=== PATIENT | male | born 1950 | race Caucasian/White ===

== ENCOUNTER → 2017-08-21 12:02 | Outpatient (CLI) | payer MEDICARE, SELFPAY ==
[2017-08-21 16:22] LABS: Absolute Neutrophil Count 2.7 X10^3/uL (2.0-7.7); Basophil# 0.04 X10^3/uL; Basophil% 0.7 % (0-1); Eosinophils% 1.9 % (0-5); Hematocrit 39.1 % (40-54); Hemoglobin 12.4 g/dl (13.0-16.5); Lymphocyte % 26.1 % (19-41); Mean Corp Hgb Conc 31.7 g/gl (32-36); Mean Corpuscular Hgb 25.9 pg (27.0-32.0); Mean Corpuscular Volume 81.8 fL (80-94); Mean Platelet Vol. 10.9 fl (6.2-12.0); Monocyte# 1.07 X10^3/uL; Neutrophil # 2.74 X10^3/uL (2.7-7.7); Neutrophil % 51.1 % (47-70); Platelet Count 198 K/mm3 (150-450); RBC Distribution Width CV 19.2 % (11.6-14.6); Red Blood Count 4.78 M/mm3 (4.6-6.2); White Blood Count 5.4 K/mm3 (4.4-11.0)
[2017-08-21 16:28] LABS: AST(SGOT) 29 U/L (15-37); Alanine Aminotransfer ALT/SGPT 35 U/L (16-61); Albumin, Serum 3.5 g/dL (3.2-5.0); Alkaline Phosphatase 95 U/L (45-117); Anion Gap 6 (5-15); BUN 20 mg/dL (7-18); BUN/Creat Ratio 18.2 RATIO (10-20); Calcium,Total 8.8 mg/dL (8.5-10.1); Chloride 106 mmol/L (98-107); EST Glomerular Filtration Rate 71 mL/min (>60); Est Glom Filt Rate - Afr Amer 86 mL/min (>60); Globulin 3.5 g/dL (2.2-4.2); Glucose 87 mg/dL (74-106); Potassium 4.3 mmol/L (3.5-5.1); Sodium Level 140 mmol/L (136-145); Thyroid Stim Hormone (TSH) 1.14 uIU/mL (0.358-3.74)
[2017-08-21 16:31] LABS: POSITIVE COUNT NO; POSITIVE DIFFERENTIAL NO; POSITIVE MORPHOLOGY NO
[2017-08-22 09:00] LABS: Vitamin D,25 Hydroxy 26.1 ng/mL (29.95-100.01)
== END ==
PROVIDERS: Family Provider Family Medicine Geriatric Medicine; PCP Family Medicine Geriatric Medicine; Visit Provider Family Medicine Geriatric Medicine
DX: E11.9 Type 2 diabetes mellitus without complications (principal); I10 Essential (primary) hypertension; E55.9 Vitamin D deficiency, unspecified
CPT/HCPCS: 36415; 80053; 82306; 84443; 85025

== ENCOUNTER → 2017-11-15 08:52 | Outpatient (CLI) | payer MEDICARE, SELFPAY ==
--- NOTE | 2017-11-15 08:53 | ECHOD_ITS ---
Reason For Study: Arrhythmia Procedure This was a 2D Doppler, Color Flow transthoracic echocardiogram. Exam performed in department. Left Ventricle Normal LV size. Left ventricular systolic function is normal. The estimated ejection fraction is 60 %. Normal diastology for age. No regional wall motion abnormalities noted. Right Ventricle Normal RV size. Normal systolic function. Atria The left atrium is mildly enlarged. Normal right atrium. Mitral Valve Normal mitral valve. Mild (1+) eccentric mitral valve insufficiency. Tricuspid Valve Normal tricuspid valve. Mild (1+) tricuspid valve insufficiency. Pulmonary artery systolic pressure is 28 mmHg. Aortic Valve Normal aortic valve. Trisinus/trileaflet aortic valve. Pulmonic Valve Normal pulmonic valve. Great Vessels Normal aortic root. The pulmonary artery is normal size. Normal inferior vena cava. Inferior vena cava collapse with sniff. Pericardium/Pleural No pericardial effusion. MMode/2D Measurements & Calculations LVIDd: 5.1 cm IVSd: 1.3 cm Ao root diam: 3.2 cm LVIDs: 2.9 cm LVPWd: 1.1 cm LA dimension: 4.0 cm RVDd: 3.1 cm FS: 43.8 % LAV(MOD-bp): 57.7 ml LA A4 area: 22.7 cm2 RA A4 area: 12.1 cm2 LAV(MOD-bp) Indexed: 28.4 ml/m2 LAV(MOD-sp2): 43.3 ml LAV(MOD-sp4): 73.6 ml Doppler Measurements & Calculations MV E max jatin: 60.8 cm/sec Ao V2 max: 125.2 cm/sec LV V1 max: 75.8 cm/sec MV A max jatin: 52.9 cm/sec Ao max P.3 mmHg LV V1 max P.3 mmHg MV E/A: 1.1 PA V2 max: 150.1 cm/sec TR max jatin: 253.4 cm/sec TR max P.7 mmHg Interpretation Summary Normal LV size. Left ventricular systolic function is normal. The estimated ejection fraction is 60 %. Normal diastology for age. Pulmonary artery systolic pressure is 28 mmHg. Ordering Physician: Terry Whitaker Referring Physician: Booker Thompson Chi Performed By: Carmita Saldivar RDCS
== END ==
PROVIDERS: Family Provider Family Medicine Geriatric Medicine; PCP Family Medicine Geriatric Medicine; Visit Provider Internal Medicine Cardiovascular Disease
DX: R00.2 Palpitations (principal)
CPT/HCPCS: 93306

== ENCOUNTER → 2017-12-06 17:09 | Outpatient (CLI) | payer MEDICARE, SELFPAY ==
--- NOTE | 2017-12-06 17:15 | RAD_ITS ---
STUDY: X-RAY - LEFT FOOT CLINICAL: Male, 67 years old. Left foot pain and injury TECHNIQUE: 3 view(s) of the foot. COMPARISON: None. FINDINGS: Oblique fracture through the head of the fifth metatarsal with subjacent soft tissue swelling RAD/Foot min 3 Views IMPRESSION: As above Electronically Signed: Sen Cherry DO at 17:51 EDT Tel , Service support ,
== END ==
PROVIDERS: Family Provider Family Medicine Geriatric Medicine; PCP Family Medicine Geriatric Medicine; Visit Provider Family Medicine Geriatric Medicine
DX: M79.672 Pain in left foot (principal)
CPT/HCPCS: 73630

== ENCOUNTER → 2018-01-01 07:20 | Outpatient (CLI) | payer MEDICARE, SELFPAY ==
[2018-01-02 09:40] LABS: Vitamin D,25 Hydroxy 43.1 ng/mL (29.95-100.01)
== END ==
PROVIDERS: Family Provider Family Medicine Geriatric Medicine; PCP Family Medicine Geriatric Medicine; Visit Provider Podiatrist
DX: E55.9 Vitamin D deficiency, unspecified (principal)
CPT/HCPCS: 36415; 82306

== ENCOUNTER → 2018-02-28 14:18 | Outpatient (CLI) | payer MEDICARE, SELFPAY ==
[2018-02-28 16:47] LABS: Absolute Lymphocyte Count 2.01 X10^3/ul (0.83-4.51); Absolute Neutrophil Count 8.4 X10^3/uL (2.0-7.7); Basophil# 0.01 X10^3/uL; Basophil% 0.1 % (0-1); Eosinophil# 0.01 X10^3/uL; Eosinophils% 0.1 % (0-5); Hematocrit 43.3 % (40-54); Hemoglobin 14.2 g/dl (13.0-16.5); Lymphocyte # 2.01 X10^3/ul (4.0); Lymphocyte % 17.3 % (19-41); Mean Corp Hgb Conc 32.8 g/gl (32-36); Mean Corpuscular Hgb 28.1 pg (27.0-32.0); Mean Corpuscular Volume 85.6 fL (80-94); Monocyte# 1.16 X10^3/uL; Neutrophil # 8.41 X10^3/uL (2.7-7.7); Neutrophil % 72.3 % (47-70); Platelet Count 246 K/mm3 (150-450); RBC Distribution Width CV 15.7 % (11.6-14.6); RBC Distribution Width SD 48.9 fl (35.1-43.9); Red Blood Count 5.06 M/mm3 (4.6-6.2); White Blood Count 11.6 K/mm3 (4.4-11.0)
[2018-02-28 16:59] LABS: POSITIVE COUNT NO; POSITIVE DIFFERENTIAL NO; POSITIVE MORPHOLOGY NO
[2018-02-28 17:03] LABS: Vitamin D,25 Hydroxy 38.9 ng/mL (29.95-100.01)
[2018-02-28 17:04] LABS: AST(SGOT) 15 U/L (15-37); Alanine Aminotransfer ALT/SGPT 29 U/L (16-61); Albumin, Serum 3.6 g/dL (3.2-5.0); Alkaline Phosphatase 85 U/L (45-117); Anion Gap 6 (5-15); BUN 38 mg/dL (7-18); BUN/Creat Ratio 35.8 RATIO (10-20); Calcium,Total 9.1 mg/dL (8.5-10.1); Chloride 107 mmol/L (98-107); Creatinine, Serum 1.06 mg/dL (0.70-1.30); EST Glomerular Filtration Rate 74 mL/min (>60); Est Glom Filt Rate - Afr Amer 89 mL/min (>60); Globulin 3.6 g/dL (2.2-4.2); Glucose 101 mg/dL (74-106); Potassium 4.7 mmol/L (3.5-5.1); Protein, Total 7.2 g/dL (6.4-8.2); Sodium Level 139 mmol/L (136-145); Thyroid Stim Hormone (TSH) 0.37 uIU/mL (0.358-3.74)
[2018-03-02 14:04] LABS: Hep C Antibodies <0.1 s/co ratio (0.0-0.9)
== END ==
PROVIDERS: Family Provider Family Medicine Geriatric Medicine; PCP Family Medicine Geriatric Medicine; Visit Provider Family Medicine Geriatric Medicine
DX: E11.9 Type 2 diabetes mellitus without complications (principal); I10 Essential (primary) hypertension; E55.9 Vitamin D deficiency, unspecified; E23.6 Other disorders of pituitary gland; Z12.5 Encounter for screening for malignant neoplasm of prostate; Z13.89 Encounter for screening for other disorder
CPT/HCPCS: 36415; 80053; 82306; 84403; 84443; 85025; 86803

== ENCOUNTER → 2018-09-18 15:51 | Outpatient (CLI) | payer MEDICARE, SELFPAY ==
[2017-10-12 11:02] VITALS: BMI 28.5
[2018-09-18 16:42] LABS: Absolute Lymphocyte Count 2.12 X10^3/ul (0.83-4.51); Absolute Neutrophil Count 4.2 X10^3/uL (2.0-7.7); Basophil# 0.03 X10^3/uL; Basophil% 0.4 % (0-1); Eosinophil# 0.13 X10^3/uL; Eosinophils% 1.7 % (0-5); Hematocrit 46.2 % (40-54); Hemoglobin 15.4 g/dl (13.0-16.5); Lymphocyte # 2.12 X10^3/ul (4.0); Lymphocyte % 28.3 % (19-41); Mean Corp Hgb Conc 33.3 g/gl (32-36); Mean Corpuscular Hgb 29.2 pg (27.0-32.0); Mean Corpuscular Volume 87.5 fL (80-94); Mean Platelet Vol. 10.6 fl (6.2-12.0); Monocyte# 0.98 X10^3/uL; Monocyte% 13.1 % (0-10); Neutrophil # 4.23 X10^3/uL (2.7-7.7); Neutrophil % 56.4 % (47-70); Platelet Count 226 K/mm3 (150-450); RBC Distribution Width CV 15.7 % (11.6-14.6); RBC Distribution Width SD 50.3 fl (35.1-43.9); Red Blood Count 5.28 M/mm3 (4.6-6.2); White Blood Count 7.5 K/mm3 (4.4-11.0)
[2018-09-18 16:43] LABS: POSITIVE COUNT NO; POSITIVE DIFFERENTIAL NO; POSITIVE MORPHOLOGY NO
[2018-09-18 17:09] LABS: ALB/GLOB Ratio 1.2 RATIO (0.9-2.4); AST(SGOT) 35 U/L (15-37); Alanine Aminotransfer ALT/SGPT 36 U/L (16-61); Albumin, Serum 3.7 g/dL (3.2-5.0); Alkaline Phosphatase 99 U/L (45-117); Anion Gap 6 (5-15); BUN 26 mg/dL (7-18); BUN/Creat Ratio 23.6 RATIO (10-20); Calcium,Total 8.7 mg/dL (8.5-10.1); Chloride 109 mmol/L (98-107); EST Glomerular Filtration Rate 71 mL/min (>60); Est Glom Filt Rate - Afr Amer 86 mL/min (>60); Globulin 3.2 g/dL (2.2-4.2); Glucose 96 mg/dL (74-106); Potassium 4.2 mmol/L (3.5-5.1); Protein, Total 6.9 g/dL (6.4-8.2); Sodium Level 140 mmol/L (136-145); Thyroid Stim Hormone (TSH) 1.28 uIU/mL (0.358-3.74)
== END ==
PROVIDERS: Family Provider Family Medicine Geriatric Medicine; PCP Family Medicine Geriatric Medicine; Visit Provider Family Medicine Geriatric Medicine
DX: E11.9 Type 2 diabetes mellitus without complications (principal); I10 Essential (primary) hypertension; E23.6 Other disorders of pituitary gland; E55.9 Vitamin D deficiency, unspecified
CPT/HCPCS: 36415; 80053; 82306; 84403; 84443; 85025

== ENCOUNTER → 2019-03-03 09:21 | Outpatient (CLI) | payer MEDICARE, SELFPAY ==
[2018-12-18 09:32] VITALS: BMI 27.8
[2019-03-03 12:40] LABS: Absolute Lymphocyte Count 2.14 X10^3/uL (0.83-4.51); Absolute Neutrophil Count 4.7 X10^3/uL (2.0-7.7); Basophil# 0.06 X10^3/uL; Basophil% 0.8 % (0-1); Eosinophil# 0.12 X10^3/uL; Eosinophils% 1.5 % (0-5); Hemoglobin 15.6 g/dL (13.0-16.5); Lymphocyte # 2.14 X10^3/ul (4.0); Lymphocyte % 27.3 % (19-41); Mean Corp Hgb Conc 31.8 g/dL (32-36); Mean Corpuscular Hgb 28.5 pg (27.0-32.0); Mean Corpuscular Volume 89.4 fL (80-94); Monocyte# 0.77 X10^3/uL; Monocyte% 9.8 % (0-10); NRBC Flagged by Analyzer 0 % (0-5); Neutrophil # 4.72 X10^3/uL (2.7-7.7); Neutrophil % 60.3 % (47-70); Platelet Count 193 K/mm3 (150-450); RBC Distribution Width CV 14.5 % (11.6-14.6); RBC Distribution Width SD 47.2 fl (35.1-43.9); Red Blood Count 5.48 M/mm3 (4.6-6.2); White Blood Count 7.8 K/mm3 (4.4-11.0)
[2019-03-03 13:00] LABS: ALB/GLOB Ratio 1.2 RATIO (0.9-2.4); AST(SGOT) 30 U/L (15-37); Alanine Aminotransfer ALT/SGPT 34 U/L (16-61); Albumin, Serum 3.7 g/dL (3.2-5.0); Alkaline Phosphatase 91 U/L (45-117); Anion Gap 8 (5-15); BUN 19 mg/dL (7-18); BUN/Creat Ratio 17.3 RATIO (10-20); Calcium,Total 9.1 mg/dL (8.5-10.1); Chloride 103 mmol/L (98-107); EST Glomerular Filtration Rate 71 mL/min (>60); Est Glom Filt Rate - Afr Amer 85 mL/min (>60); Globulin 3.2 g/dL (2.2-4.2); Glucose 93 mg/dL (74-106); PSA,Total - Annual Screen 0.92 ng/mL (0.00-4.00); Protein, Total 6.9 g/dL (6.4-8.2); Sodium Level 140 mmol/L (136-145); Thyroid Stim Hormone (TSH) 1.85 uIU/mL (0.358-3.74)
== END ==
PROVIDERS: Family Provider Family Medicine Geriatric Medicine; PCP Family Medicine Geriatric Medicine; Visit Provider Family Medicine Geriatric Medicine
DX: E11.9 Type 2 diabetes mellitus without complications (principal); I10 Essential (primary) hypertension; E23.6 Other disorders of pituitary gland; E55.9 Vitamin D deficiency, unspecified; Z12.5 Encounter for screening for malignant neoplasm of prostate
CPT/HCPCS: 36415; 80053; 82306; 84153; 84403; 84443; 85025; G0103

== ENCOUNTER → 2019-09-04 11:26 | Outpatient (CLI) | payer MEDICARE, SELFPAY ==
[2018-12-18 09:32] VITALS: BMI 27.8
[2019-09-04 12:37] LABS: Vitamin D,25 Hydroxy 21.2 ng/mL
[2019-09-04 12:41] LABS: Absolute Lymphocyte Count 2.38 X10^3/uL (0.83-4.51); Absolute Neutrophil Count 6.8 X10^3/uL (2.0-7.7); Basophil# 0.03 X10^3/uL; Basophil% 0.3 % (0-1); Eosinophil# 0.08 X10^3/uL; Eosinophils% 0.8 % (0-5); Hematocrit 49.4 % (40-54); Hemoglobin 15.9 g/dL (13.0-16.5); Lymphocyte # 2.38 X10^3/ul (4.0); Lymphocyte % 22.4 % (19-41); Mean Corp Hgb Conc 32.2 g/dL (32-36); Mean Corpuscular Hgb 28.5 pg (27.0-32.0); Mean Corpuscular Volume 88.7 fL (80-94); Mean Platelet Vol. 10.4 fl (6.2-12.0); Monocyte# 1.25 X10^3/uL; Monocyte% 11.8 % (0-10); NRBC Flagged by Analyzer 0 % (0-5); Neutrophil # 6.84 X10^3/uL (2.7-7.7); Neutrophil % 64.4 % (47-70); Platelet Count 192 K/mm3 (150-450); RBC Distribution Width CV 16.8 % (11.6-14.6); RBC Distribution Width SD 52.3 fl (35.1-43.9); Red Blood Count 5.57 M/mm3 (4.6-6.2); White Blood Count 10.6 K/mm3 (4.4-11.0)
[2019-09-04 12:45] LABS: AST(SGOT) 33 U/L (15-37); Alanine Aminotransfer ALT/SGPT 52 U/L (16-61); Albumin, Serum 3.4 g/dL (3.2-5.0); Alkaline Phosphatase 63 U/L (45-117); Anion Gap 3 (5-15); BUN 22 mg/dL (7-18); BUN/Creat Ratio 19.1 RATIO (10-20); Calcium,Total 9.1 mg/dL (8.5-10.1); Chloride 103 mmol/L (98-107); Creatinine, Serum 1.15 mg/dL (0.70-1.30); EST Glomerular Filtration Rate 67 mL/min (>60); Est Glom Filt Rate - Afr Amer 81 mL/min (>60); Globulin 3.5 g/dL (2.2-4.2); Glucose 67 mg/dL (74-106); Potassium 4.5 mmol/L (3.5-5.1); Protein, Total 6.9 g/dL (6.4-8.2); Sodium Level 137 mmol/L (136-145); Thyroid Stim Hormone (TSH) 1.36 uIU/mL (0.358-3.74)
== END ==
PROVIDERS: PCP Family Medicine Geriatric Medicine; Visit Provider Family Medicine Geriatric Medicine
DX: E11.9 Type 2 diabetes mellitus without complications (principal); E55.9 Vitamin D deficiency, unspecified; F52.8 Other sexual dysfunction not due to a substance or known physiological condition; I10 Essential (primary) hypertension
CPT/HCPCS: 36415; 80053; 82306; 84403; 84443; 85025

== ENCOUNTER → 2019-12-26 12:43 | Outpatient (CLI) | payer MEDICARE, SELFPAY ==
[2019-12-23 09:18] VITALS: BMI 27.1
[2020-01-02 03:07] LABS: Lyme IgG P18 Ab Absent (.); Lyme IgG P23 Ab Absent (.); Lyme IgG P28 Ab Absent (.); Lyme IgG P30 Ab Absent (.); Lyme IgG P39 Ab Absent (.); Lyme IgG P41 Ab Absent (.); Lyme IgG P45 Ab Absent (.); Lyme IgG P58 Ab Absent (.); Lyme IgG P66 Ab Absent (.); Lyme IgG P93 Ab Absent (.); Lyme IgM P23 Ab Absent (.); Lyme IgM P39 Ab Absent (.); Lyme IgM P41 Ab Absent (.)
[2020-01-02 04:26] LABS: Lyme IgG WB Interpretation Negative (.); Lyme IgM WB Interpretation Negative (.)
== END ==
PROVIDERS: PCP Family Medicine Geriatric Medicine; Visit Provider Family Medicine Geriatric Medicine
DX: A69.20 Lyme disease, unspecified (principal)
CPT/HCPCS: 36415; 86617

== ENCOUNTER → 2020-01-09 07:57 | Outpatient (CLI) | payer MEDICARE, SELFPAY ==
[2019-12-23 09:18] VITALS: BMI 27.1
--- NOTE | 2020-01-09 07:58 | ECHOD_ITS ---
Reason For Study: ATRIAL FIB-FLUTTER Procedure This was a 2D Doppler, Color Flow transthoracic echocardiogram. Exam performed in department. Left Ventricle Normal LV size. The estimated ejection fraction is 55 %. No regional wall motion abnormalities noted. Right Ventricle Normal RV size. Normal systolic function. Atria The left atrium is moderately enlarged. The right atrium is moderately enlarged. Probable patent foramen ovale. Mitral Valve Bileaflet diffuse mitral valve thickening. Mild (1+) eccentric mitral valve insufficiency. Tricuspid Valve Normal tricuspid valve. Mild (1+) tricuspid valve insufficiency. Pulmonary artery systolic pressure is 35 mmHg. Aortic Valve Trisinus/trileaflet aortic valve. Pulmonic Valve Normal pulmonic valve. Mild (1+) pulmonic valve insufficiency. Great Vessels Normal aortic root. The pulmonary artery is normal size. Normal inferior vena cava. Pericardium/Pleural No pericardial effusion. Medication 22 gauge I.V. with prn adaptor inserted into right arm. Performed a rapid injection of agitated mix of 9 cc saline and 1cc air to assess for atrial septal defect. MMode/2D Measurements & Calculations LVIDd: 5.5 cm IVSd: 1.3 cm Ao root diam: 3.4 cm LVIDs: 3.9 cm LVPWd: 1.0 cm RVDd: 4.3 cm FS: 29.1 % LAV(MOD-bp): 112.4 ml LVAd ap4: 35.0 cm2 SV(MOD-sp4): 67.9 ml LAV(MOD-bp) Indexed: 56.9 ml/m2 EDV(MOD-sp4): 132.1 ml LAV(MOD-sp2): 115.7 ml EDV(sp4-el): 134.6 ml LAV(MOD-sp4): 103.9 ml LVAs ap4: 23.6 cm2 ESV(MOD-sp4): 64.2 ml ESV(sp4-el): 63.0 ml EF(MOD-sp4): 51.4 % EF(sp4-el): 53.2 % SV(sp4-el): 71.6 ml LA A4 area: 29.4 cm2 LA dimension(2D): 5.5 cm RA A4 area: 30.3 cm2 Doppler Measurements & Calculations Ao V2 max: 139.8 cm/sec LV V1 max: 83.6 cm/sec PA V2 max: 134.3 cm/sec Ao max P.8 mmHg LV V1 max P.8 mmHg TR max jatin: 281.3 cm/sec TR max P.8 mmHg Interpretation Summary Normal LV size. The estimated ejection fraction is 55 %. No regional wall motion abnormalities noted. Probable patent foramen ovale. Mild (1+) eccentric mitral valve insufficiency. Mild (1+) tricuspid valve insufficiency. Pulmonary artery systolic pressure is 35 mmHg. Ordering Physician: Terry Whitaker Referring Physician: VINICIUS WHYTE Performed By: Malini Sinclair RDCS
== END ==
PROVIDERS: PCP Family Medicine Geriatric Medicine; Referring Provider Internal Medicine Cardiovascular Disease; Visit Provider Internal Medicine Cardiovascular Disease
DX: I49.3 Ventricular premature depolarization (principal); I48.92 Unspecified atrial flutter; I48.91 Unspecified atrial fibrillation
CPT/HCPCS: 93306; A4216

== ENCOUNTER → 2020-01-16 08:17 | Outpatient (CLI) | payer MEDICARE, SELFPAY ==
[2019-12-23 09:18] VITALS: BMI 27.1
== END ==
PROVIDERS: PCP Family Medicine Geriatric Medicine; Referring Provider Internal Medicine Cardiovascular Disease; Visit Provider Internal Medicine Cardiovascular Disease
DX: R69 Illness, unspecified (principal)

== ENCOUNTER 2020-01-26 10:54 | Day surgery (SDC) | payer MEDICARE, SELFPAY ==
[2019-12-23 09:18] VITALS: BMI 27.1
--- NOTE | 2020-01-16 08:27 | RAD_ITS ---
STUDY: X-RAY CHEST REASON FOR EXAM: Male, 69 years old. pre heart cath -- afib TECHNIQUE: PA and lateral views of the chest. COMPARISON: 05/23/2012 FINDINGS: Diffuse reticulonodular interstitial opacities of lungs consistent with acute or chronic interstitial lung disease possibly atypical pneumonia. There is no demonstrated pleural abnormality. Normal size heart. Normal mediastinum and alma rosa. Normal visualized pulmonary arteries. Normal visualized aortic arch and descending thoracic aorta. Normal visualized thoracic spine. Normal visualized ribs, clavicles, and shoulders. There is no demonstrated abnormality of the visualized soft tissue structures of the upper abdomen. RAD/Chest PA and Lateral IMPRESSION: Acute or chronic interstitial lung disease possibly atypical pneumonia. Electronically Signed: Mejia Mora MD at 7:38 EDT Tel , Service support ,
[2020-01-16 10:07] LABS: Anion Gap 4 (5-15); BUN 20 mg/dL (7-18); BUN/Creat Ratio 18.2 RATIO (10-20); Calcium,Total 8.7 mg/dL (8.5-10.1); Chloride 108 mmol/L (98-107); EST Glomerular Filtration Rate 70 mL/min (>60); Est Glom Filt Rate - Afr Amer 85 mL/min (>60); Glucose 116 mg/dL (74-106); Potassium 4.2 mmol/L (3.5-5.1); Sodium Level 141 mmol/L (136-145)
[2020-01-23 13:01] VITALS: BMI 27.1
--- NOTE | 2020-01-26 12:53 | CARDIOVERS ---
Cardioversion Cardioversion: Procedure: DC Cardioversion Indication: [Atrial fibrillation] Procedure Note: The patient was brought to the cardiac catheterization lab in the postabsorptive nonsedated state. The patient was seen by [Louis of the critical care division] . Patient was noted to have normal left ventricular systolic function and has been on therapeutic anticoagulation. Anterior posterior pads were applied. [200 J] of synchronized DC cardioversion energy were applied after the patient was administered [4mg] of [intravenous propofol]. The patient reverted to [sinus rhythm. Postprocedure EKG confirmed the above Plan: Continue other current medication Continue anticoagulation Will consider 24-hour Holter monitor in 2 to 4 weeks.
--- NOTE | 2020-01-26 13:22 | PRO.PCM_ITS ---
Problem List (1) Essential hypertension Status: Chronic (2) HLD (hyperlipidemia) Status: Chronic Qualifiers: (3) PVCs (premature ventricular contractions) Status: Chronic (4) Paroxysmal ventricular tachycardia Status: Chronic Procedure Report Date of Procedure: 01/26/20 - Conscious sedation CONSCIOUS SEDATION REPORT BRIEF HISTORY OF PRESENT ILLNESS: The patient is a 69-year-old male who presented to [facility] for an elective outpatient cardioversion due to underlying atrial fibrillation. The patient reports no PO intake since midnight. The patient does have a history of obstructive sleep apnea and is compliant with CPAP therapy. The patient reports a history of smoking, but denies COPD. The patient denies any recent constitutional symptoms such as fevers, chills, nausea or vomiting. The patient denies previous anesthetic complications. Patient did take baseline Xarelto on the day of the procedure. Patient's last known ejection fraction was 55%. PHYSICAL EXAMINATION: VITAL SIGNS: Reviewed and were acceptable. GENERAL: The patient is a male, in no apparent distress, speaking in full sentences. HEENT: Normocephalic, atraumatic. Mucous membranes are moist and pink. Good mouth opening noted. Trachea is midline. Good neck mobility. MP II CHEST: S1, S2 irregularly irregular. No murmurs, rubs or gallops were noted. LUNGS: Clear to auscultation bilaterally without appreciable wheezes, rales or rhonchi. ABDOMEN: Soft, nontender, nondistended. Positive bowel sounds. EXTREMITIES: There is no clubbing, cyanosis or edema. ASA Class: II DESCRIPTION OF PROCEDURE: After confirmation of informed consent, the patient's anesthesia plan was reviewed in detail. Propofol was chosen. Risks and benefits were reviewed and the patient agreed to proceed. At 12:34 PM, the patient was given 40 mg of propofol. The patient achieved an appropriate level of sedation and received 1 attempt synchronized cardioversion, at [address] Franklin at the bedside. This was successful in achieving normal sinus rhythm. The patient was monitored until 12:47 PM, at which time the patient reached their baseline mental status and function. The patient tolerated the procedure well. COMPLICATIONS: None ESTIMATED BLOOD LOSS: None RECOMMENDATIONS: Okay to recover in usual fashion. [id number]: Other Procedure See Report - [id number] -13 minutes conscious sedation
== END 2020-01-26 13:45 | disposition home or self-care (01) ==
LOC: CLSP 10:54
PROVIDERS: PCP Family Medicine Geriatric Medicine; Referring Provider Internal Medicine Cardiovascular Disease; Visit Provider Internal Medicine Cardiovascular Disease
DX: I48.91 Unspecified atrial fibrillation (principal); I10 Essential (primary) hypertension; E78.00 Pure hypercholesterolemia, unspecified; I49.3 Ventricular premature depolarization; I47.2 Ventricular tachycardia; I42.8 Other cardiomyopathies; E11.51 Type 2 diabetes mellitus with diabetic peripheral angiopathy without gangrene; G47.33 Obstructive sleep apnea (adult) (pediatric); M06.9 Rheumatoid arthritis, unspecified; Z79.01 Long term (current) use of anticoagulants; Z87.891 Personal history of nicotine dependence
CPT/HCPCS: 36415; 71046; 80048; 92960; 93005; J7040

== ENCOUNTER → 2020-02-05 11:18 | Outpatient (CLI) | payer MEDICARE, SELFPAY ==
[2020-02-05 11:09] VITALS: BMI 27.1
[2020-02-05 13:05] LABS: BNP,B-Type NATRIURETIC PEPTIDE 188.4 pg/mL (0-100)
== END ==
PROVIDERS: PCP Family Medicine Geriatric Medicine; Referring Provider Nurse Practitioner Family; Visit Provider Nurse Practitioner Family
DX: R06.01 Orthopnea (principal)
CPT/HCPCS: 36415; 83880

== ENCOUNTER → 2020-02-16 12:56 | Outpatient (CLI) | payer MEDICARE, SELFPAY ==
[2020-02-05 11:09] VITALS: BMI 27.1
== END ==
PROVIDERS: PCP Family Medicine Geriatric Medicine; Referring Provider Nurse Practitioner Family; Visit Provider Nurse Practitioner Family
DX: I49.3 Ventricular premature depolarization (principal)
CPT/HCPCS: 93225; 93226

== ENCOUNTER → 2020-02-24 07:16 | Outpatient (CLI) | payer MEDICARE, SELFPAY ==
[2020-02-19 05:51] VITALS: BMI 27.4
--- NOTE | 2020-02-24 07:17 | CT_ITS ---
STUDY: CT CHEST WITHOUT CONTRAST REASON FOR EXAM: Male, 70 years old. ? INTERSTITIAL LUNG DISEASE. EXPOSURE TO AGENT ORANGE. HI RES SERIES INCLUDED RADIATION DOSAGE (If Supplied By Facility): CTDIvol = ( 15.92 ) mGy, DLP = ( 521.02 ) mGycm TECHNIQUE: Transaxial imaging was performed without the administration of intravenous contrast material. Individualized dose optimization techniques were used for this CT. COMPARISON: None. FINDINGS: Mild degree of emphysematous change. There is evidence of increased interstitial markings in the subpleural space in the right upper lobe as well as in the lower lungs more prominent on the right side. Mild increase interstitial markings in the right middle lobe and lingular segment of the left upper lobe. Findings are in keeping with the interstitial fibrosis. There is no demonstrated pleural abnormality. There are calcifications of the coronary arteries. There are multiple small lymph nodes within the mediastinum, which are normal in size and morphology most compatible with reactive lymph hyperplasia. Normal hilar regions. Normal unenhanced pulmonary arteries. There is atherosclerotic calcification of the aortic arch . There are multi-level degenerative changes of the thoracic spine. There is no demonstrated abnormality of the visualized upper abdomen. CT/Chest without Contrast IMPRESSION: Increased interstitial markings in the subpleural region of the right upper lobe as well as in the lower lobes more prominent on the right side. Mild degree of increased markings in the right middle lobe and lingular segments of the left upper lobe in keeping with the interstitial fibrosis. Electronically Signed: Deion Barr, at 8:53 EDT , Service support ,
== END ==
PROVIDERS: PCP Family Medicine Geriatric Medicine; Referring Provider Internal Medicine Critical Care Medicine; Visit Provider Internal Medicine Critical Care Medicine
DX: R93.89 Abnormal findings on diagnostic imaging of other specified body structures (principal)
CPT/HCPCS: 71250

== ENCOUNTER → 2020-02-26 20:00 | Outpatient (CLI) | payer MEDICARE, SELFPAY ==
[2020-02-19 05:51] VITALS: BMI 27.4
== END ==
PROVIDERS: PCP Family Medicine Geriatric Medicine; Referring Provider Internal Medicine Critical Care Medicine; Visit Provider Internal Medicine Critical Care Medicine
DX: G47.33 Obstructive sleep apnea (adult) (pediatric) (principal)
CPT/HCPCS: 95811

== ENCOUNTER → 2020-03-29 | Outpatient (CLI) | payer MEDICARE, SELFPAY ==
[2020-03-29 08:19] VITALS: BMI 27.3
== END | disposition home or self-care (01) ==
PROVIDERS: PCP Internal Medicine; Referring Provider Internal Medicine; Visit Provider Internal Medicine
DX: U07.1 COVID-19 (principal)
CPT/HCPCS: 87635; C9803; U0003

== ENCOUNTER → 2020-10-13 07:51 | Outpatient (CLI) | payer MEDICARE, SELFPAY ==
[2020-06-24 08:44] VITALS: BMI 27.3
[2020-10-05 10:33] VITALS: BMI 27.3
--- NOTE | 2020-10-13 07:52 | CT_ITS ---
STUDY: CT CHEST WITHOUT CONTRAST REASON FOR EXAM: Male, 70 years old. Worsening shortness of breath RADIATION DOSAGE (If Supplied By Facility): CTDIvol = ( 18.38 ) mGy, DLP = ( 587.84 ) mGycm TECHNIQUE: Transaxial imaging was performed without the administration of intravenous contrast material. Individualized dose optimization techniques were used for this CT. COMPARISON: 02/24/2020 FINDINGS: Stable emphysematous changes. There is persistent evidence of increased interstitial markings in the subpleural space in the right upper lobe as well as in the lower lungs more prominent on the right side. Mild increase interstitial markings in the right middle lobe and lingular segment of the left upper lobe. Findings are in keeping with the interstitial fibrosis. There is no demonstrated pleural abnormality. There are calcifications of the coronary arteries. There are multiple small lymph nodes within the mediastinum, which are normal in size and morphology most compatible with reactive lymph hyperplasia. Normal hilar regions. Normal unenhanced pulmonary arteries. There is atherosclerotic calcification of the aortic arch . There are multi-level degenerative changes of the thoracic spine. There is no demonstrated abnormality of the visualized upper abdomen. CT/Chest without Contrast IMPRESSION: Underlying emphysema with stable fibrotic changes in both lung lee. No acute pulmonary process or significant interval change since the previous study. Electronically Signed: Luiz Strong MD at 8:11 EDT , Service support ,
== END ==
PROVIDERS: PCP Internal Medicine; Referring Provider Internal Medicine Critical Care Medicine; Visit Provider Internal Medicine Critical Care Medicine
DX: J84.10 Pulmonary fibrosis, unspecified (principal)
CPT/HCPCS: 71250

== ENCOUNTER → 2020-10-18 15:28 | Outpatient (CLI) | payer MEDICARE, SELFPAY ==
[2020-10-18 15:04] VITALS: BMI 27.3
--- NOTE | 2020-10-18 15:52 | RAD_ITS ---
STUDY: X-RAY - LEFT ANKLE REASON FOR EXAM: Left ankle pain. TECHNIQUE: 2 view(s) of the ankle. COMPARISON: None. FINDINGS: Normal visualized distal tibia and fibula. Normal medial and lateral malleoli. There is a tibiotalar joint effusion. There is a small posterior calcaneal enthesophyte. Otherwise, unremarkable visualized talus and calcaneus. The visualized subtalar, talonavicular, calcaneocuboid and tarsal articulations are normal. There is a cyst in the dorsal aspect of the navicular. There is mild soft tissue swelling overlying the lateral malleolus. RAD/Ankle 2 Views IMPRESSION: Tibiotalar joint effusion. Cyst in the dorsal aspect of the navicular. Small posterior calcaneal enthesophyte. Mild soft tissue swelling. Electronically Signed: Syed Schneider MD at 10:15 EDT Tel , Service support ,
--- NOTE | 2020-10-18 15:52 | RAD_ITS ---
STUDY: X-RAY - LEFT FOOT CLINICAL: Left foot/ankle pain. TECHNIQUE: 2 view(s) of the foot. COMPARISON: Radiographs 12/06/2017. FINDINGS: There is a small posterior calcaneal enthesophyte. There is a cyst in the dorsal aspect of the navicular. Otherwise, unremarkable talus, calcaneus, and tarsal bones. Normal visualized subtalar, talonavicular, calcaneocuboid, tarsal and tarsometatarsal articulations. There is chronic healed fracture deformity of the distal fifth metatarsal diaphysis. There are postsurgical changes from bunionectomy of the first metatarsal. Normal metatarsophalangeal joint of the great toe. Normal tibial and fibular sesamoid bones. Normal interphalangeal joint of the great toe. Normal phalanges of the great toe. Normal second through fifth metatarsophalangeal joints. Normal interphalangeal joints and phalanges of the lesser toes. The soft tissue structures are unremarkable. RAD/Foot 2 Views IMPRESSION: Chronic healed fracture deformity of the fifth metatarsal. Postsurgical changes of the first metatarsal. Cyst in the dorsal aspect of navicular. Small posterior calcaneal enthesophyte. Electronically Signed: Syed Schneider MD at 10:15 EDT Tel , Service support ,
[2020-10-18 17:03] LABS: AST(SGOT) 35 U/L (15-37); Alanine Aminotransfer ALT/SGPT 34 U/L (16-61); Albumin, Serum 3.6 g/dL (3.2-5.0); Alkaline Phosphatase 73 U/L (45-117); Anion Gap 5 (5-15); BUN 23 mg/dL (7-18); BUN/Creat Ratio 17.7 RATIO (10-20); Calcium,Total 9.2 mg/dL (8.5-10.1); Chloride 105 mmol/L (98-107); EST Glomerular Filtration Rate 58 mL/min (>60); Est Glom Filt Rate - Afr Amer 70 mL/min (>60); Globulin 3.7 g/dL (2.2-4.2); Glucose 89 mg/dL (74-106); Potassium 4.2 mmol/L (3.5-5.1); Protein, Total 7.3 g/dL (6.4-8.2); Sodium Level 138 mmol/L (136-145); Uric Acid 5.9 mg/dL (3.5-7.2)
[2020-10-18 17:09] LABS: Absolute Lymphocyte Count 2.18 X10^3/uL (0.83-4.51); Absolute Neutrophil Count 6.8 X10^3/uL (2.0-7.7); Basophil# 0.07 X10^3/uL; Basophil% 0.7 % (0-1); Eosinophil# 0.13 X10^3/uL; Eosinophils% 1.2 % (0-5); Hematocrit 50.3 % (40-54); Lymphocyte # 2.18 X10^3/ul (0.83-4.51); Lymphocyte % 20.9 % (19-41); Mean Corp Hgb Conc 31.8 g/dL (32-36); Mean Corpuscular Hgb 29.6 pg (27.0-32.0); Mean Platelet Vol. 10.8 fl (6.2-12.0); Monocyte% 11.5 % (0-10); NRBC Flagged by Analyzer 0 % (0-5); Neutrophil # 6.81 X10^3/uL (2.7-7.7); Neutrophil % 65.3 % (47-70); Platelet Count 215 K/mm3 (150-450); RBC Distribution Width SD 47.4 fl (35.1-43.9); Red Blood Count 5.41 M/mm3 (4.6-6.2); White Blood Count 10.4 K/mm3 (4.4-11.0)
[2020-10-18 18:15] LABS: Erythrocyte Sedimentation Rate 19 mm/hr (0-20)
== END ==
PROVIDERS: PCP Internal Medicine; Referring Provider Internal Medicine; Visit Provider Internal Medicine
DX: M25.572 Pain in left ankle and joints of left foot (principal); M79.672 Pain in left foot
CPT/HCPCS: 36415; 73600; 73620; 80053; 84550; 85025; 85652

== ENCOUNTER → 2020-10-19 13:24 | Outpatient (CLI) | payer MEDICARE, SELFPAY ==
[2020-10-18 15:04] VITALS: BMI 27.3
== END ==
PROVIDERS: PCP Internal Medicine; Referring Provider Internal Medicine; Visit Provider Internal Medicine
DX: M25.572 Pain in left ankle and joints of left foot (principal)
CPT/HCPCS: 36415; 85379

== ENCOUNTER → 2020-10-20 14:14 | Outpatient (CLI) | payer MEDICARE, SELFPAY ==
[2020-10-18 15:04] VITALS: BMI 27.3
--- NOTE | 2020-10-20 14:19 | VDLE_ITS ---
Reason For Study: Elevated D-Dimer Procedure LEFT This is a venous duplex using B-mode, color GSV is normal. flow and spectral Doppler. CFV is compressible, spontaneous, phasic, Exam performed in department. competent, and demonstrates normal A preliminary report was called and/or faxed augmentation. to Dr. Lynn. FV is compressible, spontaneous, phasic, competent and demonstrates normal augmentation. POP V is compressible, spontaneous, phasic, competent and demonstrates normal augmentation. T/P Trunk is compressible. PTV is compressible. LT PerV is compressible. VL/Venous Duplex US, Unilateral Interpretation Summary There is no evidence of left lower extremity deep vein thrombosis. Left great s aphenous vein appears patent and compressible segmentally. Ordering Physician: Breanna Lynn Referring Physician: Breanna Lynn Performed By: Lina Aggarwal, SHINE, RVT
== END ==
PROVIDERS: PCP Internal Medicine; Referring Provider Internal Medicine; Visit Provider Internal Medicine
DX: M25.572 Pain in left ankle and joints of left foot (principal); R79.89 Other specified abnormal findings of blood chemistry; M79.605 Pain in left leg
CPT/HCPCS: 93971

== ENCOUNTER → 2020-10-26 07:21 | Outpatient (CLI) | payer MEDICARE, SELFPAY ==
[2020-10-18 15:04] VITALS: BMI 27.3
[2020-10-26 10:12] LABS: PSA,Total - Annual Screen 0.63 ng/mL (0.00-4.00)
[2020-10-31 03:06] LABS: Testosterone, Free 19.79 ng/dL (5.00-21.00)
[2020-10-31 07:46] LABS: Testosterone, % Free 4.91 % (1.50-4.20); Testosterone, Total 403 ng/dL (264-916)
== END ==
PROVIDERS: PCP Internal Medicine; Referring Provider Internal Medicine; Visit Provider Internal Medicine
DX: Z12.5 Encounter for screening for malignant neoplasm of prostate (principal); E29.1 Testicular hypofunction
CPT/HCPCS: 36415; 84153; 84402; 84403; G0103

== ENCOUNTER → 2020-11-02 12:48 | Outpatient (CLI) | payer MEDICARE, SELFPAY ==
[2020-10-18 07:47] VITALS: BMI 27.3
[2020-10-18 15:04] VITALS: BMI 27.3
== END ==
PROVIDERS: PCP Internal Medicine; Referring Provider Nurse Practitioner Acute Care; Visit Provider Nurse Practitioner Acute Care
DX: G47.33 Obstructive sleep apnea (adult) (pediatric) (principal)
CPT/HCPCS: 98960; G0463

== ENCOUNTER → 2021-02-11 20:01 | Outpatient (CLI) | payer MEDICARE, SELFPAY | PROVIDERS: PCP Internal Medicine; Visit Provider Internal Medicine Critical Care Medicine | DX: G47.33 Obstructive sleep apnea (adult) (pediatric) (principal) | CPT/HCPCS: 95811 ==

== ENCOUNTER → 2021-03-10 09:00 | Outpatient (CLI) | payer MEDICARE, SELFPAY | PROVIDERS: PCP Internal Medicine; Visit Provider Nurse Practitioner Acute Care | DX: G47.33 Obstructive sleep apnea (adult) (pediatric) (principal) ==

== ENCOUNTER → 2021-04-06 10:30 | Outpatient (CLI) | payer MEDICARE, SELFPAY ==
[2021-04-06 12:54] LABS: Bilirubin, Direct 0.38 mg/dL (0.00-0.30)
[2021-04-12 12:08] LABS: Testosterone, Free 35.95 ng/dL (5.00-21.00)
[2021-04-12 16:42] LABS: Testosterone, % Free 4.22 % (1.50-4.20); Testosterone, Total 852 ng/dL (264-916)
== END ==
PROVIDERS: Physician Assistant; PCP Internal Medicine; Referring Provider Internal Medicine; Visit Provider Internal Medicine
DX: R17 Unspecified jaundice (principal); N52.9 Male erectile dysfunction, unspecified; E34.9 Endocrine disorder, unspecified
CPT/HCPCS: 36415; 82247; 82248; 84402; 84403

== ENCOUNTER → 2021-04-13 08:25 | Outpatient (CLI) | payer MEDICARE, SELFPAY ==
--- NOTE | 2021-04-13 08:26 | US_ITS ---
STUDY: ABDOMINAL ULTRASOUND - RIGHT UPPER QUADRANT REASON FOR VISIT: Male, 71 years old. Elevated bilirubin. TECHNIQUE: Ultrasound evaluation of the right upper quadrant was performed with real-time and static santo-scale imaging. TECHNICAL QUALITY: Examination limited by bowel gas. COMPARISON: CT of the abdomen and pelvis, 10/25/2011. CT of the chest, 10/13/2020. FINDINGS: Liver: The liver measures 16.6 cm. There is normal echogenicity of the liver. The bile ducts are within normal limits. There is hepatic color flow. The direction of portal flow is hepatopetal. There is no demonstrated mass lesion. Gallbladder: Normal distended gallbladder. The gallbladder wall measures 2.2 mm. There is a negative sonographic Lara''s sign. There is no pericholecystic fluid. There is biliary sludge dependent within the gallbladder. Common Bile Duct (C.B.D.): The common bile duct measures 2.2 mm. Pancreas: The gallbladder is incompletely visualized due to bowel gas. There is increased echogenicity of the visualized pancreas. There is no demonstrated pancreatic mass or cyst. Right Kidney: Normal size of the right kidney. The right kidney measures 11.1 cm. Normal renal cortex. The right cortex measures 1.3 cm. 1.3 x 1.1 1.0 cm simple cyst in the upper cortex. There is no right hydronephrosis. US/Abdomen Limited IMPRESSION: 1. Limited visualization of the pancreas due to bowel gas. 2. Otherwise normal right upper quadrant abdominal ultrasound. Electronically Signed: Henrique Patterson DO at 16:05 EST Tel [phone], Service support ,
[2021-04-13 15:22] LABS: Probe Check PASS; Specimen Processing Control PASS
== END ==
LOC: US 09:42 → PSN 09:43
PROVIDERS: PCP Internal Medicine; Referring Provider Physician Assistant; Visit Provider Physician Assistant
DX: Z20.822 Contact with and (suspected) exposure to COVID-19 (principal); R17 Unspecified jaundice
CPT/HCPCS: 76705; 87635; C9803; U0005; U0003

== ENCOUNTER → 2021-05-09 10:16 | Outpatient (CLI) | payer MEDICARE, SELFPAY ==
[2021-05-09 12:36] LABS: Absolute Lymphocyte Count 1.87 X10^3/uL (0.83-4.51); Absolute Neutrophil Count 5.8 X10^3/uL (2.0-7.7); Basophil# 0.06 X10^3/uL; Basophil% 0.7 % (0-1); Eosinophil# 0.15 X10^3/uL; Eosinophils% 1.8 % (0-5); Hematocrit 38.8 % (40-54); Hemoglobin 12.6 g/dL (13.0-16.5); Lymphocyte # 1.87 X10^3/ul (0.83-4.51); Lymphocyte % 21.9 % (19-41); Mean Corp Hgb Conc 32.5 g/dL (32-36); Mean Corpuscular Hgb 30.9 pg (27.0-32.0); Mean Corpuscular Volume 95.1 fL (80-94); Monocyte# 0.68 X10^3/uL; NRBC Flagged by Analyzer 0 % (0-5); Neutrophil # 5.76 X10^3/uL (2.7-7.7); Neutrophil % 67.2 % (47-70); Platelet Count 296 K/mm3 (150-450); RBC Distribution Width CV 13.6 % (11.6-14.6); RBC Distribution Width SD 47.6 fl (35.1-43.9); Red Blood Count 4.08 M/mm3 (4.6-6.2); White Blood Count 8.6 K/mm3 (4.4-11.0)
[2021-05-09 12:49] LABS: LDH 207 U/L (87-241)
[2021-05-10 15:30] LABS: Haptoglobin 227 mg/dL (34-355)
== END ==
PROVIDERS: PCP Internal Medicine; Visit Provider Internal Medicine
DX: R17 Unspecified jaundice (principal)
CPT/HCPCS: 36415; 83010; 83615; 85025

== ENCOUNTER → 2021-09-19 | Outpatient (CLI) | payer MEDICARE, SELFPAY ==
[2021-09-19 12:26] LABS: Absolute Neutrophil Count 4.5 X10^3/uL (2.0-7.7); Basophil# 0.04 X10^3/uL; Basophil% 0.5 % (0-1); Eosinophil# 0.07 X10^3/uL; Eosinophils% 0.9 % (0-5); Hematocrit 49.4 % (40-54); Hemoglobin 15.9 g/dL (13.0-16.5); Mean Corp Hgb Conc 32.2 g/dL (32-36); Mean Corpuscular Hgb 30.1 pg (27.0-32.0); Mean Corpuscular Volume 93.4 fL (80-94); Mean Platelet Vol. 10.8 fl (6.2-12.0); Monocyte# 0.78 X10^3/uL; Monocyte% 10.2 % (0-10); NRBC Flagged by Analyzer 0 % (0-5); Neutrophil # 4.46 X10^3/uL (2.7-7.7); Neutrophil % 58.1 % (47-70); Platelet Count 196 K/mm3 (150-450); RBC Distribution Width CV 13.8 % (11.6-14.6); RBC Distribution Width SD 46.8 fl (35.1-43.9); Red Blood Count 5.29 M/mm3 (4.6-6.2); White Blood Count 7.7 K/mm3 (4.4-11.0)
[2021-09-19 12:39] LABS: Vitamin D,25 Hydroxy 39.3 ng/mL
[2021-09-19 13:14] LABS: AST(SGOT) 23 U/L (15-37); Alanine Aminotransfer ALT/SGPT 30 U/L (16-61); Albumin, Serum 3.7 g/dL (3.2-5.0); Alkaline Phosphatase 86 U/L (45-117); Anion Gap 3 (5-15); BUN 17 mg/dL (7-18); BUN/Creat Ratio 17.5 RATIO (10-20); Calcium,Total 9.5 mg/dL (8.5-10.1); Chloride 105 mmol/L (98-107); Cholesterol 119 mg/dL (200); Creatinine, Serum 0.97 mg/dL (0.70-1.30); EST Glomerular Filtration Rate 81 mL/min (>60); Est Glom Filt Rate - Afr Amer 98 mL/min (>60); Globulin 3.6 g/dL (2.2-4.2); Glucose 102 mg/dL (74-106); High Density Lipoprotein 42 mg/dL; Potassium 4.3 mmol/L (3.5-5.1); Protein, Total 7.3 g/dL (6.4-8.2); Sodium Level 136 mmol/L (136-145); T4 Free Direct 1.07 ng/dL (0.76-1.46); Thyroid Stim Hormone (TSH) 1.08 uIU/mL (0.358-3.74); Triglycerides 86 mg/dL; Very Low Density Lipoprotein 17 mg/dL (5-40)
[2021-09-27 12:38] LABS: Testosterone, Total 1482 ng/dL (264-916)
== END | disposition home or self-care (01) ==
LOC: BIMLAB 09:43
PROVIDERS: PCP Internal Medicine; Referring Provider Internal Medicine; Visit Provider Internal Medicine
DX: E78.5 Hyperlipidemia, unspecified (principal); I10 Essential (primary) hypertension; R17 Unspecified jaundice; N52.9 Male erectile dysfunction, unspecified; R79.89 Other specified abnormal findings of blood chemistry; E34.9 Endocrine disorder, unspecified; E55.9 Vitamin D deficiency, unspecified
CPT/HCPCS: 36415; 80053; 80061; 82306; 84402; 84403; 84439; 84443; 84481; 85025

== ENCOUNTER 2022-03-24 15:45 | Emergency (ER) | payer OTHER, MEDICARE, SELFPAY ==
[2022-03-24 15:46] VITALS: BP 140/90; PULSE 75; RESP 18; TEMP 36.8; O2SAT 96; BMI 27.3
[2022-03-24 15:48] VITALS: BP 140/90; PULSE 85; RESP 18; TEMP 36.8; O2SAT 96
--- NOTE | 2022-03-24 16:16 | EDS_ITS ---
HPI History of Present Illness Chief Complaint: Lower Extremity Injury Informant: patient Onset/Context/Timing Onset: Weeks (1 week ago) Context: Gradual Onset Narrative Narrative: Patient presents with bruising and wound to the left lower leg. He states he tripped on something and landed on a ladder a week ago. He has an abrasion just distal to his left knee. He has noted bruising to the area over the past several days and yesterday noted redness on his left armijo. He is on Xarelto. He has had no difficulty with ambulating. [facility] Medical History Abnormal CXR Asthma Back problem Carpal tunnel syndrome Cataracts, bilateral Chronic atrial fibrillation Chronic bronchitis DM (diabetes mellitus), type 2 with peripheral vascular complications Elevated LFTs Erectile dysfunction Essential hypertension H/O emotional problems Headache, migraine Hearing problem history of bone fracture History of immunosuppressive therapy History of kidney stones HLD (hyperlipidemia) Interstitial lung disease Left ankle pain Multiple premature ventricular complexes MAURI (obstructive sleep apnea) Palpitations Paroxysmal atrial fibrillation Paroxysmal ventricular tachycardia Rheumatoid arthritis Testosterone deficiency Viral syndrome Home Medications cholecalciferol (vitamin D3) 25 mcg (1,000 unit) tablet 1,000 unit PO QDAY 09/21/17 [History Last Taken Unknown] fexofenadine 180 mg tablet (Kirti Allergy) 180 mg PO QDAY 09/21/17 [History Last Taken Unknown] multivitamin 1 tab PO QDAY 09/21/17 [History Last Taken Unknown] rivaroxaban 20 mg tablet 20 mg PO DAILY #10 tabs 09/20/20 [Rx Last Taken Unknown] simvastatin 40 mg tablet 40 mg PO QPM #90 tabs 11/11/20 [Rx Last Taken Unknown] amoxicillin 500 mg capsule 2,000 mg PO .COMPLEX #4 caps 01/21/21 [Rx Last Taken Unknown] sildenafil (pulm.hypertension) 20 mg tablet 20 mg PO DAILY PRN sexual activity #30 tabs 09/19/21 [Rx Last Taken Unknown] albuterol sulfate 90 mcg/actuation aerosol inhaler 2 puff inhalation Q6H PRN shortness of breath or wheezing #18 grams 10/31/21 [Rx Last Taken Unknown] pramipexole 0.25 mg tablet 0.25 mg PO QHS #90 tabs 10/31/21 [Rx Last Taken Unknown] carvedilol 25 mg tablet 25 mg PO BID 11/01/21 [History Last Taken Unknown] losartan 25 mg tablet 25 mg PO DAILY 11/01/21 [History Last Taken Unknown] testosterone cypionate 200 mg/mL intramuscular oil 200 mg subcut Q2W #10 mL 11/03/21 [Rx Last Taken Unknown] cephalexin 500 mg capsule 500 mg PO Q6 #28 caps 03/24/22 [Rx Last Taken Unknown] gabapentin 300 mg capsule 300 mg PO QHS 03/24/22 [History Last Taken Unknown] Allergy/AdvReac Type Severity Reaction Status Date / Time nalbuphine [From [place]] AdvReac delirium Verified 03/24/22 15:45 Family History Father CAD (coronary artery disease) ICD implant Mother History of heart valve replacement Surgical History History of arthroplasty of left knee History of back surgery History of bilateral hip replacements History of bunionectomy of both great toes History of cardioversion (01/26/20) History of carpal tunnel release (~1989) History of colonoscopy (~06/2009) History of ear surgery History of foot surgery History of hernia repair (~1980) History of left heart catheterization (12/2009) History of radiofrequency ablation procedure for cardiac arrhythmia (09/2010) Social History Smoking Status: Former smoker alcohol intake: current alcohol intake frequency: a few times a week Alcohol type: beer and wine substance use type: does not use what type of physical activity do you participate in: other details: 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 ROS ROS ED Constitutional Constitutional ED: Denies chills or fever(s) Eyes Eyes: Denies change in vision or discharge from eye(s) ENT ENT ED: Denies discharge from eye(s), rhinorrhea or sore throat Cardiovascular Cardiovascular: Denies chest pain or palpitations Respiratory/Chest Respiratory/Chest: Denies cough or dyspnea Gastrointestinal Gastrointestinal: Denies abdominal pain, diarrhea, nausea or vomiting Musculoskeletal Musculoskeletal: Reports extremity pain; Denies back pain Integumentary Denies Abrasions or rash Neurologic Neurologic: Denies headache(s) or weakness Psychiatric Psychiatric: Denies anxiety or depression Allergic/Immunologic Allergic/Immunologic ED: Denies lip swelling or urticaria EXAM Physical Exam Const Vital Signs: 03/24/22 15:46 03/24/22 15:48 Temperature 98.3 F 98.3 F Temperature Source Temporal Temporal Pulse Rate 75 85 Respiratory Rate 18 18 Blood Pressure 140/90 H 140/90 H Blood Pressure Mean 106 106 Pulse Ox 96 96 Oxygen Delivery Method Room Air Room Air Positive well nourished and well developed General Appearance ED: well developed HEENT Reports normocephalic and head/scalp atraumatic Eyes PERRL and EOMs intact bilaterally Neck supple Chest Wall inspection of chest normal and palpation of chest normal Resp normal respiratory effort and clear to auscultation bilaterally Cardio regular rate and regular rhythm GI normal to inspection, nondistended, normoactive bowel sounds Palpation: soft Extremity Extremity Narrative: Abrasion with focal swelling just distal to the left knee. Ecchymosis noted along the medial left knee as well as dependent ecchymosis around his distal lower leg at his sock line. Minimal erythema noted over the left armijo. No calf tenderness. Minimal if any edema. Good range of motion at the joints with no tenderness. Neuro oriented x3 and no sensory deficits noted Sensorium / Orientation: alert Motor Exam: strength 5/5 throughout Psych mental status grossly normal Skin Skin Narrative: As above MDM MDM MDM Narrative Medical decision making narrative: Patient sent for tib-fib x-rays. Radiography Diagnostic Testing: Clinical Impression(s) from Imaging Studies Tibia/Fibula X-Ray 03/24/22 16:18 IMPRESSION: No acute findings in the left tibia and fibula or surrounding soft tissues. Electronically Signed: Andrez Solis MD at 16:44 EDT Reading Location ID and State: [facility] / [place] , Service support , Treatment and Re-Evaluation Narrative: Tib-fib x-ray per my interpretation shows no acute bony findings and no foreign body noted. Hardware appears intact. Radiology interpretation is reviewed. Patient's wound is cleansed and dressed. He will be started on Keflex for cellulitis. Discharge Plan Triage Chief Complaint: Lower Extremity Injury ED Provider: Dye,Elin Dx/Rx/DC Orders Clinical Impression: Cellulitis, Contusion of left leg Instructions: ED Cellulitis Prescriptions: New cephalexin 500 mg capsule 500 mg PO Q6 Qty: 28 0RF No Action multivitamin tablet 1 tab PO QDAY cholecalciferol (vitamin D3) 1,000 unit tablet 1,000 unit PO QDAY fexofenadine [Kirti Allergy] 180 mg tablet 180 mg PO QDAY sildenafil (pulm.hypertension) 20 mg tablet 20 mg PO DAILY PRN (Reason: sexual activity) Qty: 30 1RF albuterol sulfate 90 mcg/actuation HFA aerosol inhaler 2 puff INHALATION Q6H PRN (Reason: shortness of breath or wheezing) Qty: 18 1RF pramipexole 0.25 mg tablet 0.25 mg PO QHS Qty: 90 3RF losartan 25 mg tablet 25 mg PO DAILY carvedilol 25 mg tablet 25 mg PO BID gabapentin 300 mg capsule 300 mg PO QHS Label Comments: TAKE 1 CAPSULE BY MOUTH EVERY DAY AT BEDTIME rivaroxaban 20 mg tablet 20 mg PO DAILY Qty: 10 1RF Rx Instructions: must administer with evening meal simvastatin 40 mg tablet 40 mg PO QPM Qty: 90 3RF amoxicillin 500 mg capsule 2,000 mg PO .COMPLEX Qty: 4 1RF Rx Instructions: take prior to dental procedure 2,000 mg PO; testosterone cypionate 200 mg/mL oil 200 mg SC Q2W Qty: 10 5RF Primary Care Provider: Breanna Lynn Referrals: Breanna Lynn MD [Primary Care Provider] - 1-2 Weeks Disposition Disposition: Home, Self Care
--- NOTE | 2022-03-24 16:18 | RAD_ITS ---
EXAM: XR LEFT TIBIA AND FIBULA, 2 VIEWS CLINICAL INDICATION: injury pain bruise TECHNIQUE: Frontal and lateral views of the left tibia and fibula. This report was created using [employer] report generation technology. COMPARISON: None. FINDINGS: BONES/JOINTS: Total left knee arthroplasty. There is a calcaneal spur. No acute fracture. No subluxation. Normal alignment. No sclerotic or destructive changes observed. SOFT TISSUES: Unremarkable. No soft tissue swelling or gas. No radiopaque foreign body. RAD/Tibia & Fibula 2 Views IMPRESSION: No acute findings in the left tibia and fibula or surrounding soft tissues. Electronically Signed: Andrez Solis MD at 16:44 EDT ,
[2022-03-24] MEDS: Cephalexin 250 MG Capsule 500 MG PO (17:31)
== END 2022-03-24 17:32 | disposition home or self-care (01) ==
PROVIDERS: Emergency Provider Emergency Medicine; PCP Internal Medicine; Visit Provider Emergency Medicine
DX: S80.12XA Contusion of left lower leg, initial encounter (principal); W18.09XA Striking against other object with subsequent fall, initial encounter; L03.116 Cellulitis of left lower limb; I10 Essential (primary) hypertension; E78.5 Hyperlipidemia, unspecified; Z79.899 Other long term (current) drug therapy; Z87.891 Personal history of nicotine dependence
CPT/HCPCS: 73590; 99283

== ENCOUNTER → 2023-02-06 | Outpatient (CLI) | payer MEDICARE, SELFPAY ==
--- NOTE | 2023-02-06 16:13 | PFTCOMP ---
COMPLETE PULMONARY FUNCTION TEST INTERPRETATION Brief HPI: Patient is a 72-year-old male, currently under the care of myself, who presents to [facility] for complete pulmonary function tests secondary to diagnosis of ILD. Respiratory therapist reports good effort and reproducible results. Interpretation: Forced expiration spirometry shows no large airways obstructive ventilatory defect with an FEV1 of 108% predicted. There is no significant bronchodilator response by strict ATS criteria. Spirograms are of good quality and plateau normally. The respiratory flow volume loop shows a normal pattern. Lung volumes by body plethysmography show a slightly decreased total lung capacity at 5.05 L, 73% predicted. All other lung volumes are reduced symmetrically. Diffusion capacity by carbon monoxide is slightly decreased at 70% predicted. The airway resistance is normal. No previous pulmonary function tests were available for review. Impression: Mild restrictive ventilatory defect with a symmetric reduction diffusion capacity
== END | disposition home or self-care (01) ==
PROVIDERS: PCP Internal Medicine; Referring Provider Internal Medicine Critical Care Medicine; Visit Provider Internal Medicine Critical Care Medicine
DX: J84.9 Interstitial pulmonary disease, unspecified (principal)
CPT/HCPCS: 94060; 94726; 94729

== ENCOUNTER → 2023-08-03 | Outpatient (CLI) | payer MEDICARE, SELFPAY ==
--- OUTSIDE RECORDS SUMMARY | 2023-08-03 09:59 | XMS RPT_ITS | CCD ---
Author Name Unknown Address [address] [place] [address] [facility] Care Team Providers Care Netsuite Developer Name Role Phone Cuate Walker Unavailable Unavaila ble Gross-Sawicka, Estefanía Magui Unavailable Unavail able Cuate Walker Unavailable Unavaila ble Gross-Sawicka, Estefanía Magui Unavailable Unavail able Cuate Walker Unavailable Unavaila ble Cuate Walker Unavailable Unavaila ble Cuate Walker Unavailable Unavaila ble Gross-Sawicka, Estefanía Magui Unavailable Unavail able Daphnie Donaldson Unavailable Unavailable Daphnie Donaldson Unavailable Unavailable Gross-Sawicka, Estefanía Magui Unavailable Unavail able Gross-Sawicka, Estefanía Magui Unavailable Unavail able Flick, Daphnie Jazzy Unavailable Unavailable Flick, Daphnie Jazzy Unavailable Unavailable Gross-Sawicka, Estefanía Magui Unavailable Unavail able Gross-Sawicka, Estefanía Magui Unavailable Unavail able Reyna, Al-Dooley Ahmed Unavailable Unavailabl e Reyna, Al-Dooley Ahmed Unavailable Unavailabl e Gross-Sawicka, Estefanía Magui Unavailable Unavail able Reyna, Al-Dooley Ahmed Unavailable Unavailabl e Rufus Dennis Unavailable Unavailable Gross-Sawicka, Estefanía Magui Unavailable Unavail able Cuate Walker Unavailable Unavaila ble Gross-Sawicka, Estefanía Magui Unavailable Unavail able ESTEFANY, PHU Unavailable Unavailable ESTEFANY, PHU Unavailable Unavailable VIVEK RAMIREZ DR Admitting Unavailable SHRUTHI LATHAM Consulting Unavailable VIVEK RAMIREZ DR Primary Care Unavailable VIVEK RAMIREZ DR Attending Unavailable PROVIDER, UNKNOWN Consulting Unavailable VIVEK RAMIREZ DR Admitting Unavailable SHRUTHI LATHAM Consulting Unavailable VIVEK RAMIREZ DR Primary Care Unavailable VIVEK RAMIREZ DR Attending Unavailable PROVIDER, UNKNOWN Consulting Unavailable VIVEK RAMIREZ DR Attending Unavailable VIVEK RAMIREZ DR Admitting Unavailable VIVEK RAMIREZ DR Primary Care Unavailable VIVEK RAMIREZ DR Admitting Unavailable VIVEK RAMIREZ DR Primary Care Unavailable SHRUTHI LATHAM Consulting Unavailable VIVEK RAMIREZ DR Attending Unavailable PROVIDER, UNKNOWN Consulting Unavailable Allergies Allergy Classification Reported Allergen(s) Allergy Type Date of Onset Reaction(s) Facility (1 source) nalbuphine; Translations: [NALBUPHINE HCL] Drug Allergy 1 [facility] Repository (1 source) OTHER; Translations: [OTHER] Propensity to adverse reactions (disorder) 1 [facility] Repository (1 source) Nalbuphine Drug Allergy [facility] Repository Problems Active Problems Problem Classification Problem Date Documented Date Episodic/Chronic Cardiac dysrhythmias (1 source) Cardiac dysrhythmias Onset: 04-18-2017 Coronary atherosclerosis and other heart disease (1 source) Coronary atherosclerosis and other heart disease Onset: 04-18-2017 Diabetes mellitus without complication (1 source) Diabetes mellitus without complication Onset: 04-18-2017 Essential hypertension (1 source) Essential hypertension Onset: 04-18-2017 Residual codes; unclassified (3 sources) Procedure and treatment not carried out, unspecified reason; Translations: [Procedure and treatment not carried out, unspecified reason] Onset: 04-18-2021 Episodic Unclassified (3 sources) Presence of artificial hip joint, bilateral / Z96.643(ICD-10) Onset: 04-18-2017 Unclassified (1 source) Calculus of kidney / N20.0(ICD-10) Onset: 05-15-2017 Unclassified (1 source) Endocrine disorder, unspecified / E34.9(ICD-10) Onset: 05-15-2017 Unclassified (1 source) Obstructive sleep apnea (adult) (pediatric) / G47.33(ICD-10) Onset: 04-18-2017 Unclassified (1 source) Restless legs syndrome / G25.81(ICD-10) Onset: 04-18-2017 Unclassified (1 source) Insomnia, unspecified / G47.00(ICD-10) Onset: 04-18-2017 Unclassified (2 sources) [facility] compl of internal right hip prosthesis, init encntr / T84.090A(ICD-10) Onset: 04-18-2017 Unclassified (1 source) Unspecified urinary incontinence / R32(ICD-10) Onset: 04-18-2017 Unclassified (1 source) Low back pain / M54.5(ICD-10) Onset: 04-18-2017 Unclassified (1 source) Spinal stenosis, lumbar region without neurogenic stephanie / M48.061(ICD-10) Onset: 04-18-2017 Unclassified (1 source) Male erectile disorder / F52.21(ICD-10) Onset: 05-15-2017 Unclassified (1 source) longterm (current) use of antithrombotics/antip latelets / Z79.02(ICD-10) Onset: 04-18-2017 Unclassified (1 source) longterm (current) use of aspirin / Z79.82(ICD-10) Onset: 04-18-2017 Unclassified (2 sources) Broken internal joint prosthesis, other site, init encntr / T84.018A(ICD-10) Onset: 04-05-2017 Unclassified (2 sources) Encounter for other preprocedural examination / Z01.818(ICD-10) Onset: 04-05-2017 Unclassified (3 sources) Radiculopathy, lumbosacral region / M54.17(ICD-10) Onset: 12-05-2016 Unclassified (1 source) Testicular hypofunction / E29.1(ICD-10) Onset: 11-21-2016 Unclassified (1 source) Sleep apnea, unspecified / G47.30(ICD-10) Onset: 11-21-2016 Unclassified (1 source) Personal history of nicotine dependence / Z87.891(ICD-10) Onset: 04-18-2017 Unclassified (2 sources) Sacrococcygeal disorders, not elsewhere classified / M53.3(ICD-10) Onset: 06-01-2017 Unclassified (3 sources) Aftercare following joint replacement surgery / Z47.1(ICD-10) Onset: 06-01-2017 Unclassified (2 sources) Pain in right hip / M25.551(ICD-10) Onset: 02-22-2017 Unclassified (1 source) Abnormal findings on diagnostic imaging of prt ms sys / R93.7(ICD-10) Onset: 02-22-2017 Unclassified (1 source) Presence of right artificial hip joint / Z96.641(ICD-10) Onset: 02-22-2017 Past or Other Problems Problem Classification Problem Date Documented Date Episodic/Chronic Calculus of urinary tract (1 source) Calculus of kidney; Translations: [Calculus of kidney] Onset: 02-22-2016 Episodic Spondylosis; intervertebral disc disorders; other back problems (1 source) Radiculopathy, lumbosacral region; Translations: [Radiculopathy, lumbosacral region] Onset: 12-05-2016 Episodic Unclassified (1 source) [facility] compl of internal right hip prosthesis, init encntr; Translations: [Mech compl of internal right hip prosthesis, init encntr] Onset: 04-17-2017 Unclassified (1 source) Broken internal joint prosthesis, other site, init encntr; Translations: [Broken internal joint prosthesis, other site, init encntr] Onset: 04-05-2017 Unclassified (1 source) Encounter for other preprocedural examination; Translations: [Encounter for other preprocedural examination] Onset: 04-05-2017 Unclassified (1 source) Aftercare following joint replacement surgery; Translations: [Aftercare following joint replacement surgery] Onset: 06-01-2017 Unclassified (1 source) Pain in right hip; Translations: [Pain in right hip] Onset: 02-22-2017 Results Test Name Value Interpretation Reference Range Facil ity Encounters Encounter Date Encounter Type Care Provider Facility Start: 04-18-2021 End: 04-19-2021 ambulatory VIVEK RAMIREZ [facility] Start: 03-31-2021 End: 03-31-2021 ambulatory VIVEK RAMIREZ [facility] Start: 02-23-2021 End: 02-23-2021 ambulatory VIVEK RAMIREZ [facility] Start: 02-07-2021 End: 02-07-2021 ambulatory VIVEK RAMIREZ [facility] Start: 06-01-2017 Ambulatory Rufus Dennis Facility :[facility] Medical [facility] Start: 05-15-2017 Ambulatory Daphnie Contreras ity:[facility] Start: 04-17-2017 End: 04-18-2017 Evaluation and management of inpatient Cuate Walker Facility:[facility] Start: 04-05-2017 Ambulatory Cuate Walker Facility:[facility] Start: 04-05-2017 Ambulatory Cuate Walker Facility:[facility] Start: 02-22-2017 Ambulatory Cuate Walker Facility:[facility] Medical Building Start: 12-05-2016 End: 12-05-2016 Ambulatory Radha Reyna Facility:[facility] Start: 11-21-2016 Ambulatory Daphnie Contreras ity:[facility] Start: 02-22-2016 End: 02-22-2016 Ambulatory PHU ALLISON [facility] Procedures Date Procedure Procedure Detail Performing Clinician Start: 04-17-2017 [id number] Cuate meng Start: 04-17-2017 Replacement of Right Hip Joint, Acetabular Surface with Polyethylene Synthetic Substitute, Uncemented, Open Approach Cuate Walker Start: 12-05-2016 Njx dx/ther sbst int rlmnr lmbr/sac w/img gdn Cuate Walker Payers Date Payer Category Payer Unknown [id number] 2.16.84 [id number] 1950 Unknown [id number] 2.16.84 [id number] 1950 Unknown [id number] 2.16.84 [id number] 1950 Unknown [id number] 2.16.84 [id number] Unknown [id number] Discharge summary note 05-11-2021 Note Date & Type Note Facility 05-11-2021 Note [facility] DISCHARGE SUMMARY NAME ACCOUNT SEX AGE ADMIT DISCHARGE PT MED. RECORD# NUMBER DATE DATE TYPE STEPHANY SCHAFER [id number] M 71 04/18/21 2 [id number] ROOM: [id number] DATE OF : 1950 ATTENDING PHYSICIAN: Rachell Pack PROGRESS NOTE/DISCHARGE SUMMARY ATTENDING ORTHOPEDIC PHYSICIAN: Dr. Vivek Ramirez. DATE OF ADMISSION: April 18, 2021 ESTIMATED DATE OF DISCHARGE: April 19, 2021 ADMITTING DIAGNOSES: 1. Left knee primary osteoarthritis. 2. Hypertension. 3. Hyperlipidemia. 4. Atrial fibrillation. 5. Interstitial lung disease. FINAL DIAGNOSES: 1. Left knee primary osteoarthritis, status post left total knee arthroplasty. 2. Hypertension. 3. Hyperlipidemia. 4. Atrial fibrillation. 5. Interstitial lung disease. HOSPITAL COURSE: The patient has an ongoing history of left knee pain. After failing conservative measures, the patient opted to proceed with a left total knee replacement. He underwent the above-stated procedure yesterday. The pain has been fairly well managed in the perioperative periods. He did have pain overnight. He has not yet received oral pain medicines due to the Duramorph spinal. He still has an indwelling Baird. He had nausea and vomiting over the evening, but that seems better this morning. He currently denies chest pain, shortness of breath, dizziness or calf pain. PHYSICAL EXAMINATION: VITALS SIGNS: Temperature is 98.3, pulse 101, respirations 18, blood pressure 125/83, and spO2 of 92% on room air. GENERAL: The patient is alert and oriented x3, in no acute distress at rest, breathing easily without respiratory distress. EXTREMITIES: Inspection of the left knee reveals a waterproof bandage that is clean, dry and intact without active drainage, erythema, warmth or signs of infection. Negative Homans bilaterally without signs of DVT. Sensation is intact to light touch to the bilateral lower extremities. Pedal pulses are present and equal bilaterally. The patient is able to actively plantar and dorsiflex the bilateral feet against Page 1 of 2 STEPHANY SCHAFER Discharge Summary STEPHANY SCHAFER : 1950 resistance. Neurovascularly intact. DIAGNOSTIC DATA: Postoperative x-rays were discussed and reviewed with Dr. Vivek Ramirez at length and are consistent with a cemented left total knee arthroplasty. The prostheses are in good position without evidence of hardware failure or loosening. Skin grabiel are intact over the surgical site. CBC results were reviewed. White blood cell count is elevated at 15.3, hemoglobin 14.7, hematocrit 44.9, and platelet count 217,000. ASSESSMENT/PLAN: 1. Status post left total knee arthroplasty, postoperative day #1. 2. Continue Percocet 5/325 mg one or two p.o. every 4 hours p.r.n. pain. 3. Deep venous thrombosis prophylaxis. Bilateral TEDs, SCDs and Xarelto 10 mg one p.o. daily for 5 days postoperative. If the dressing is discontinued and there is no active bleeding from the surgical site, he will resume his preoperative dose of Xarelto 20 mg one p.o. daily at that time. 4. Begin PT/OT and weightbearing as tolerated on the left lower extremity with a walker. 5. Leukocytosis, afebrile, without acute signs of infection - likely resulting from Decadron versus acute stress response. Anticipate resolution over the next several days. No signs of infection. 6. Encouraged incentive spirometry. 7. Continue postoperative medical management per hospitalist group. 8. Continue discharge planning with case management. The patient has an outpatient physical therapy appointment scheduled for tomorrow. 9. The patient is orthopedically stable and okay for discharge to home today if cleared medically, having adequate pain control, and doing well with physical therapy. We will plan to reassess him in the office in 2 weeks for staple removal with x-rays. Dictated By: Rachell Pack PA-C 04/19/21 07:33 JOB #: [id number] Transcribed By: portillo 04/19/21 08:15 Electronically signed by: E-sign Rachell ELLISON 05/10/21 07:38 Page 2 of 2 STEPHANY SCHAFER Discharge Summary [facility] Summary Purpose Family History No Family History Records FoundNo Family History Records FoundNo Family History Records FoundNo Family History Records FoundNo Family History Records Found Advance Directives No Advanced Directives Records FoundNo Advanced Directives Records FoundNo Advanced Directives Records FoundNo Advanced Directives Records FoundNo Advanced Directives Records Found Additional Source Comments (unrecognized sect ion and content) No Status Records FoundNo Status Records FoundNo Status Records FoundNo Status Records FoundNo Status Records Found INFORMATION SOURCE (unrecogn ized section and content) DATE CREATED AUTHOR AUTHOR'S ORGANIZ ATION 11/20/[address] [facility] DATE CREATED AUTHOR AUTHOR'S ORGANIZ ATION 11/21/2017 [facility] DATE CREATED AUTHOR AUTHOR'S ORGANIZ ATION 04/22/2021 [facility] ([place]) DATE CREATED AUTHOR AUTHOR'S ORGANIZ ATION 05/12/2021 [facility] FOR RECORDS PERTAINING TO PATIENTS WHO ARE OR HAVE BEEN ENROLLED IN A CHEMICAL DEPENDENCY/SUBSTANCEABUSE PROGRAM, SOME INFORMATION MAY BE OMITTED. This clinical summary was aggregated from multiple sources. Caution should be exercised in using it in the provision of clinical care. This summary normalizes information from multiple sources, and as a consequence, information in this document may materially change the coding, format and clinical context of patient data. In addition, data may be omitted in some cases. CLINICAL DECISIONS SHOULD BE BASED ON THE PRIMARY CLINICAL RECORDS. [employer] [facility]. provides no warranty or guarantee of the accuracy or completeness of information in this document.
[2023-08-03 12:01] LABS: Absolute Lymphocyte Count 2.21 X10^3/uL (0.83-4.51); Absolute Neutrophil Count 6.3 X10^3/uL (2.0-7.7); Basophil# 0.08 X10^3/uL; Basophil% 0.8 % (0-1); Eosinophil# 0.33 X10^3/uL; Eosinophils% 3.3 % (0-5); Hematocrit 48.6 % (40-54); Hemoglobin 15.6 g/dL (13.0-16.5); Lymphocyte # 2.21 X10^3/ul (0.83-4.51); Lymphocyte % 22.1 % (19-41); Mean Corp Hgb Conc 32.1 g/dL (32-36); Mean Corpuscular Hgb 29.7 pg (27.0-32.0); Mean Corpuscular Volume 92.6 fL (80-94); Mean Platelet Vol. 10.2 fl (6.2-12.0); Monocyte# 1.03 X10^3/uL; Monocyte% 10.3 % (0-10); NRBC Flagged by Analyzer 0 % (0-5); Neutrophil # 6.32 X10^3/uL (2.7-7.7); Neutrophil % 63.2 % (47-70); Platelet Count 201 K/mm3 (150-450); RBC Distribution Width CV 15.9 % (11.6-14.6); RBC Distribution Width SD 53.6 fl (35.1-43.9); Red Blood Count 5.25 M/mm3 (4.6-6.2)
[2023-08-03 12:19] LABS: Vitamin D,25 Hydroxy 36.4 ng/mL
[2023-08-03 13:05] LABS: ALB/GLOB Ratio 0.9 RATIO (0.9-2.4); AST(SGOT) 25 U/L (15-37); Alanine Aminotransfer ALT/SGPT 33 U/L (16-61); Albumin, Serum 3.4 g/dL (3.2-5.0); Alkaline Phosphatase 111 U/L (45-117); Anion Gap 6 (5-15); BUN 20 mg/dL (7-18); BUN/Creat Ratio 18.2 RATIO (10-20); Calcium,Total 9.1 mg/dL (8.5-10.1); Chloride 105 mmol/L (98-107); Cholesterol 130 mg/dL (200); EST Glomerular Filtration Rate 70 mL/min (>60); Est Glom Filt Rate - Afr Amer 84 mL/min (>60); Globulin 3.7 g/dL (2.2-4.2); Glucose 120 mg/dL (74-106); High Density Lipoprotein 44 mg/dL; PSA,Total - Annual Screen 0.75 ng/mL (0.00-4.00); Potassium 4.2 mmol/L (3.5-5.1); Protein, Total 7.1 g/dL (6.4-8.2); Sodium Level 138 mmol/L (136-145); Thyroid Stim Hormone (TSH) 1.39 uIU/mL (0.358-3.74); Triglycerides 61 mg/dL; Very Low Density Lipoprotein 12 mg/dL (5-40)
[2023-08-03 13:09] LABS: Hemoglobin A1c 6.2 % (3.8-5.6)
== END | disposition home or self-care (01) ==
PROVIDERS: PCP Internal Medicine; Referring Provider Internal Medicine; Visit Provider Internal Medicine
DX: N52.9 Male erectile dysfunction, unspecified (principal); E11.51 Type 2 diabetes mellitus with diabetic peripheral angiopathy without gangrene; I48.0 Paroxysmal atrial fibrillation; J84.9 Interstitial pulmonary disease, unspecified; I10 Essential (primary) hypertension; M25.572 Pain in left ankle and joints of left foot; J45.909 Unspecified asthma, uncomplicated; E55.9 Vitamin D deficiency, unspecified; Z12.5 Encounter for screening for malignant neoplasm of prostate
CPT/HCPCS: 36415; 80053; 80061; 82306; 83036; 84153; 84443; 85025; G0103

== ENCOUNTER → 2023-08-07 | Outpatient (CLI) | payer MEDICARE, SELFPAY ==
--- NOTE | 2023-08-07 15:26 | US_ITS ---
INDICATION: urinary incont/retention -- INCLUDE PVR PLEASE EXAMINATION: Ultrasound US Kidney(s) complete (eg, kidneys and bladder) TECHNIQUE: Holder scale and color doppler images were obtained of the kidneys. COMPARISON: FINDINGS: RIGHT KIDNEY: 10.8 x 5.2 x 6.0 cm the cortex is 10 mm. There is no hydronephrosis. No shadowing calculus or perinephric collection is demonstrated. There is a 1.2 cm cyst. LEFT KIDNEY: 11.1 x 5.5 x 6.3 cm. The cortex is 15 mm. There is no hydronephrosis. No shadowing calculus, focal lesion or perinephric collection is demonstrated. URINARY BLADDER: No acute abnormality. US/Kidney and Bladder IMPRESSION: Right renal cyst. Electronically Signed: Erasmo Mccartney DO at 16:54 EDT ,
--- OUTSIDE RECORDS SUMMARY | 2023-08-08 03:07 | XMS RPT_ITS | CCD ---
Author Name Unknown Address [address] [place] [address] [facility] Care Team Providers Care Grocery Manager Name Role Phone Cuate Walker Unavailable Unavaila [...] nalbuphine; Translations: [NALBUPHINE HCL] Drug Allergy 1 [facility] Repository (1 source) OTHER; Translations: [OTHER] Propensity to adverse reactions (disorder) 1 [facility] Repository (1 source) Nalbuphine Drug Allergy [facility] Repository Problems Active Problems Problem Classification Problem [...] / G47.00(ICD-10) Onset: 04-18-2017 Unclassified (2 sources) [facility] compl of internal right hip prosthesis, init encntr / T84.090A(ICD-10) Onset: 04-18-2017 Unclassified (1 source) Unspecified urinary incontinence / R32(ICD-10) Onset: 04-18-2017 Unclassified (1 source) Low back pain / M54.5(ICD-10) Onset: 04-18-2017 Unclassified (1 source) Spinal stenosis, lumbar region without neurogenic stephanie / M48.061(ICD-10) Onset: 04-18-2017 Unclassified (1 source) Male erectile disorder / F52.21(ICD-10) Onset: 05-15-2017 Unclassified (1 source) retirement (current) use of antithrombotics/antip latelets / Z79.02(ICD-10) Onset: 04-18-2017 Unclassified (1 source) retirement (current) use of aspirin / Z79.82(ICD-10) Onset: [...] Start: 04-18-2021 End: 04-19-2021 ambulatory VIVEK RAMIREZ [facility] Start: 03-31-2021 End: 03-31-2021 ambulatory VIVEK RAMIREZ [facility] Start: 02-23-2021 End: 02-23-2021 ambulatory VIVEK RAMIREZ [facility] Start: 02-07-2021 End: 02-07-2021 ambulatory VIVEK RAMIREZ [facility] Start: 06-01-2017 Ambulatory Rufus Dennis Facility :[facility] Medical [facility] Start: 05-15-2017 Ambulatory Daphnie Contreras ity:[facility] Start: 04-17-2017 End: 04-18-2017 Evaluation and management of inpatient Cuate Walker Facility:[facility] Start: 04-05-2017 Ambulatory Cuate Walker Facility:[facility] Start: 04-05-2017 Ambulatory Cuate Walker Facility:[facility] Start: 02-22-2017 Ambulatory Cuate Walker Facility:[facility] Medical Building Start: 12-05-2016 End: 12-05-2016 Ambulatory Radha Reyna Facility:[facility] Start: 11-21-2016 Ambulatory Daphnie Contreras ity:[facility] Start: 02-22-2016 End: 02-22-2016 Ambulatory PHU ALLISON [facility] Procedures Date Procedure Procedure Detail Performing Clinician Start: 04-17-2017 [id number] Cuate meng Start: 04-17-2017 Replacement of Right Hip Joint, Acetabular Surface with Polyethylene Synthetic Substitute, Uncemented, Open Approach Cuate Walker Start: 12-05-2016 Njx dx/ther sbst int rlmnr lmbr/sac w/img gdn Cuate Walker Payers Date Payer Category Payer Unknown [id number] 2.16.84 [id number] 1950 Unknown [id number] 2.16.84 [id number] 1950 Unknown [id number] 2.16.84 [id number] 1950 Unknown [id number] 2.16.84 [id number] Unknown [id number] Discharge summary note 05-11-2021 Note Date & Type Note Facility 05-11-2021 Note [facility] DISCHARGE SUMMARY NAME ACCOUNT SEX AGE ADMIT DISCHARGE PT MED. RECORD# NUMBER DATE DATE TYPE STEPHANY SCHAFER [id number] M 71 04/18/21 2 [id number] ROOM: [id number] DATE OF : 1950 ATTENDING [...] Rachell Pack PA-C 04/19/21 07:33 JOB #: [id number] Transcribed By: portillo 04/19/21 08:15 Electronically signed by: E-sign Rachell ELLISON 05/10/21 07:38 Page 2 of 2 STEPHANY SCHAFER Discharge Summary [facility] Summary Purpose Family History No Family History [...] DATE CREATED AUTHOR AUTHOR'S ORGANIZ ATION 11/20/2017 [facility] DATE CREATED AUTHOR AUTHOR'S ORGANIZ ATION 11/21/2017 [facility] DATE CREATED AUTHOR AUTHOR'S ORGANIZ ATION 04/22/2021 [facility] ([place]) DATE CREATED AUTHOR AUTHOR'S ORGANIZ ATION 05/12/2021 [facility] FOR RECORDS PERTAINING TO PATIENTS WHO ARE [...] BE BASED ON THE PRIMARY CLINICAL RECORDS. [employer] [facility]. provides no warranty or guarantee of the accuracy or completeness of information in this document.
== END | disposition home or self-care (01) ==
LOC: US 16:38
PROVIDERS: PCP Internal Medicine; Referring Provider Internal Medicine; Visit Provider Internal Medicine
DX: R32 Unspecified urinary incontinence (principal)
CPT/HCPCS: 76770

== ENCOUNTER → 2023-10-26 | Outpatient (CLI) | payer OTHER, MEDICARE, SELFPAY ==
--- NOTE | 2023-10-26 07:37 | RAD_ITS ---
STUDY: X-RAY CHEST REASON FOR EXAM: Male, 73 years old. SOB, Orthopnea, interstitial lung disease, cough TECHNIQUE: Frontal and lateral views of the chest. COMPARISON: CT chest October 13, 2020 and chest x-ray January 16, 2020 FINDINGS: Increased interstitial markings in the lower lung lee. There is no demonstrated pleural abnormality. Normal size heart. Normal mediastinum and alma rosa. Normal visualized pulmonary arteries. Normal visualized aortic arch and descending thoracic aorta. Kyphosis and spondylosis. Normal visualized ribs, clavicles, and shoulders. There is no demonstrated abnormality of the visualized soft tissue structures of the upper abdomen. RAD/Chest PA and Lateral IMPRESSION: Mild increase in interstitial markings lower lung lee Electronically Signed: Ruddy Mcconnell MD at 16:57 EDT ,
[2023-10-26 08:28] LABS: Absolute Lymphocyte Count 2.03 X10^3/uL (0.83-4.51); Absolute Neutrophil Count 5.7 X10^3/uL (2.0-7.7); Basophil# 0.05 X10^3/uL; Basophil% 0.6 % (0-1); Eosinophil# 0.11 X10^3/uL; Eosinophils% 1.3 % (0-5); Hematocrit 47.6 % (40-54); Hemoglobin 15.2 g/dL (13.0-16.5); Lymphocyte # 2.03 X10^3/ul (0.83-4.51); Lymphocyte % 23.1 % (19-41); Mean Corp Hgb Conc 31.9 g/dL (32-36); Mean Corpuscular Hgb 29.5 pg (27.0-32.0); Mean Corpuscular Volume 92.4 fL (80-94); Mean Platelet Vol. 10.6 fl (6.2-12.0); Monocyte# 0.91 X10^3/uL; Monocyte% 10.4 % (0-10); NRBC Flagged by Analyzer 0 % (0-5); Neutrophil # 5.67 X10^3/uL (2.7-7.7); Neutrophil % 64.4 % (47-70); Platelet Count 210 K/mm3 (150-450); RBC Distribution Width CV 13.9 % (11.6-14.6); RBC Distribution Width SD 47.4 fl (35.1-43.9); Red Blood Count 5.15 M/mm3 (4.6-6.2); White Blood Count 8.8 K/mm3 (4.4-11.0)
[2023-10-26 09:01] LABS: ALB/GLOB Ratio 0.9 RATIO (0.9-2.4); AST(SGOT) 33 U/L (15-37); Alanine Aminotransfer ALT/SGPT 40 U/L (16-61); Albumin, Serum 3.5 g/dL (3.2-5.0); Alkaline Phosphatase 96 U/L (45-117); Anion Gap 5 (5-15); BNP,B-Type NATRIURETIC PEPTIDE 200.2 pg/mL (0-100); BUN 19 mg/dL (7-18); BUN/Creat Ratio 16.4 RATIO (10-20); Calcium,Total 9.3 mg/dL (8.5-10.1); Chloride 107 mmol/L (98-107); Creatinine, Serum 1.16 mg/dL (0.70-1.30); EST Glomerular Filtration Rate 66 mL/min (>60); Est Glom Filt Rate - Afr Amer 79 mL/min (>60); Globulin 3.7 g/dL (2.2-4.2); Glucose 121 mg/dL (74-106); Potassium 4.1 mmol/L (3.5-5.1); Protein, Total 7.2 g/dL (6.4-8.2); Sodium Level 138 mmol/L (136-145)
== END | disposition home or self-care (01) ==
PROVIDERS: PCP Internal Medicine; Referring Provider Nurse Practitioner Family; Visit Provider Nurse Practitioner Family
DX: R05.8 Other specified cough (principal); J84.9 Interstitial pulmonary disease, unspecified; I48.0 Paroxysmal atrial fibrillation; R06.02 Shortness of breath; R06.01 Orthopnea
CPT/HCPCS: 36415; 71046; 80053; 83880; 85025

== ENCOUNTER → 2023-11-19 | Outpatient (CLI) | payer MEDICARE, SELFPAY ==
[2023-11-19 09:53] LABS: Anion Gap 3 (5-15); BUN 21 mg/dL (7-18); BUN/Creat Ratio 18.1 RATIO (10-20); Calcium,Total 8.9 mg/dL (8.5-10.1); Chloride 107 mmol/L (98-107); Creatinine, Serum 1.16 mg/dL (0.70-1.30); EST Glomerular Filtration Rate 66 mL/min (>60); Est Glom Filt Rate - Afr Amer 79 mL/min (>60); Glucose 115 mg/dL (74-106); Potassium 4.3 mmol/L (3.5-5.1); Sodium Level 138 mmol/L (136-145)
== END | disposition home or self-care (01) ==
LOC: LAB 08:52
PROVIDERS: PCP Internal Medicine; Referring Provider Nurse Practitioner Family; Visit Provider Nurse Practitioner Family
DX: Z51.81 Encounter for therapeutic drug level monitoring (principal); Z79.899 Other long term (current) drug therapy; R05.8 Other specified cough; R06.02 Shortness of breath; R14.0 Abdominal distension (gaseous)
CPT/HCPCS: 36415; 80048

== ENCOUNTER → 2024-03-25 | Outpatient (CLI) | payer MEDICARE, SELFPAY ==
--- OUTSIDE RECORDS SUMMARY | 2024-03-25 08:26 | XMS RPT_ITS | CCD ---
Author Organization [facility] Care Team Providers Care Apprentice Electrician Name Role Phone Cuate Donovan Unavailable Unavaila ble Gross-Sawicka, Estefanía Magui Unavailable Unavail able Cuate Donovan Unavailable Unavaila ble Gross-Sawicka, Estefanía Magui Unavailable Unavail able Cuate Donovan Unavailable Unavaila ble Cuate Donovan Unavailable Unavaila ble Cuate Donovan Unavailable Unavaila ble Gross-Sawicka, Estefanía Magui Unavailable Unavail able Flick, Daphnie Purcell Unavailable Unavailable Flick, Daphnie Purcell Unavailable Unavailable Gross-Sawicka, Estefanía Magui Unavailable Unavail able Gross-Sawicka, Estefanía Magui Unavailable Unavail able Flick, Daphnie Purcell Unavailable Unavailable Flick, Daphnie Houstone Unavailable Unavailable Gross-Sawicka, Estefanía Magui Unavailable Unavail able Gross-Sawicka, Estefanía Magui Unavailable Unavail able Reyna, Al-Dooley Ahmed Unavailable Unavailabl e Reyna, Al-Dooley Ahmed Unavailable Unavailabl e Gross-Sawicka, Estefanía Magui Unavailable Unavail able Reyna, Al-Dooley Ahmed Unavailable Unavailabl e Ellie Pierce Unavailable Unavailable Gross-Sawicka, Estefanía Magui Unavailable Unavail able Cuate Donovan Unavailable Unavaila ble Gross-Sawicka, Estefanía Magui Unavailable Unavail able VIVEK ZELAYA DR Admitting Unavailable SHRUTHI LATHAM Consulting Unavailable VIVEK ZELAYA DR Primary Care Unavailable VIVEK ZELAYA DR Attending Unavailable PROVIDER, UNKNOWN Consulting Unavailable VIVEK ZELAYA DR Admitting Unavailable SHRUTHI LATHAM Consulting Unavailable VIVEK ZELAYA DR Primary Care Unavailable VIVEK ZELAYA DR Attending Unavailable PROVIDER, UNKNOWN Consulting Unavailable VVIEK ZELAYA DR Attending Unavailable VIVEK ZELAYA DR Admitting Unavailable VIEVK ZELYAA DR Primary Care Unavailable VIVEK ZELAYA DR Admitting Unavailable VIVEK ZELAYA DR Primary Care Unavailable SHRUTHI LATHAM Consulting Unavailable VIVEK ZELAYA DR Attending Unavailable PROVIDER, UNKNOWN Consulting Unavailable PHU ALLISON Referring Unavailable PHU ALLISON Attending Unavailable Allergies Allergy Classification Reported Allergen(s) Allergy Type Date of Onset Reaction(s) Facility (1 source) Nalbuphine Drug Allergy [facility] Repository (1 source) Nalbuphine; Translations: [NALBUPHINE HCL] Drug Allergy 1 [facility] Repository (1 source) OTHER; Translations: [OTHER] Propensity to adverse reactions (disorder) 1 [facility] Repository Problems Active Problems Problem Classification Problem [...] / G47.00(ICD-10) Onset: 04-18-2017 Unclassified (2 sources) [facility] compl of internal right hip prosthesis, init encntr / T84.090A(ICD-10) Onset: 04-18-2017 Unclassified (1 source) Unspecified urinary incontinence / R32(ICD-10) Onset: 04-18-2017 Unclassified (1 source) Low back pain / M54.5(ICD-10) Onset: 04-18-2017 Unclassified (1 source) Spinal stenosis, lumbar region without neurogenic stephanie / M48.061(ICD-10) Onset: 04-18-2017 Unclassified (1 source) Male erectile disorder / F52.21(ICD-10) Onset: 05-15-2017 Unclassified (1 source) skilled nursing (current) use of antithrombotics/antip latelets / Z79.02(ICD-10) Onset: 04-18-2017 Unclassified (1 source) 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 Pathology Reports Accession: Collected Date/Time: Received Date/Time: Pathologist: [id number] 04/18/2021 08:26 EST 04/19/2021 08:26 EST DO LIZETT NAIR Final Surgical Pathology Report DIAGNOSIS: BONE WITH CHANGES OF DEGENERATIVE OSTEOARTHRITIS, CLINICALLY LEFT KNEE. COMMENT: A# [id number] CLINICAL INFORMATION: LEFT KNEE PRIMARY OSTEOARTHRITIS SPECIMEN: A LEFT KNEE BONE GROSS DESCRIPTION: A. Received in formalin, labeled with the patients name, Case #[id number], and left knee bone Description/dimensions-multip le convex and concave fragmented portions of thornton-yellow bone/soft tissue aggregating 8 x 8 x 3.5 cm, articular surfaces are focally eburnated, cartilage is focally nodular, underlying bone is yellow/dense to trabecular RS-1 following decalcification Dictated by STEPHANY CORDON MICROSCOPIC DESCRIPTION: Slides reviewed. Electronically Signed by Pathology Report verified by [facility] Electronically signed by LIZETT E SENIOR DO Sign out Date: 04/22/2021 12:44 Performing Lab: [facility], [address] [place] [address], [place] [address] [facility] Normal [facility] ([place]) BMP with eGFRon 04-19-2021 AGE 71 years Normal [facility] Comment on above: Performed By: #### 2 18781 #### [facility],[address] [place] [address]17 Anion gap [Moles/Vol] 18 mmol/L Normal 10 - 20 [facility] Comment on above: Performed By: #### 2 58159 #### [facility],[address] [place] [address] 09271 BMP with eGFR Normal [facility] Comment on above: Result Comment: BASI C METABOLIC PANEL Performed By: #### 2 39298 #### [facility],[address] [place] [address] 08641 Calcium [Mass/Vol] 8.6 mg/dL Normal 8.5 - 10.1 [facility] Comment on above: Performed By: #### 2 30778 #### [facility],[address] [place] [address] 00360 Chloride [Moles/Vol] 100 mmol/L Normal 98 - 107 [facility] Comment on above: Performed By: #### 2 92617 #### [facility],[address] [place] [address] 11043 CO2 [Moles/Vol] 24.5 mmol/L Normal 21.0 - 32.0 [facility] Comment on above: Performed By: #### 2 03184 #### [facility],[address] [place] [address] 83664 Creatinine [Mass/Vol] 1.08 mg/dL Normal 0.70 - 1.30 [facility] Comment on above: Performed By: #### 2 72906 #### [facility],[address] [place] [address] 26496 GFR/1.73 sq M.predicted among non-blacks MDRD (S/P/Bld) [Vol rate/Area] mL/min/{1.73_m2} Normal 60 - 999 [facility] Comment on above: Performed By: #### 2 59753 #### [facility],[address] [place] [address] 00239 Result Comment: ACCO RDING TO THE NATIONAL KIDNEY DISEASE EDUCATION PROGRAM(NKDE), A NORMAL eGFR IS A VALUE GREATER THAN OR EQUAL TO 60 ML/MIN/1.73 SQ METERS. CHRONIC KIDNEY DISEASE: <60mL/MIN/1.73 SQ METERS KIDNEY FAILURE: <15mL/MIN/1.73 SQ METERS THIS TEST SHOULD ONLY BE USED FOR PATIENTS 18 YEARS OF AGE AND OLDER. Glucose [Mass/Vol] 109 mg/dL High 74 - 106 [facility] Comment on above: Performed By: #### 2 02836 #### [address] [address] Potassium [Moles/Vol] 4.4 mmol/L Normal 3.5 - 5.1 [facility] Comment on above: Performed By: #### 2 57054 #### [facility],[address] [place] [address] 78395 Sodium [Moles/Vol] 138 mmol/L Normal 136 - 145 [facility] Comment on above: Performed By: #### 2 40920 #### [facility],[address] [place] [address] 44501 Urea nitrogen [Mass/Vol] 20 mg/dL High 7 - 18 [facility] Comment on above: Performed By: #### 2 22938 #### [address] [address] CBC + DIFFon 04-19-2021 Baso # 0.10 x10EE3/UL Normal 0.00 - 0.10 [facility] Comment on above: Performed By: #### 2 89772 #### [address] [address] Basophils/100 WBC (Bld) 0.4 % Normal 0.0 - 2.0 [facility] Comment on above: Performed By: #### 2 48125 #### [place] [address] CBC + DIFF Normal [facility] Comment on above: Result Comment: CBC- COMPLETE BLOOD COUNT Performed By: #### 2 86894 #### [place] [address] EO # 0.40 x10EE3/UL Normal 0.00 - 0.50 [facility] Comment on above: Performed By: #### 2 31471 #### [place] [address] Eosinophils/100 WBC (Bld) 2.3 % Normal 0.0 - 7.0 [facility] Comment on above: Performed By: #### 2 80568 #### [place] [address] Erythrocyte distribution width (RBC) [Ratio] 14.7 % Normal 12.0 - 15.6 [facility] Comment on above: Performed By: #### 2 69858 #### [place] [address] Hematocrit (Bld) [Volume fraction] 44.9 % Normal 40.0 - 52.0 [facility] Comment on above: Performed By: #### 2 27142 #### [place] [address] Hemoglobin (Bld) [Mass/Vol] 14.7 g/dL Normal 13.0 - 17.5 [facility] Comment on above: Performed By: #### 2 30835 #### [place] [address] Lymph # 1.20 x10EE3/UL Normal 0.80 - 2.80 [facility] Comment on above: Performed By: #### 2 82280 #### [facility],[address] [place] [address] Lymphocytes/100 WBC (Bld) 7.5 % Low 20.0 - 45.0 [facility] Comment on above: Performed By: #### 2 64281 #### [facility],[address] [place] [address] MANUAL DIFF N/A Normal [facility] Comment on above: Performed By: #### 2 00229 #### [facility],[address] [place] [address] MCH (RBC) [Entitic mass] 31 pg Normal 27 - 33 [facility] Comment on above: Performed By: #### 2 80654 #### [facility],[address] [place] [address] MCHC 33 X10 3 Normal 32 - 36 [facility] Comment on above: Performed By: #### 2 19142 #### [facility],[address] [place] [address] MCV (RBC) [Entitic vol] 95 fL Normal 81 - 98 [facility] Comment on above: Performed By: #### 2 29424 #### [facility],[address] [place] [address] [place] # 1.00 x10EE3/UL Normal 0.20 - 1.00 [facility] Comment on above: Performed By: #### 2 62931 #### [facility],[address] [place] [address] MONOS % 6.5 % Normal 0.0 - 10.0 [facility] Comment on above: Performed By: #### 2 43300 #### [place] [address] Morphology Marty (Bld) [Interp] N/A Normal [facility] Comment on above: Result Comment: {CD] Performed By: #### 2 87568 #### [place] [address] Neut # 12.70 x10EE3/UL High 1.50 - 7.10 [facility] Comment on above: Performed By: #### 2 96098 #### [facility],[address] [place] [address]10 Neutrophils/100 WBC (Bld) 83.3 % High 46.0 - 76.0 [facility] Comment on above: Performed By: #### 2 01162 #### [facility],[address] [place] [address] 86427 PLATELET 217 x10EE3/UL Normal 150 - 450 [facility] Comment on above: Performed By: #### 2 48172 #### [facility],[address] [place] [address] 32146 Platelet mean volume (Bld) [Entitic vol] 9.1 fL Normal 6.4 - 10.5 [facility] Comment on above: Result Comment: AUTO MATED DIFFERENTIAL Performed By: #### 2 47799 #### [facility],[address] [place] [address] 78365 RBC 4.75 x 10EE6/UL Normal 4.50 - 6.00 [facility] Comment on above: Performed By: #### 2 46289 #### [facility],[address] [place] [address] 38724 WBC 15.3 x 10EE3/UL High 4.5 - 10.8 [facility] Comment on above: Performed By: #### 2 91132 #### [facility],[address] [place] [address] 57286 KNEE 2 VIEWS LT 04-18-2021 KNEE 2 VIEWS [place] [address] Patient: STEPHANY SCHAFER Phone#: : 1950 Age: 71 Gender: M Pt. Type: Out Account: [id number] Location: 062 Ordering: VIVEK ZELAYA Exam Date: 04/18/2021/12:53 Family Phys: SHRUTHI LATHAM Charge Code: [id number] Physician: [place] Order #: [id number] DLP Dose#: PROCEDURE: X-RAY KNEE LT 2 VIEWS COMPARISON: None. INDICATIONS: Post Operative. FINDINGS: BONES: Total knee prosthesis is present. The adjacent bony architecture is intact. SOFT TISSUES: Postsurgical soft tissue air is present. EFFUSION: None visible. OTHER: Negative. CONCLUSION: 1. Total knee prosthesis. Dictated by: Kendra Alcantara MD on 04/18/2021 at 14:04 Approved by: Kendra Alcantara MD on 04/18/2021 at 14:05 Normal [facility] BMP with eGFRon 03-31-2021 AGE 71 years Normal [facility] Comment on above: Performed By: #### 2 95590 #### [facility],[address] [place] [address] 68765 Anion gap [Moles/Vol] 9 mmol/L Low 10 - 20 [facility] Comment on above: Performed By: #### 2 49330 #### [facility],[address] [place] [address] 41366 BMP with eGFR Normal [facility] Comment on above: Result Comment: BASI C METABOLIC PANEL Performed By: #### 2 00178 #### [facility],[address] [place] [address] 10089 Calcium [Mass/Vol] 9.2 mg/dL Normal 8.5 - 10.1 [facility] Comment on above: Performed By: #### 2 09539 #### [facility],[address] [place] [address] 25343 Chloride [Moles/Vol] 103 mmol/L Normal 98 - 107 [facility] Comment on above: Performed By: #### 2 54428 #### [facility],[address] [place] [address] 11251 CO2 [Moles/Vol] 29.5 mmol/L Normal 21.0 - 32.0 [facility] Comment on above: Performed By: #### 2 39998 #### [facility],[address] [place] [address]129 Creatinine [Mass/Vol] 0.92 mg/dL Normal 0.70 - 1.30 [facility] Comment on above: Performed By: #### 2 40332 #### [facility],[address] [place] [address] 46781 GFR/1.73 sq M.predicted among non-blacks MDRD (S/P/Bld) [Vol rate/Area] mL/min/{1.73_m2} Normal 60 - 999 [facility] Comment on above: Performed By: #### 2 89392 #### [facility],[address] [place] [address] 16699 Result Comment: ACCO RDING TO THE NATIONAL KIDNEY DISEASE EDUCATION PROGRAM(NKDE), A NORMAL eGFR IS A VALUE GREATER THAN OR EQUAL TO 60 ML/MIN/1.73 SQ METERS. CHRONIC KIDNEY DISEASE: <60mL/MIN/1.73 SQ METERS KIDNEY FAILURE: <15mL/MIN/1.73 SQ METERS THIS TEST SHOULD ONLY BE USED FOR PATIENTS 18 YEARS OF AGE AND OLDER. Glucose [Mass/Vol] 103 mg/dL Normal 74 - 106 [facility] Comment on above: Performed By: #### 2 15772 #### [facility],[address] [place] [address] 82440 Potassium [Moles/Vol] 4.3 mmol/L Normal 3.5 - 5.1 [facility] Comment on above: Performed By: #### 2 14210 #### [facility],[address] [place] [address] 65141 Sodium [Moles/Vol] 137 mmol/L Normal 136 - 145 [facility] Comment on above: Performed By: #### 2 17737 #### [facility],[address] [place] [address] 90927 Urea nitrogen [Mass/Vol] 22 mg/dL High 7 - 18 [facility] Comment on above: Performed By: #### 2 03016 #### [facility],[address] [place] [address] CBC + DIFFon 03-31-2021 Baso # 0.10 x10EE3/UL Normal 0.00 - 0.10 [facility] Comment on above: Performed By: #### 2 68163 #### [facility],[address] [place] [address] 36202 Basophils/100 WBC (Bld) 0.6 % Normal 0.0 - 2.0 [facility] Comment on above: Performed By: #### 2 34425 #### [facility],[address] [place] [address] CBC + DIFF Normal [facility] Comment on above: Result Comment: CBC- COMPLETE BLOOD COUNT Performed By: #### 2 66323 #### [facility],[address] [place] [address] EO # 0.20 x10EE3/UL Normal 0.00 - 0.50 [facility] Comment on above: Performed By: #### 2 35679 #### [facility],[address] [place], [place] [address] Eosinophils/100 WBC (Bld) 2.3 % Normal 0.0 - 7.0 [facility] Comment on above: Performed By: #### 2 09164 #### [facility],[address] [place] [address] Erythrocyte distribution width (RBC) [Ratio] 16.0 % High 12.0 - 15.6 [facility] Comment on above: Performed By: #### 2 21790 #### [facility],[address] [place] [address] Hematocrit (Bld) [Volume fraction] 48.7 % Normal 40.0 - 52.0 [facility] Comment on above: Performed By: #### 2 12285 #### [facility],[address] [place], [place] [address] Hemoglobin (Bld) [Mass/Vol] 15.8 g/dL Normal 13.0 - 17.5 [facility] Comment on above: Performed By: #### 2 47217 #### [facility],[address] [place] [address] Lymph # 2.00 x10EE3/UL Normal 0.80 - 2.80 [facility] Comment on above: Performed By: #### 2 59858 #### [facility],[address] [place] [address] Lymphocytes/100 WBC (Bld) 22.3 % Normal 20.0 - 45.0 [facility] Comment on above: Performed By: #### 2 74146 #### [facility],[address] [place] [address] MANUAL DIFF N/A Normal [facility] Comment on above: Performed By: #### 2 81091 #### [facility],[address] [place] [address] MCH (RBC) [Entitic mass] 31 pg Normal 27 - 33 [facility] Comment on above: Performed By: #### 2 09704 #### [facility],[address] [place] [address] MCHC 33 X10 3 Normal 32 - 36 [facility] Comment on above: Performed By: #### 2 82754 #### [facility],[address] [place] [address] MCV (RBC) [Entitic vol] 94 fL Normal 81 - 98 [facility] Comment on above: Performed By: #### 2 69986 #### [facility],[address] [place] [address] [place] # 1.10 x10EE3/UL High 0.20 - 1.00 [facility] Comment on above: Performed By: #### 2 15352 #### [facility],[address] [place] [address] MONOS % 11.9 % High 0.0 - 10.0 [facility] Comment on above: Performed By: #### 2 40124 #### [facility],[address] [place] [address] 22756 Morphology Marty (Bld) [Interp] N/A Normal [facility] Comment on above: Result Comment: {CD] Performed By: #### 2 53399 #### [facility],[address] [place] [address]60 Neut # 5.60 x10EE3/UL Normal 1.50 - 7.10 [facility] Comment on above: Performed By: #### 2 42693 #### [address] [address] Neutrophils/100 WBC (Bld) 62.9 % Normal 46.0 - 76.0 [facility] Comment on above: Performed By: #### 2 27945 #### [place] [id number] PLATELET 222 x10EE3/UL Normal 150 - 450 [facility] Comment on above: Performed By: #### 2 09455 #### [address] [address] Platelet mean volume (Bld) [Entitic vol] 8.6 fL Normal 6.4 - 10.5 [facility] Comment on above: Result Comment: AUTO MATED DIFFERENTIAL Performed By: #### 2 99723 #### [address] [address] RBC 5.17 x 10EE6/UL Normal 4.50 - 6.00 [facility] Comment on above: Performed By: #### 2 49385 #### [address] [address] WBC 8.8 x 10EE3/UL Normal 4.5 - 10.8 [facility] Comment on above: Performed By: #### 2 02343 #### [place] [address],[place] [address] CT LOWER EXTREMITY LT WOon 0 02-23-2021 CT LOWER EXTREMITY LT WO [address] [address] Patient: STEPHANY SCHAFER Phone#: : 1950 Age: 71 Gender: M Pt. Type: Out Account: [id number] Location: Ordering: VIVEK ZELAYA Exam Date: 02/23/2021/8:01 Family Phys: SHRUTHI HOBBSCHNER Charge Code: [id number] Physician: [place] Order #: [id number] DLP Dose#: PROCEDURE: CT LOWER EXTREMITY LT WO CONTRAST COMPARISON: None. INDICATIONS: Conformis. TECHNIQUE: Multi-planar CT images were created without intravenous contrast. All CT scans at this facility use dose modulation, iterative reconstruction, and/or weight based dosing when appropriate to reduce radiation dose to as low as reasonably achievable. IV CONTRAST: No IV contrast used,ml TOTAL DOSE: 35.0 CTDIvol(mGy) FINDINGS: BONES: Severe degenerative changes are present at the knee. There is marked narrowing medial compartment and lateral patellofemoral compartment. Osteophytes are present at the medial and lateral femoral condyles, tibial spines medial and lateral tibial plateau. Total hip prosthesis is present. Vacuum phenomenon is present at the knee. SOFT TISSUES: Negative. No visible soft tissue swelling. EFFUSION: None visible. OTHER: Negative. CONCLUSION: 1. Severe degenerative changes are present involving the medial compartment and patellofemoral compartment. Dictated by: Kendra Alcantara MD on 02/23/2021 at 16:48 Approved by: Kednra Alcantara MD on 02/23/2021 at 16:54 Normal [facility] CHEST 2 VIEWSon 02-07-2021 CHEST [address] [address] Patient: STEPHANY SCHAFER Phone#: : 1950 Age: 70 Gender: M Pt. Type: Out Account: [id number] Location: Ordering: VIVEK ZELAYA Exam Date: 02/07/2021/10:33 Family Phys: Charge Code: [id number] Physician: [place] Order #: [id number] DLP Dose#: PROCEDURE: X-RAY CHEST 2 VIEWS COMPARISON: None. INDICATIONS: Preoperative Clearance. FINDINGS: LUNGS: Normal. No significant pulmonary parenchymal abnormalities. VASCULATURE: Normal. Unremarkable pulmonary vasculature. CARDIAC: Normal. No cardiac silhouette abnormality or cardiomegaly. MEDIASTINUM: THE AORTA IS ECTATIC. PLEURA: Normal. No effusion or pleural thickening. BONES: Normal. No fracture or visible bony lesion. OTHER: Negative. CONCLUSION: No acute disease. Dictated by: Kendra Alcantara MD on 02/07/2021 at 15:17 Approved by: Kendra Alcantara MD on 02/07/2021 at 15:23 Normal [facility] HIP, UNILATERAL W/PELVIS WHE N PERFORMED 2-3 VIEWSon 06-01-2017 HIP, UNILATERAL W/PELVIS WHEN PERFORMED 2-3 VIEWS Name: STEPHANY SCHAFER STUDY:Pelvis and right hip date06/01/2017. INDICATION:Arthroplasty followup. COMPARISON:Radiographs dated 04/17/2017. ORDERING CLINICIAN:ELLIE PIERCE TECHNIQUE:AP pelvis and AP and frogleg lateral right hip radiographs. FINDINGS:No fracture or dislocation is evident.There are bilateral hiparthroplasties. There is mild lucency at the bone stem interface ofthe femoral component on the right which is likely similar to theprior exam. Degenerative changes seen of the spine. IMPRESSION:Mild lucency at the bone stem interface of the femoral component ofthe right hip arthroplasty. It is similar to the prior exam.Attention on follow-up studies is recommended.Electronically signed by: DILIP RODRIGUEZ MD Normal [facility] Discharge Summaryon 04-19-20 Discharge Summary Send Summary:Dischar ge Summary Providers:Provider Role Provider Name? Referring Cuate Donovan? Attending Cuate Donovan? Primary Luna Granger Recipients: Estefanía Granger MD - [phone] [preferred]Discharge:Summary: Admission Date: .17-Apr-2017 05:54:00Discharge Date: [id number] Physician at Discharge: Cuate DonovanAdmission Reason: Failure R MAXIMO s/p revision acetabular component of R THAFinal Discharge Diagnoses: Failure of total hip arthroplastyProcedures: Date: 17-Apr-2017 12:55:00Procedure Name: Revision R MAXIMO with explant of acetabular component andconversion to MDM acetabular/femoral head componentCondition at Discharge: SatisfactoryDisposition at Discharge: Home Health Care - NewVital Signs: T P R BP AdE8Rxmdi 37.6 67 18 103/62 93%Date/Time 04/18 5:01 04/18 9:20 04/18 5:01 04/18 9:20 225:01Range (37.6C - 37.6C ) (60 - 67 ) (17 - 18 ) (94 - 104 )/ (47 - 70 ) (92%- 93% )Highest temp of 37.6 C was recorded at 04/18 0:28Physical Exam:Physical Exam:Constitutional: NADEyes: Anicteric, EOMIENMT: MMMHead/Neck: AtraumaticRespiratory/Thorax: No increased work of breathingCardiovascular: Regular rateMusculoskeletal:Right lower extremity:- Surgical dressing over hip is intact without strikethrough.- Hemovac R hip in place- 5/5 EHL/DF/PF.- SILT in Roa/Sa/SP/DP/T distribution.- 2+ DP pulse, < 2 seconds capillary refill, foot warm.Extremities: SCDs/TEDs in place, abduction pillow in placeLymphatic: No LE edemaPsychological: appropriate affectSkin: WWPHospital Course:67 year-old Male who presented with Failure of R MAXIMO (acetabular component).Patient is now s/p Revision R MAXIMO (explant acetabular component, conversion toMDM acetabular/femoral head component) on 04/17/[address] Donovan. On theday of surgery, patient was identified in the pre-operative holding area andagreeable to proceed with surgery. Written consent was obtained. Please seeoperative note for further details of this procedure. Patient received 24 hoursof brigette-operative antibiotics. Patient recovered in the PACU before transfer toa regular nursing floor. Patient was started on oxycodone, tylenol, anddilaudid for pain control and ASA 81 mg bid for DVT prophylaxis. Physicaltherapy recommended continued recovery at home with continued physical therapyand wound care. On the day of discharge, patient was afebrile with stable vitalsigns. Patient was neurovascularly intact at time of discharge. Patient wasdischarged with prescription of ASA 81 mg bid for DVT prophylaxis for 4 weeks.Patient will follow-up with Dr. Donovan in 6 weeks for post-operative visit.Discharge Information:and Continuing Care:Discharge Instructions:Activity: activity as tolerated. May shower.. with operative dressing in place May not return to school/work until follow-up visit with. May not drive until follow-up visit. No pushing, pulling, or lifting objects greater than 10 pounds untilfollow-up visit. Weight-bearing Instructions: weight-bearing as tolerated right leg. Apply WINSTON hose or KILEY bandages to both lower legs x 6 weeks; remove atnight.Nutrition/Diet: resume normal dietWound Care: Wound Site: Right hip Wound Type: surgical incision Change Dressing: Remove operative dressing from incision 7 days aftersurgery. (May remove 1 day earlier or later depending on homecare nursingvisit). Wound may be open to air when dry. If there is continued drainage,cover with an abdominal pad and KILEY wrap. If the operative dressing waschanged prior to 7 days post op, then remove the dressing 7 days from the timeit was placed. Instructions: no lotions, creams, or tub soaks Other Instructions: Leave operative dressing in place until 04/24/17.Then remove and leave incision open to air. Let water run freely over incisionwhen showering, do not scrub. Do not soak in pool or tub.Additional Orders: Additional Instructions: MEDICATION SIDE EFFECTS.OXYCODONE: constipation, nausea, vomiting, upset stomach, (sleepiness),dizziness, lightheadedness, itching, headache, blurred vision, dry mouth,sweating,TRAMADOL: headache, dizziness, drowsiness, tired feeling; constipation,diarrhea, nausea, vomiting, stomach pain; feeling nervous or anxious, itching,sweating, flushing.ASPIRIN: upset stomach, heartburn; drowsiness; or headacheDo not swim in pools or ponds until 3 months after surgery.Do not visit the dentist until 3 months after the surgery date. You will needto take an antibiotic previous to any dental procedure and colonoscopy. Pleasecall [phone] and request a prescription for antibiotics for previousto these procedures.Please call [phone] Srinivas the [employer]SEM[employer]ER for any pain medication refills. Pleasecall a few days before you run out of your medication.Rehab Services: Occupational Therapy Orders: 2 times/day Physical Therapy Orders: 2 times/dayInfectious Disease: PPD Status: not given MRSA: no VRE: no C. Diff: no Other Resistant Organism: noHome Care Certification: Home Care Agency: Home Team Skilled Disciplines Ordered: RN/SUPERVISOR VOL[employer]TE[employer], PT, OTHome Care Services: Home Care Skilled Service: assessment, medication, Rehab (PT/OT/SPeval and treat), wound careCare Recommendation: I recommend that INPATIENT care is required at:: Skilled Estimated Stay: Convalescent stay < 30 daysFollow Up Appointments:Follow-Up Appointment 01: Physician/Dept/Service: Dr. Cuate Donovan - Orthopaedic Joints Reason for Referral: Post-Operative Visit Scheduled Date/Time: 01-Jun-2017 13:30 - Call to confirmDischarge Medications: Home Medication multivitamin - orally carvedilol 25 mg oral tablet - orally Kirti 180 mg oral tablet - orally simvastatin 40 mg oral tablet - 1 tab(s) orally once a day (at bedtime) testosterone cypionate 100 mg/mL intramuscular solution - 50 milligram(s)intramuscular losartan-hydrochlorothiazide 100mg-12.5mg oral tablet - 1 tab(s) orally once aday Aspirin Enteric Coated 81 mg oral delayed release tablet - 1 tab(s) orally 2times a day for 30 days Colace 100 mg oral capsule - Take 1 cap(s) orally 2 times a day -forconstipation oxyCODONE-acetaminophen 5 mg-325 mg oral tablet - Take 1-2 tabs every 4-6hours as need for pain, alternating with tramadol. traMADol 50 mg oral tablet - 1 tab(s) orally every 6 hours as needed for pain,alternating with percocet. pantoprazole 20 mg oral delayed release tablet - Take 1 tab(s) orally once aday -for indigestion / heartburn while taking aspirin PRN MedicationLab Results - Pending: Culture, Body Fluid, includes smear Drawn at [id number]:00 Culture, Fungus +smear Drawn at 17-Apr-2017 18:09:00Surgical Pathology Drawn at 17-Apr-2017 00:00:00Radiology Results - Pending: NoneSignature/Cosignature/Att estation:Attending Attestation I reviewed the resident/fellow?s documentation anddiscussed the patient with the resident/fellow. I agree with theresident/fellow?s medical decision making as documented in the resident?s note.Electronic Signatures:Oumar Lopez (Resident)) (Signed 18-Apr-2017 22:14) Authored: Send Summary, Summary Content, Ongoing Care,Signature/Cosignature/At testationCuate Donovan) (Signed 19-Apr-2017 08:12) Authored: Summary Content, Ongoing Care, Signature/Cosignature/Attesta tion Co-Signer: Send Summary, Summary Content, Ongoing Care,Signature/Cosignature/At testationLast Updated: 19-Apr-2017 08:12 by Cuate Donovan) Normal [facility] CBCon 04-18-2017 Erythrocyte distribution width Auto Ratio (RBC) 13.9 % Normal 11.5 - 14.5 [facility] Comment on above: Performed By: #### B MP ####[facility] [place] [address] Erythrocytes (RBC) 3.02 x10E12/L Low 4.50 - 5.90 [facility] Comment on above: Performed By: #### B MP ####[facility] [place] [address] Hematocrit (HCT) 28.1 % Low 41.0 - 52.0 [facility] Comment on above: Performed By: #### B MP ####[facility] [place] [address] Hemoglobin mass conc (Bld) 9.1 g/dL Low 13.5 - 17.5 [facility] Comment on above: Performed By: #### B MP ####[facility] [place] [address] MCHC mass conc (RBC) 32.4 g/dL Normal 32.0 - 36.0 [facility] Comment on above: Performed By: #### B MP ####[facility] [place] [address] MCV 93 fL Normal 80 - 100 [facility] Comment on above: Performed By: #### B MP ####[facility] [place] [address] Nucleated erythrocytes 0.0 /100 WBC Normal 0.0-0.0 [facility] Comment on above: Performed By: #### B MP ####[facility] [place] [address] Platelets 134 10*3/uL Low 150 - 450 [facility] Comment on above: Performed By: #### B MP ####[facility] [place] [address] WBC (Leukocytes) 9.9 10*3/uL Normal 4.4 - 11.3 [facility] Comment on above: Performed By: #### B MP ####[facility] [place] [address] CBC AND DIFFERENTIALon 04-18 % AUTOMATED IMMATURE GRAN 0.3 % Normal 0.0 - 0.9 [facility] Comment on above: Result Comment: Perc ent differential counts (%) should be interpreted in the context of the absolute cell counts (cells/L). Performed By: #### B MP ####[facility] [place] [address] % NEUTROPHIL 65.6 % Normal 40.0 - 80.0 [facility] Comment on above: Performed By: #### B MP ####[facility] [place] [address] Basophils/100 WBC Auto (Bld) 0.01 x10E9/L Normal 0.00 - 0.10 [facility] Comment on above: Performed By: #### B MP ####[facility] [place] [address] Basophils/100 WBC Auto (Bld) 0.1 % Normal 0.0 - 2.0 [facility] Comment on above: Performed By: #### B MP ####[facility] [place] [address] Eosinophils 0.09 10*3/uL Normal 0.00 - 0.70 [facility] Comment on above: Performed By: #### B MP ####[facility] [place] [address] Eosinophils/100 leukocytes 1.0 % Normal 0.0 - 6.0 [facility] Comment on above: Performed By: #### B MP ####[facility] [place] [address] Erythrocyte distribution width Auto Ratio (RBC) 13.8 % Normal 11.5 - 14.5 [facility] Comment on above: Performed By: #### B MP ####[facility] [place] [address] Erythrocytes (RBC) 2.86 x10E12/L Low 4.50 - 5.90 [facility] Comment on above: Performed By: #### B MP ####[facility] [place] [address] Hematocrit (HCT) 27.0 % Low 41.0 - 52.0 [facility] Comment on above: Performed By: #### B MP ####[facility] [place] [address] Hemoglobin mass conc (Bld) 8.7 g/dL Low 13.5 - 17.5 [facility] Comment on above: Performed By: #### B MP ####[facility] [place] [address] Lymphocytes 2.00 10*3/uL Normal 1.20 - 4.80 [facility] Comment on above: Performed By: #### B MP ####[facility] [place] [address] Lymphocytes/100 leukocytes 22.8 % Normal 13.0 - 44.0 [facility] Comment on above: Performed By: #### B MP ####[facility] [place] [address] MCHC mass conc (RBC) 32.2 g/dL Normal 32.0 - 36.0 [facility] Comment on above: Performed By: #### B MP ####[facility] [place] [address] MCV 94 fL Normal 80 - 100 [facility] Comment on above: Performed By: #### B MP ####[facility] [place] [address] Monocytes 0.90 10*3/uL Normal 0.10 - 1.00 [facility] Comment on above: Performed By: #### B MP ####[facility] [place] [address] Monocytes/100 leukocytes 10.2 % High 2.0 - 10.0 [facility] Comment on above: Performed By: #### B MP ####[facility] [place] [address] Neutrophils 5.76 10*3/uL Normal 1.20 - 7.70 [facility] Comment on above: Performed By: #### B MP ####[facility] [place] [address] Nucleated erythrocytes 0.0 /100 WBC Normal 0.0-0.0 [facility] Comment on above: Performed By: #### B MP ####[facility] [place] [address] Platelets 136 10*3/uL Low 150 - 450 [facility] Comment on above: Performed By: #### B MP ####[facility] [place] [address] WBC (Leukocytes) 8.8 10*3/uL Normal 4.4 - 11.3 [facility] Comment on above: Performed By: #### B MP ####[facility] [place] [address] ABO/RH GROUP TESTon 04-17-20 17 ABO TYPE A Normal [facility] Comment on above: Performed By: #### V ERAB ####[facility] [place] [address] RH TYPE Positive Normal [facility] Comment on above: Performed By: #### V ERAB ####[facility] [place] [address] BASIC METABOLIC PANELon -2 Anion gap 9 mmol/L Low 10 - 20 [facility] Comment on above: Performed By: #### B MP ####[facility] [place] [address] Bicarbonate (HCO3) 28 mmol/L Normal 21 - 32 [facility] Comment on above: Performed By: #### B MP ####[facility] [place] [address] Calcium 8.6 mg/dL Normal 8.6 - 10.6 [facility] Comment on above: Performed By: #### B MP ####[facility] [place] [address] Chloride 105 mmol/L Normal 98 - 107 [facility] Comment on above: Performed By: #### B MP ####[facility] [place] [address] Creatinine 0.85 mg/dL Normal 0.50 - 1.30 [facility] Comment on above: Performed By: #### B MP ####[facility] [place] [address] eGFR (non-black) mL/min/{1.73_m2} Normal >60 [facility] Comment on above: Performed By: #### B MP ####[facility] [place] [address] Result Comment: CALC ULATIONS OF ESTIMATED GFR ARE PERFORMED USING THE MDRD STUDY EQUATION FOR THE IDMS-TRACEABLE CREATININE METHODS. CLIN CHEM 2007;53:766-72 Glucose mass conc 131 mg/dL High 74 - 99 [facility] Comment on above: Performed By: #### B MP ####[facility] [place] [address] Potassium molar conc 4.1 mmol/L Normal 3.5 - 5.3 [facility] Comment on above: Performed By: #### B MP ####[facility] [place] [address] Sodium 138 mmol/L Normal 136 - 145 [facility] Comment on above: Performed By: #### B MP ####[facility] [place] [address] Urea nitrogen 20 mg/dL Normal 6 - 23 [facility] Comment on above: Performed By: #### B MP ####[facility] [place] [address] BN HIP DURING OPERATIVE PROC EDUREon 04-17-2017 BN HIP DURING OPERATIVE PROCEDURE Name: STEPHANY SCHAFER STUDY:BN HIP DURING OPERATIVE PROCEDURE; PELVIS; 1 OR 2 VIEWS; 04/17/201711:57 am; 04/17/2017 1:25 pm INDICATION:Signs/Symptoms: Intraoperative, Revison R MAXIMO. COMPARISON:04/05/2017 [id number] ORDERING CLINICIAN:OUMAR LOPEZ TECHNIQUE:2 images of the pelvis FINDINGS:There is perioperative changes from revision right total hiparthroplasty including soft tissue swelling and emphysema about theright hip. There is left total hip arthroplasty. No acute fracture orhardware complication allowing for limitation of a single view IMPRESSION:Perioperative changes revision right total hip arthroplasty Electronically signed by: VIK ANTONIO MD Normal [facility] CALCIUM, IONIZEDon 7 CALCIUM,IONIZED 1.23 mmol/L Normal 1.10 - 1.33 [facility] Comment on above: Result Comment: The performance characteristics of ionized calcium tested in heparinized plasma or serum have been validated by the individual laboratory site where testing is performed. Testing on heparinized plasma or serum is not approved by the FDA; however, such approval is not necessary. Performed By: #### I ONC1 ####[facility] [place] [address] CBCon 04-17-2017 Erythrocyte distribution width Auto Ratio (RBC) Canceled Normal [facility] Comment on above: Order Comment: TEST CBC WAS CANCELLED, 04/17/2017 19:02 QNS, PLEASE RESUBMIT.. Performed By: #### B MP ####[facility] [place] [address] Erythrocytes (RBC) Canceled Normal [facility] Comment on above: Order Comment: TEST CBC WAS CANCELLED, 04/17/2017 19:02 QNS, PLEASE RESUBMIT.. Performed By: #### B MP ####[facility] [place] [address] Hematocrit (HCT) Canceled Normal [facility] Comment on above: Order Comment: TEST CBC WAS CANCELLED, 04/17/2017 19:02 QNS, PLEASE RESUBMIT.. Performed By: #### B MP ####[facility] [place] [address] Hemoglobin mass conc (Bld) Canceled Normal [facility] Comment on above: Order Comment: TEST CBC WAS CANCELLED, 04/17/2017 19:02 QNS, PLEASE RESUBMIT.. Performed By: #### B MP ####[facility] [place] [address] MCHC mass conc (RBC) Canceled Normal [facility] Comment on above: Order Comment: TEST CBC WAS CANCELLED, 04/17/2017 19:02 QNS, PLEASE RESUBMIT.. Performed By: #### B MP ####[facility] [place] [address] MCV Canceled Normal [facility] Comment on above: Order Comment: TEST CBC WAS CANCELLED, 04/17/2017 19:02 QNS, PLEASE RESUBMIT.. Performed By: #### B MP ####[facility] [place] [address] Nucleated erythrocytes Canceled Normal [facility] Comment on above: Order Comment: TEST CBC WAS CANCELLED, 04/17/2017 19:02 QNS, PLEASE RESUBMIT.. Performed By: #### B MP ####[facility] [place] [address] Platelets Canceled Normal [facility] Comment on above: Order Comment: TEST CBC WAS CANCELLED, 04/17/2017 19:02 QNS, PLEASE RESUBMIT.. Performed By: #### B MP ####[facility] [place] [address] WBC (Leukocytes) Canceled Normal [facility] Comment on above: Order Comment: TEST CBC WAS CANCELLED, 04/17/2017 19:02 QNS, PLEASE RESUBMIT.. Performed By: #### B MP ####[facility] [place] [address] CBC AND DIFFERENTIALon 04-17 % AUTOMATED IMMATURE GRAN 0.4 % Normal 0.0 - 0.9 [facility] Comment on above: Result Comment: Perc ent differential counts (%) should be interpreted in the context of the absolute cell counts (cells/L). Performed By: #### B MP ####[facility] [place] [address] % NEUTROPHIL 65.2 % Normal 40.0 - 80.0 [facility] Comment on above: Performed By: #### B MP ####[facility] [place] [address] Basophils/100 WBC Auto (Bld) 0.4 % Normal 0.0 - 2.0 [facility] Comment on above: Performed By: #### B MP ####[facility] [place] [address] Basophils/100 WBC Auto (Bld) 0.03 x10E9/L Normal 0.00 - 0.10 [facility] Comment on above: Performed By: #### B MP ####[facility] [place] [address] Eosinophils 0.11 10*3/uL Normal 0.00 - 0.70 [facility] Comment on above: Performed By: #### B MP ####[facility] [place] [address] Eosinophils/100 leukocytes 1.5 % Normal 0.0 - 6.0 [facility] Comment on above: Performed By: #### B MP ####[facility] [place] [address] Erythrocyte distribution width Auto Ratio (RBC) 13.6 % Normal 11.5 - 14.5 [facility] Comment on above: Performed By: #### B MP ####[facility] [place] [address] Erythrocytes (RBC) 3.55 x10E12/L Low 4.50 - 5.90 [facility] Comment on above: Performed By: #### B MP ####[facility] [place] [address] Hematocrit (HCT) 31.8 % Low 41.0 - 52.0 [facility] Comment on above: Performed By: #### B MP ####[facility] [place] [address] Hemoglobin mass conc (Bld) 10.8 g/dL Low 13.5 - 17.5 [facility] Comment on above: Performed By: #### B MP ####[facility] [place] [address] Lymphocytes 1.69 10*3/uL Normal 1.20 - 4.80 [facility] Comment on above: Performed By: #### B MP ####[facility] [place] [address] Lymphocytes/100 leukocytes 23.2 % Normal 13.0 - 44.0 [facility] Comment on above: Performed By: #### B MP ####[facility] [place] [address] MCHC mass conc (RBC) 34.0 g/dL Normal 32.0 - 36.0 [facility] Comment on above: Performed By: #### B MP ####[facility] [place] [address] MCV 90 fL Normal 80 - 100 [facility] Comment on above: Performed By: #### B MP ####[facility] [place] [address] Monocytes 0.68 10*3/uL Normal 0.10 - 1.00 [facility] Comment on above: Performed By: #### B MP ####[facility] [place] [address] Monocytes/100 leukocytes 9.3 % Normal 2.0 - 10.0 [facility] Comment on above: Performed By: #### B MP ####[facility] [place] [address] Neutrophils 4.76 10*3/uL Normal 1.20 - 7.70 [facility] Comment on above: Performed By: #### B MP ####[facility] [place] [address] Nucleated erythrocytes 0.0 /100 WBC Normal 0.0-0.0 [facility] Comment on above: Performed By: #### B MP ####[facility] [place] [address] Platelets 148 10*3/uL Low 150 - 450 [facility] Comment on above: Performed By: #### B MP ####[facility] [place] [address] WBC (Leukocytes) 7.3 10*3/uL Normal 4.4 - 11.3 [facility] Comment on above: Performed By: #### B MP ####[facility] [place] [address] FLUID CULTURE/SM.,BACTERIALo n 04-17-2017 FLUID CULTURE/SM.,BACTE RIAL PATIENT: STEPHANY SCHAFER LOCATION: [facility] [id number]#: [id number] : 50 AGE: SEX: M ORDERED BY: ELIZABETH DONOVAN: FLUID COLLECTED: 04/17/17 18:09ANTIBIOTICS AT ISHMAEL.: RECEIVED : 04/17/17 18:09SITE: SYNOVIAL R E S U L T S GRAM STAIN FINAL 04/17/17 20:01 1+ GRANULOCYTES. NO ORGANISMS SEEN. FLUID CULTURE/SM.,BACTERIAL FINAL 04/20/17 09:14 NO GROWTH AEROBICALLY OR ANAEROBICALLY. Normal [facility] Comment on above: Performed By: #### C OAGS ####[facility] [place] [address] FUNGAL CULTURE/SM, [facility] FUNGAL CULTURE/SM, [facility] PATIENT: STEPHANY SCHAFER LOCATION: [address]#: [id number] : 50 AGE: SEX: M ORDERED BY: ELIZABETH DONOVAN: FLUID COLLECTED: 04/17/17 18:09ANTIBIOTICS AT ISHMAEL.: RECEIVED : 04/17/17 18:09SITE: SYNOVIAL R E S U L T S FUNGAL SMEAR FINAL 04/18/17 09:39 FLUORESCENT FUNGAL STAIN: NEGATIVE FUNGAL CULTURE/SM, [facility] FINAL 05/07/17 11:03 NO FUNGI ISOLATED. Normal [facility] Comment on above: Performed By: #### C OAGS ####[facility] [place] [address] PELVIS; 1 OR 2 VIEWSon 04-17 PELVIS; 1 OR 2 VIEWS Name: STEPHANY SCHAFER STUDY:BN HIP DURING OPERATIVE PROCEDURE; PELVIS; 1 OR 2 VIEWS; 04/17/201711:57 am; 04/17/2017 1:25 pm INDICATION:Signs/Symptoms: Intraoperative, Revison R MAXIMO. COMPARISON:04/05/2017 [id number] ORDERING CLINICIAN:OUMAR LOPEZ TECHNIQUE:2 images of the pelvis FINDINGS:There is perioperative changes from revision right total hiparthroplasty including soft tissue swelling and emphysema about theright hip. There is left total hip arthroplasty. No acute fracture orhardware complication allowing for limitation of a single view IMPRESSION:Perioperative changes revision right total hip arthroplasty Electronically signed by: VIK ANTONIO MD Normal [facility] Surgical Pathology Depar [place] 04-17-2017 [facility] Surgical Pathology Department Name STEPHANY SCHAFER Pathologist: JON KAHN MD, PhDDate of Procedure: 04/17/2017Date Received: 04/17/2017Date Reported 05/12/2017Submitting Physician: CUATE DONOVANLocation: [facility] Other External # FINAL DIAGNOSISA. SYNOVIUM: --CHRONIC PROLIFERATIVE SYNOVITIS AND DENSE FIBROSIS.B. 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 Intraoperative Consultation:A: SYNOVIUMFrozen Section 1:Date Ordered: 04/17/2017 10:26 Date Received: 04/17/2017 10:26 DateCalled: 04/17/2017 10:46Intraoperative Diagnosis:No acute inflammationIntraoperative Consult Pathologist(s):JAY MURILLO DO (P)bxg/04/17/2017 Clinical History:Failed (R) THASpecimens Submitted As:A: SYNOVIUM B: (R) HIP EXPLANTS Gross Description:A: Received fresh for intraoperative consultation, labeled with patient nameand hospital number, is a fragment of red-thornton soft tissue, measuring 1.5 x 1.3x 0.8 cm. The specimen is sectioned, frozen and submitted in 2 cassettes.HXS/BXGB: Received in formalin, labeled with the patient's name and hospital number,are the femoral and acetabular components of a total hip prosthesis. Thespecimen consists of a metal acetabular cup, polyethylene acetabular insert andmetal femoral head. The acetabular component measures 6.0 cm in outer diameterby 4.7 cm in inner diameter. The acetabular insert measures 5.1 cm in outerdiameter by 3.4 cm in inner diameter. The metal head with inscription 32mm12/14 3.5 C [id number] measures 3.1 cm in outer diameter by 1.4 cm in innerdiameter. Soft tissue is not present. A photograph has been taken. Thespecimen is for Gross only. ALT[NOTE: For medical / legal hip porsthesis (pitrr-gx-vyosk wear), describe wearon femoral neck and lip of acetabular cup. Submit 5 cassettes includingsub-synovium, if possible. Photographs clearly showing the identificationnumbers must be taken.]bxg/04/17/2017 Normal [facility] Comment on above: Performed By: #### C OAGS ####[facility] [place] [address] VENOUS BLOOD GASon 7 BASE EXCESS-BLOOD -0.2 mmol/L Normal -2.0 - 3.0 [facility] Comment on above: Performed By: #### B LGV1 ####[facility] [place] [address] Body temperature 37.0 degrees C Normal [facility] Comment on above: Result Comment: NOTE : PATIENT RESULTS ARE NOT CORRECTED FOR TEMPERATURE. Performed By: #### B LGV1 ####[facility] [place] [address] CO2 47 mmHg Normal 41 - 51 [facility] Comment on above: Performed By: #### B LGV1 ####[facility] [place] [address] Erythrocytes (RBC) 25.9 mmol/L Normal 22.0 - 26.0 [facility] Comment on above: Performed By: #### B LGV1 ####[facility] [place] [address] Performed By: #### B MP ####[facility] [place] [address] Oxygen in arterial blood 50 mm[Hg] High 35 - 45 [facility] Comment on above: Performed By: #### B LGV1 ####[facility] [place] [address] pH of blood 7.35 [pH] Normal 7.33 - 7.43 [facility] Comment on above: Performed By: #### B LGV1 ####[facility] [place] [address] SO2 89 % High 45 - 75 [facility] Comment on above: Performed By: #### B LGV1 ####[facility] [place] [address] VENOUS ELECTROLYTE,GLUCOSE P ANELon 04-17-2017 Anion gap 7 mmol/L Low 10 - 25 [facility] Comment on above: Performed By: #### B MP ####[facility] [place] [address] Chloride 107 mmol/L Normal 98 - 107 [facility] Comment on above: Performed By: #### B MP ####[facility] [place] [address] Glucose mass conc 124 mg/dL High 74 - 99 [facility] Comment on above: Performed By: #### B MP ####[facility] [place] [address] Potassium molar conc 4.5 mmol/L Normal 3.5 - 5.3 [facility] Comment on above: Performed By: #### B MP ####[facility] [place] [address] Sodium 135 mmol/L Low 136 - 145 [facility] Comment on above: Performed By: #### B MP ####[facility] [place] [address] VENOUS H+Hon 04-17-2017 Hematocrit (HCT) 36.0 % Low 41.0 - 52.0 [facility] Comment on above: Performed By: #### H HNV1 ####[facility] [place] [address] Hemoglobin mass conc (Bld) 12.2 g/dL Low 13.5 - 17.5 [facility] Comment on above: Performed By: #### H HNV1 ####[facility] [place] [address] VIRAL CULTUREon 04-17-2017 VIRAL CULTURE TEST VIRAL CULTURE W CANCELLED, 04/18/2017 06:28 IMPROPER COLLECTION.Viral culture will support the growth of the following viruses:Adenovirus, CMV, Enteroviruses, HSV, Influenza,Metapneumovirus, Parainfluenza,RSV, and VZV.Culture for Mumps,Rhinovirus,Rubella, and Rubeola virus requirea specific request.EBV,BK virus,ORAL virus, and Arboviruses likeWest Nile do not grow in culture.PCR is recommended for the detection of all Herpes family viruses in CSF.PATIENT: STEPHANY SCHAFER LOCATION: [address]#: [id number] : 50 AGE: SEX: M ORDERED BY: ELIZABETH DONOVAN: FLUID COLLECTED: 04/17/17 18:09ANTIBIOTICS AT ISHMAEL.: RECEIVED : 04/17/17 18:10SITE: SYNOVIAL R E S U L T S VIRAL CULTURE CANCELLED 04/18/17 06:28 Normal [facility] Comment on above: Performed By: #### B MP ####[facility] [place] [address] BASIC METABOLIC PANELon 11-0 Anion gap 12 mmol/L Normal 10 - 20 [facility] Comment on above: Performed By: #### B MP ####[facility] [place] [address] Bicarbonate (HCO3) 27 mmol/L Normal 21 - 32 [facility] Comment on above: Performed By: #### B MP ####[facility] [place] [address] Calcium 9.9 mg/dL Normal 8.6 - 10.6 [facility] Comment on above: Performed By: #### B MP ####[facility] [place] [address] Chloride 104 mmol/L Normal 98 - 107 [facility] Comment on above: Performed By: #### B MP ####[facility] [place] [address] Creatinine 0.91 mg/dL Normal 0.50 - 1.30 [facility] Comment on above: Performed By: #### B MP ####[facility] [place] [address] eGFR (non-black) mL/min/{1.73_m2} Normal >60 [facility] Comment on above: Performed By: #### B MP ####[facility] [place] [address] Result Comment: CALC ULATIONS OF ESTIMATED GFR ARE PERFORMED USING THE MDRD STUDY EQUATION FOR THE IDMS-TRACEABLE CREATININE METHODS. CLIN CHEM 2007;53:766-72 Glucose mass conc 75 mg/dL Normal 74 - 99 [facility] Comment on above: Performed By: #### B MP ####[place] [id number] [place] [address] Potassium molar conc 4.4 mmol/L Normal 3.5 - 5.3 [facility] Comment on above: Performed By: #### B MP ####[facility] [place] [address] Sodium 139 mmol/L Normal 136 - 145 [facility] Comment on above: Performed By: #### B MP ####[facility] [place] [address] Urea nitrogen 20 mg/dL Normal 6 - 23 [facility] Comment on above: Performed By: #### B MP ####[place] [id number] [place] [address] CBC AND DIFFERENTIALon 04-05 % AUTOMATED IMMATURE GRAN 0.2 % Normal 0.0 - 0.9 [facility] Comment on above: Result Comment: Perc ent differential counts (%) should be interpreted in the context of the absolute cell counts (cells/L). Performed By: #### C BCDF ####[facility] [place] [address] % NEUTROPHIL 50.5 % Normal 40.0 - 80.0 [facility] Comment on above: Performed By: #### C BCDF ####[facility] [place] [address] Basophils/100 WBC Auto (Bld) 0.06 x10E9/L Normal 0.00 - 0.10 [facility] Comment on above: Performed By: #### C BCDF ####[facility] [place] [address] Basophils/100 WBC Auto (Bld) 0.9 % Normal 0.0 - 2.0 [facility] Comment on above: Performed By: #### C BCDF ####[facility] [place] [address] Eosinophils 0.11 10*3/uL Normal 0.00 - 0.70 [facility] Comment on above: Performed By: #### C BCDF ####[facility] [place] [address] Eosinophils/100 leukocytes 1.7 % Normal 0.0 - 6.0 [facility] Comment on above: Performed By: #### C BCDF ####[facility] [place] [address] Erythrocyte distribution width Auto Ratio (RBC) 13.9 % Normal 11.5 - 14.5 [facility] Comment on above: Performed By: #### C BCDF ####[facility] [place] [address] Erythrocytes (RBC) 4.64 x10E12/L Normal 4.50 - 5.90 [facility] Comment on above: Performed By: #### C BCDF ####[facility] [place] [address] Hematocrit (HCT) 42.6 % Normal 41.0 - 52.0 [facility] Comment on above: Performed By: #### C BCDF ####[facility] [place] [address] Hemoglobin mass conc (Bld) 13.7 g/dL Normal 13.5 - 17.5 [facility] Comment on above: Performed By: #### C BCDF ####[facility] [place] [address] Lymphocytes 2.24 10*3/uL Normal 1.20 - 4.80 [facility] Comment on above: Performed By: #### C BCDF ####[facility] [place] [address] Lymphocytes/100 leukocytes 34.3 % Normal 13.0 - 44.0 [facility] Comment on above: Performed By: #### C BCDF ####[facility] [place] [address] MCHC mass conc (RBC) 32.2 g/dL Normal 32.0 - 36.0 [facility] Comment on above: Performed By: #### C BCDF ####[facility] [place] [address] MCV 92 fL Normal 80 - 100 [facility] Comment on above: Performed By: #### C BCDF ####[facility] [place] [address] Monocytes 0.81 10*3/uL Normal 0.10 - 1.00 [facility] Comment on above: Performed By: #### C BCDF ####[facility] [place] [address] Monocytes/100 leukocytes 12.4 % High 2.0 - 10.0 [facility] Comment on above: Performed By: #### C BCDF ####[facility] [place] [address] Neutrophils 3.31 10*3/uL Normal 1.20 - 7.70 [facility] Comment on above: Performed By: #### C BCDF ####[facility] [place] [address] Nucleated erythrocytes 0.0 /100 WBC Normal 0.0-0.0 [facility] Comment on above: Performed By: #### C BCDF ####[facility] [place] [address] Platelets 197 10*3/uL Normal 150 - 450 [facility] Comment on above: Performed By: #### C BCDF ####[facility] [place] [address] WBC (Leukocytes) 6.5 10*3/uL Normal 4.4 - 11.3 [facility] Comment on above: Performed By: #### C BCDF ####[facility] [place] [address] COAGULATION SCREENon 017 aPTT 28 s Normal 25 - 36 [facility] Comment on above: Result Comment: THE APTT IS NO LONGER USED FOR MONITORING UNFRACTIONATED HEPARIN THERAPY. FOR MONITORING HEPARIN THERAPY, USE THE HEPARIN ASSAY. Performed By: #### C OAGS ####[facility] [place] [address] INR Coag RelTime (PPP) 0.9 {INR} Normal 0.9 - 1.1 [facility] Comment on above: Performed By: #### C OAGS ####[facility] [id number] Prothrombin time (PT) Coag time (PPP) 10.4 s Normal 9.8 - 12.7 [facility] Comment on above: Performed By: #### C OAGS ####[facility] [place] [address] HIP, UNILATERAL W/PELVIS WHE N PERFORMED: 2-3 VIEWSon 04-05-2017 HIP, UNILATERAL W/PELVIS WHEN PERFORMED: 2-3 VIEWS Name: TOSHIASTEPHANY Vela STUDY:HIP, UNILATERAL W/PELVIS WHEN PERFORMED: 2-3 VIEWS; 04/05/2017 3:41 pm INDICATION:Signs/Symptoms: T84.018A. COMPARISON:02/22/2017 and 07/28/2016 ORDERING CLINICIAN:CUATE DONOVAN TECHNIQUE:One view AP of the pelvis. Two views right hip. AP, lateral. FINDINGS:Right hip:Re-demonstration of a right total hip arthroplasty with verticalorientation of the acetabular cup, with the acetabular cup protrudinginto the medial pelvic wall. There is eccentric orientation femoralhead component in the acetabular cup, suggestive of polyethylenewear. There remains no evidence of significant perihardware lucencyor fracture. Left hip:Status post left total hip arthroplasty without evidence ofperihardware lucency or fracture. Alignment is unchanged. No evidence of acute fracture dislocation. IMPRESSION:Unchanged similar-appearing right hip total arthroplasty withsuggestion of polyethylene wear. Left total hip arthroplasty without evidence of hardware failure inthe limited view. I personally reviewed the images/study and I agree with the findingsas stated. This study was interpreted at [facility], [place], [place].Electronically signed by: VIK ANTONIO MD Normal [facility] STAPH/MRSA SCREENon 04-05-20 17 STAPH/MRSA SCREEN PATIENT: LETICAI SCHAFER LOCATION: [place] ADAM#: [id number] : 50 AGE: SEX: M ORDERED BY: ELIZABETH DONOVAN: ANTERIOR NARES COLLECTED: 04/05/17 15:27ANTIBIOTICS AT ISHMAEL.: RECEIVED : 04/05/17 21:39SITE: Nasal R E S U L T S STAPH/MRSA SCREEN FINAL 04/07/17 10:09 NO Staphylococcus aureus ISOLATED. Normal [facility] Comment on above: Performed By: #### S TAPH ####[facility] [place] [address] TYPE + SCREENon 04-05-2017 ABO TYPE A Normal [facility] Comment on above: Performed By: #### T +S ####[facility] [place] [address] ANTIBODY SCREEN Negative Normal [facility] Comment on above: Performed By: #### T +S ####[facility] [place] [address] RH TYPE Positive Normal [facility] Comment on above: Performed By: #### T +S ####[facility] [place] [address] HIP, UNILATERAL W/PELVIS WHE N PERFORMED 2-3 VIEWSon 02-22-2017 HIP, UNILATERAL W/PELVIS WHEN PERFORMED 2-3 VIEWS Name: STEPHANY SCHAFER STUDY:Pelvis and right hip dated02/22/2017. INDICATION:Pain. COMPARISON:Radiographs dated 07/28/2016. ORDERING CLINICIAN:CUATE DONOVAN TECHNIQUE:AP pelvis and AP and crosstable lateral right hip radiographs. FINDINGS:No fracture or dislocation is evident.There is a total left hiparthroplasty. It is similar to the prior exam as visualized. There megan total right hip arthroplasty. There is re- demonstration of adegree of vertical appearance of the acetabular cup and lucency atthe tip of the femoral stem. Degenerative changes seen of thespine.The soft tissues are grossly unremarkable. IMPRESSION:Similar appearance to right hip arthroplasty with findings discussedabove.Electronically signed by: DILIP RODRIGUEZ MD [facility] Encounters Encounter Date Encounter Type Care Provider Facility Start: 04-18-2021 End: 04-19-2021 ambulatory VIVEK ZELAYA [facility] Start: 03-31-2021 End: 03-31-2021 ambulatory VIVEK ZELAYA [facility] Start: 02-23-2021 End: 02-23-2021 ambulatory VIVEK ZELAYA [facility] Start: 02-07-2021 End: 02-07-2021 ambulatory VIVEK ZELAYA [facility] Start: 06-01-2017 Ambulatory Ellie Pierce Facility :[facility] Start: 05-15-2017 Ambulatory Daphnie Donaldson Facil ity:[facility] Start: 04-17-2017 End: 04-18-2017 Evaluation and management of inpatient Cuate Donovan Facility:[facility] Start: 04-05-2017 Ambulatory Cuate Donovan Facility:[facility] Start: 04-05-2017 Ambulatory Cuate Donovan Facility:[facility] Start: 02-22-2017 Ambulatory Cuate Donovan Facility:[facility] Start: 12-05-2016 End: 12-05-2016 Ambulatory Radha Reyna Facility:[facility] Start: 11-21-2016 Ambulatory Daphnie Donaldson Facil ity:[facility] Start: 02-22-2016 End: 02-22-2016 ambulatory PHU ALLISON [facility] Procedures Date Procedure Procedure Detail Performing Clinician Start: 04-17-2017 [id number] Cuate meng Start: 04-17-2017 Replacement of Right Hip Joint, Acetabular Surface with Polyethylene Synthetic Substitute, Uncemented, Open Approach Cuate Donovan Start: 12-05-2016 Njx dx/ther sbst int rlmnr lmbr/sac w/img gdn Cuate Donovan Payers Date Payer Category Payer Unknown [id number] [id number] [id number] 1950 Unknown [id number] [id number] [id number] 1950 Unknown [id number] [id number] [id number] 1950 Unknown [id number] 2.16.84 [id number] Unknown [id number] Discharge summary note 05-11-2021 Note Date & Type Note Facility 05-11-2021 Note [facility] DISCHARGE SUMMARY NAME ACCOUNT SEX AGE ADMIT DISCHARGE PT MED. RECORD# NUMBER DATE DATE TYPE STEPHANY SCHAFER [id number] M [id number] 04/18/21 2 [id number] ROOM: [facility] DATE OF : 1950 ATTENDING PHYSICIAN: Rachell Pack PROGRESS NOTE/DISCHARGE SUMMARY ATTENDING ORTHOPEDIC PHYSICIAN: Dr. Vivek Zelaya. DATE OF ADMISSION: April 18, 2021 ESTIMATED [...] were discussed and reviewed with Dr. Vivek Zelaya at length and are consistent with a [...] Rachell Pack PA-C 04/19/21 07:33 JOB #: [id number] Transcribed By: portillo 04/19/21 08:15 Electronically signed by: E-sign Rachell ELLISON 05/10/21 07:38 Page 2 of 2 TOSHIADane STEPHANY Discharge Summary [facility] Summary Purpose Family History No Family History [...] ized section and content) DATE CREATED AUTHOR 11/19/2017 [facility] DATE CREATED AUTHOR AUTHOR'S ORGANIZ ATION 11/20/2017 [facility] DATE CREATED AUTHOR AUTHOR'S ORGANIZ ATION 04/22/2021 [facility] DATE CREATED AUTHOR AUTHOR'S ORGANIZ ATION 05/12/2021 [facility] DATE CREATED AUTHOR AUTHOR'S ORGANIZ ATION 10/28/[address] [facility] FOR RECORDS PERTAINING TO PATIENTS WHO ARE [...] BE BASED ON THE PRIMARY CLINICAL RECORDS. [facility] [facility]. provides no warranty or guarantee of the accuracy or completeness of information in this document.
== END | disposition home or self-care (01) ==
LOC: PSN 08:06
PROVIDERS: PCP Internal Medicine; Referring Provider Nurse Practitioner Acute Care; Visit Provider Nurse Practitioner Acute Care
DX: J84.9 Interstitial pulmonary disease, unspecified (principal)
CPT/HCPCS: 94060; 94726; 94729

== ENCOUNTER 2024-04-10 06:24 | Day surgery (SDC) | payer MEDICARE, SELFPAY ==
[2024-04-10] VITALS (7 sets, daily range): BP systolic 85–147; BP diastolic 56–99; PULSE 72–82; RESP 16; TEMP 36.1–36.2; O2SAT 93–99; BMI 27.1
--- NOTE | 2024-04-10 06:33 | HP.PCM_ITS ---
History and Physical Date of Admission: 04/10/24 Intake Vital Signs 02/25/2408:41 03/05/2409:26 Height 5 ft 9 in 5 ft 9 in Weight: 189 lb 200 lb 4 oz BMI 27.8 29.5 BP 147/98 H 139/83 H Blood Pressure Location Lt brachial Rt brachial Position Sitting Sitting Respiration 16 18 Pulse 77 106 H Pulse Source Monitor Monitor Temp 97.8 F 97.9 F Temp Source Temporal Temporal Pulse Oximetry (%) 95 97 Oxygen Delivery Method room air room air Intake Visit Reasons: COLONOSCOPY Chief Complaint: colonoscopy Is patient in pain?: No Allergies nalbuphine (From [employer]) Adverse Reaction (Verified 03/05/24 09:27) delirium Medications ?Medication ?Instructions ?Recorded ?Confirmed ?Type cholecalciferol (vitamin D3) 25 1,000 unit PO QDAY 09/21/17 03/05/24 History mcg (1,000 unit) tablet fexofenadine 180 mg tablet 180 mg PO QDAY 09/21/17 03/05/24 History ([facility] Allergy) multivitamin 1 tab PO QDAY 09/21/17 03/05/24 History simvastatin 40 mg tablet 40 mg PO QPM #90 tabs 11/11/20 03/05/24 Rx carvedilol 25 mg tablet 25 mg PO BID 11/01/21 03/05/24 History testosterone cypionate 200 mg/mL 200 mg subcut Q2W #10 mL 05/02/23 03/05/24 Rx intramuscular oil losartan 50 mg tablet 50 mg PO DAILY FAX to [facility] 05/24/23 03/05/24 Rx #90 tabs ipratropium 0.5 mg-albuterol 3 mg 3 ml inhalation Q4H PRN PRN SOB 05/25/23 03/05/24 Rx (2.5 mg base)/3 mL nebulization &/OR WHEEZING #180 mL soln pramipexole 0.25 mg tablet 0.5 mg (2 x 0.25 mg) PO QHS #180 06/12/23 03/05/24 Rx tabs Handicap Placard #1 ea 08/02/23 03/05/24 Rx sildenafil (pulm.hypertension) 20 20 mg PO DAILY PRN sexual activity 08/02/23 03/05/24 Rx mg tablet #30 tabs rivaroxaban 20 mg tablet (Xarelto) 20 mg PO DAILY Pt gets this from 11/19/2302/18 [facility] 300 mg capsule 300 mg PO QHS 01/16/24 03/05/24 History gabapentin 100 mg capsule 100 mg PO QHS #50 caps 02/25/24 03/05/24 Rx albuterol sulfate 90 mcg/actuation 2 puff inhalation Q6H PRN 03/03/24 03/05/24 Rx aerosol inhaler shortness of breath or wheezing #18 grams Have you fallen in the past year?: No PFSH Medical History Colon cancer screening Multiple premature ventricular complexes Left ankle pain Interstitial lung disease Chronic atrial fibrillation Asthma Viral syndrome Hearing problem History of kidney stones Headache, migraine H/O emotional problems Chronic bronchitis Carpal tunnel syndrome Cataracts, bilateral history of bone fracture Back problem Paroxysmal atrial fibrillation Abnormal CXR MAURI (obstructive sleep apnea) DM (diabetes mellitus), type 2 with peripheral vascular complications History of immunosuppressive therapy Rheumatoid arthritis Essential hypertension Testosterone deficiency Elevated LFTs Erectile dysfunction Palpitations Paroxysmal ventricular tachycardia HLD (hyperlipidemia) Surgical History History of arthroplasty of left knee History of ear surgery History of bunionectomy of both great toes History of carpal tunnel release (~1989) History of hernia repair (~1980) History of colonoscopy (~06/2009) History of cardioversion (01/26/20) History of radiofrequency ablation procedure for cardiac arrhythmia (09/2010) History of left heart catheterization (12/2009) History of foot surgery History of back surgery History of bilateral hip replacements Family History Father CAD (coronary artery disease) ICD implantMother History of heart valve replacement Social History Smoking Status: Former smoker alcohol intake: current alcohol intake frequency: holidays/special occasions only Alcohol type: beer and wine substance use type: does not use what type of physical activity do you participate in: 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 His last colonoscopy was over 10 years ago. He denies abdominal pain or blood in stool or family history of colon cancer. ROS General General: Yes fatigue; No weight change, appetite, colon cancer, breast cancer or weakness HEENT HEENT: No difficulty swallowing, eye injury, eye surgery, swollen glands or hoarseness Endo Endocrine: No thyroid disease, diabetes mellitus, thyroid cancer, Hair loss, heat intolerance or cold intolerance Skin Skin: No rash or changing moles Musc Musculoskeletal: Yes back problems, arthritis and rheumatoid arthritis; No gout or joint pain Cardio Cardiovascular: Yes murmur, atrial fibrillation and high blood pressure; No pacemaker, heart disease, heart attack, heart stent, palpitations, shortness of breat with exertion or chest pain Psych Psychiatric: No depression, anxiety or hearing voices Resp Respiratory: No shortness of breath, Yes sleep apnea, Yes cough, No COPD, No asthma, No emphysema and No wheezing Gastro Gastrointestinal: No abdominal pain, No nausea or vomiting, No diarrhea, No constipation, No blood in stool, No acid reflux, No hemorrhoids, No ulcers, No gallbladder problem and No black,tarry stools Julius Hematologic: Yes blood thinners, No blood disorders, No bleeding, No anemia and No blood clots Additional Details: xarelto Neuro Neurologic: No numbness, No tingling and No weakness Exam Const General: cooperative Orientation: alert and oriented x3 HENMT Head: normal to inspection Neck Neck: normal visual inspection and full ROM Chest Chest palpation & inspection: normal inspection of the chest Resp Effort & Inspection: normal respiratory effort Auscultation: clear to auscultation bilaterally Cardio Rate: regular rate Rhythm: regular rhythm GI Inspection: non-distended Palpation: soft and nontender Skin General: no rashes or lesions noted Neuro General: patient alert and patient oriented x3 Extrem General: full ROM Psych Appearance: grossly normal Mental Status: mental status grossly normal Assessment and Plan Assessment and Plan (1) Colon cancer screening: Status: Acute Plan: I explained endoscopy in detail to the patient. I explained the risks including but not limited to stroke or heart attack with anesthesia, perforation of the GI tract, bleeding, infection. I explained that any of these could necessitate further emergency surgery. The patient understands and all questions were answered sufficiently. The patient wishes to proceed with procedure. Sharan Landeros MD Pager: [facility] [address] [place] [address], [address] [place] [address] Office: I have examined the patient and the H&P has been reviewed. There are no clinical changes since date of exam.
--- NOTE | 2024-04-10 06:46 | PRE.ANES_ITS ---
ASA Classification* ASA Classification ASA Classification: 3 Assessment & Plan Anesthesia* Anesthesia Assessment Anesthesia Assessment: Discussed sedation and/or anesthesia options, risks, benefits, and alternatives with patient/parents/legal guardian/POA. Questions invited. The patient/parents/legal guardian/POA seems to understand and agrees to proceed with anesthesia plan. Reviewed the physical assessment, medical history, allergy history and patient home medications list prior to surgery/procedure/anesthetic and documented any changes. Performed airway and anesthesia risk assessments. Anesthesia Type Anesthesia Type: MAC Anesthesia Focused Assessment* Temperature: 97 F Pulse Rate: 78 Blood Pressure: 147/99 Respiratory Rate: 16 Pulse Ox: 99 Airway Assessment Mouth opens: >3 cm Mallampati Score: II Focused Labs Anesthesia Preop lab: CBC WBC 8.8 K/mm3 (4.4-11.0) 10/26/23 08:03 RBC 5.15 M/mm3 (4.6-6.2) 10/26/23 08:03 Hgb 15.2 g/dL (13.0-16.5) 10/26/23 08:03 Hct 47.6 % (40-54) 10/26/23 08:03 Plt Count 210 K/mm3 (150-450) 10/26/23 08:03 CHEMISTRY Potassium 4.3 mmol/L (3.5-5.1) 11/19/23 08:56 Sodium 138 mmol/L (136-145) 11/19/23 08:56 BUN 21 mg/dL (7-18) H 11/19/23 08:56 Creatinine 1.16 mg/dL (0.70-1.30) 11/19/23 08:56 Glucose 115 mg/dL (74-106) H 11/19/23 08:56 TSH 1.39 uIU/mL (0.358-3.74) 08/03/23 09:49 COAG Pre-Assessment Diagnosis/Proposed Procedure Planned Operative Procedure(s): CSCOPE Anesthesia History Anesthesia History - measurement analyst: Anesthesia History - measurement analyst Hx Hospitalization No 04/09/24 12:25 Any Problems With Anesthesia No 04/09/24 12:25 Cholinesterase deficiency No 04/09/24 12:25 You/Your Family Experience No 04/09/24 12:25 fever (hyperthermia) with Relationship Recent Exposure to Contagious No 04/10/24 06:38 Disease Does patient have nerve No 04/09/24 12:25 stimulator Patient instructed to have device shut off --Does patient have Pacemaker No 04/10/24 06:38 or ICD? When Was Last Pacemaker Check QUESTION #4 FULL TEXT: You/Your Family Experience fever (hyperthermia) with Anesthesia Last Oral Intake Last Oral intake: Last Oral Intake NPO since 05:30 04/10/24 06:38 Meds taken in AM with sips of Yes 04/10/24 06:38 water? Meds patient instructed to see mar 04/10/24 06:38 take am of surgery PONV PONV - measurement analyst: PONV - measurement analyst Female No 04/09/24 12:25 HX of Motion Sickness Yes 04/09/24 12:25 HX of N/V After Surgery No 04/09/24 12:25 Non-Smoker Yes 04/09/24 12:25 Duration of Surgery greater No 04/09/24 12:25 than 60 minutes Number of Risk Factors 2 04/09/24 12:25 PONV Score Moderate Risk 04/09/24 12:25 Height & Weight Height & Weight: Anesthesia: Height & Weight Height 5 ft 9 in 04/10/24 06:38 Weight: 83.461 kg 04/10/24 06:38 Body Mass Index (BMI) 27.1 04/10/24 06:38 Respiratory Assessment Respiratory Assessment - measurement analyst: Respiratory Tract Infection Hx - measurement analyst Hx Respiratory Tract Infection No 04/09/24 12:25 STOP Sleep Apnea STOP Sleep Apnea - measurement analyst: STOP Sleep Apnea - measurement analyst Hx Hypertension Yes: CONTROLLED WITH MED 04/09/24 12:25 Hx Sleep Apnea Yes 04/09/24 12:25 CPAP No 04/09/24 12:25 BIPAP Yes 04/09/24 12:25 Do you snore loudly (louder than talking or can be heard Do you often feel tired/ fatigued/ sleepy during daytime? Has anyone observed you stop breathing during sleep? STOP Results Positive 04/09/24 12:25 QUESTION #5 FULL TEXT : Do you snore loudly (louder than talking or can be heard through closed doors)? Tobacco Use History Tobacco Use History - measurement analyst: Tobacco Use History - measurement analyst Tobacco Use Non-smoker 08/01/23 09:08 Smoking Status Former smoker 04/09/24 12:25 Hx Tobacco Use No 04/09/24 12:25 Years Smoking Packs Smoked per Day Smoking Cessation Date was No - quit smoking greater 04/09/24 12:25 within the last 15 years than 15 years ago Hx Smoking Cessation Date 05/28/71 04/09/24 12:25 Hx Smoking Cessation No 04/09/24 12:25 Counseling Hematologic Medial History Hematologic Hx - measurement analyst: Hematologic Medical Hx - paper stacker Hx of Blood Transfusion Yes 04/09/24 12:25 Hx of Transfusion in last 3 No 04/09/24 12:25 Months Date of Last Transfusion (if within last 3 months) Ever experience any problems No 04/09/24 12:25 with transfusion(s)? Specify any problems Hx of Preganancy in last 3 N/A 04/09/24 12:25 Months Nurse Filling Out Transfusion DSCHRIBER 04/09/24 12:25 & Questions: Date: 04/09/24 04/09/24 12:25 Time: 12:04/09/24 12:25 Patient unable to answer at this time (ie. confused, unrespo /Reproduction History /Reproductive History - measurement analyst: /Reproductive Hx- measurement analyst Hx Now No 04/09/24 12:25 Gestational Age (in weeks): EDC: Hx Hx Para Hx Section SAB No 04/09/24 12:25 PFSH Medical History Wears hearing aid Wears glasses Alcohol use Bladder disease Arthritis Restless legs Back pain Headache Former smoker BiPAP (biphasic positive airway pressure) dependence Interstitial emphysema of lung Leg cramps Hypertension History of echocardiogram Cardiology follow-up encounter Colon cancer screening Multiple premature ventricular complexes Left ankle pain Interstitial lung disease Chronic atrial fibrillation Asthma Viral syndrome history of bone fracture Paroxysmal atrial fibrillation Abnormal CXR DM (diabetes mellitus), type 2 with peripheral vascular complications History of immunosuppressive therapy Rheumatoid arthritis Essential hypertension Testosterone deficiency Elevated LFTs Erectile dysfunction Palpitations Paroxysmal ventricular tachycardia HLD (hyperlipidemia) Home Medications ?Medication ?Instructions ?Recorded ?Last Taken ?Type fexofenadine 180 mg tablet 180 mg PO QDAY 09/21/17 Unknown History ([facility] Allergy) multivitamin 1 tab PO QDAY 09/21/17 Unknown History simvastatin 40 mg tablet 40 mg PO QPM #90 tabs 11/11/20 Unknown Rx carvedilol 25 mg tablet 25 mg PO BID 11/01/21 04/10/24 05:30 History testosterone cypionate 200 mg/mL 200 mg subcut Q2W #10 mL 05/02/23 Unknown Rx intramuscular oil losartan 50 mg tablet 50 mg PO DAILY FAX to [facility] 05/24/23 04/10/24 05:30 Rx #90 tabs ipratropium 0.5 mg-albuterol 3 mg 3 ml inhalation Q4H PRN PRN SOB 05/25/23 Unknown Rx (2.5 mg base)/3 mL nebulization &/OR WHEEZING #180 mL soln pramipexole 0.25 mg tablet 0.5 mg (2 x 0.25 mg) PO QHS #180 06/12/23 Unknown Rx tabs Handicap Placard #1 ea 08/02/23 Unknown Rx rivaroxaban 20 mg tablet (Xarelto) 20 mg PO QHS Pt gets this from the 11/19/23 04/06/24 History [facility] albuterol sulfate 90 mcg/actuation 2 puff inhalation Q6H PRN 03/03/24 Unknown Rx aerosol inhaler shortness of breath or wheezing #18 grams gabapentin 300 mg capsule 300 mg PO QHS #90 caps 03/12/24 Unknown Rx sildenafil (pulm.hypertension) 20 20 mg PO DAILY PRN sexual activity 03/12/24 Unknown Rx mg tablet #30 tabs Allergy/AdvReac Type Severity Reaction Status Date / Time nalbuphine (From [employer]) AdvReac delirium Verified 04/10/24 06:37 Family History Father CAD (coronary artery disease) ICD implant Mother History of heart valve replacement Surgical History History of cardiac catheterization Hx of right cataract extraction Hx of left cataract extraction History of arthroplasty of left knee History of ear surgery History of bunionectomy of both great toes History of carpal tunnel release (~1989) History of hernia repair (~1980) History of colonoscopy (~06/2009) History of cardioversion (01/26/20) History of radiofrequency ablation procedure for cardiac arrhythmia (09/2010) History of left heart catheterization (12/2009) History of foot surgery History of back surgery History of bilateral hip replacements Social History Smoking Status: Former smoker alcohol intake: current alcohol intake frequency: holidays/special occasions only Alcohol type: beer and wine substance use type: does not use what type of physical activity do you participate in: 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
--- NOTE | 2024-04-10 07:51 | OP.CCLET_ITS ---
04/10/2024 Breanna Lynn [facility] [address] [place] [address] Re : Colonoscopy procedure for Anthony Jacobo Dear Dr. Lynn This procedure was performed on March. My impressions and recommendations are as follows: Impressions : - The entire examined colon is normal on direct and retroflexion views. - No specimens collected. Recommendations : - Discharge patient to home. - Resume previous diet. - Continue present medications. - Repeat colonoscopy is not recommended due to current age (66 years or older) for screening purposes. My findings are described in the full procedure note, which is enclosed. If I can be of further assistance, please feel free to contact me at Doctor phone number(s): , Work: . Sincerely, Sharan Landeros MD 04/10/2024 7:51:08 AM This report has been signed electronically.
--- NOTE | 2024-04-10 07:51 | OP.COLON_ITS ---
Patient Name: Anthony Jacobo Procedure Date: 04/10/2024 7:35 AM Date of : 1950 Age: 74 Procedure: Colonoscopy Indications: Screening for colorectal malignant neoplasm Providers: Sharan Landeros MD Referring MD: Breanna Lynn Medicines: Propofol per Anesthesia Patient Profile: This is a 74 year old male. Refer to note in patient chart for documentation of history and physical. Last Colonoscopy: 10 years ago. Complications: No immediate complications. Procedure: Pre-Anesthesia Assessment: - Prior to the procedure, a History and Physical was performed, and patient medications and allergies were reviewed. The patient's tolerance of previous anesthesia was also reviewed. The risks and benefits of the procedure and the sedation options and risks were discussed with the patient. All questions were answered, and informed consent was obtained. Prior Anticoagulants: The patient has taken no anticoagulant or antiplatelet agents. After reviewing the risks and benefits, the patient was deemed in satisfactory condition to undergo the procedure. After I obtained informed consent, the scope was passed under direct vision. Throughout the procedure, the patient's blood pressure, pulse, and oxygen saturations were monitored continuously. The colonoscope was introduced through the anus and advanced to the cecum, identified by appendiceal orifice and ileocecal valve. The colonoscopy was performed without difficulty. The patient tolerated the procedure well. The quality of the bowel preparation was good. The ileocecal valve, appendiceal orifice, and rectum were photographed. Scope In: 7:37:27 AM Scope Withdrawal Time 0 hours 5 minutes 44 seconds Scope Out: 7:46:44 AM Total Procedure Duration Time 0 hours 9 minutes 17 seconds Findings: The entire examined colon appeared normal on direct and retroflexion views. Impression: - The entire examined colon is normal on direct and retroflexion views. - No specimens collected. Recommendation: - Discharge patient to home. - Resume previous diet. - Continue present medications. - Repeat colonoscopy is not recommended due to current age (66 years or older) for screening purposes. Procedure Code(s): --- Professional --- 19242, Colonoscopy, flexible; diagnostic, including collection of specimen(s) by brushing or washing, when performed (separate procedure) Diagnosis Code(s): --- Professional --- Z12.11, Encounter for screening for malignant neoplasm of colon CPT copyright 2021 [employer]. All rights reserved. The codes documented in this report are preliminary and upon city driver review may be revised to meet current compliance requirements. Sharan Landeros MD 04/10/2024 7:51:08 AM This report has been signed electronically. Number of Addenda: 0 Note Initiated On: 04/10/2024 7:35 AM
--- NOTE | 2024-04-10 07:53 | PCM.POST.ANE ---
Anesthesia: Postop Eval I Current Vital Signs Temperature: 97.1 F Pulse Rate: 76 Blood Pressure: 90/72 Respiratory Rate: 16 Pulse Ox: 98 Oxygen Delivery Method: Room Air Assessment Airway patent: Yes Spontaneous unlabored respirations: Yes Mental status: Asleep nausea: No Vomiting: No Anesthesia Complication: No Fluid Hydration Crystalloid volume administer (ml): 40 Total IV fluid infused: 40 Progress Note Anesthesia document: Postop Eval 1 completed: Yes
--- NOTE | 2024-04-10 08:04 | PCM.POSTANE2 ---
Anesthesia Postop Eval I Sum Postop Eval Completion status Anesthesia document: Postop Eval 1 completed: Yes Anesthesia Postop Eval I Summary Anesthesia Postop Eval I Summary: Anesthesia Postop Eval I: Assessment Summary Airway patent Yes 04/10/24 07:54 [email or web address] Spontaneous unlabored Yes 04/10/24 07:54 [email or web address] respirations Mental status Asleep 04/10/24 07:54 [email or web address] nausea No 04/10/24 07:54 [email or web address] Vomiting No 04/10/24 07:54 [email or web address] Anesthesia Postop Eval I: Fluid Summary Crystalloid volume administer 40 04/10/24 07:54 [email or web address] (ml) Colloids volume administered ( ml) Blood Product volume administered (ml) Total IV fluid infused 40 04/10/24 07:54 [email or web address] Anesthesia Postop Eval I: Summary Notes Anesthesia Complication No 04/10/24 07:54 [email or web address] Anesthesia Complication Comment: Post-operative progress note Anesthesia: Postop Eval II Evaluation Mental status: Awake Pain Level: 0 nausea: No Vomiting: No
== END 2024-04-10 08:20 | disposition home or self-care (01) ==
LOC: EN 06:24 → AC 06:25
PROVIDERS: PCP Internal Medicine; Referring Provider Internal Medicine; Visit Provider Surgery
PROC: 0DJD8ZZ Inspection of Lower Intestinal Tract, Via Natural or Artificial Opening Endoscopic (ICD-10-PCS; CPT 45378; principal; 2024-04-10 07:25)
DX: Z12.11 Encounter for screening for malignant neoplasm of colon (principal); M06.9 Rheumatoid arthritis, unspecified; I48.0 Paroxysmal atrial fibrillation; E11.51 Type 2 diabetes mellitus with diabetic peripheral angiopathy without gangrene; I10 Essential (primary) hypertension; E78.5 Hyperlipidemia, unspecified; G47.33 Obstructive sleep apnea (adult) (pediatric); G25.81 Restless legs syndrome; J45.909 Unspecified asthma, uncomplicated; Z79.01 Long term (current) use of anticoagulants; Z98.890 Other specified postprocedural states; Z96.643 Presence of artificial hip joint, bilateral; Z96.652 Presence of left artificial knee joint; Z87.891 Personal history of nicotine dependence
CPT/HCPCS: G0121; A4216; J2405

== ENCOUNTER → 2024-05-05 | Outpatient (CLI) | payer MEDICARE, SELFPAY ==
[2024-05-05 16:01] LABS: Erythrocyte Sedimentation Rate 18 mm/hr (0-20)
[2024-05-05 16:04] LABS: Absolute Neutrophil Count 6.2 X10^3/uL (2.0-7.7); Basophil# 0.07 X10^3/uL; Basophil% 0.7 % (0-1); Hematocrit 47.5 % (40-54); Hemoglobin 15.2 g/dL (13.0-16.5); Lymphocyte % 26.4 % (19-41); Mean Corpuscular Hgb 29.2 pg (27.0-32.0); Mean Corpuscular Volume 91.2 fL (80-94); Mean Platelet Vol. 11.5 fl (6.2-12.0); Monocyte# 0.84 X10^3/uL; Monocyte% 8.5 % (0-10); NRBC Flagged by Analyzer 0 % (0-5); Neutrophil # 6.18 X10^3/uL (2.7-7.7); Platelet Count 181 K/mm3 (150-450); RBC Distribution Width SD 46.8 fl (35.1-43.9); Red Blood Count 5.21 M/mm3 (4.6-6.2); White Blood Count 9.8 K/mm3 (4.4-11.0)
[2024-05-05 16:20] LABS: ALB/GLOB Ratio 0.9 RATIO (0.9-2.4); AST(SGOT) 31 U/L (15-37); Alanine Aminotransfer ALT/SGPT 49 U/L (16-61); Albumin, Serum 3.6 g/dL (3.2-5.0); Alkaline Phosphatase 99 U/L (45-117); Anion Gap 4 (5-15); BUN 20 mg/dL (7-18); CRP < 2.90 mg/L (0.0-3.0); Calcium,Total 9.8 mg/dL (8.5-10.1); Chloride 108 mmol/L (98-107); EST Glomerular Filtration Rate 78 mL/min (>60); Est Glom Filt Rate - Afr Amer 94 mL/min (>60); Globulin 3.9 g/dL (2.2-4.2); Glucose 67 mg/dL (74-106); Potassium 4.2 mmol/L (3.5-5.1); Protein, Total 7.5 g/dL (6.4-8.2); Sodium Level 139 mmol/L (136-145)
== END | disposition home or self-care (01) ==
PROVIDERS: PCP Internal Medicine; Referring Provider Internal Medicine; Visit Provider Internal Medicine
DX: R51.9 Headache, unspecified (principal); Z79.01 Long term (current) use of anticoagulants
CPT/HCPCS: 36415; 80053; 85025; 85652; 86140

== ENCOUNTER → 2024-05-09 | Outpatient (CLI) | payer MEDICARE, SELFPAY ==
--- NOTE | 2024-05-09 08:15 | CT_ITS ---
EXAM: CT CHEST WITHOUT INTRAVENOUS CONTRAST CLINICAL INDICATION: ILD -- high resolution cuts TECHNIQUE: Helically acquired images were obtained of the chest without intravenous contrast. Prone and supine imaging. This CT exam was performed using one or more of the following dose reduction techniques: automated exposure control, adjustment of the mA and/or kV according to patient size, and/or use of iterative reconstruction technique. COMPARISON: CT chest, 10/13/2020 FINDINGS: LUNGS AND PLEURAL SPACES: Peripheral interstitial thickening and very minimal/early reticulation and honeycombing seen anteriorly in the right middle lobe and minimally in the bilateral lower lobes. No airway filling defect is identified. No consolidative airspace disease. No air trapping or mosaic attenuation is identified. No mass or nodule. No pleural effusion. No pneumothorax. HEART: Coronary artery calcifications and/or stents. Heart size is normal. No pericardial effusion. MEDIASTINUM: No significant abnormality. No mediastinal or hilar adenopathy. Esophagus is unremarkable. No hiatal hernia. THYROID: No significant abnormality. No thyroid lesions. BONES/JOINTS: Degenerative changes in the axial and appendicular skeletal structures. No suspicious lytic or blastic abnormality. VASCULATURE: Atherosclerosis. 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 Electronically Signed: Iain Xiong DO at 15:45 EST ,
== END | disposition home or self-care (01) ==
PROVIDERS: PCP Internal Medicine; Referring Provider Nurse Practitioner Acute Care; Visit Provider Nurse Practitioner Acute Care
DX: J98.4 Other disorders of lung (principal)
CPT/HCPCS: 71250

== ENCOUNTER → 2024-06-10 | Outpatient (CLI) | payer MEDICARE, SELFPAY ==
[2024-06-10 13:45] VITALS: PULSE 100; PULSE 105; PULSE 108; PULSE 111; PULSE 117; PULSE 121; PULSE 81; PULSE 94; O2SAT 90; O2SAT 91; O2SAT 94; O2SAT 95
--- NOTE | 2024-06-16 10:38 | PCM.PSN.6M ---
PSN 6 Minute Walk Test 6 Minute Walk Test 6 Minute Walk Test: 6 Minute Walk Test PSN:6-Minute Walk Test Start: 06/10/24 14:05 Freq: Status: Active Protocol: [id number].6MINW Document 06/10/24 13:45 [facility] (Rec: 06/10/24 14:08 [facility] [id number]) 6 Minute Walk Test Date Performed 06/10/24 Time Performed 13:45 Height 5 ft 9 in Weight: 185 lb Weight in Pounds 185.[address]: Zandra Assistive device used: None Pre-test Oxygen Delivery Method Room Air Pulse Ox (%) 95 Pulse Rate (60-100 beats/min) 94 Dyspnea Toña Scale (0-10) 0 Exertion Toña Scale (6-20) 6 1st minute Oxygen Delivery Method Room Air Pulse Ox (%) 94 Pulse Rate (60-100 beats/min) 108 H 2nd minute Oxygen Delivery Method Room Air Pulse Ox (%) 91 Pulse Rate (60-100 beats/min) 117 H 3rd minute Oxygen Delivery Method Room Air Pulse Ox (%) 90 Pulse Rate (60-100 beats/min) 111 H 4th minute Oxygen Delivery Method Room Air Pulse Ox (%) 91 Pulse Rate (60-100 beats/min) 121 H 5th minute Oxygen Delivery Method Room Air Pulse Ox (%) 91 Pulse Rate (60-100 beats/min) 100 6th minute Oxygen Delivery Method Room Air Pulse Ox (%) 90 Pulse Rate (60-100 beats/min) 105 H Dyspnea Toña Scale (0-10) 1 Exertion Toña Scale (6-20) 10 Post-test Oxygen Delivery Method Room Air Pulse Ox (%) 94 Pulse Rate (60-100 beats/min) 81 Full Laps Walked 19 Partial Lap, Number of Tiles Walked 10 Total Distance Walked (ft) 1131 Interpretation Interpretation: The patient ambulated 1131 feet over the course of 6 minutes beginning on room air without assistive devices. Pretesting oxygen saturation was noted to be 95% on room air. With ambulation, the ena oxygen saturation was 90%. This represents a significant exertional oxygen desaturation, consistent with a pulmonary limitation to exercise tolerance. Recommendations Recommendations: There is no indication for the use of supplemental oxygen at this time. However, close interval follow-up is recommended, given the degree of oxygen desaturation noted during the study.
== END | disposition home or self-care (01) ==
LOC: PSN 13:46
PROVIDERS: PCP Internal Medicine; Referring Provider Nurse Practitioner Family; Visit Provider Nurse Practitioner Family
DX: J84.9 Interstitial pulmonary disease, unspecified (principal)
CPT/HCPCS: 94618

== ENCOUNTER → 2024-06-11 | Outpatient (CLI) | payer MEDICARE, SELFPAY ==
--- NOTE | 2024-06-11 15:00 | MRI_ITS ---
EXAM: MR HEAD AND MRA HEAD WITHOUT INTRAVENOUS CONTRAST CLINICAL INDICATION: Severe, worsening, pulsatile HASSAN TECHNIQUE: Multiplanar and multisequence MR images of the brain and routine bois [place] of [place]/brain 3D time of flight MR angiogram protocol were performed without intravenous contrast. COMPARISON: No relevant prior studies available. FINDINGS: HEAD: BRAIN AND EXTRA-AXIAL SPACES: Minimal periventricular and subcortical T2 and T2 FLAIR hyperintensity is nonspecific although most commonly due to chronic microvascular ischemic changes in a patient of this age. No acute findings. No intra- or extra-axial hemorrhage. No evidence of acute infarct. No intracranial mass or mass effect. There is preservation of the santo/white matter interface. Posterior fossa structures are unremarkable. Ventricles are appropriate for age. No hydrocephalus. Basal cisterns are patent. SELLA: No significant abnormality. Normal sella turcica, pituitary gland, infundibular stalk, optic chiasm and hypothalamus. AUDITORY SYSTEM: No significant abnormality. The internal auditory canals are patent. BONES/JOINTS: No significant abnormality. No discrete lytic or blastic abnormalities. SINUSES: Normal as visualized. Clear. MASTOID AIR CELLS: Normal as visualized. Clear. ORBITS: Bilateral ocular lens extraction presumptively for the treatment of cataracts. Otherwise, no acute orbital pathology. VASCULATURE: RIGHT INTERNAL CAROTID ARTERY: No significant findings. No significant stenosis at the intracranial/visualized segments. No aneurysm. RIGHT ANTERIOR CEREBRAL ARTERY: No significant abnormality. No occlusion or significant stenosis. Anterior communicating artery is present. No aneurysm. RIGHT MIDDLE CEREBRAL ARTERY: No significant abnormality. No occlusion or significant stenosis. No aneurysm. RIGHT POSTERIOR CEREBRAL ARTERY: There is a patent right posterior communicating artery. No occlusion or significant stenosis. No aneurysm. RIGHT VERTEBRAL ARTERY: Normal as visualized. No significant stenosis at the intradural/visualized segments. No aneurysm. LEFT INTERNAL CAROTID ARTERY: No significant findings. No significant stenosis at the intracranial/visualized segments. No aneurysm. LEFT ANTERIOR CEREBRAL ARTERY: No significant abnormality. No occlusion or significant stenosis. Anterior communicating artery is present. No aneurysm. LEFT MIDDLE CEREBRAL ARTERY: No significant abnormality. No occlusion or significant stenosis. No aneurysm. LEFT POSTERIOR CEREBRAL ARTERY: No significant abnormality. No occlusion or significant stenosis. No aneurysm. LEFT VERTEBRAL ARTERY: Normal as visualized. No significant stenosis at the intradural/visualized segments. No aneurysm. BASILAR ARTERY: No significant abnormality. No significant stenosis. No aneurysm. OTHER VASCULATURE: No vascular malformation. MRI/MRA Head ONLY without Contrast IMPRESSION: 1. Mild chronic microvascular ischemic changes. No evidence of acute infarct or hemorrhage. No additional acute pathology. 2. Normal MRA head. No large vessel occlusion or arterial stenosis. No hypovascular malformation is identified. Electronically Signed: Iain Xiong DO at 23:09 EST ,
--- NOTE | 2024-06-11 15:00 | MRI_ITS ---
EXAM: MR HEAD AND MRA HEAD WITHOUT INTRAVENOUS CONTRAST CLINICAL INDICATION: Severe, worsening, pulsatile HASSAN TECHNIQUE: Multiplanar and multisequence MR images of the brain and routine [place] of [place]/brain 3D time of flight MR angiogram protocol were performed without intravenous contrast. COMPARISON: No relevant prior studies available. FINDINGS: HEAD: BRAIN AND EXTRA-AXIAL SPACES: Minimal periventricular and subcortical T2 and T2 FLAIR hyperintensity is nonspecific although most commonly due to chronic microvascular ischemic changes in a patient of this age. No acute findings. No intra- or extra-axial hemorrhage. No evidence of acute infarct. No intracranial mass or mass effect. There is preservation of the santo/white matter interface. Posterior fossa structures are unremarkable. Ventricles are appropriate for age. No hydrocephalus. Basal cisterns are patent. SELLA: No significant abnormality. Normal sella turcica, pituitary gland, infundibular stalk, optic chiasm and hypothalamus. AUDITORY SYSTEM: No significant abnormality. The internal auditory canals are patent. BONES/JOINTS: No significant abnormality. No discrete lytic or blastic abnormalities. SINUSES: Normal as visualized. Clear. MASTOID AIR CELLS: Normal as visualized. Clear. ORBITS: Bilateral ocular lens extraction presumptively for the treatment of cataracts. Otherwise, no acute orbital pathology. VASCULATURE: RIGHT INTERNAL CAROTID ARTERY: No significant findings. No significant stenosis at the intracranial/visualized segments. No aneurysm. RIGHT ANTERIOR CEREBRAL ARTERY: No significant abnormality. No occlusion or significant stenosis. Anterior communicating artery is present. No aneurysm. RIGHT MIDDLE CEREBRAL ARTERY: No significant abnormality. No occlusion or significant stenosis. No aneurysm. RIGHT POSTERIOR CEREBRAL ARTERY: There is a patent right posterior communicating artery. No occlusion or significant stenosis. No aneurysm. RIGHT VERTEBRAL ARTERY: Normal as visualized. No significant stenosis at the intradural/visualized segments. No aneurysm. LEFT INTERNAL CAROTID ARTERY: No significant findings. No significant stenosis at the intracranial/visualized segments. No aneurysm. LEFT ANTERIOR CEREBRAL ARTERY: No significant abnormality. No occlusion or significant stenosis. Anterior communicating artery is present. No aneurysm. LEFT MIDDLE CEREBRAL ARTERY: No significant abnormality. No occlusion or significant stenosis. No aneurysm. LEFT POSTERIOR CEREBRAL ARTERY: No significant abnormality. No occlusion or significant stenosis. No aneurysm. LEFT VERTEBRAL ARTERY: Normal as visualized. No significant stenosis at the intradural/visualized segments. No aneurysm. BASILAR ARTERY: No significant abnormality. No significant stenosis. No aneurysm. OTHER VASCULATURE: No vascular malformation. MRI/Brain without Contrast IMPRESSION: 1. Mild chronic microvascular ischemic changes. No evidence of acute infarct or hemorrhage. No additional acute pathology. 2. Normal MRA head. No large vessel occlusion or arterial stenosis. No hypovascular malformation is identified. Electronically Signed: Iain Xiong DO at 23:09 EST ,
== END | disposition home or self-care (01) ==
LOC: MRI 14:56
PROVIDERS: PCP Internal Medicine; Referring Provider Internal Medicine; Visit Provider Internal Medicine
DX: R51.9 Headache, unspecified (principal)
CPT/HCPCS: 70544; 70551

== ENCOUNTER → 2024-06-25 | Outpatient (CLI) | payer MEDICARE, SELFPAY | END | disposition home or self-care (01) | LOC: SL 08:19 | PROVIDERS: PCP Internal Medicine; Referring Provider Nurse Practitioner Family; Visit Provider Nurse Practitioner Family | DX: G47.33 Obstructive sleep apnea (adult) (pediatric) (principal) | CPT/HCPCS: 94762 ==

== ENCOUNTER → 2024-11-07 | Outpatient (CLI) | payer MEDICARE, OTHER, SELFPAY ==
--- NOTE | 2024-11-07 15:00 | CT_ITS ---
PROCEDURE: ORB SELLA POST FOSSA EAR W/O 11/07/2024 REASON FOR EXAM: SENSORINEURAL HEARING LOSS, BILATERAL TECHNIQUE: ORB SELLA POST FOSSA EAR W/O CONTRAST: VOLUME: mL One or more dose reduction techniques were used (e.g., Automated exposure control, adjustment of the mA and/or kV according to patient size, use of iterative reconstruction technique). RADIATION DOSE SUMMARY: CTDlvol: mGy DLP:mGycm COMPARISON: none FINDINGS: Thickened retracted right tympanic membrane merging with focal soft tissue thickening abutting the lateral aspect of the right ossicular chain with no obvious bony erosive changes. The left middle ear cleft shows normal pneumatization with no internal densities. Clear pneumatized mastoid air cells and mastoid antrum on either side. Normal appearance of the ossicular chain on either side. No bony erosive changes. Normal appearance of the scutum. Normal appearance of the cochlea, vestibules and semicircular canals on either side. No obvious internal auditory canals masses on non contrast bases. No obvious nasopharyngeal masses. Clear scanned paranasal sinuses Bilateral scleral calcifications. Otherwise, unremarkable orbital structures. CT/Orb Sella Post Fossa Ear w/o IMPRESSION: Thickened retracted right tympanic membrane merging with focal soft tissue thic kening abutting the lateral aspect of the right ossicular chain worrisome of cholesteatoma. Advise clinical correlation and fol low up. Reading Location: [place] [id number]
== END | disposition home or self-care (01) ==
PROVIDERS: PCP Internal Medicine; Referring Provider Otolaryngology; Visit Provider Otolaryngology
DX: H90.3 Sensorineural hearing loss, bilateral (principal)
CPT/HCPCS: 70480

== ENCOUNTER 2025-01-04 14:46 | Emergency (ER) | payer MEDICARE, SELFPAY ==
[2025-01-04 14:46] VITALS: BP 134/80; PULSE 70; RESP 16; TEMP 36.8; O2SAT 100; BMI 24.3
--- NOTE | 2025-01-04 15:00 | ED.VIS.LOWEX ---
HPI History of Present Illness Chief Complaint: Laceration Detail of Chief Complaint: Right leg laceration Informant: patient Narrative Narrative: Patient presents to the emergency department with lacerations to his right lower extremity. Patient states that he tripped over a ladder that was laying on the ground which caused him to have lacerations to his right armijo. Patient up-to-date on tetanus. Patient on Xarelto for history of A-fib. He denies striking his head or loss consciousness. He denies any other injuries. [facility] Medical History Worsening headaches Temporal headache Wears hearing aid Wears glasses Alcohol use Bladder disease Arthritis Restless legs Back pain Headache Former smoker BiPAP (biphasic positive airway pressure) dependence Interstitial emphysema of lung Leg cramps Hypertension History of echocardiogram Cardiology follow-up encounter Colon cancer screening Multiple premature ventricular complexes Left ankle pain Interstitial lung disease Chronic atrial fibrillation Asthma Viral syndrome history of bone fracture Paroxysmal atrial fibrillation Abnormal CXR DM (diabetes mellitus), type 2 with peripheral vascular complications History of immunosuppressive therapy Rheumatoid arthritis Essential hypertension Testosterone deficiency Elevated LFTs Erectile dysfunction Palpitations Paroxysmal ventricular tachycardia HLD (hyperlipidemia) Home Medications ?Medication ?Instructions ?Recorded ?Last Taken ?Type fexofenadine 180 mg tablet 180 mg PO QDAY 09/21/17 Unknown History (Kirti Allergy) multivitamin 1 tab PO QDAY 09/21/17 Unknown History simvastatin 40 mg tablet 40 mg PO QPM #90 tabs 11/11/20 Unknown Rx carvedilol 25 mg tablet 25 mg PO BID 11/01/21 04/10/24 05:30 History losartan 50 mg tablet 50 mg PO DAILY FAX to [facility] 05/24/23 04/10/24 05:30 Rx #90 tabs ipratropium 0.5 mg-albuterol 3 mg 3 ml inhalation Q4H PRN PRN SOB 05/25/23 Unknown Rx (2.5 mg base)/3 mL nebulization &/OR WHEEZING #180 mL soln Handicap Placard #1 ea 08/02/23 Unknown Rx rivaroxaban 20 mg tablet (Xarelto) 20 mg PO QHS Pt gets this from the 11/19/23 04/06/24 History [facility] albuterol sulfate 90 mcg/actuation 2 puff inhalation Q6H PRN 03/03/24 Unknown Rx aerosol inhaler shortness of breath or wheezing #18 grams spacer #1 ea 04/15/24 Unknown Rx testosterone cypionate 200 mg/mL 200 mg subcut Q2W #10 mL 04/16/24 Unknown Rx intramuscular oil calcium carbonate (Calcium 600) 600 mg PO QDAY 07/08/24 Unknown History cholecalciferol (vitamin D3) 25 25 mcg PO QDAY 07/08/24 Unknown History mcg (1,000 unit) capsule fluticasone furoate 200 1 inh inhalation Q24H #60 ea 07/08/24 Unknown Rx mcg-vilanterol 25 mcg/dose inhalation powder (Breo Ellipta) pramipexole 0.25 mg tablet 0.5 mg (2 x 0.25 mg) PO .COMPLEX 07/08/24 Unknown Rx #360 tabs gabapentin 300 mg capsule 300 mg PO QHS #90 caps 08/27/24 Unknown Rx sildenafil (pulm.hypertension) 20 20 mg PO DAILY PRN sexual activity 12/01/24 Unknown Rx mg tablet #30 tabs Allergy/AdvReac Type Severity Reaction Status Date / Time nalbuphine (From Nubain) AdvReac delirium Verified 08/25/24 08:19 Family History Father CAD (coronary artery disease) ICD implant Mother History of heart valve replacement Surgical History History of cardiac catheterization Hx of right cataract extraction Hx of left cataract extraction History of arthroplasty of left knee History of ear surgery History of bunionectomy of both great toes History of carpal tunnel release (~1989) History of hernia repair (~1980) History of colonoscopy (~06/2009) History of cardioversion (01/26/20) History of radiofrequency ablation procedure for cardiac arrhythmia (09/2010) History of left heart catheterization (12/2009) History of foot surgery History of back surgery History of bilateral hip replacements Social History Smoking Status: Former smoker how long ago did patient quit smokin alcohol intake: current alcohol intake frequency: holidays/special occasions only Alcohol type: beer and wine substance use type: does not use what type of physical activity do you participate in: other details: 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 ROS ROS ED Review of Systems ROS Unobtainable: other Constitutional Constitutional ED: Reports lethargy; Denies chills, fever(s), sweats or weight loss Eyes Eyes: Denies blurry vision, change in vision or diplopia ENT ENT ED: Denies rhinorrhea or sore throat Cardiovascular Cardiovascular: Denies chest pain, orthopnea or racing heartbeat Respiratory/Chest Respiratory/Chest: Denies cough, dyspnea, dyspnea on exertion, orthopnea or sputum Gastrointestinal Gastrointestinal: Denies abdominal pain, diarrhea, nausea or vomiting Genitourinary Genitourinary ED: Denies dysuria, hematuria or urinary frequency Musculoskeletal Musculoskeletal: Reports other Details: Laceration right armijo ; Denies arthralgias, back pain, myalgias or neck pain Integumentary Denies abscess, Abrasions or rash Neurologic Neurologic: Denies headache(s) or weakness Psychiatric Psychiatric: Denies anxiety, depression or suicidal thoughts Endocrine Endocrinology: Denies polydipsia, polyphagia or polyuria Hematologic/Lymphatic Hematologic/Lymphatic: Denies easy bleeding, easy bruising or lymphadenopathy Allergic/Immunologic Allergic/Immunologic ED: Denies mouth swelling, tongue swelling or urticaria EXAM Physical Exam Const Vital Signs: 01/04/25 14:46 Temperature 98.3 F Temperature Source Oral Pulse Rate 70 Respiratory Rate 16 Blood Pressure 134/80 H Blood Pressure Mean 98 Pulse Ox 100 Oxygen Delivery Method Room Air Positive well nourished and well developed General Appearance ED: well developed and NAD HEENT Reports TM's clear and moist mucous membranes normocephalic and atraumatic; Negative for trauma or tenderness Tympanic Membrane ED: Yes TM's clear Eyes PERRL and EOMs intact bilaterally General Eye ED: Negative for pale conjunctiva or scleral icterus Neck no lymphadenopathy, supple and no JVD General: Negative for tenderness Chest Wall inspection of chest normal and palpation of chest normal Chest: Negative for tenderness Resp normal respiratory effort and clear to auscultation bilaterally Effort and Inspection: Negative for respiratory distress or pain with movement Auscultation: Negative for rhonchi, wheezes or diminished lung sounds Cardio regular rate, regular rhythm, S1 normal heart sound, S2 normal heart sound and no murmurs Peripheral Pulses: pulses 2+ throughout GI normal to inspection, nondistended, normoactive bowel sounds, soft to palpation, non-tender, non-distended and no masses Back/Spine no CVA tenderness and no thoracic nor lumbar tenderness Extremity Extremity Narrative: Right armijo-patient has a flap-like laceration measuring approximately 2 x 3 cm over the anterior armijo. Distal to this laceration there are 2 linear deep abrasions measuring 2-1/2 cm in length each. No significant bony tenderness on exam. Neurovascularly intact distally. General Extremety ED: Negative for edema General Extremity: Negative for edema Neuro oriented x3, CN's II-XII intact bilaterally, no sensory deficits noted and gait normal Sensorium / Orientation: awake, alert, oriented to person, oriented to place and oriented to time Motor Exam: strength 5/5 throughout and strength abnormal Psych mental status grossly normal Skin no rashes or lesions noted and no wounds MDM MDM MDM Narrative Medical decision making narrative: Patient presents with laceration to his right armijo as well as several abrasions. Please see procedure note for suture repair. He had 9 sutures placed with good wound edge approximation of the flap. Recommended follow-up in 10 to 14 days for suture removal. Patient advised to return if increasing pain, redness, swelling, purulent drainage, or condition should worsen anyway. Procedures Lacerations Right armijo laceration: Length: 1.97 in Depth: Sub Q Prep: Sterile Conditions and Shure-Clens Laceration repair: Irrigated, Lidocaine, Local and Skin sutures Irrigated (ml): 50 Number of Sutures/[place]: 9 Suture Information: Ethilon, Simple and 4-0 Discharge Plan Triage Chief Complaint: Laceration ED Provider: Ariadna Najera Dx/Rx/DC Orders Clinical Impression: Laceration of right lower extremity Instructions: ED Laceration Extremity Prescriptions: No Action multivitamin tablet 1 tab PO QDAY fexofenadine [Kirti Allergy] 180 mg tablet 180 mg PO QDAY carvedilol 25 mg tablet 25 mg PO BID (DME) Handicap Placard See Rx Instructions .Route .MEDSUPPLY Qty: 1 0RF Rx Instructions: 5 year RX 08/02/23-08/01/28 DX J45.909 (DME) spacer See Rx Instructions .ROUTE .MEDSUPPLY Qty: 1 0RF Rx Instructions: As directed calcium carbonate [Calcium 600] 600 mg calcium (1,500 mg) tablet 600 mg PO QDAY cholecalciferol (vitamin D3) 25 mcg (1,000 unit) capsule 25 mcg PO QDAY fluticasone furoate-vilanterol [Breo Ellipta] 200-25 mcg/dose blister with device 1 inh inhalation Q24H Qty: 60 11RF pramipexole 0.25 mg tablet 0.5 mg PO .COMPLEX Qty: 360 3RF Rx Instructions: 0.5 mg orally 2 tablets in evening, 2 tablets at bedtime; simvastatin 40 mg tablet 40 mg PO QPM Qty: 90 3RF losartan 50 mg tablet 50 mg PO DAILY Qty: 90 3RF ipratropium-albuterol 0.5 mg-3 mg(2.5 mg base)/3 mL solution for nebulization 3 ml inhalation Q4H PRN PRN (Reason: SOB &/OR WHEEZING) Qty: 180 6RF Xarelto 20 mg tablet 20 mg PO QHS Rx Instructions: must administer with evening meal albuterol sulfate 90 mcg/actuation HFA aerosol inhaler 2 puff INHALATION Q6H PRN (Reason: shortness of breath or wheezing) Qty: 18 6RF testosterone cypionate 200 mg/mL oil 200 mg SC Q2W Qty: 10 5RF gabapentin 300 mg capsule 300 mg PO QHS Qty: 90 1RF sildenafil (pulm.hypertension) 20 mg tablet 20 mg PO DAILY PRN (Reason: sexual activity) Qty: 30 1RF Primary Care Provider: Breanna Lynn Referrals: Breanna Lynn MD [Primary Care Provider] - 10-14 Days suture removal Print Language: Stateless Disposition Disposition: Home, Self Care
--- OUTSIDE RECORDS SUMMARY | 2025-01-04 15:06 | XMS RPT_ITS | CCD ---
Author Organization [facility] Care Team Providers Care Merchant Banker Name Role Phone Bienvenido Walker Unavailable Unavaila ble Gross-Sawicka, Estefanía Magui Unavailable Unavail able Bienvenido Walker Unavailable Unavaila ble Gross-Sawicka, Estefanía Magui Unavailable Unavail able Bienvenido Walker Unavailable Unavaila ble Bienvenido Walker Unavailable Unavaila ble Bienvenido Walker Unavailable Unavaila ble Gross-Sawicka, Estefanía Magui [...] Unavailable Gross-Sawicka, Estefanía Magui Unavailable Unavail able Bienvenido Walker Unavailable Unavaila ble Gross-Sawicka, Estefanía Magui Unavailable Unavail able FUENTES ZELAYA DR Admitting Unavailable SHRUTHI LYNN Consulting Unavailable FUENTES ZELAYA DR Primary Care Unavailable FUENTES ZELAYA DR Attending Unavailable PROVIDER, UNKNOWN Consulting Unavailable FUENTES ZELAYA DR Admitting Unavailable SHRUTHI LYNN Consulting Unavailable FUENTES ZELAYA DR Primary Care Unavailable FUENTES ZELAYA DR Attending Unavailable PROVIDER, UNKNOWN Consulting Unavailable FUENTES ZELAYA DR Attending Unavailable FUENTES ZELAYA DR Admitting Unavailable FUENTES ZELAYA DR Primary Care Unavailable FUENTES ZELAYA DR Admitting Unavailable FUENTES ZELAYA DR Primary Care Unavailable SHRUTHI LYNN Consulting Unavailable FUENTES ZELAYA DR Attending Unavailable PROVIDER, UNKNOWN Consulting Unavailable Dr. Shruthi Lynn Primary Care Provider Dr. Shruthi Lynn Referring Provider [phone] Quan Myers Attending Provider [phone] Shruthi Lynn Attending Provider [phone] Shruthi Lynn Primary Care Provider Dr. Shruthi Lynn Referring Provider [phone] DASH Kahn-C Patricia Attending Provider [phone] Dr. Quan Myers Attending Provider [phone] Quan Myers Referring Provider [phone] Louis, Dr. Glass Other Provider Dr. Shruthi Lynn Primary Care Provider Dr. Shruthi Lynn Referring Provider [phone] Terry Whitaker Attending Provider Karon RACE CAR MECHANIC, RACE CAR MECHANIC-C Jelly Attending Provider [phone] Dr. Shruthi Lynn Attending Provider [phone] PHU ALLISON Referring Unavailable PHU ALLISON Attending Unavailable Dr. Shruthi Lynn MD Primary Care Provider [phone] Dr. Shruthi Lynn MD Attending Provider Dr. Colton Reed MD Attending Provider Dr. Colton Reed MD Referring Provider Shruthi Lynn Primary Care Unavailable Colton Reed Referring UnavailColton Burrell Attending Unavailabl e Shruthi Lynn Primary Care Unavailable Jelly Brantley Referring Unavailable Jelly Brantley Attending Unavailable Mindy Feliciano Referring Unavailable Mindy Feliciano Attending Unavailable Shruthi Lynn Primary Care Unavailable Mindy Feliciano Attending Unavailable Shruthi Lynn Primary Care Unavailable Shruthi Lynn Referring Unavailable Shruthi Lynn Primary Care Unavailable Jelly Brantley Attending Unavailable Shane, Shruthi Referring Unavailable RufenerMindy M Referring Unavailable RufenerMindy M Attending Unavailable Shane, Shruthi Primary Care Unavailable Shane, Shruthi Primary Care Unavailable Roof RACE CAR MECHANIC, Peter H Referring Unavailable Roof RACE CAR MECHANIC, Peter H Attending Unavailable Shane, Shruthi Primary Care Unavailable CalabrSharan villarreal Attending Unavailable Shane, Shruthi Referring Unavailable Shane, Shruthi Referring Unavailable Shane, Shruthi Primary Care Unavailable Roof RACE CAR MECHANIC, Peter H Attending Unavailable Shane, Shruthi Primary Care Unavailable Shane, Shruthi Attending Unavailable Shane, Shruthi Primary Care Unavailable BrantleyJelly Attending Unavailable Brantley, Jelly Referring Unavailable Shane, Shruthi Primary Care Unavailable Shane, Shruthi Referring Unavailable Shane, Shruthi Attending Unavailable Shane, Shruthi Primary Care Unavailable Shane, Shruthi Referring Unavailable Shane, Shruthi Attending Unavailable Rufener, Mindy M Attending Unavailable Shane, Shruthi Primary Care Unavailable Shane, Shruthi Referring Unavailable Shane, Shruthi Primary Care Unavailable Shane, Shruthi Referring Unavailable Jelly Brantley Attending Unavailable Shane, Shrutih Attending Unavailable Shane, Shruthi Primary Care Unavailable Shane, Shruthi Primary Care Unavailable Shane, Shruthi Referring Unavailable CalSharan pace Attending Unavailable Shane, Shruthi Primary Care Unavailable Quan Myers Attending Unavailable Brantley, Jelly Referring Unavailable Shane, Shruthi Primary Care Unavailable Sharan Landeros Attending Unavailable Sharan Landeros Consulting Unavailable Shane, Shruthi Referring Unavailable RufenerMindy M Consulting Unavailable Rufener, Mindy M Referring Unavailable Shane, Shruthi Primary Care Unavailable Isac Bradley Attending Unavailable Shane, Shruthi Attending Unavailable Shane, Shruthi Primary Care Unavailable Allergies Allergy Classification Reported Allergen(s) Allergy Type Date of Onset Reaction(s) Facility (1 source) Nalbuphine Drug Allergy [facility] Repository (6 sources) Nalbuphine Drug Allergy 2 [facility] (1 source) Nalbuphine; Translations: [NALBUPHINE HCL] Drug Allergy 1 [facility] Repository (1 source) OTHER; Translations: [OTHER] Propensity to adverse reactions (disorder) 1 [facility] Repository (1 source) Nalbuphine Drug Allergy 5 [facility] Repository Medications Current Medications Medication Drug Class(es) Dates Sig (Normalized) Sig (Original) [id number] 200 actuat albuterol 0.09 mg/actuat metered dose inhaler (16 sources) beta2-Adrenergic Agonist Start: 05-27-2020 End: 03-03-2024 Albuterol Sulfate 90 mcg/actuation HFA aerosol inhaler Active 2 NMA INHALATION EVERY 6 HOURS as needed for shortness of breath or wheezing March 03, 2024 8:45am Start: 05-27-2020 End: 12-15-2022 take 1 puff(s) by inhalation every six hours Albuterol Sulfate Discontinued 2 PUFF INHALATION EVERY 6 HOURS October 31, 2021 10:22am December 15, 2022 9:47am albuterol 0.833 mg/ml / ipratropium bromide 0.167 mg/ml inhalation solution (3 sources) Anticholinergic, beta2-Adrenergic Agonist Start: 05-25-2023 take 1 mL by inhalation every four hours as needed for wheezing Ipratropium-Albuterol 0.5 mg-3 mg(2.5 mg base)/3 mL solution for nebulization Active 3 mL INHALATION EVERY 4 HOURS NEEDED as needed for SOB &/OR WHEEZING May 25, 2023 1:00am Start: 05-25-2023 take 1 mL by inhalat ion every four hours as needed Ipratropium-Albuterol Active 3 ML INHALATION EVERY 4 HOURS NEEDED May 25, 2023 1:00am calcium carbonate 1500 mg oral tablet (1 source) Start: 07-08-2024 take 1 tablet by mouth once daily Calcium Carbonate (Calcium 600) 600 mg calcium (1,500 mg) tablet Active 600 mg PO daily July 08, 2024 1:00am cholecalciferol 0.025 mg oral capsule (7 sources) Vitamin D Start: 07-08-2024 take 1 capsule by mouth once daily Cholecalciferol (Vitamin D3) 25 mcg (1,000 unit) capsule Active 25 ug PO daily July 08, 2024 1:00am Start: 09-21-2017 End: 04-09-2024 take 1 tablet by mouth once daily Cholecalciferol (Vitamin D3) 1,000 unit tablet Discontinued 1000 U PO daily September 21, 2017 12:00am April 09, 2024 1:22pm fexofenadine hydrochloride 180 mg oral tablet (6 sources) Histamine-1 Receptor Antagonist Start: 09-21-2017 take 1 tablet by mouth once daily Fexofenadine (Kirti Allergy) 180 mg tablet Active 180 mg PO daily September 21, 2017 12:00am 30 actuat fluticasone furoate 0.2 mg/actuat / vilanterol 0.025 mg/actuat dry powder inhaler (2 sources) Corticosteroid, beta2-Adrenergic Agonist Start: 05-27-2024 End: 07-08-2024 Fluticasone Furoate-Vilanterol (Breo Ellipta) 200-25 mcg/dose blister with device Active 1 NMA INHALATION Q24H 60 July 08, 2024 9:20am gabapentin 300 mg oral capsule (20 sources) Anti-epileptic Agent Start: 02-25-2024 End: 03-12-2024 take 1 capsule by mouth once daily at bedtime, then take 2 capsules by mouth once daily at bedtime, then take 3 capsules by mouth once daily at bedtime Gabapentin 100 mg capsule Discontinued 100 mg PO AT BEDTIME 50 February 25, 2024 8:53am March 12, 2024 3:24pm Take one cap (100 mg) daily at bedtime for 7 days, then take 2 caps (200 mg) daily at bedtime for 7 days, then take three caps (300 mg) daily at bedtime thereafter. Start: 01-16-2024 End: 08-27-2024 take 1 capsule by mouth at bedtime Gabapentin 300 mg capsule Active 300 mg PO AT BEDTIME August 27, 2024 7:48am Start: 03-24-2022 End: 08-21-2022 take 1 capsule by mouth at bedtime Gabapentin 300 mg capsule Discontinued 300 mg PO AT BEDTIME March 24, 2022 12:00am August 21, 2022 10:14am Start: 11-01-2021 End: 11-01-2021 take 1 capsule by mouth once daily Gabapentin 300 mg capsule Discontinued 300 mg PO DAILY November 01, 2021 12:00am November 01, 2021 4:11pm Start: 09-19-2021 End: 10-03-2021 take 1 capsule by mouth at bedtime Gabapentin 100 mg capsule Discontinued 100 mg PO AT BEDTIME 14 14 September 19, 2021 9:26am October 02, 2021 12:00am October 03, 2021 12:04am Start: 03-18-2020 End: 09-19-2021 take 1 capsule by mouth at bedtime Gabapentin 300 mg capsule Discontinued 300 mg PO AT BEDTIME August 04, 2021 3:31pm September 19, 2021 9:27am Handicap Placard (3 sources) Start: 08-02-[address] Active 0 .Route .MEDSUPPLY August 02, 2023 1:00am 5 year RX 08/02/23-08/01/28 DX J45.909 losartan potassium 50 mg oral tablet (17 sources) Angiotensin 2 Receptor Kay Start: 04-30-2023 End: 05-24-2023 take 1 tablet by mouth once daily Losartan 50 mg tablet Active 50 mg PO DAILY May 24, 2023 10:48am Start: 11-01-2021 End: 04-30-2023 take 1 tablet by mouth once daily Losartan 25 mg tablet Discontinued 25 mg PO DAILY November 01, 2021 12:00am April 30, 2023 3:29pm Start: 09-21-2017 End: 12-18-2018 take 1 tablet by mouth once daily Losartan 100 mg tablet Discontinued 100 mg PO daily September 21, 2017 12:00am December 18, 2018 9:35am Multivitamin preparation (5 sources) Start: 09-21-2017 take 1 tablet by mouth once daily Multivitamin Active 1 TABLET PO daily September 21, 2017 10:15am Start: 09-21-2017 take 1 tablet by pedro pablo th once daily Multivitamin Active 1 TABLET PO daily September 21, 2017 12:00am Multivitamin tablet (1 source) Start: 09-21-2017 Multivitamin tablet Active 1 {tbl} PO daily September 21, 2017 12:00am pramipexole dihydrochloride 0.25 mg oral tablet (20 sources) Nonergot Dopamine Agonist Start: 05-31-2022 End: 07-08-2024 take 2 tablets by mouth at bedtime Pramipexole 0.25 mg tablet Active 0.5 mg PO .COMPLEX 360 July 08, 2024 9:40am 0.5 mg orally 2 tablets in evening, 2 tablets at bedtime; Start: 05-31-2022 End: 06-12-2023 take 0.5 mg by mouth at bedtime Pramipexole Active 0.5 MG PO AT BEDTIME June 12, 2023 10:04am Start: 08-02-2021 End: 05-31-2022 take 1 tablet by mouth at bedtime Pramipexole 0.25 mg tablet Discontinued 0.25 mg PO AT BEDTIME April 26, 2022 3:14pm May 31, 2022 11:16am rivaroxaban 20 mg oral tablet (16 sources) Factor Xa Inhibitor Start: 11-19-2023 take 1 tablet by mouth at dinner Rivaroxaban (Xarelto) 20 mg tablet Active 20 mg PO AT BEDTIME November 19, 2023 12:00am must administer with evening meal Start: 12-23-2019 End: 06-12-2023 take 1 tablet by mouth once daily at dinner Rivaroxaban 20 mg tablet Discontinued 20 mg PO DAILY September 20, 2020 8:33am April 26, 2023 11:18am must administer with evening meal sildenafil 20 mg oral tablet (20 sources) Phosphodiesterase 5 Inhibitor Start: 07-30-2020 End: 06-24-2024 take 1 tablet by mouth once daily as needed Sildenafil (Pulm.Hypertension) 20 mg tablet Active 20 mg PO DAILY as needed for sexual activity June 24, 2024 11:06am Start: 07-19-2020 End: 07-30-2020 Sildenafil 25 mg tablet Disc ontinued 25 mg PO DAILY as needed for sexual activity July 19, 2020 1:00am July 30, 2020 12:51pm administer 30 minutes to 4 hours before activity Start: 03-18-2020 End: 07-19-2020 take 1 tablet by mouth once daily as needed Sildenafil (Pulm.Hypertension) 20 mg tablet Discontinued 20 mg PO DAILY as needed June 24, 2020 9:48am July 19, 2020 5:36pm spacer (1 source) Start: 04-15-2024 spacer Active 0 .ROUTE .MEDSUPPLY April 15, 2024 1:00am As directed 1 ml testosterone cypionate 200 mg/ml injection (20 sources) Androgen Start: 10-14-2020 End: 04-16-2024 Testosterone Cypionate 200 mg/mL oil Active 200 mg SC every 2 weeks April 16, 2024 8:53am Start: 10-14-2020 End: 05-02-2023 Testosterone Cypionate Disco ntinued 200 MG SC every 2 weeks May 23, 2022 5:43pm May 02, 2023 1:22pm Start: 06-24-2020 End: 10-14-2020 Testosterone Cypionate 200 m g/mL oil Discontinued 200 mg SC EVERY WEEK June 24, 2020 1:00am October 14, 2020 8:28am Start: 06-24-2020 End: 10-14-2020 Testosterone Cypionate Disco ntinued 200 MG SC EVERY WEEK June 24, 2020 1:00am October 14, 2020 8:28am Start: 09-21-2017 End: 06-24-2020 Testosterone (Testopel) 75 m g pellet Discontinued 150 mg SC EVERY WEEK September 21, 2017 12:00am June 24, 2020 9:48am Completed/Discontinued Medications Medication Drug Class(es) Dates Sig (Normalized) Sig (Original) amoxicillin 500 mg oral capsule (7 sources) Penicillin-class Antibacterial Start: 04-22-2024 End: 05-27-2024 take 4 capsules by mouth once as needed Amoxicillin 500 mg capsule Discontinued 2000 mg PO ONCE as needed April 22, 2024 1:00am May 27, 2024 9:12am Start: 01-21-2021 End: 11-25-2022 Amoxicillin 500 mg capsule D iscontinued 2000 mg PO .COMPLEX 4 January 21, 2021 12:00am November 25, 2022 10:46am take prior to dental procedure 2,000 mg PO; Start: 01-21-2021 End: 11-25-2022 Amoxicillin Discontinued 200 0 MG PO .COMPLEX 4 January 21, 2021 12:00am November 25, 2022 10:46am take prior to dental procedure 2,000 mg PO; aspirin 81 mg delayed release oral tablet (12 sources) Platelet Aggregation Inhibitor, Nonsteroidal Anti-inflammatory Drug Start: 12-23-2019 End: 12-23-2019 Aspirin (Adult Low Dose Aspirin) 81 mg tablet,delayed release (DR/EC) Discontinued 81 mg PO DAILY December 23, 2019 12:00am December 23, 2019 9:43am Start: 09-21-2017 End: 12-18-2018 Aspirin (Adult Low Dose Aspi rin) 81 mg tablet,delayed release (DR/EC) Discontinued 81 mg PO daily September 21, 2017 12:00am December 18, 2018 9:53am azithromycin 250 mg oral tablet (9 sources) Macrolide Antimicrobial Start: 05-25-2023 End: 06-12-2023 take 2-5 tablets by mouth once daily Azithromycin 250 mg tablet Discontinued 0 PO .COMPLEX 6 May 25, 2023 1:00am June 12, 2023 9:51am take 500 mg today (day 1), then 250 mg for 4 days (days 2-5) PO Start: 03-29-2020 End: 05-27-2020 take 2-5 tablets by mouth once daily Azithromycin (Zithromax Z-Nazario) 250 mg tablet Discontinued 0 PO .COMPLEX 6 March 29, 2020 1:00am May 27, 2020 10:03am take 500 mg today (day 1), then 250 mg for 4 days (days 2-5) PO 120 actuat budesonide 0.16 mg/actuat / formoterol fumarate 0.0045 mg/actuat metered dose inhaler (3 sources) Corticosteroid, beta2-Adrenergic Agonist Start: 04-16-2024 End: 05-27-2024 Budesonide-Formoterol (Symbicort) 160-4.5 mcg/actuation HFA aerosol inhaler Discontinued 2 NMA INHALATION TWICE A DAY 10.2 April 16, 2024 2:00pm May 27, 2024 9:42am administer with spacer, rinse mouth after each use Start: 04-15-2024 End: 04-16-2024 Budesonide-Formoterol (Symbi rhea) 160-4.5 mcg/actuation HFA aerosol inhaler Discontinued 2 NMA INHALATION TWICE A DAY 1 April 15, 2024 4:53pm April 16, 2024 2:01pm administer with spacer, rinse mouth after each use Start: 04-15-2024 End: 04-15-2024 Budesonide-Formoterol (Symbi rhea) 160-4.5 mcg/actuation HFA aerosol inhaler Discontinued 2 NMA INHALATION TWICE A DAY 1 April 15, 2024 1:00am April 15, 2024 4:53pm administer with spacer, rinse mouth after each use caffeine 100 mg / ergotamine tartrate 1 mg oral tablet (1 source) Central Nervous System Stimulant, Ergotamine Derivative, Methylxanthine Start: 05-06-2024 End: 07-08-2024 take 2 tablets by mouth once daily as needed for headache Ergotamine-Caffeine 1-100 mg tablet Discontinued 1 {tbl} PO ONCE as needed for migraine headache May 06, 2024 1:00am July 08, 2024 9:04am No more than 2 tablets daily. carvedilol 25 mg oral tablet (20 sources) alpha-Adrenergic Kay, beta-Adrenergic Kay Start: 09-21-2017 End: 11-01-2021 Carvedilol 25 mg tablet Discontinued 0 .ROUTE .COMPLEX 180 October 29, 2020 3:25pm November 01, 2021 4:12pm TAKE 1 TABLET TWICE DAILY cephalexin 500 mg oral capsule (9 sources) Cephalosporin Antibacterial Start: 11-25-2022 End: 04-26-2023 take 1 capsule by mouth every six hours Cephalexin 500 mg capsule Discontinued 500 mg PO EVERY 6 HOURS November 25, 2022 12:00am April 26, 2023 11:17am Start: 03-24-2022 End: 08-21-2022 take 1 capsule by mouth every six hours Cephalexin 500 mg capsule Discontinued 500 mg PO EVERY 6 HOURS March 24, 2022 12:00am August 21, 2022 10:11am codeine phosphate 2 mg/ml / guaiFENesin 20 mg/ml oral solution (6 sources) Opioid Agonist Start: 03-29-2020 End: 05-27-2020 take 1 mL by mouth every six hours before mealtime Codeine-Guaifenesin (Guaifenesin Ac) 10-100 mg/5 mL liquid Discontinued 5 mL PO EVERY 6 HOURS 120 March 29, 2020 1:00am May 27, 2020 10:04am Start: 03-29-2020 End: 05-27-2020 take 1 mL by mouth every six hours before mealtime Codeine-Guaifenesin (Guaifenesin Ac) 10-100 mg/5 mL liquid Discontinued 5 ML PO EVERY 6 HOURS 120 March 29, 2020 1:00am May 27, 2020 10:04am diazePAM 2 mg oral tablet (1 source) Benzodiazepine Start: 06-11-2024 End: 07-08-2024 take 1 tablet by mouth once as needed for anxiety Diazepam (Valium) 2 mg tablet Discontinued 2 mg PO ONCE as needed for anxiety June 11, 2024 1:00am July 08, 2024 9:03am doxycycline hyclate 100 mg oral tablet (3 sources) Tetracycline-class Drug Start: 08-02-2023 End: 01-16-2024 take 1 tablet by mouth twice daily Doxycycline Hyclate 100 mg tablet Discontinued 100 mg PO TWICE A DAY August 02, 2023 1:00am January 16, 2024 2:38pm Fluad Quad (65yr up)(PF) 60 mcg (15 mcg x 4)/0.5mL IM syringe (flu vac (1 source) Start: 03-21-2021 End: 03-21-2021 Fluad Quad (65yr up)(PF) 60 mcg (15 mcg x 4)/0.5mL IM syringe (flu vac Discontinued 60 MCG IM ONCE 0.5 March 21, 2021 9:26am March 21, 2021 10:42am furosemide 40 mg oral tablet (20 sources) Loop Diuretic Start: 10-29-2023 End: 01-16-2024 take 1 tablet by mouth once daily Furosemide (Lasix) 40 mg tablet Discontinued 40 mg PO DAILY November 05, 2023 5:10pm January 16, 2024 2:38pm Start: 10-18-2020 End: 11-01-2021 Furosemide (Lasix) 40 mg tab let Discontinued 40 mg PO .every three days as needed September 19, 2021 8:59am November 01, 2021 4:02pm Start: 03-05-2020 End: 10-18-2020 take 1 tablet by mouth every other day Furosemide (Lasix) 40 mg tablet Discontinued 40 mg PO .every two days June 24, 2020 10:15am October 18, 2020 3:03pm Start: 02-05-2020 End: 03-05-2020 take 1 tablet by mouth once daily Furosemide (Lasix) 40 mg tablet Discontinued 40 mg PO DAILY February 10, 2020 5:06pm March 05, 2020 9:23am hydroCHLOROthiazide 25 mg / losartan potassium 100 mg oral tablet (6 sources) Thiazide Diuretic, Angiotensin 2 Receptor Kay Start: 05-15-2017 End: 09-21-2017 Losartan-Hydrochlorothiazide 100-25 mg tablet Discontinued 1 {tbl} PO daily May 15, 2017 1:00am September 21, 2017 10:18am Start: 05-15-2017 End: 09-21-2017 take 1 tablet by mouth once daily Losartan-Hydrochlorothiazide Discontinue d 1 TABLET PO daily May 15, 2017 1:00am September 21, 2017 10:18am linaclotide 0.072 mg oral capsule (4 sources) Guanylate Cyclase-C Agonist Start: 05-05-2024 End: 08-25-2024 take 1 capsule by mouth once daily as needed Linaclotide (Linzess) 72 mcg capsule Discontinued 72 ug PO DAILY as needed for ibs May 05, 2024 12:22pm August 25, 2024 8:23am Start: 08-02-2023 End: 01-16-2024 take 1 capsule by mouth once daily as needed Linaclotide (Linzess) 72 mcg capsule Discontinued 72 ug PO DAILY as needed for ibs August 02, 2023 1:00am January 16, 2024 2:38pm LORazepam 0.5 mg oral tablet (6 sources) Benzodiazepine Start: 11-16-2020 End: 03-03-2021 Lorazepam 0.5 mg tablet Discontinued 0.5 mg PO ONCE as needed for anxiety November 16, 2020 12:00am March 03, 2021 1:49pm take 30 min prior to MRI, do not drive on this med olmesartan medoxomil 20 mg oral tablet (20 sources) Angiotensin 2 Receptor Kay Start: 09-19-2021 End: 11-01-2021 take 1 tablet by mouth once daily Olmesartan 20 mg tablet Discontinued 20 mg PO DAILY September 19, 2021 8:59am November 01, 2021 4:11pm Start: 04-07-2020 End: 09-19-2021 take 1 tablet by mouth twice daily Olmesartan 20 mg tablet Discontinued 20 mg PO TWICE A DAY 180 April 06, 2021 1:53pm September 19, 2021 9:00am Start: 03-18-2020 End: 04-07-2020 take 2 tablets by mouth twice daily Olmesartan 20 mg tablet Discontinued 40 mg PO TWICE A DAY 90 October 22nd, 2020 8:37am April 07, 2020 3:26pm Start: 03-18-2020 End: 04-07-2020 take 40 mg by mouth twice daily Olmesartan Discontinue d 40 MG PO TWICE A DAY March 18, 2020 8:37am April 07, 2020 3:26pm Start: 03-05-2020 End: 03-18-2020 take 2 tablets by mouth once daily Olmesartan 20 mg tablet Discontinued 40 mg PO DAILY March 05, 2020 9:06am March 18, 2020 8:38am Start: 03-05-2020 End: 03-18-2020 take 40 mg by mouth once daily Olmesartan Discontinued 40 MG PO DAILY March 05, 2020 9:06am March 18, 2020 8:38am Start: 12-18-2018 End: 03-05-2020 take 1 tablet by mouth once daily Olmesartan 20 mg tablet Discontinued 20 mg PO DAILY December 18, 2018 12:00am March 05, 2020 9:07am predniSONE 10 mg oral tablet (9 sources) Start: 05-25-2023 End: 08-02-2023 Prednisone 10 mg tablet Discontinued 10 mg PO daily May 25, 2023 1:00am August 02, 2023 10:34am take 4 tabs for three days, then 3 tabs for three days, then 2 tabs for three days, then 1 tab for 3 days Start: 10-21-2020 End: 12-16-2020 Prednisone 10 mg tablet Disc ontinued 10 mg PO DAILY October 21, 2020 12:00am December 16, 2020 10:43am Take 4 tabs daily x 3 days then 2 tabs daily x 3 days then 1 tab daily x 3 days then stop simvastatin 40 mg oral tablet (20 sources) HMG-CoA Reductase Inhibitor Start: 09-21-2017 End: 11-11-2020 take 1 tablet by mouth once daily in the evening Simvastatin 40 mg tablet Discontinued 40 mg PO EVERY EVENING October 17, 2018 8:22am November 11, 2020 1:38pm tamsulosin hydrochloride 0.4 mg oral capsule (6 sources) alpha-Adrenergic Kay Start: 10-12-2017 End: 12-18-2018 take 1 capsule by mouth every twenty-four hours at bedtime Tamsulosin 0.4 mg capsule,extended release 24hr Discontinued 0.4 mg PO AT BEDTIME October 12, 2017 12:00am December 18, 2018 9:36am traMADol hydrochloride 50 mg oral tablet (12 sources) Opioid Agonist Start: 03-03-2021 End: 09-19-2021 take 1 tablet by mouth at bedtime Tramadol 50 mg tablet Discontinued 50 mg PO AT BEDTIME April 06, 2021 11:02am September 19, 2021 9:00am Problems Active Problems Problem Classification Problem Date Documented Da te Episodic/Chronic Asthma (11 sources) Asthma; Translations: [Unspecified asthma, uncomplicated] Onset: 4 Chronic Cardiac dysrhythmias (20 sources) Multiple premature ventricular complexes; 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 Comment on above: RFA 09/2010 DCCV on 01/26/2020; Cardiac dysrhythmias (6 sources) Palpitations; Translations: [Palpitations] 10-09-2018 Episodic Cardiac dysrhythmias (1 source) Cardiac dysrhythmias Onset: 7 Chronic obstructive pulmonary disease and bronchiectasis (5 sources) Bronchitis; Translations: [Bronchitis, not specified as acute or chronic] 08-02-2023 Episodic Coronary atherosclerosis and other heart disease (1 source) Coronary atherosclerosis and other heart disease Onset: 7 Diabetes mellitus with complications (10 sources) Type 2 diabetes mellitus; Translations: [Type 2 diabetes mellitus with diabetic peripheral angiopathy without gangrene] Chronic Diabetes mellitus without complication (1 source) Diabetes mellitus without complication Onset: 7 Disorders of lipid metabolism (12 sources) Hyperlipidemia; Translations: [Hyperlipidemia, unspecified] Chronic Comment on above: ON MED Essential hypertension (12 sources) Essential hypertension; Translations: [Essential (primary) hypertension] Chronic Comment on above: CONTROLLED WITH MED Essential hypertension (1 source) Essential hypertension Onset: 7 Genitourinary symptoms and ill-defined conditions (5 sources) Urinary incontinence; Translations: [Unspecified urinary incontinence] 08-02-2023 Chronic Genitourinary symptoms and ill-defined conditions (2 sources) Nocturia; Translations: [Nocturia] Onset: 02-25-2024 Episodic Headache; including migraine (2 sources) Headache; Translations: [Worsening headaches] 05-06-2024 Episodic Headache; including migraine (1 source) Headache; including migraine; Translations: [Headache, unspecified] Onset: Inflammation; infection of eye (except that caused by tuberculosis or sexually transmitteddisease) (5 sources) External hordeolum; Translations: [Hordeolum externum unspecified eye, unspecified eyelid] 11-25-2022 Episodic Other aftercare (1 source) Long-term current use of diuretic; Translations: [Encounter for therapeutic drug level monitoring] 11-05-2023 Episodic Other aftercare (2 sources) Long-term current use of anticoagulant; Translations: [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] 10-25-2023 Episodic Other diseases of bladder and urethra (1 source) Disorder of bladder; Translations: [Bladder disorder, unspecified] 04-15-2024 Chronic Comment on above: INCONTINENCE PRN Other ear and sense organ disorders (1 source) Sensorineural hearing loss, bilateral; Translations: [Sensorineural hearing loss, bilateral] Onset: Chronic Other endocrine disorders (7 sources) Hypotestosteronism; Translations: [Endocrine disorder, unspecified] 02-19-2020 Episodic Other endocrine disorders (1 source) Endocrine disorder, unspecified; Translations: [Unspecified endocrine disorder] Episodic Other gastrointestinal disorders (1 source) Swollen abdomen; Translations: [Abdominal distension (gaseous)] 10-25-2023 Episodic Other liver diseases (6 sources) Increased bilirubin level; Translations: [Unspecified jaundice] 04-06-2021 Episodic Other liver diseases (1 source) Unspecified jaundice; Translations: [Disorders of bilirubin excretion] Episodic Other lower respiratory disease (6 sources) Interstitial lung disease; Translations: [Interstitial pulmonary disease, unspecified] 10-18-2020 Chronic Other lower respiratory disease (8 sources) Interstitial pulmonary disease, unspecified; Translations: [Postinflammatory pulmonary fibrosis] Onset: Chronic Other lower respiratory disease (1 source) Dyspnea; Translations: [Shortness of breath] 10-25-2023 Episodic Other lower respiratory disease (1 source) Orthopnea; Translations: [Orthopnea] 10-25-2023 Episodic Other lower respiratory disease (1 source) Restrictive lung disease; Translations: [Other disorders of lung] 04-15-2024 Episodic Other lower respiratory disease (1 source) Dry cough; Translations: [Nonproductive cough] 10-25-2023 Episodic Other male genital disorders (8 sources) Male erectile dysfunction, unspecified; Translations: [Erectile dysfunction] Chronic Other non-traumatic joint disorders (7 sources) Ankle pain; Translations: [Pain in left ankle and joints of left foot] 10-18-2020 Episodic Other screening for suspected conditions (not mental disorders or infectious disease) (6 sources) Imaging of thorax abnormal; Translations: [Abnormal findings on diagnostic imaging of other specified body structures] 12-15-2020 Chronic Other screening for suspected conditions (not mental disorders or infectious disease) (8 sources) Other specified abnormal findings of blood chemistry; Translations: [Elevated liver function tests] Onset: 5 02-19-2020 Episodic Antoinette-; endo-; and myocarditis; cardiomyopathy (except that caused by tuberculosis or sexually transmitted disease) (6 sources) Cardiomyopathy; Translations: [Other cardiomyopathies] 01-26-2020 Chronic Residual codes; unclassified (6 sources) Obstructive sleep apnea syndrome; Translations: [Obstructive sleep apnea (adult) (pediatric)] 02-01-2023 Chronic Comment on above: BiPAP 14/10 cmH2O wi th a residual AHI of 5 Residual codes; unclassified (5 sources) Periodic limb movement disorder; Translations: [Periodic limb movement disorder] 03-21-2021 Chronic Residual codes; unclassified (4 sources) Periodic limb movement disorder; Translations: [Periodic limb movement disorder] Chronic Residual codes; unclassified (6 sources) Obstructive sleep apnea (adult) (pediatric); Translations: [Obstructive sleep apnea (adult)(pediatric)] Onset: 5 Chronic Residual codes; unclassified (1 source) Periodic leg movements of sleep ; Translations: [Periodic limb movement disorder] 06-12-2023 Chronic Residual codes; unclassified (3 sources) Procedure and treatment not carried out, unspecified reason; Translations: [Procedure and treatment not carried out, unspecified reason] Onset: 1 Episodic Residual codes; unclassified (6 sources) History of immunosuppressive therapy; Translations: [Personal history of immunosupression therapy] 02-19-2020 Episodic Residual codes; unclassified (1 source) Personal history of immunosupression therapy; Translations: [Personal history of immunosuppressive therapy] Episodic Rheumatoid arthritis and related disease (1 source) Rheumatoid arthritis; Translations: [Rheumatoid arthritis, unspecified] 01-07-2024 Chronic Skin and subcutaneous tissue infections (5 sources) Cellulitis; Translations: [Cellulitis, unspecified] 04-01-2022 Episodic Superficial injury; contusion (5 sources) Contusion of lower limb; Translations: [Contusion of left lower leg, initial encounter] 04-01-2022 Episodic Unclassified (3 sources) Presence of artificial hip joint, bilateral / Z96.643(ICD-10) Onset: 7 Unclassified (1 source) Calculus of kidney / N20.0(ICD-10) Onset: 7 Unclassified (1 source) Endocrine disorder, unspecified / E34.9(ICD-10) Onset: 7 Unclassified (1 source) Obstructive sleep apnea (adult) (pediatric) / G47.33(ICD-10) Onset: 7 Unclassified (1 source) Restless legs syndrome / G25.81(ICD-10) Onset: 7 Unclassified (1 source) Insomnia, unspecified / G47.00(ICD-10) Onset: 7 Unclassified (2 sources) [facility] compl of internal right hip prosthesis, init encntr / T84.090A(ICD-10) Onset: 7 Unclassified (1 source) Unspecified urinary incontinence / R32(ICD-10) Onset: 7 Unclassified (1 source) Low back pain / M54.5(ICD-10) Onset: 7 Unclassified (1 source) Spinal stenosis, lumbar region without neurogenic stephanie / M48.061(ICD-10) Onset: 7 Unclassified (1 source) Male erectile disorder / F52.21(ICD-10) Onset: 7 Unclassified (1 source) [facility]PC (current) use of antithrombotics/antipl atelets / Z79.02(ICD-10) Onset: 7 Unclassified (1 source) 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 / Z79.82(ICD-10) Onset: 7 Unclassified (2 sources) Broken internal joint prosthesis, other site, init encntr / T84.018A(ICD-10) Onset: 7 Unclassified (2 sources) Encounter for other preprocedural examination / Z01.818(ICD-10) Onset: 7 Unclassified (3 sources) Radiculopathy, lumbosacral region / M54.17(ICD-10) Onset: 7 Unclassified (1 source) Testicular hypofunction / E29.1(ICD-10) Onset: 7 Unclassified (1 source) Sleep apnea, unspecified / G47.30(ICD-10) Onset: 7 Unclassified (1 source) Personal history of nicotine dependence / Z87.891(ICD-10) Onset: 7 Unclassified (2 sources) Sacrococcygeal disorders, not elsewhere classified / M53.3(ICD-10) Onset: 8 Unclassified (3 sources) Aftercare following joint replacement surgery / Z47.1(ICD-10) Onset: 8 Unclassified (2 sources) Pain in right hip / M25.551(ICD-10) Onset: 7 Unclassified (1 source) Abnormal findings on diagnostic imaging of prt ms sys / R93.7(ICD-10) Onset: 7 Unclassified (1 source) Presence of right artificial hip joint / Z96.641(ICD-10) Onset: 7 Viral infection (6 sources) Viral disease; Translations: [Viral infection, unspecified] 12-15-2020 Episodic Past or Other Problems Problem Classification Problem Date Documented Date Episodic/Chronic Calculus of urinary tract (1 source) Calculus of kidney; Translations: [Calculus of kidney] Onset: 02-22-2016 Episodic Other aftercare (1 source) 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; Translations: [FPC (current) use of anticoagulants] Onset: 05-05-2024 Episodic Other aftercare (1 source) Encounter for therapeutic drug level monitoring; Translations: [Encounter for therapeutic drug level monitoring] Onset: 12-07-2023 Episodic Other lower respiratory disease (1 source) Other disorders of lung; Translations: [Other disorders of lung] Onset: 06-08-2024 Episodic Residual codes; unclassified (6 sources) History of cardioversion; Translations: [Other specified postprocedural states] Onset: 01-26-2020 12-15-2020 Episodic Residual codes; unclassified (6 sources) History of radiofrequency ablation operation for arrhythmia; Translations: [Other specified postprocedural states] Onset: 09-25-2010 12-15-2020 Episodic Residual codes; unclassified (6 sources) History of cardiac catheterization; Translations: [Other specified postprocedural states] Onset: 12-26-2009 12-15-2020 Episodic Comment on above: 12/2009 Spondylosis; intervertebral disc disorders; other back problems (1 source) Radiculopathy, lumbosacral region; Translations: [Radiculopathy, lumbosacral region] Onset: 12-05-2016 Episodic Unclassified (1 source) [facility] compl of internal right hip prosthesis, init encntr; Translations: [[facility] compl of internal right hip prosthesis, [...] Test Name Value Interpretation Reference Range Facility Orb Sella Post Fossa Ear w/o on 11-07-2024 Orb Sella Post Fossa Ear w/o [facility] [address] [place], [place] [id number] Orb Sella Post Fossa Ear w/o MR#: [id number] Acct: [id number] Name: STEPHANY SCHAFER Rep #: [id number] : 1950 M 74 From: Tarsha poole MD PCP: Dr. Shruthi Lynn MD Status: REG CLI Study: Orb Sella Post Fossa Ear w/o Date of Exam: Exam# [id number] Ordering Dr: Colton Reed MD PROCEDURE: ORB SELLA POST FOSSA EAR W/O 11/07/2024 REASON FOR EXAM: SENSORINEURAL HEARING LOSS, BILATERAL TECHNIQUE: ORB SELLA POST FOSSA EAR W/O CONTRAST: VOLUME: mL One or more dose reduction techniques were used (e.g., Automated exposure control, adjustment of the mA and/or kV according to patient size, use of iterative reconstruction technique). RADIATION DOSE SUMMARY: CTDlvol: mGy DLP:mGycm COMPARISON: none FINDINGS: Thickened retracted right tympanic membrane merging with focal soft tissue thickening abutting the lateral aspect of the right ossicular chain with no obvious bony erosive changes. The left middle ear cleft shows normal pneumatization with no internal densities. Clear pneumatized mastoid air cells and mastoid antrum on either side. Normal appearance of the ossicular chain on either side. No bony erosive changes. Normal appearance of the scutum. Normal appearance of the cochlea, vestibules and semicircular canals on either side. No obvious internal auditory canals masses on non contrast bases. No obvious nasopharyngeal masses. Clear scanned paranasal sinuses Bilateral scleral calcifications. Otherwise, unremarkable orbital structures. CT/Orb Sella Post Fossa Ear w/o IMPRESSION: Thickened retracted right tympanic membrane merging with focal soft tissue thickening abutting the lateral aspect of the right ossicular chain worrisome of cholesteatoma. Advise clinical correlation and follow up. Reading Location: [place] [address] CC: Dr. Colton Reed MD; Dr. 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 [place] [address] OFFICE VISIT Date of Service: 08/25/24 MR#: [id number] Acct: [id number] Name: STEPHANY SCHAFER Rep #: [id number] : 1950 Provider: Dr. Shruthi soto MD Age/Sex: 74/M Location: [facility] Status: Signed Intake Vital Signs 02/25/24 08:41 07/08/24 07:10 08/25/24 08:24 Height 5 ft 9 in 5 ft 9 in 5 ft 9 in Weight: 182 lb 6 oz BMI 26.9 BP 135/69 H Blood Pressure Location Lt brachial Position Sitting Respiration 16 Pulse 64 Pulse Source Monitor Temp 98.4 F Temp Source Temporal Pulse Oximetry (%) 96 Oxygen Delivery Method room air Intake Visit Reasons: 6 M FU Chief Complaint: 6 M FU Demand Planning Manager Required: No Accompanied by: Self Is patient in pain?: Yes (L ankle ) Pain scale (1-10): 5 Allergies nalbuphine (From Nubain) Adverse Reaction (Verified 08/25/24 08:19) delirium Medications ???Medication ???Instructions ???Recorded ???Confirmed ???Type fexofenadine 180 mg tablet 180 mg PO QDAY 09/21/17 08/25/24 H istory (Kirti Allergy) multivitamin 1 tab PO QDAY 09/21/17 08/25/24 Hi story simvastatin 40 mg tablet 40 mg PO QPM #90 tabs 11/11/20 Rx carvedilol 25 mg tablet 25 mg PO BID 11/01/21 08/25/24 His tory losartan 50 mg tablet 50 mg PO DAILY FAX to [facility] 05/24/23 08/25/24 Rx #90 tabs ipratropium 0.5 mg-albuterol 3 mg 3 ml inhalation Q4H PRN PRN SOB 1 08/25/24 Rx (2.5 mg base)/3 mL nebulization /OR WHEEZING #180 mL soln Handicap Placard #1 ea 08/02/23 08/25/24 Rx rivaroxaban 20 mg tablet (Xarelto) 20 mg PO QHS Pt gets this from t he 11/19/23 08/25/24 History [facility] albuterol sulfate 90 mcg/actuation 2 puff inhalation Q6H PRN 08/25/24 Rx aerosol inhaler shortness of breath or wheezing #18 grams gabapentin 300 mg capsule 300 mg PO QHS #90 caps 03/12/24 Rx spacer #1 ea 04/15/24 08/25/24 Rx testosterone cypionate 200 mg/mL 200 mg subcut Q2W #10 mL 04/16/24 08/25/24 Rx intramuscular oil sildenafil (pulm.hypertension) 20 20 mg PO DAILY PRN sexual activit y 06/24/24 08/25/24 Rx mg tablet #30 tabs calcium carbonate (Calcium 600) 600 mg PO QDAY 07/08/24 08/25/24 H istory cholecalciferol (vitamin D3) 25 25 mcg PO QDAY 07/08/24 08/25/24 H istory mcg (1,000 unit) capsule fluticasone furoate 200 1 inh inhalation Q24H #60 ea 07/0808/25/24 Rx mcg-vilanterol 25 mcg/dose inhalation powder (Breo Ellipta) pramipexole 0.25 mg tablet 0.5 mg (2 x 0.25 mg) PO .COMPLEX 0 07/08/24 08/25/24 Rx #360 tabs Have you fallen in the past year?: No PFSH Medical History Worsening headaches Temporal headache Wears hearing aid Wears glasses Alcohol use Bladder disease Arthritis Restless legs Back pain Headache Former smoker BiPAP (biphasic positive airway pressure) dependence Interstitial emphysema of lung Leg cramps Hypertension History of echocardiogram Cardiology follow-up encounter Colon cancer screening Multiple premature ventricular complexes Left ankle pain Interstitial lung disease Chronic atrial fibrillation Asthma Viral syndrome history of bone fracture Paroxysmal atrial fibrillation Abnormal CXR DM (diabetes mellitus), type 2 with peripheral vascular complications History of immunosuppressive therapy Rheumatoid arthritis Essential hypertension Testosterone deficiency Elevated LFTs Erectile dysfunction Palpitations Paroxysmal ventricular tachycardia HLD (hyperlipidemia) Surgical History History of cardiac catheterization Hx of right cataract extraction Hx of left cataract extraction History of arthroplasty of left knee History of ear surgery History of bunionectomy of both great toes History of carpal tunnel release ( 1989) History of hernia repair ( 1980) History of colonoscopy ( 06/2009) History of cardioversion (01/26/20) History of radiofrequency ablation procedure for cardiac arrhythmia (09/2010) History of left heart catheterization (12/2009) History of foot surgery History of back surgery History of bilateral hip replacements Family History Father CAD (coronary artery disease) ICD implant Mother History of heart valve replacement Social History Smoking Status: Former smoker how long ago did patient quit smokin alcohol intake: current alcohol intake frequency: holidays/special occasions only Alcohol type: beer and wine substance use type: does not use what type of physical activity do you 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 Normal [facility] Pulmonary Visit Reporton Pulmonary Visit Report [facility] of [address] [place] [address] OFFICE VISIT Date of Service: 07/08/24 MR#: [id number] Acct: [id number] Name: STEHPANY SCHAFER Rep #: [id number] : 1950 Provider: Mindy Feliciano NP Age/Sex: 74/M Location: [facility] Status: Signed Assessment and Plan Assessment and Plan (1) MAURI (obstructive sleep apnea): Status: Chronic Comment: BiPAP 14/10 cmH2O with a residual AHI of 5 Plan: The patient has a normal nocturnal oximetry on BiPAP 14/10. His apnea index as well as nocturnal oxygenation are well-controlled on current settings. A titration study is not indicated at this time. Continue on BiPAP at 14 over 10 cm of water pressure. (2) Interstitial lung disease: Status: Chronic Plan: The CT scan continues to show fibrotic disease. The previous PFT from March 26, 2024 does not show a progressive disease process when compared to the PFT from 1 year prior in 2022. The restriction and gas transfer are both stable. At this point the patient does not require supplemental oxygen but close interval follow-up is recommended. (3) Asthma: Status: Chronic Qualifiers: Asthma complication type: uncomplicated Asthma persistence: intermittent Asthma severity: mild Qualified Code(s): J45.20 - Mild intermittent asthma, uncomplicated Plan: His cough is likely due to asthma versus progressive interstitial disease as he has had a significant reduction in cough with a 30-day. He was unable to tolerate Symbicort but Breo has been beneficial to him and he has not experienced side effects to this inhaler. I have asked for him to continue with this inhaler as he does believe that now it will be covered with the insurance. The patient will call this practice if he is unable to receive this inhaler and I will consider an alternative comparable inhaler. If he experiences side effects from this inhaler he is to notify this practice. I plan to reassess his symptoms and response on follow-up in 3 to 4 months. (4) Periodic limb movement sleep disorder: Status: Chronic Plan: He continues with use of pramipexole. However, it has not provided him with complete control as he reports that he is feeling unrefreshed upon awakening and he is awakening through the night due to leg movements. He is having difficulty falling asleep at night due to restless legs. I have recommended increasing the dose of Mirapex at this time to see if this improves his level of refreshment upon awakening. The patient understands that he should take 1 dose in the evening and a second dose at bedtime. He does continue to use gabapentin 300 mg prescribed by a different provider, he may be able to discontinue this medication if the pramipexole controls his symptoms. (5) Paroxysmal atrial fibrillation: Status: Chronic Comment: DCCV on 01/26/2020; Plan: Complicates exam, plan, care and prognosis. Rate controlled today Medications: Changed From pramipexole 0.5 mg (2 x 0.25 mg) PO QHS 180 tabs 3RF G47.61 - Periodic limb movement disorder To pramipexole (2 x 0.25 mg) 0.5 mg orally 2 tablets in evening, 2 tablets at bedtime; 360 tabs 3RF G47.61 - Periodic limb movement disorder Refilled fluticasone furoate-vilanterol 200-25 mcg/dose (Breo Ellipta) 1 inh inhalation Q24H 60 ea 11RF Plan Details Follow Up: 3-4 months (LMR) HPI HPI Comments Details: This 74-year-old male patient presents to the office today for follow-up of his asthma complicated by interstitial lung disease and obstructive sleep apnea. He is ambulatory and currently on room air. He has not recently been seen in the ED or urgent care for any respiratory illness. He has not recently required antibiotics or steroids. If you recall, he quit smoking in 1971. At last visit it was recommended that he begin a trial of Breo 200 to see if it improves his daily cough. He was able to get 1 inhaler but the second 1 cost that him too much so he was only able to complete a 30-day trial. He reports at least a 50% improvement in his cough with using the inhaler for 30 days. He did not experience a side effect such as headache, sore throat, thrush. He was previously prescribed Symbicort but reports that it caused him to have a severe headache so he stopped the inhaler. He does have albuterol rescue inhaler but has not used this recently. He does have DuoNeb available that he will use about once weekly, but usually he does not get to it . If his notices a wheeze the patient will use the nebulizer. He denies shortness of breath. He reports occasional wheeze, his will notice the wheeze. Occasional sinus congestion. He has a productive cough this is usually worse in the morning and then mostly dry during the day. He denies chest congestion. He denies chest tightness, chest pain, palpitations. He denies fever, chills, (more content not included)... 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 Status: REG CLI Location: PSN Date: Sex: M C PSN 6 Minute Walk Test 6 Minute Walk Test 6 Minute Walk Test: 6 Minute Walk Test PSN:6-Minute Walk Test Start: 06/10/24 14:05 Freq: Status: Active Protocol: [id number].[id number] Document 06/10/24 13:45 [facility] (Rec: 06/10/24 14:08 [facility] [id number]) 6 Minute Walk Test Date Performed 06/10/24 Time Performed 13:45 Height 5 ft 9 in Weight: 185 lb Weight in Pounds 185.[address]: Zandra Assistive device used: None Pre-test Oxygen Delivery Method Room Air Pulse Ox (%) 95 Pulse Rate (60-100 beats/min) 94 Dyspnea Toña Scale (0-10) 0 Exertion Toña Scale (6-20) 6 1st minute Oxygen Delivery Method Room Air Pulse Ox (%) 94 Pulse Rate (60-100 beats/min) 108 H 2nd minute Oxygen Delivery Method Room Air Pulse Ox (%) 91 Pulse Rate (60-100 beats/min) 117 H 3rd minute Oxygen Delivery Method Room Air Pulse Ox (%) 90 Pulse Rate (60-100 beats/min) 111 H 4th minute Oxygen Delivery Method Room Air Pulse Ox (%) 91 Pulse Rate (60-100 beats/min) 121 H 5th minute Oxygen Delivery Method Room Air Pulse Ox (%) 91 Pulse Rate (60-100 beats/min) 100 6th minute Oxygen Delivery Method Room Air Pulse Ox (%) 90 Pulse Rate (60-100 beats/min) 105 H Dyspnea Toña Scale (0-10) 1 Exertion Toña Scale (6-20) 10 Post-test Oxygen Delivery Method Room Air Pulse Ox (%) 94 Pulse Rate (60-100 beats/min) 81 Full Laps Walked 19 Partial Lap, Number of Tiles Walked 10 Total Distance Walked (ft) 1131 Interpretation Interpretation: The patient ambulated 1131 feet over the course of 6 minutes beginning on room air without assistive devices. Pretesting oxygen saturation was noted to be 95% on room air. With ambulation, the ena oxygen saturation was 90%. This represents a significant exertional oxygen desaturation, consistent with a pulmonary limitation to exercise tolerance. Recommendations Recommendations: There is no indication for the use of supplemental oxygen at this time. However, close interval follow-up is recommended, given the degree of oxygen desaturation noted during the study. 06/16/24 1039 Date Isac Bradley DO CC: Date Dictated: 06/16/24 1038 Date Transcribed: 06/16/24 1038 Tire Molder: Dr. Isac Bradley DO Signed Normal [facility] Brain without Contraston Brain without Contrast [facility] [address] [place], [place] [address] Brain without Contrast MR#: [id number] Acct: [id number] Name: STEPHANY SCHAFER Rep #: [id number] : 1950 M 74 From: Iain kendrick DO PCP: Dr. Shruthi Lynn MD Status: REG CLI Study: Brain without Contrast Date of Exam: 06/11/24 Exam# [id number] Ordering Dr: Shruthi Lynn MD :[id number] EXAM: MR HEAD AND MRA HEAD WITHOUT INTRAVENOUS CONTRAST CLINICAL INDICATION: Severe, worsening, pulsatile HASSAN TECHNIQUE: Multiplanar and multisequence MR images of the brain and routine [place]/brain 3D time of flight MR angiogram protocol were performed without intravenous contrast. COMPARISON: No relevant prior studies available. FINDINGS: HEAD: BRAIN AND EXTRA-AXIAL SPACES: Minimal periventricular and subcortical T2 and T2 FLAIR hyperintensity is nonspecific although most commonly due to chronic microvascular ischemic changes in a patient of this age. No acute findings. No intra- or extra-axial hemorrhage. No evidence of acute infarct. No intracranial mass or mass effect. There is preservation of the santo/white matter interface. Posterior fossa structures are unremarkable. Ventricles are appropriate for age. No hydrocephalus. Basal cisterns are patent. SELLA: No significant abnormality. Normal sella turcica, pituitary gland, infundibular stalk, optic chiasm and hypothalamus. AUDITORY SYSTEM: No significant abnormality. The internal auditory canals are patent. BONES/JOINTS: No significant abnormality. No discrete lytic or blastic abnormalities. SINUSES: Normal as visualized. Clear. MASTOID AIR CELLS: Normal as visualized. Clear. ORBITS: Bilateral ocular lens extraction presumptively for the treatment of cataracts. Otherwise, no acute orbital pathology. VASCULATURE: RIGHT INTERNAL CAROTID ARTERY: No significant findings. No significant stenosis at the intracranial/visualized segments. No aneurysm. RIGHT ANTERIOR CEREBRAL ARTERY: No significant abnormality. No occlusion or significant stenosis. Anterior communicating artery is present. No aneurysm. RIGHT MIDDLE CEREBRAL ARTERY: No significant abnormality. No occlusion or significant stenosis. No aneurysm. RIGHT POSTERIOR CEREBRAL ARTERY: There is a patent right posterior communicating artery. No occlusion or significant stenosis. No aneurysm. RIGHT VERTEBRAL ARTERY: Normal as visualized. No significant stenosis at the intradural/visualized segments. No aneurysm. LEFT INTERNAL CAROTID ARTERY: No significant findings. No significant stenosis at the intracranial/visualized segments. No aneurysm. LEFT ANTERIOR CEREBRAL ARTERY: No significant abnormality. No occlusion or significant stenosis. Anterior communicating artery is present. No aneurysm. LEFT MIDDLE CEREBRAL ARTERY: No significant abnormality. No occlusion or significant stenosis. No aneurysm. LEFT POSTERIOR CEREBRAL ARTERY: No significant abnormality. No occlusion or significant stenosis. No aneurysm. LEFT VERTEBRAL ARTERY: Normal as visualized. No significant stenosis at the intradural/visualized segments. No aneurysm. BASILAR ARTERY: No significant abnormality. No significant stenosis. No aneurysm. OTHER VASCULATURE: No vascular malformation. MRI/Brain without Contrast IMPRESSION: 1. Mild chronic microvascular ischemic changes. No evidence of acute infarct or hemorrhage. No additional acute pathology. 2. Normal MRA head. No large vessel occlusion or arterial stenosis. No hypovascular malformation is identified. Electronically Signed: Iain Xiong DO at 23:09 EST , CC: Dr. Shruthi yLnn MD Tire Molder: Signed Normal [facility] MRA Head ONLY without Contra ston 06-11-2024 MRA Head ONLY without Contrast [facility] Imaging Services [address] [place] [id number] MRA Head ONLY without Contrast MR#: [id number] Acct: [id number] Name: STEPHANY SCHAFER Rep #: [id number] : 1950 M 74 From: Iain kendrick DO PCP: Dr. Shruthi Lynn MD Status: [facility] Study: MRA Head ONLY without Contrast Date of Exam: 0 06/11/24 Exam# [id number] Ordering Dr: Shruthi Lynn MD :[id number] EXAM: MR HEAD AND MRA HEAD WITHOUT INTRAVENOUS CONTRAST CLINICAL INDICATION: Severe, worsening, pulsatile HASSAN TECHNIQUE: Multiplanar and multisequence MR images of the brain and routine [place]/brain 3D time of flight MR angiogram protocol were performed without intravenous contrast. COMPARISON: No relevant prior studies available. FINDINGS: HEAD: BRAIN AND EXTRA-AXIAL SPACES: Minimal periventricular and subcortical T2 and T2 FLAIR hyperintensity is nonspecific although most commonly due to chronic microvascular ischemic changes in a patient of this age. No acute findings. No intra- or extra-axial hemorrhage. No evidence of acute infarct. No intracranial mass or mass effect. There is preservation of the santo/white matter interface. Posterior fossa structures are unremarkable. Ventricles are appropriate for age. No hydrocephalus. Basal cisterns are patent. SELLA: No significant abnormality. Normal sella turcica, pituitary gland, infundibular stalk, optic chiasm and hypothalamus. AUDITORY SYSTEM: No significant abnormality. The internal auditory canals are patent. BONES/JOINTS: No significant abnormality. No discrete lytic or blastic abnormalities. SINUSES: Normal as visualized. Clear. MASTOID AIR CELLS: Normal as visualized. Clear. ORBITS: Bilateral ocular lens extraction presumptively for the treatment of cataracts. Otherwise, no acute orbital pathology. VASCULATURE: RIGHT INTERNAL CAROTID ARTERY: No significant findings. No significant stenosis at the intracranial/visualized segments. No aneurysm. RIGHT ANTERIOR CEREBRAL ARTERY: No significant abnormality. No occlusion or significant stenosis. Anterior communicating artery is present. No aneurysm. RIGHT MIDDLE CEREBRAL ARTERY: No significant abnormality. No occlusion or significant stenosis. No aneurysm. RIGHT POSTERIOR CEREBRAL ARTERY: There is a patent right posterior communicating artery. No occlusion or significant stenosis. No aneurysm. RIGHT VERTEBRAL ARTERY: Normal as visualized. No significant stenosis at the intradural/visualized segments. No aneurysm. LEFT INTERNAL CAROTID ARTERY: No significant findings. No significant stenosis at the intracranial/visualized segments. No aneurysm. LEFT ANTERIOR CEREBRAL ARTERY: No significant abnormality. No occlusion or significant stenosis. Anterior communicating artery is present. No aneurysm. LEFT MIDDLE CEREBRAL ARTERY: No significant abnormality. No occlusion or significant stenosis. No aneurysm. LEFT POSTERIOR CEREBRAL ARTERY: No significant abnormality. No occlusion or significant stenosis. No aneurysm. LEFT VERTEBRAL ARTERY: Normal as visualized. No significant stenosis at the intradural/visualized segments. No aneurysm. BASILAR ARTERY: No significant abnormality. No significant stenosis. No aneurysm. OTHER VASCULATURE: No vascular malformation. MRI/MRA Head ONLY without Contrast IMPRESSION: 1. Mild chronic microvascular ischemic changes. No evidence of acute infarct or hemorrhage. No additional acute pathology. 2. Normal MRA head. No large vessel occlusion or arterial stenosis. No hypovascular malformation is identified. Electronically Signed: Iain V. Valentinocristina, at 23:09 EST , CC: Dr. Shruthi Lynn MD Tire Molder: Signed Normal [facility] Pulmonary Visit Reporton Pulmonary Visit Report [facility] Medicine of [address] [place] [address] OFFICE VISIT Date of Service: 05/27/24 MR#: [id number] Acct: [id number] Name: STEPHANY SCHAFER Rep #: [id number] : 1950 Provider: Mindy Feliciano NP Age/Sex: 74/M Location: [facility] Status: Signed Assessment and Plan Assessment and Plan (1) MAURI (obstructive sleep apnea): Status: Chronic Comment: BiPAP 14/10 cmH2O with a residual AHI of 5 Plan: I am concerned that nocturnal hypoxemia may be present due to the morning headaches that patient is experiencing. I have recommended a nocturnal oximetry be performed at this time. Compliance download does show control of the apnea. For now continue on BiPAP at 14 over 10 cm of water pressure. (2) Interstitial lung disease: Status: Chronic Plan: The CT scan continues to show fibrotic disease. The previous PFT from March 26, 2024 does not show a progressive disease process when compared to the PFT from 1 year prior in 2022. The restriction and gas transfer are both stable. However, the patient has not had a 6-minute walk test which I would recommend at this time. (3) Asthma: Status: Chronic Qualifiers: Asthma complication type: uncomplicated Asthma persistence: intermittent Asthma severity: mild Qualified Code(s): J45.20 - Mild intermittent asthma, uncomplicated Plan: Deteriorated, at this point I do believe that his symptoms are due to asthma versus progressive interstitial disease. He was unable to tolerate Symbicort. I will trial him on Breo. The patient has given instruction on use of this inhaler and oral hygiene instruction is also given today. If he experiences side effects from this inhaler he is to notify this practice. (4) Periodic limb movement sleep disorder: Status: Chronic Plan: He continues with use of Mirapex. However, this may not provide him with complete control as he reports that he is feeling unrefreshed upon awakening. At this point I will plan to await results of nocturnal oximetry and I will consider retitration on follow-up if the nocturnal oximetry is abnormal. The retitration will also allow me to monitor for PLMD with use of Mirapex. For now, no change to medication dose. (5) Paroxysmal atrial fibrillation: Status: Chronic Comment: DCCV on 01/26/2020; Plan: Complicates exam, plan, care and prognosis. Orders: Orders OutPt Pulse Ox/Cont Overnight Today G47.33 - Obstructive sleep apnea (adult) (pediatric) Simple Pulmonary Exercise Test Today J84.9 - Interstitial pulmonary disease, unspecified Medications: New fluticasone furoate-vilanterol 200-25 mcg/dose (Breo Ellipta) 1 inh inhalation Q24H 60 ea 1RF Discontinued Symbicort 160-4.5 mcg/actuation (budesonide-formoterol) administer with spacer, rinse mouth after each use Discontinued Reason: Order Changed 2 inhalations inhalation BID 10.2 grams 11RF NS Plan Details Follow Up: 6 Weeks (LMR) HPI HPI Comments Details: This 74-year-old male patient presents to the office today for follow-up of his asthma complicated by interstitial lung disease and obstructive sleep apnea. He is ambulatory and currently on room air. He has not recently been seen in the ED or urgent care for any respiratory illness. He has not recently required antibiotics or steroids. If you recall, he quit smoking in 1971. He does not utilize a daily maintenance inhaler. He was previously prescribed Symbicort but reports that it caused him to have a severe headache so he stopped the inhaler. He does have albuterol rescue inhaler but has not used this recently. He reports occasional wheeze, his will notice the wheeze. He has a cough with white to green sputum, this is usually worse in the morning. He denies chest tightness, chest pain, palpitations. He does not have shortness of breath. He reports a daily cough. The cough is typically productive of clear to pale yellow-colored sputum. It is more prevalent in the morning. He admits to occasional wheezing. He denies any chest tightness, chest pain or palpitations. He denies fever, chills. The patient is using NIV without significant air leak, oral dryness, snore. There are no concerns about the air pressure. The patient does not feel rested upon awakening. He will nap on occasion and will occasionally use his machine. The patient is reporting good compliance. ESS is 12. He does report that morning headaches occur. Test results reviewed with patient today include: Compliance report for the past 30 days shows 100% compliance with an average use of 6 hours and 39 minutes per night. Current setting is BiPAP 14/10 cmH2O with residual AHI of 5 events per hour. Leaks do not appear to be a problem. High-resolution CT of the chest shows fibrotic interstitial lung disease, peripheral interstitial thickening and v (more content not included)... Normal [facility] Chest without Contraston Chest without Contrast [facility] Imaging Services [address] [place] [address] Chest without Contrast MR#: [id number] Acct: [id number] Name: STEPHANY SCHAFER Rep #: [id number] : 1950 M 74 [facility]: [facility] PCP: Dr. 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 Prone and supine imaging. This CT exam was performed using one or more of the following dose reduction techniques: automated exposure control, adjustment of the mA and/or kV according to patient size, and/or use of iterative reconstruction technique. COMPARISON: CT chest, 10/13/2020 FINDINGS: LUNGS AND PLEURAL SPACES: Peripheral interstitial thickening and very minimal/early reticulation and honeycombing seen anteriorly in the right middle lobe and minimally in the bilateral lower lobes. No airway filling defect is identified. No consolidative airspace disease. No air trapping or mosaic attenuation is identified. No mass or nodule. No pleural effusion. No pneumothorax. HEART: Coronary artery calcifications and/or stents. Heart size is normal. No pericardial effusion. MEDIASTINUM: No significant abnormality. No mediastinal or hilar adenopathy. Esophagus is unremarkable. No hiatal hernia. THYROID: No significant abnormality. No thyroid lesions. BONES/JOINTS: Degenerative changes in the axial and appendicular skeletal structures. No suspicious lytic or blastic abnormality. VASCULATURE: Atherosclerosis. 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 Electronically Signed: Iain Xiong DO at 15:45 EST , CC: SARA Brantley; Dr. Shruthi Lynn MD Tire Molder: Signed Normal [facility] CBC W/Diff, Automatedon 12-0 Absolute Lymph 2.60 X10 3/uL Normal 0.83-4.51 [facility] Comment on above: Performed By: #### L 501.6710, L500.4050, L101.9900, L100.0100 ####[facility] [address] [place], [place], [id number] Absolute Neut 6.2 X10 3/uL Normal 2.0-7.7 [facility] Comment on above: Performed By: #### L 501.6710, L500.4050, L101.9900, L100.0100 ####[facility] [address] [place], [address] Basophils/100 WBC (Bld) 0.7 % Normal 0-1 [facility] Comment on above: Performed By: #### L 501.6710, L500.4050, L101.9900, L100.0100 ####[facility] [address] [place], [address] Eosinophils/100 WBC (Bld) 1.0 % Normal 0-5 [facility] Comment on above: Performed By: #### L 501.6710, L500.4050, L101.9900, L100.0100 ####[facility] [address] [place], [address] Erythrocyte distribution width (RBC) [Ratio] 14.0 % Normal 11.6-14.6 [facility] Comment on above: Performed By: #### L 501.6710, L500.4050, L101.9900, L100.0100 ####[facility] [address] [place], [address] Hematocrit (Bld) [Volume fraction] 47.5 % Normal 40-54 [facility] Comment on above: Performed By: #### L 501.6710, L500.4050, L101.9900, L100.0100 ####[facility] [address] [place], [address] Hemoglobin (Bld) [Mass/Vol] 15.2 g/dL Normal 13.0-16.5 [facility] Comment on above: Performed By: #### L 501.6710, L500.4050, L101.9900, L100.0100 ####[facility] [address] [place], [address] IG% 0.400 Normal 0.0-0.9 [facility] Comment on above: Result Comment: IG% - Immature Granulocytes (promyelocytes, myelocytes and metamyelocytes) > 1% indicates that a LEFT SHIFT is Present. Performed By: #### L 501.6710, L500.4050, L101.9900, L100.0100 ####[facility] [address] [place], [address] Lymphocytes/100 WBC (Bld) 26.4 % Normal 19-41 [facility] Comment on above: Performed By: #### L 501.6710, L500.4050, L101.9900, L100.0100 ####[facility] [address] [place], [address] MCH (RBC) [Entitic mass] 29.2 pg Normal 27.0-32.0 [facility] Comment on above: Performed By: #### L 501.6710, L500.4050, L101.9900, L100.0100 ####[facility] [address] [place], [address] MCHC (RBC) [Mass/Vol] 32.0 g/dL Normal 32-36 [facility] Comment on above: Performed By: #### L 501.6710, L500.4050, L101.9900, L100.0100 ####[facility] [address] [place], [address] MCV (RBC) [Entitic vol] 91.2 fL Normal 80-94 [facility] Comment on above: Performed By: #### L 501.6710, L500.4050, L101.9900, L100.0100 ####[facility] [address] [place], [address] Monocytes/100 WBC (Bld) 8.5 % Normal 0-10 [facility] Comment on above: Performed By: #### L 501.6710, L500.4050, L101.9900, L100.0100 ####[facility] [address] [place], [address] Neutrophils/100 WBC (Bld) 63.0 % Normal 47-70 [facility] Comment on above: Performed By: #### L 501.6710, L500.4050, L101.9900, L100.0100 ####[facility] [address] [place], [address] Nucleated RBC (Bld) [#/Vol] 0 10*3/uL Normal 0-5 [facility] Comment on above: Performed By: #### L 501.6710, L500.4050, L101.9900, L100.0100 ####[facility] [address] [place], [address] Platelet mean volume (Bld) [Entitic vol] 11.5 fL Normal 6.2-12.0 [facility] Comment on above: Performed By: #### L 501.6710, L500.4050, L101.9900, L100.0100 ####[facility] [address] [place], [address] Platelets (Bld) [#/Vol] 181 10*3/uL Normal 150-450 [facility] Comment on above: Performed By: #### L 501.6710, L500.4050, L101.9900, L100.0100 ####[facility] [address] [place], [address] RBC (Bld) [#/Vol] 5.21 10*6/uL Normal 4.6-6.2 [facility] Comment on above: Performed By: #### L 501.6710, L500.4050, L101.9900, L100.0100 ####[facility] [address] [place], [address] RDW SD 46.8 fl High 35.1-43.9 [facility] Comment on above: Performed By: #### L 501.6710, L500.4050, L101.9900, L100.0100 ####[facility] [address] [place], [address] WBC (Bld) [#/Vol] 9.8 10*3/uL Normal 4.4-11.0 [facility] Comment on above: Performed By: #### L 501.6710, L500.4050, L101.9900, L100.0100 ####[facility] [address] [place], [address] CRPon 05-05-2024 C-REACTIVE PROT < 2.90 Normal 0.0-3.0 [facility] Comment on above: Result Comment: C-Re active Protein (CRP) provides useful information for the diagnosis, therapy and monitoring of inflammatory processes and associated diseases. For the evaluation of Relative Risk for Cardiovascular Disease, a High Sensitivity CRP (HSCRP) should be ordered. Performed By: #### L 501.6710, L500.4050, L101.9900, L100.0100 ####[facility] [address] [place], [address] Comprehensive Metabolic Prof ilon 05-05-2024 Albumin [Mass/Vol] 3.6 g/dL Normal 3.2-5.0 [facility] Comment on above: Performed By: #### L 501.6710, L500.4050, L101.9900, L100.0100 ####[facility] [address] [place], [address] Albumin/Globulin [Mass ratio] 0.9 {ratio} Normal 0.9-2.4 [facility] Comment on above: Performed By: #### L 501.6710, L500.4050, L101.9900, L100.0100 ####[facility] [address] [place], [address] ALK P 99 U/L Normal 45-117 [facility] Comment on above: Performed By: #### L 501.6710, L500.4050, L101.9900, L100.0100 ####[facility] [address] [place], [address] ALT [Catalytic activity/Vol] 49 U/L Normal 16-61 [facility] Comment on above: Performed By: #### L 501.6710, L500.4050, L101.9900, L100.0100 ####[facility] [address] [place], [address] AST [Catalytic activity/Vol] 31 U/L Normal 15-37 [facility] Comment on above: Performed By: #### L 501.6710, L500.4050, L101.9900, L100.0100 ####[facility] [address] [place], [address] Bilirubin [Mass/Vol] 1.10 mg/dL High 0.20-1.00 [facility] Comment on above: Result Comment: For patients on eltrombopag therapy, use of Dimension [place] TBIL is not recommended. Performed By: #### L 501.6710, L500.4050, L101.9900, L100.0100 ####[facility] [address] [place], [address] BUN/CRE 20.0 RATIO Normal 10-20 [facility] Comment on above: Performed By: #### L 501.6710, L500.4050, L101.9900, L100.0100 ####[facility] [address] [place], [address] CA,Total 9.8 mg/dL Normal 8.5-10.1 [facility] Comment on above: Performed By: #### L 501.6710, L500.4050, L101.9900, L100.0100 ####[facility] [address] [place], [address] Chloride [Moles/Vol] 108 mmol/L High 98-107 [facility] Comment on above: Performed By: #### L 501.6710, L500.4050, L101.9900, L100.0100 ####[facility] [address] [place], [address] CO2 [Moles/Vol] 27.0 mmol/L Normal 21.0-32.0 [facility] Comment on above: Performed By: #### L 501.6710, L500.4050, L101.9900, L100.0100 ####[facility] [address] [place], [address] Creatinine [Mass/Vol] 1.00 mg/dL Normal 0.70-1.30 [facility] Comment on above: Result Comment: The validity of the calculated GFR GFRAA in patients over 70 years has not been determined. Clinical correlation is essential. Performed By: #### L 501.6710, L500.4050, L101.9900, L100.0100 ####[facility] [address] [place], [address] EST GFR - AA 94 mL/min Normal >60 [facility] Comment on above: Result Comment: Afri can [place] GFR Calc Performed By: #### L 501.6710, L500.4050, L101.9900, L100.0100 ####[facility] [address] [place], [address] GAP 4 Low 5-15 [facility] Comment on above: Performed By: #### L 501.6710, L500.4050, L101.9900, L100.0100 ####[facility] [address] [place], [address] GFR/1.73 sq M.predicted among non-blacks MDRD (S/P/Bld) [Vol rate/Area] 78 mL/min/{1.73_m2} Normal >60 [facility] Comment on above: Result Comment: Non- GFR Calc Performed By: #### L 501.6710, L500.4050, L101.9900, L100.0100 ####[facility] [address] [place], [address] Globulin (S) [Mass/Vol] 3.9 g/dL Normal 2.2-4.2 [facility] Comment on above: Performed By: #### L 501.6710, L500.4050, L101.9900, L100.0100 ####[facility] [address] [place], [address] Glucose [Mass/Vol] 67 mg/dL Low 74-106 [facility] Comment on above: Performed By: #### L 501.6710, L500.4050, L101.9900, L100.0100 ####[facility] [address] [place], [address] Potassium [Moles/Vol] 4.2 mmol/L Normal 3.5-5.1 [facility] Comment on above: Performed By: #### L 501.6710, L500.4050, L101.9900, L100.0100 ####[facility] [address] [place], [address] Sodium [Moles/Vol] 139 mmol/L Normal 136-145 [facility] Comment on above: Performed By: #### L 501.6710, L500.4050, L101.9900, L100.0100 ####[facility] [address] [place], [address] T PROT 7.5 g/dL Normal 6.4-8.2 [facility] Comment on above: Performed By: #### L 501.6710, L500.4050, L101.9900, L100.0100 ####[facility] [address] [place], [address] Urea nitrogen [Mass/Vol] 20 mg/dL High 7-18 [facility] Comment on above: Performed By: #### L 501.6710, L500.4050, L101.9900, L100.0100 ####[facility] [address] [place], [address] Erythrocyte Sed Rateon 05-05 SED RATE 18 mm/hr Normal 0-20 [facility] Comment on above: Performed By: #### L 501.6710, L500.4050, L101.9900, L100.0100 ####[facility] [address] [place], [address] MR/BMS.IMBon 05-05-2024 MR/BMS.IMB [facility] [address] [place] [address] OFFICE VISIT Date of Service: 05/05/24 MR#: [id number] Acct: [id number] Name: STEPHANY SCHAFER Rep #: [id number] : 1950 Provider: Dr. Shruthi soto MD Age/Sex: 74/M Location: [facility] Status: Signed Intake Vital Signs 04/22/24 08:52 05/05/24 11:04 Height 5 ft 9 in 5 ft 9 in Weight: 190 lb 193 lb 6 oz BMI 28.0 28.5 BP 119/81 H 146/94 H Blood Pressure Location Lt brachial Rt brachial Position Sitting Sitting Respiration 16 16 Pulse 91 84 Pulse Source NIBP Monitor Temp 98.6 F Temp Source Temporal Pulse Oximetry (%) 94 Oxygen Delivery Method room air Intake Visit Reasons: Headaches Chief Complaint: headaches Demand Planning Manager Required: No Accompanied by: Self Is patient in pain?: Yes (headaches) Pain scale (1-10): 2 Allergies nalbuphine (From Nubain) Adverse Reaction (Verified 05/05/24 10:54) delirium Medications ???Medication ???Instructions ???Recorded ???Confirmed ???Type fexofenadine 180 mg tablet 180 mg PO QDAY 09/21/17 05/05/24 History (Kirti Allergy) multivitamin 1 tab PO QDAY 09/21/17 05/05/24 History simvastatin 40 mg tablet 40 mg PO QPM #90 tabs 11/11/20 05/05/24 Rx carvedilol 25 mg tablet 25 mg PO BID 11/01/21 05/05/24 History losartan 50 mg tablet 50 mg PO DAILY FAX to [facility] 05/24/23 05/05/24 Rx #90 tabs ipratropium 0.5 mg-albuterol 3 mg 3 ml inhalation Q4H PRN PRN SOB 05/25/23 05/05/24 Rx (2.5 mg base)/3 mL nebulization /OR WHEEZING #180 mL soln pramipexole 0.25 mg tablet 0.5 mg (2 x 0.25 mg) PO QHS #180 06/12/23 05/05/24 Rx tabs Handicap Placard #1 ea 08/02/23 05/05/24 Rx rivaroxaban 20 mg tablet (Xarelto) 20 mg PO QHS Pt gets this from the 11/19/23 05/05/24 History VA albuterol sulfate 90 mcg/actuation 2 puff inhalation Q6H PRN 03/03/24 05/05/24 Rx aerosol inhaler shortness of breath or wheezing #18 grams gabapentin 300 mg capsule 300 mg PO QHS #90 caps 03/12/24 05/05/24 Rx sildenafil (pulm.hypertension) 20 20 mg PO DAILY PRN sexual activity 03/12/24 05/05/24 Rx mg tablet #30 tabs spacer #1 ea 04/15/24 05/05/24 Rx Symbicort 160 mcg-4.5 2 inh inhalation BID #10.2 grams 04/16/24 05/05/24 Rx mcg/actuation HFA aerosol inhaler (budesonide-formoterol) testosterone cypionate 200 mg/mL 200 mg subcut Q2W #10 mL 04/16/24 05/05/24 Rx intramuscular oil amoxicillin 500 mg capsule 2,000 mg PO ONCE PRN 04/22/24 05/05/24 History linaclotide 72 mcg capsule 72 mcg PO DAILY PRN ibs #30 caps 05/05/24 05/05/24 Rx (Linzess) Have you fallen in the past year?: No PFSH Medical History (Updated 05/05/24 @ 11:[address] Shruthi Lynn MD) Temporal headache Wears hearing aid Wears glasses Alcohol use Bladder disease Arthritis Restless legs Back pain Headache Former smoker BiPAP (biphasic positive airway pressure) dependence Interstitial emphysema of lung Leg cramps Hypertension History of echocardiogram Cardiology follow-up encounter Colon cancer screening Multiple premature ventricular complexes Left ankle pain Interstitial lung disease Chronic atrial fibrillation Asthma Viral syndrome history of bone fracture Paroxysmal atrial fibrillation Abnormal CXR DM (diabetes mellitus), type 2 with peripheral vascular complications History of immunosuppressive therapy Rheumatoid arthritis Essential hypertension Testosterone deficiency Elevated LFTs Erectile dysfunction Palpitations Paroxysmal ventricular tachycardia HLD (hyperlipidemia) Surgical History History of cardiac catheterization Hx of right cataract extraction Hx of left cataract extraction History of arthroplasty of left knee History of ear surgery History of bunionectomy of both great toes History of carpal tunnel release ( 1989) History of hernia repair ( 1980) History of colonoscopy ( 06/2009) History of cardioversion (01/26/20) History of radiofrequency ablation procedure for cardiac arrhythmia (09/2010) History of left heart catheterization (12/2009) History of foot surgery History of back surgery History of bilateral hip replacements Family History Father CAD (coronary artery disease) ICD implant Mother History of heart valve replacement Social History Smoking Status: Former smoker how long ago did patient quit smokin alcohol intake: current alcohol intake frequency: holidays/special occasions only Alcohol type: beer and wine substance use type: does not use what type of physical activity do you participate in: other details: 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 Normal [facility] Cardiology Visit Reporton Cardiology Visit Report [facility] [address] [place] [address] OFFICE VISIT Date of Service: 04/22/24 MR#: [id number] Acct: [id number] Name: STEPHANY SCHAFER Rep #: [id number] : 1950 Provider: SARA smith Age/Sex: 74/M Location[place] [facility] Status: Signed HPI HPI History of Present Illness Details: STEPHANY SCHAFER, is a 74 M who presents to the office today for a follow-up visit. He is a gentleman who had developed nonischemic cardiomyopathy secondary to premature ventricular complexes. He had undergone an ablation of the above in 2010 with 2 foci being ablated. His ejection fraction had improved to 60%. He also has a history of paroxysmal atrial fibrillation status post cardioversion on 01/26/2020. It appeared that he did not maintain sinus rhythm. He reverted back to atrial fibrillation. His 24-hour Holter monitor on 02/16/2020 showed atrial fibrillation approximately 100% of total scan. No ventricular tachycardia was noted. Average heart rate was 113 bpm. His Coreg was increased to 25 mg p.o. twice daily. EKG today demonstrates atrial fibrillation with a rate of 71 bpm. He denies chest, arm, jaw, or neck discomfort. He denies palpitations. He states intermittent, mild, and bilateral lower extremity edema. He denies claudication. He denies shortness of breath with activity, shortness of breath at rest, orthopnea, or PND. He denies chronic cough. He denies significant, sudden weight gain. He denies lightheadedness, dizziness, near-syncope, or syncope. He denies blood in urine, blood in stool, or epistaxis. He denies fever with chills. He denies myalgia. He denies fatigue. His exercise level has remained stable. Intake Vital Signs 01/16/24 09:50 04/15/24 07:36 04/22/24 08:52 Height 5 ft 9 in 5 ft 9 in 5 ft 9 in Weight: 190 lb BMI 28.0 BP 119/81 H Blood Pressure Location Lt brachial Position Sitting Respiration 16 Pulse 91 Pulse Source NIBP Intake Visit Reasons: 1 Y FU Demand Planning Manager Required: No Is patient in pain?: No Allergies nalbuphine (From Nubain) Adverse Reaction (Verified 04/22/24 09:00) delirium Medications ???Medication ???Instructions ???Recorded ???Confirmed ???Type fexofenadine 180 mg tablet 180 mg PO QDAY 09/21/17 04/22/24 History (Kirti Allergy) multivitamin 1 tab PO QDAY 09/21/17 04/22/24 History simvastatin 40 mg tablet 40 mg PO QPM #90 tabs 11/11/20 04/22/24 Rx carvedilol 25 mg tablet 25 mg PO BID 11/01/21 04/22/24 History losartan 50 mg tablet 50 mg PO DAILY FAX to [facility] 05/24/23 04/22/24 Rx #90 tabs ipratropium 0.5 mg-albuterol 3 mg 3 ml inhalation Q4H PRN PRN SOB 05/25/23 04/22/24 Rx (2.5 mg base)/3 mL nebulization /OR WHEEZING #180 mL soln pramipexole 0.25 mg tablet 0.5 mg (2 x 0.25 mg) PO QHS #180 06/12/23 04/22/24 Rx tabs Handicap Placard #1 ea 08/02/23 04/15/24 Rx rivaroxaban 20 mg tablet (Xarelto) 20 mg PO QHS Pt gets this from the 11/19/23 04/22/24 History VA albuterol sulfate 90 mcg/actuation 2 puff inhalation Q6H PRN 03/03/24 04/22/24 Rx aerosol inhaler shortness of breath or wheezing #18 grams gabapentin 300 mg capsule 300 mg PO QHS #90 caps 03/12/24 04/22/24 Rx sildenafil (pulm.hypertension) 20 20 mg PO DAILY PRN sexual activity 03/12/24 04/22/24 Rx mg tablet #30 tabs spacer #1 ea 04/15/24 04/15/24 Rx Symbicort 160 mcg-4.5 2 inh inhalation BID #10.2 grams 04/16/24 04/22/24 Rx mcg/actuation HFA aerosol inhaler (budesonide-formoterol) testosterone cypionate 200 mg/mL 200 mg subcut Q2W #10 mL 04/16/24 04/22/24 Rx intramuscular oil amoxicillin 500 mg capsule 2,000 mg PO ONCE PRN 04/22/24 04/22/24 History Ejection fraction %: 55 Have you fallen in the past year?: No PFSH Medical History Wears hearing aid Wears glasses Alcohol use Bladder disease Arthritis Restless legs Back pain Headache Former smoker BiPAP (biphasic positive airway pressure) dependence Interstitial emphysema of lung Leg cramps Hypertension History of echocardiogram Cardiology follow-up encounter Colon cancer screening Multiple premature ventricular complexes Left ankle pain Interstitial lung disease Chronic atrial fibrillation Asthma Viral syndrome history of bone fracture Paroxysmal atrial fibrillation Abnormal CXR DM (diabetes mellitus), type 2 with peripheral vascular complications History of immunosuppressive therapy Rheumatoid arthritis Essential hypertension Testosterone deficiency Elevated LFTs Erectile dysfunction Palpitations Paroxysmal ventricular tachycardia HLD (hyperlipidemia) Surgical History History of cardiac catheterization Hx of right cataract extraction Hx of (more content not included)... Normal [facility] Pulmonary Visit Reporton Pulmonary Visit Report [facility] [place] [address] [place] [address] OFFICE VISIT Date of Service: 04/15/24 MR#: [id number] Acct: [id number] Name: STEPHANY SCHAFER Rep #: [id number] : 1950 Provider: SARA Brantley Age/Sex: 74/M Location: [facility] Status: Signed Assessment and Plan Assessment and Plan (1) MAURI (obstructive sleep apnea): Status: Chronic Comment: BiPAP 14/10 cmH2O with a residual AHI of 6.6 Plan: He is using and benefiting from Pap therapy. No indication for titration study at this time. Contact the office for any new or worsening symptoms in the meantime. Follow-up in 1 year. (2) Interstitial lung disease: Status: Chronic Plan: Symptomatically stable. (3) Asthma: Status: Chronic Qualifiers: Asthma severity: mild Asthma persistence: intermittent Asthma complication type: uncomplicated Qualified Code(s): J45.20 - Mild intermittent asthma, uncomplicated Plan: Deteriorated, NIOX 30 today. Starting him on Symbicort with a spacer. He will return to the office in 6 weeks to evaluated his response to the medication. (4) Periodic limb movement sleep disorder: Status: Chronic Plan: Symptomatically stable on Mirapex. No change to medication dose. (5) Paroxysmal atrial fibrillation: Status: Chronic Comment: DCCV on 01/26/2020; Plan: Complicates exam, plan, care and prognosis. (6) Restrictive lung disease: Status: Acute Plan: Recent PFT with abnormal findings suggesting restrictive impairment. He reports a daily cough. Concern for ILD. Sending him for diagnostic CT chest with high resolution cuts. Follow up in the office in 6 weeks to discuss test results. If he has abnormal findings on CT, I would proceed with a 6 minute walk test as well, he is not complaining of exertional shortness of breath at this time. Orders: Orders NIOX Today J45.20 - Mild intermittent asthma, uncomplicated Chest without Contrast Today J98.4 - Other disorders of lung Medications: New budesonide-formoterol 160-4.5 mcg/actuation (Symbicort) administer with spacer, rinse mouth after each use 2 inhalations inhalation BID 1 ea 3RF [spacer] As directed 1 ea 0RF Plan Details Follow Up: 6 Weeks (LMR) HPI 2 M FU Chief Complaint: wheeze HPI Comments Details: This patient presents to the office today for follow-up of his asthma complicated by interstitial lung disease and obstructive sleep apnea. He is ambulatory and currently on room air. He has not recently been seen in the ED or urgent care for any respiratory illness. He has not recently required antibiotics or steroids. If you recall, he quit smoking in 1971. He is using his albuterol rescue inhaler twice daily. He continues to utilize the nebulizer a couple times per week. He does not have shortness of breath. He reports a daily cough. The cough is typically productive of clear to pale yellow-colored sputum. It is more prevalent in the morning. He admits to occasional wheezing. He denies any chest tightness, chest pain or palpitations. He has no concerns with regard to his PAP device. He wakes up feeling rested and refreshed. He is not having difficulty with mask leaks. He sometimes experiences nocturia. He is not having difficulty with dry mouth. He does admit to frequent headaches. Not specifically in the morning. Compliance report for the past 30 days shows 100% compliance with an average use of 6 hours and 35 minutes per night. Current setting is BiPAP 14/10 cmH2O with residual AHI of 4.8 events per hour. Leaks do not appear to be a problem. Intake Vital Signs 03/05/24 09:26 04/10/24 06:38 04/15/24 07:36 Height 5 ft 9 in 5 ft 9 in 5 ft 9 in Weight: 190 lb BMI 28.0 BP 122/77 H Blood Pressure Location Rt brachial Position Sitting Respiration 18 Pulse 89 Pulse Source Monitor Temp 98.4 F Temperature Source Temporal Artery Pulse Oximetry (%) 97 Oxygen Delivery Method room air Intake Visit Reasons: 2 M FU Demand Planning Manager Required: No DME Vendor: [employer] Accompanied by: Self Is patient in pain?: No Allergies nalbuphine (From Nubain) Adverse Reaction (Verified 04/15/24 14:00) delirium Medications ???Medication ???Instructions ???Recorded ???Confirmed ???Type fexofenadine 180 mg tablet 180 mg PO QDAY 09/21/17 04/15/24 History (Kirti Allergy) multivitamin 1 tab PO QDAY 09/21/17 04/15/24 History simvastatin 40 mg tablet 40 mg PO QPM #90 tabs 11/11/20 04/15/24 Rx carvedilol 25 mg tablet 25 mg PO BID 11/01/21 04/15/24 History testosterone cypionate 200 mg/mL 200 mg subcut Q2W #10 mL 05/02/23 04/15/24 Rx intramuscular oil losartan 50 mg tablet 50 mg PO DAILY FAX to [facility] 05/24/23 04/15/24 Rx #90 tabs ipratropium 0.5 mg-albuterol 3 mg 3 ml inhal (more content not included)... Normal [facility] Colonoscopy Reporton 024 Colonoscopy Report [facility] Medical Records Department [address] [place] [address] Colonoscopy Report MR#: [id number] Acct: [id number] Name: STEPHANY SCHAFER Rep #: [id number] : 1950 74 From: Sharan Landeros MD PCP: Dr. Shruthi Lynn MD Status:[facility] Patient Name: Stephany Schafer Procedure Date: 04/10/2024 7:35 AM Date of : 1950 Age: 74 Procedure: Colonoscopy Indications: Screening for colorectal malignant neoplasm Providers: Sharan Landeros MD Referring MD: Shruthi Lynn Medicines: Propofol per Anesthesia Patient Profile: This is a 74 year old male. Refer to note in patient chart for documentation of history and physical. Last Colonoscopy: 10 years ago. Complications: No immediate complications. Procedure: Pre-Anesthesia Assessment: - Prior to the procedure, a History and Physical was performed, and patient medications and allergies were reviewed. The patient's tolerance of previous anesthesia was also reviewed. The risks and benefits of the procedure and the sedation options and risks were discussed with the patient. All questions were answered, and informed consent was obtained. Prior Anticoagulants: The patient has taken no anticoagulant or antiplatelet agents. After reviewing the risks and benefits, the patient was deemed in satisfactory condition to undergo the procedure. After I obtained informed consent, the scope was passed under direct vision. Throughout the procedure, the patient's blood pressure, pulse, and oxygen saturations were monitored continuously. The colonoscope was introduced through the anus and advanced to the cecum, identified by appendiceal orifice and ileocecal valve. The colonoscopy was performed without difficulty. The patient tolerated the procedure well. The quality of the bowel preparation was good. The ileocecal valve, appendiceal orifice, and rectum were photographed. Scope In: 7:37:27 AM Scope Withdrawal Time 0 hours 5 minutes 44 seconds Scope Out: 7:46:44 AM Total Procedure Duration Time 0 hours 9 minutes 17 seconds Findings: The entire examined colon appeared normal on direct and retroflexion views. Impression: - The entire examined colon is normal on direct and retroflexion views. - No specimens collected. Recommendation: - Discharge patient to home. - Resume previous diet. - Continue present medications. - Repeat colonoscopy is not recommended due to current age (66 years or older) for screening purposes. Procedure Code(s): --- Professional --- 67326, Colonoscopy, flexible; diagnostic, including collection of specimen(s) by brushing or washing, when performed (separate procedure) Diagnosis Code(s): --- Professional --- Z12.11, Encounter for screening for malignant neoplasm of colon CPT copyright 2021 [employer]. All rights reserved. The codes documented in this report are preliminary and upon bowling ball patcher review may be revised to meet current compliance requirements. Sharan Landeros MD 04/10/2024 7:51:08 AM This report has been signed electronically. Number of Addenda: 0 Note Initiated On: 04/10/2024 7:35 AM 04/10/24 0751 Date Sharan Whaley Signature: Date (if indicated) CC: Dr. Sharan Landeros MD; Dr. Shruthi Lynn MD Date Dictated: 04/10/24734 Date Transcribed: Tire Molder: Signed [facility] MR/POSTOP.ANE 04-10-2024 MR/POSTOP.[facility] Medical Records Department [address] [place] [address] Anesthesia Postop Eval I 04/10/24752 MR#: [id number] Acct: [id number] Name: STEPHANY SCHAFER Rep #: [id number] : 1950 74 From: Winston Mata PCP: Dr. Shruthi Lynn MD Status:REG [place] Y Race: C Location: [facility]-28 Anesthesia: Postop Eval I Current Vital Signs Temperature: 97.1 F Pulse Rate: 76 Blood Pressure: 90/72 Respiratory Rate: 16 Pulse Ox: 98 Oxygen Delivery Method: Room Air Assessment Airway patent: Yes Spontaneous unlabored respirations: Yes Mental status: Asleep nausea: No Vomiting: No Anesthesia Complication: No Fluid Hydration Crystalloid volume administer (ml): 40 Total IV fluid infused: 40 Progress Note Anesthesia document: Postop Eval 1 completed: Yes 04/10/24753 Date Winston Whaley Signature: Date CC: Signed [facility] [id number] 04-10-2024 MR/POSTOPAN2 [facility] Medical Records Department [address] [place] [address] Anesthesia Postop Eval II 04/10/2404 MR#: [id number] Acct: [id number] Name: STEPHANY SCHAFER Rep #: [id number] : 1950 74 From: Shine Morel MD PCP: Dr. Shruthi yLnn MD Status:REG SDC Y Race: C Location: [place] [address] Anesthesia Postop Eval I Sum Postop Eval Completion status Anesthesia document: Postop Eval 1 completed: Yes Anesthesia Postop Eval I Summary Anesthesia Postop Eval I Summary: Anesthesia Postop Eval I: Assessment Summary Airway patent Yes 04/10/24 07:54 [email or web address] Spontaneous unlabored Yes 04/10/24 07:54 [email or web address] respirations Mental status Asleep 04/10/24 07:54 [email or web address] nausea No 04/10/24 07:54 [email or web address] Vomiting No 04/10/24 07:54 [email or web address] Anesthesia Postop Eval I: Fluid Summary Crystalloid volume administer 40 04/10/24 07:54 [email or web address] (ml) Colloids volume administered ( ml) Blood Product volume administered (ml) Total IV fluid infused 40 04/10/24 07:54 [email or web address] Anesthesia Postop Eval I: Summary Notes Anesthesia Complication No 04/10/24 07:54 [email or web address] Anesthesia Complication Comment: Post-operative progress note Anesthesia: Postop Eval II Evaluation Mental status: Awake Pain Level: 0 nausea: No Vomiting: No 04/10/24803 Date Shine Morel MD Cosigner Signature: Date CC: Signed Normal [facility] Surgery Visit Reporton 03-05 Surgery Visit Report [facility] [address] [place] [address]. [address] [place] [address] OFFICE VISIT Date of Service: 03/05/24 MR#: [id number] Acct: [id number] Name: STEPHANY SCHAFER Rep #: [id number] : 1950 Provider: Dr. Sharan hameed MD Age/Sex: 74/M Location: [facility] Status: Signed Intake Vital Signs 02/25/24 08:41 03/05/24 09:26 Height 5 ft 9 in 5 ft 9 in Weight: 189 lb 200 lb 4 oz BMI 27.8 29.5 BP 147/98 H 139/83 H Blood Pressure Location Lt brachial Rt brachial Position Sitting Sitting Respiration 16 18 Pulse 77 106 H Pulse Source Monitor Monitor Temp 97.8 F 97.9 F Temp Source Temporal Temporal Pulse Oximetry (%) 95 97 Oxygen Delivery Method room air room air Intake Visit Reasons: COLONOSCOPY Chief Complaint: colonoscopy Is patient in pain?: No Allergies nalbuphine (From [employer]) Adverse Reaction (Verified 03/05/24 09:27) delirium Medications ???Medication ???Instructions ???Recorded ???Confirmed ???Type cholecalciferol (vitamin D3) 25 1,000 unit PO QDAY 09/21/17 03/05/24 History mcg (1,000 unit) tablet fexofenadine 180 mg tablet 180 mg PO QDAY 09/21/17 03/05/24 History (Kirti Allergy) multivitamin 1 tab PO QDAY 09/21/17 03/05/24 History simvastatin 40 mg tablet 40 mg PO QPM #90 tabs 11/11/20 03/05/24 Rx carvedilol 25 mg tablet 25 mg PO BID 11/01/21 03/05/24 History testosterone cypionate 200 mg/mL 200 mg subcut Q2W #10 mL 05/02/23 03/05/24 Rx intramuscular oil losartan 50 mg tablet 50 mg PO DAILY FAX to [facility] 05/24/23 03/05/24 Rx #90 tabs ipratropium 0.5 mg-albuterol 3 mg 3 ml inhalation Q4H PRN PRN SOB 05/25/23 03/05/24 Rx (2.5 mg base)/3 mL nebulization /OR WHEEZING #180 mL soln pramipexole 0.25 mg tablet 0.5 mg (2 x 0.25 mg) PO QHS #180 06/12/23 03/05/24 Rx tabs Handicap Placard #1 ea 08/02/23 03/05/24 Rx sildenafil (pulm.hypertension) 20 20 mg PO DAILY PRN sexual activity 08/02/23 03/05/24 Rx mg tablet #30 tabs rivaroxaban 20 mg tablet (Xarelto) 20 mg PO DAILY Pt gets this from 11/19/23 03/05/24 History [facility] gabapentin 300 mg capsule 300 mg PO QHS 01/16/24 03/05/24 History gabapentin 100 mg capsule 100 mg PO QHS #50 caps 02/25/24 03/05/24 Rx albuterol sulfate 90 mcg/actuation 2 puff inhalation Q6H PRN 03/03/24 03/05/24 Rx aerosol inhaler shortness of breath or wheezing #18 grams Have you fallen in the past year?: No PFSH Medical History Colon cancer screening Multiple premature ventricular complexes Left ankle pain Interstitial lung disease Chronic atrial fibrillation Asthma Viral syndrome Hearing problem History of kidney stones Headache, migraine H/O emotional problems Chronic bronchitis Carpal tunnel syndrome Cataracts, bilateral history of bone fracture Back problem Paroxysmal atrial fibrillation Abnormal CXR MAURI (obstructive sleep apnea) DM (diabetes mellitus), type 2 with peripheral vascular complications History of immunosuppressive therapy Rheumatoid arthritis Essential hypertension Testosterone deficiency Elevated LFTs Erectile dysfunction Palpitations Paroxysmal ventricular tachycardia HLD (hyperlipidemia) Surgical History History of arthroplasty of left knee History of ear surgery History of bunionectomy of both great toes History of carpal tunnel release ( 1989) History of hernia repair ( 1980) History of colonoscopy ( 06/2009) History of cardioversion (01/26/20) History of radiofrequency ablation procedure for cardiac arrhythmia (09/2010) History of left heart catheterization (12/2009) History of foot surgery History of back surgery History of bilateral hip replacements Family History Father CAD (coronary artery disease) ICD implant Mother History of heart valve replacement Social History (Reviewed 03/05/24 @ 09:26 by TIMMY Bailey Smoking Status: Former smoker alcohol intake: current alcohol intake frequency: holidays/special occasions only Alcohol type: beer and wine substance use type: does not use what type of physical activity do you participate in: 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 His last colonoscopy was over 10 years ago. He denies abdominal pain or blood in stool or family history of colon cancer. ROS General General: Yes fatigue; No weight change, appetite, colon cancer, breast cancer or weakness HEENT HEENT: No difficulty swallowing, eye injury, eye surgery, swollen glands or hoarseness Endo Endocrine: No thyroid dis (more content not included)... Normal [facility] MR/BMS.Phill 02-25-2024 MR/BMS.KANWAL [facility] [address] [place] [address] OFFICE VISIT Date of Service: 02/25/24 MR#: [id number] Acct: [id number] Name: STEPHANY SCHAFER Rep #: [id number] : 1950 Provider: Dr. Shruthi soto MD Age/Sex: 74/M Location: [facility] Status: Signed Intake Vital Signs 01/16/24 09:50 02/25/24 08:41 Height 5 ft 9 in 5 ft 9 in Weight: 189 lb 189 lb BMI 27.8 27.8 BP 147/63 H 147/98 H Blood Pressure Location Lt brachial Lt brachial Position Sitting Sitting Respiration 16 Pulse 103 H 77 Pulse Source Monitor Monitor Temp 97.7 F L 97.8 F Temp Source Temporal Pulse Oximetry (%) 94 95 Oxygen Delivery Method room air room air Intake Visit Reasons: Bladder Issues Chief Complaint: bladder issues Demand Planning Manager Required: No Accompanied by: Self Is patient in pain?: No Allergies nalbuphine (From [place]) Adverse Reaction (Verified 02/25/24 08:30) delirium Medications ???Medication ???Instructions ???Recorded ???Confirmed ???Type cholecalciferol (vitamin D3) 25 1,000 unit PO QDAY 09/21/17 02/25/24 History mcg (1,000 unit) tablet fexofenadine 180 mg tablet 180 mg PO QDAY 09/21/17 02/25/24 History ([facility]irti Allergy) multivitamin 1 tab PO QDAY 09/21/17 02/25/24 History simvastatin 40 mg tablet 40 mg PO QPM #90 tabs 11/11/20 02/25/24 Rx carvedilol 25 mg tablet 25 mg PO BID 11/01/21 02/25/24 History albuterol sulfate 90 mcg/actuation 2 puff inhalation Q6H PRN 12/15/22 02/25/24 Rx aerosol inhaler shortness of breath or wheezing #18 grams testosterone cypionate 200 mg/mL 200 mg subcut Q2W #10 mL 05/02/23 02/25/24 Rx intramuscular oil losartan 50 mg tablet 50 mg PO DAILY FAX to [facility] 05/24/23 02/25/24 Rx #90 tabs ipratropium 0.5 mg-albuterol 3 mg 3 ml inhalation Q4H PRN PRN SOB 05/25/23 02/25/24 Rx (2.5 mg base)/3 mL nebulization /OR WHEEZING #180 mL soln pramipexole 0.25 mg tablet 0.5 mg (2 x 0.25 mg) PO QHS #180 06/12/23 02/25/24 Rx tabs Handicap Placard #1 ea 08/02/23 02/25/24 Rx sildenafil (pulm.hypertension) 20 20 mg PO DAILY PRN sexual activity 08/02/23 02/25/24 Rx mg tablet #30 tabs rivaroxaban 20 mg tablet (Xarelto) 20 mg PO DAILY Pt gets this from 11/19/23 02/25/24 History the [place] gabapentin 300 mg capsule 300 mg PO QHS 01/16/24 02/25/24 History gabapentin 100 mg capsule 100 mg PO QHS #50 caps 02/25/24 02/25/24 Rx Have you fallen in the past year?: No [facility] Medical History (Updated 02/25/24 @ 09:[address] Shruthi Lynn MD) Colon cancer screening Multiple premature ventricular complexes Left ankle pain Interstitial lung disease Chronic atrial fibrillation Asthma Viral syndrome Hearing problem History of kidney stones Headache, migraine H/O emotional problems Chronic bronchitis Carpal tunnel syndrome Cataracts, bilateral history of bone fracture Back problem Paroxysmal atrial fibrillation Abnormal CXR MAURI (obstructive sleep apnea) DM (diabetes mellitus), type 2 with peripheral vascular complications History of immunosuppressive therapy Rheumatoid arthritis Essential hypertension Testosterone deficiency Elevated LFTs Erectile dysfunction Palpitations Paroxysmal ventricular tachycardia HLD (hyperlipidemia) Surgical History History of arthroplasty of left knee History of ear surgery History of bunionectomy of both great toes History of carpal tunnel release ( 1989) History of hernia repair ( 1980) History of colonoscopy ( 06/2009) History of cardioversion (01/26/20) History of radiofrequency ablation procedure for cardiac arrhythmia (09/2010) History of left heart catheterization (12/2009) History of foot surgery History of back surgery History of bilateral hip replacements Family History Father CAD (coronary artery disease) ICD implant Mother History of heart valve replacement Social History (Updated 02/25/24 @ 08:37 by Yeimy Byrd RN) Smoking Status: Former smoker alcohol intake: current alcohol intake frequency: holidays/special occasions only Alcohol type: beer and wine substance use type: does not use what type of physical activity do you participate in: other details: 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 74-year-old gentleman, overall doing well. He has been having ongoing urinary symptoms. When I saw him in July, I obtained urina kidney and bladder ultrasound. This did not show any significant abnormalities. There is no significant urinary retention. His PSA was good range. I suggested due to the symptoms however h (more content not included)... Normal [facility] Pulmonary Visit Reporton Pulmonary Visit Report [facility] [place] [address] [place] [address] OFFICE VISIT Date of Service: 01/16/24 MR#: [id number] Acct: [id number] Name: STEPHANY SCHAFER Rep #: [id number] : 1950 Provider: SARA Brantley Age/Sex: 73/M Location: [facility] Status: Signed Assessment and Plan Assessment and Plan (1) MAURI (obstructive sleep apnea): Status: Chronic Comment: BiPAP 14/10 cmH2O with a residual AHI of 6.6 Plan: He is using and benefiting from Pap therapy. No indication for titration study at this time. Contact the office for any new or worsening symptoms in the meantime. Follow-up in 1 year. (2) Interstitial lung disease: Status: Chronic Plan: Symptomatically stable. (3) Asthma: Status: Chronic Qualifiers: Asthma severity: mild Asthma persistence: intermittent Asthma complication type: uncomplicated Qualified Code(s): J45.20 - Mild intermittent asthma, uncomplicated Plan: Improving. He has nearly returned to baseline. No indication to repeat antibiotics or steroids. No additional testing at this time. (4) Periodic limb movement sleep disorder: Status: Chronic Plan: Symptomatically stable on Mirapex. No change to medication dose. (5) Paroxysmal atrial fibrillation: Status: Chronic Comment: DCCV on 01/26/2020; Plan: Complicates exam, plan, care and prognosis. Plan Details Follow Up: 1 Year ([facility]) HPI 6 M FU Chief Complaint: routine follow up HPI Comments Details: This patient presents to the office today for follow-up of his asthma complicated by interstitial lung disease and obstructive sleep apnea. He is ambulatory and currently on room air. He has not recently been seen in the ED or urgent care for any respiratory illness. He has not recently required antibiotics or steroids. If you recall, he quit smoking in 1971. He is using his albuterol rescue inhaler twice daily. He continues to utilize the nebulizer a couple times per week. He does not have shortness of breath. His denies any cough. He has occasional wheezing but denies any chest tightness, chest pain or palpitations. He uses the albuterol for the wheeze and it helps. He has not had any fever, chills or body aches. He has no concerns with regard to his PAP device. He wakes up feeling rested and refreshed. He is not having difficulty with mask leaks. He is not having excessive nocturia. Compliance report for the past 30 days shows 100% compliance with an average use of 6 hours and 5 minutes per night. Current setting is BiPAP 14/10 cmH2O with residual AHI of 4.2 events per hour. Leaks do not appear to be a problem. Intake Vital Signs 06/12/23 08:12 08/02/23 09:31 01/16/24 09:50 Height 5 ft 9 in 5 ft 9 in 5 ft 9 in Weight: 189 lb BMI 27.8 BP 147/63 H Blood Pressure Location Lt brachial Position Sitting Pulse 103 H Pulse Source Monitor Temp 97.7 F L Temperature Source Temporal Artery Pulse Oximetry (%) 94 Oxygen Delivery Method room air Intake Visit Reasons: 6 M FU Chief Complaint: cough since february green sputum , wants blood work Demand Planning Manager Required: No DME Vendor: [employer] Accompanied by: Self Allergies nalbuphine (From [place]) Adverse Reaction (Verified 01/16/24 14:35) delirium Medications ???Medication ???Instructions ???Recorded ???Confirmed ???Type cholecalciferol (vitamin D3) 25 1,000 unit PO QDAY 09/21/17 01/16/24 History mcg (1,000 unit) tablet fexofenadine 180 mg tablet 180 mg PO QDAY 09/21/17 01/16/24 History (Kirti Allergy) multivitamin 1 tab PO QDAY 09/21/17 01/16/24 History simvastatin 40 mg tablet 40 mg PO QPM #90 tabs 11/11/20 01/16/24 Rx carvedilol 25 mg tablet 25 mg PO BID 11/01/21 01/16/24 History albuterol sulfate 90 mcg/actuation 2 puff inhalation Q6H PRN 12/15/22 01/16/24 Rx aerosol inhaler shortness of breath or wheezing #18 grams testosterone cypionate 200 mg/mL 200 mg subcut Q2W #10 mL 05/02/23 01/16/24 Rx intramuscular oil losartan 50 mg tablet 50 mg PO DAILY FAX to [facility] 05/24/23 01/16/24 Rx #90 tabs ipratropium 0.5 mg-albuterol 3 mg 3 ml inhalation Q4H PRN PRN SOB 05/25/23 01/16/24 Rx (2.5 mg base)/3 mL nebulization /OR WHEEZING #180 mL soln pramipexole 0.25 mg tablet 0.5 mg (2 x 0.25 mg) PO QHS #180 06/12/23 01/16/24 Rx tabs Handicap Placard #1 ea 08/02/23 01/16/24 Rx sildenafil (pulm.hypertension) 20 20 mg PO DAILY PRN sexual activity 08/02/23 01/16/24 Rx mg tablet #30 tabs rivaroxaban 20 mg tablet (Xarelto) 20 mg PO DAILY Pt gets this from 11/19/23 01/16/24 History [facility] gabap[facility] 300 mg capsule 300 mg PO QHS 01/16/24 01/16/24 History Have you fallen in the past year?: No [facility] Medical History (more content not included)... Normal [facility] Basic Metabolic Profile (BMP )on 11-19-2023 BUN/CRE 18.1 RATIO Normal 10-20 [facility] Comment on above: Performed By: #### L 500.2500 ####[facility] [address] [place], [address] CA,Total 8.9 mg/dL Normal 8.5-10.1 [facility] Comment on above: Performed By: #### L 500.2500 ####[facility] [address] [place], [address] Chloride [Moles/Vol] 107 mmol/L Normal 98-107 [facility] Comment on above: Performed By: #### L 500.2500 ####[facility] [address] [place], [address] CO2 [Moles/Vol] 28.0 mmol/L Normal 21.0-32.0 [facility] Comment on above: Performed By: #### L 500.2500 ####[facility] [address] [place], [address] Creatinine [Mass/Vol] 1.16 mg/dL Normal 0.70-1.30 [facility] Comment on above: Result Comment: The validity of the calculated GFR GFRAA in patients over 70 years has not been determined. Clinical correlation is essential. Performed By: #### L [id number] ####[facility] [address] [place], [address] EST GFR - AA 79 mL/min Normal >60 [facility] Comment on above: Result Comment: Afri can Norwegian GFR Calc Performed By: #### L 500.2500 ####[facility] [address] [place], [address] GAP 3 Low 5-15 [facility] Comment on above: Performed By: #### L 500.2500 ####[facility] [address] [place], [address] GFR/1.73 sq M.predicted among non-blacks MDRD (S/P/Bld) [Vol rate/Area] 66 mL/min/{1.73_m2} Normal >60 [facility] Comment on above: Result Comment: Non- GFR Calc Performed By: #### L 500.2500 ####[facility] [address] [place], [address] Glucose [Mass/Vol] 115 mg/dL High 74-106 [facility] Comment on above: Result Comment: Fast ing Glucose result from 100 to 125 mg/dL suggests IMPAIRED HOMEOSTASIS per A.D.A. criteria. Performed By: #### L [id number] ####[facility] [address] [place], [address] Potassium [Moles/Vol] 4.3 mmol/L Normal 3.5-5.1 [facility] Comment on above: Performed By: #### L 500.2500 ####[facility] [address] [place], [address] Sodium [Moles/Vol] 138 mmol/L Normal 136-145 [facility] Comment on above: Performed By: #### L [id number] ####[facility] [address] [place], [address] Urea nitrogen [Mass/Vol] 21 mg/dL High 7-18 [facility] Comment on above: Performed By: #### L 500.2500 ####[facility] [address] [place], [place], [id number] Absolute lymphocyte countOrd ered By: Shruthi Lynn on 08-03-2023 Lymphocytes Auto (Unsp spec) [#/Vol] 2.21 10*3/uL 0.83-4.51 [facility] Automated lymphocyte count a s percentage of total leukocytesOrdered By: Shruthi Lynn on 08-03-2023 Lymphocytes/100 WBC Auto (Unsp spec) 22.1 % 19-41 [facility] Basophil percentageOrdered B y: Shruthi Lynn on 08-03-2023 Basophils/100 WBC (Bld) 0.8 % 0-1 [facility] Bilirubin [Mass/Vol] 2.10 mg/dL 0.20-1.00 [facility] Comment on above: For patients on eltr ombopag therapy, use of Dimension [place] TBIL is not recommended. Chloride [Moles/Vol] 105 mmol/L 98-107 [facility] Cholesterol [Mass/Vol] 130 mg/dL <200 [facility] Comment on above: <200 mg/dL Desirable 200-240 mg/dL Borderline >240 mg/dL High Risk Eosinophils/100 WBC (Bld) 3.3 % 0-5 [facility] Glucose [Mass/Vol] 120 mg/dL 74-106 [facility] Comment on above: Fasting Glucose resu lt from 100 to 125 mg/dL suggests IMPAIRED HOMEOSTASIS per A.D.A. criteria. Hemoglobin (Bld) [Mass/Vol] 15.6 g/dL 13.0-16.5 [facility] Monocytes/100 WBC (Bld) 10.3 % 0-10 [facility] Neutrophils (Bld) [#/Vol] 6.3 10*3/uL 2.0-7.7 [facility] Neutrophils/100 WBC (Bld) 63.2 % 47-70 [facility] Potassium [Moles/Vol] 4.2 mmol/L 3.5-5.1 [facility] Protein [Mass/Vol] 7.1 g/dL 6.4-8.2 [facility] Sodium [Moles/Vol] 138 mmol/L 136-145 [facility] Triglyceride [Mass/Vol] 61 mg/dL <199 [facility] Comment on above: The drugs N-Acetylcy steine and Metamizole may falsely depress this assay.Serum Triglycerides Reference Interval Normal <150 mg/dL Borderline high 150 - 199 mg/dL High 200 - 499 mg/dL Very High > or = 500 mg/dL WBC (Bld) [#/Vol] 10.0 10*3/uL 4.4-11.0 [facility] Determination of erythrocyte mean corpuscular volume (MCV)Ordered By: Shruthi Lynn on 08-03-2023 MCV (RBC) [Entitic vol] 92.6 fL 80-94 [facility] Erythrocyte distribution wid th ratioOrdered By: Shruthi Lynn on 08-03-2023 Erythrocyte distribution width (RBC) [Ratio] 15.9 % 11.6-14.6 [facility] Erythrocyte distribution wid th standard deviationOrdered By: Shruthi Lynn on 08-03-2023 Erythrocyte distribution width (RBC) [Entitic vol] 53.6 fL 35.1-43.9 [facility] Hematocrit Auto (Bld) [Volum e fraction]Ordered By: Shruthi Lynn on 08-03-2023 Hematocrit (Bld) [Volume fraction] 48.6 % 40-54 [facility] Immature granulocytes/100 WB C Auto (Bld)Ordered By: Shruthi Lynn on 08-03-2023 Immature granulocytes/100 WBC (Bld) 0.300 % 0.0-0.9 [facility] Comment on above: IG% - Immature Granu locytes (promyelocytes, myelocytes and metamyelocytes) > 1% indicates that a LEFT SHIFT is Present. Laboratory - Chemistry and C hemistry - challengeOrdered By: Shruthi Lynn on 08-03-2023 Albumin/Globulin [Mass ratio] 0.9 {ratio} 0.9-2.4 [facility] ALP [Catalytic activity/Vol] 111 U/L 45-117 [facility] ALT [Catalytic activity/Vol] 33 U/L 16-61 [facility] Cholesterol in HDL [Mass/Vol] 44 mg/dL >40 [facility] Comment on above: The drugs N-Acetylcy steine and Metamizole may falsely depress this assay. Reference Range HDL <40 mg/dL Low HDL Cholesterol HDL >or= 60 mg/dL High HDL Cholesterol Cholesterol in LDL [Mass/Vol] 74 mg/dL 0-130 [facility] CO2 [Moles/Vol] 27.0 mmol/L 21.0-32.0 [facility] Globulin (S) [Mass/Vol] 3.7 g/dL 2.2-4.2 [facility] Urea nitrogen/Creatinine [Mass ratio] 18.2 mg/mg 10-20 [facility] Laboratory - Hematology and Cell countsOrdered By: Shruthi Lynn on 08-03-2023 MCH (RBC) [Entitic mass] 29.7 pg 27.0-32.0 [facility] MCHC (RBC) [Mass/Vol] 32.1 g/dL 32-36 [facility] Nucleated RBC/100 WBC (Bld) [Ratio] 0 % 0-5 [facility] Platelet mean volume (Bld) [Entitic vol] 10.2 fL 6.2-12.0 [facility] Platelets (Bld) [#/Vol] 201 10*3/uL 150-450 [facility] No Panel InformationOrdered By: Shruthi Lynn on 08-03-2023 Estimated GFR (MDRD) Amer 84 mL/min >60 [facility] Comment on above: GFR Calc Estimated GFR (MDRD) Non-Af Amer 70 mL/min >60 [facility] Comment on above: Non- GFR Calc Prostate Specific Antigen Screen 0.75 ng/mL 0.00-4.00 [facility] Comment on above: This test was perfor med using the TPSA assay method for the[employer] chemistry system. Values obtained with differentassay methods cannot be used interchangably.When changing PSA assays in the course of monitoring apatient, additional sequential testing should be carriedout to confirm baseline values. Vitamin D 25-Hydroxy 36.4 ng/mL [facility] Comment on above: Vitamin D 25(OH) Sta tus Range Deficiency <20 ng/mL (50nmol/L) Insufficiency 20 - 30 ng/mL (50 - 75 nmol/L) Sufficiency 30 - 100 ng/mL (75 - 250 nmol/L) Toxicity >100 ng/mL (>250 nmol/L) VLDL Cholesterol 12 mg/dL 5-40 [facility] RBC Auto (Bld) [#/Vol]Ordere d By: Shruthi Lynn on 08-03-2023 RBC (Bld) [#/Vol] 5.25 10*6/uL 4.6-6.2 [facility] Serum or plasma calcium ruslan urement (mass/volume)Ordered By: Shruthi Lynn on 08-03-2023 Calcium [Mass/Vol] 9.1 mg/dL 8.5-10.1 [facility] Serum or plasma creatinine m easurement (mass/volume)Ordered By: Shruthi Lynn on 08-03-2023 Creatinine [Mass/Vol] 1.10 mg/dL 0.70-1.30 [facility] Comment on above: The validity of the calculated GFR & GFRAA in patients over 70 years has not been determined. Clinical correlation is essential. Serum or plasma thyroid stim ulating hormone (TSH) measurement (units/volume)Ordered By: Shruthi Lynn on 08-03-2023 TSH Qn 1.39 uIU/mL 0.358-3.74 [facility] Serum or plasma urea nitroge n measurement (mass/volume)Ordered By: Shruthi Lynn on 08-03-2023 Urea nitrogen [Mass/Vol] 20 mg/dL 7-18 [facility] Thin prep Papanicolaou smear with manual screeningOrdered By: Shruthi Lynn on 08-03-2023 Thin prep Papanicolaou smear with manual screening 3.4 g/dL 3.2-5.0 [facility] Thin prep Papanicolaou smear with manual screening 25 U/L 15-37 [facility] Thin prep Papanicolaou smear with manual screening 6 5-15 [facility] Whole blood hemoglobin A1c/t otal hemoglobin ratio (mass fraction)Ordered By: Shruthi Lynn on 08-03-2023 HbA1c (Bld) [Mass fraction] 6.2 % 3.8-5.6 [facility] Comment on above: Normal < 5.7 % Predi abetic 5.7 - 6.4 % Diabetic >or= 6.5 % Please note range changes. Absolute lymphocyte counton 09-19-2021 Lymphocytes Auto (Unsp spec) [#/Vol] 2.30 10*3/uL 0.83-4.51 [facility] Work Phone: Basophil percentageon 2021 Basophils/100 WBC (Bld) 0.5 % 0-1 [facility] Work Phone: Bilirubin [Mass/Vol] 2.30 mg/dL 0.20-1.00 [facility] Work Phone: Comment on above: For patients on eltr ombopag therapy, use of [place] TBIL is not recommended. Chloride [Moles/Vol] 105 mmol/L 98-107 [facility] Work Phone: Cholesterol [Mass/Vol] 119 mg/dL <200 [facility] Work Phone: Comment on above: <200 mg/dL Desirable 200-240 mg/dL Borderline >240 mg/dL High Risk Eosinophils/100 WBC (Bld) 0.9 % 0-5 [facility] Work Phone: Glucose [Mass/Vol] 102 mg/dL 74-106 [facility] Work Phone: Comment on above: Fasting Glucose resu lt from 100 to 125 mg/dL suggests IMPAIRED HOMEOSTASIS per A.D.A. criteria. Neutrophils (Bld) [#/Vol] 4.5 10*3/uL 2.0-7.7 [facility] Work Phone: [phone] Neutrophils/100 WBC (Bld) 58.1 % 47-70 [facility] Work Phone: Potassium [Moles/Vol] 4.3 mmol/L 3.5-5.1 [facility] Work Phone: Protein [Mass/Vol] 7.3 g/dL 6.4-8.2 [facility] Work Phone: [phone] Sodium [Moles/Vol] 136 mmol/L 136-145 [facility] Work Phone: Testosterone [Mass/Vol] 1482 ng/dL [facility] Work Phone: Comment on above: Adult male reference interval is based on a population ofhealthy nonobese males (BMI <30) between 19 and 39 yearsold. dimas Bowen.al. JCEM 2017,102;6058-3762. PMID:[id number]. Triglyceride [Mass/Vol] 86 mg/dL [facility] Work Phone: Comment on above: The drugs N-Acetylcy steine and Metamizole may falsely depress this assay.Serum Triglycerides Reference Interval Normal <150 mg/dL Borderline high 150 - 199 mg/dL High 200 - 499 mg/dL Very High > or = 500 mg/dL WBC (Bld) [#/Vol] 7.7 10*3/uL 4.4-11.0 [facility] Work Phone: Blood erythrocytes count (nu mber/volume)on 09-19-2021 RBC (Bld) [#/Vol] 5.29 10*6/uL 4.6-6.2 [facility] Work Phone: Blood hemoglobin measurement (mass/volume)on 09-19-2021 Hemoglobin (Bld) [Mass/Vol] 15.9 g/dL 13.0-16.5 [facility] Work Phone: Blood lymphocytes/100 leukoc yteson 09-19-2021 Lymphocytes/100 WBC (Bld) 30.0 % 19-41 [facility] Work Phone: Blood monocytes/100 leukocyt eson 09-19-2021 Monocytes/100 WBC (Bld) 10.2 % 0-10 [facility] Work Phone: Blood platelet mean volumeon 09-19-2021 Platelet mean volume (Bld) [Entitic vol] 10.8 fL 6.2-12.0 [facility] Work Phone: Determination of erythrocyte mean corpuscular volume (MCV)on 09-19-2021 MCV (RBC) [Entitic vol] 93.4 fL 80-94 [facility] Work Phone: Free testosterone percentage on 09-19-2021 Testosterone Free/Testosterone.to uma [Mass fraction] TNP [facility] Work Phone: Comment on above: Test not performedTe st not performed. Deterioration occurred during specimenhandling.CONTACTED SAMMI PARRA AT YOUR FACILITY 09-27-21 Hematocrit Auto (Bld) [Volum e fraction]on 09-19-2021 Hematocrit (Bld) [Volume fraction] 49.4 % 40-54 [facility] Work Phone: Laboratory - Chemistry and C hemistry - challengeon 09-19-2021 ALP [Catalytic activity/Vol] 86 U/L 45-117 [facility] Work Phone: ALT [Catalytic activity/Vol] 30 U/L 16-61 [facility] Work Phone: CO2 [Moles/Vol] 28.0 mmol/L 21.0-32.0 [facility] Work Phone: Free T4 [Mass/Vol] 1.07 ng/dL 0.76-1.46 [facility] [facility] Work Phone: Globulin (S) [Mass/Vol] 3.6 g/dL 2.2-4.2 [facility] Work Phone: Urea nitrogen/Creatinine [Mass ratio] 17.5 mg/mg 10-20 [facility] Work Phone: Laboratory - Hematology and Cell countson 09-19-2021 Erythrocyte distribution width (RBC) [Entitic vol] 46.8 fL 35.1-43.9 [facility] Work Phone: Erythrocyte distribution width (RBC) [Ratio] 13.8 % 11.6-14.6 [facility] Work Phone: Immature granulocytes/100 WBC (Bld) 0.300 % 0.0-0.9 [facility] Work Phone: Comment on above: IG% - Immature Granu locytes (promyelocytes, myelocytes and metamyelocytes) > 1% indicates that a LEFT SHIFT is Present. MCH (RBC) [Entitic mass] 30.1 pg 27.0-32.0 [facility] Work Phone: Nucleated RBC/100 WBC (Bld) [Ratio] 0 % 0-5 [facility] Work Phone: MCHC Auto (RBC) [Mass/Vol]on 09-19-2021 MCHC (RBC) [Mass/Vol] 32.2 g/dL 32-36 [facility] Work Phone: No Panel Informationon 09-19 Estimated GFR (MDRD) Amer 98 mL/min >60 [facility] Work Phone: Comment on above: GFR Calc Estimated GFR (MDRD) Non-Af Amer 81 mL/min >60 [facility] Work Phone: Comment on above: Non- GFR Calc Free Triiodothyronine (T3) pg/dL 3.0 pg/mL 2.18-3.98 [facility] Work Phone: Thyroid Stimulating Hormone (TSH) 1.08 uIU/mL 0.358-3.74 [facility] Work Phone: Vitamin D 25-Hydroxy 39.3 ng/mL [facility] Work Phone: Comment on above: Vitamin D 25(OH) Sta tus Range Deficiency <20 ng/mL (50nmol/L) Insufficiency 20 - 30 ng/mL (50 - 75 nmol/L) Sufficiency 30 - 100 ng/mL (75 - 250 nmol/L) Toxicity >100 ng/mL (>250 nmol/L) Platelets bldon 09-19-2021 Platelets (Bld) [#/Vol] 196 10*3/uL 150-450 [facility] Work Phone: Serum or plasma albumin ruslan urement (mass/volume)on 09-19-2021 Albumin [Mass/Vol] 3.7 g/dL 3.2-5.0 [facility] Work Phone: Serum or plasma albumin/glob ulin mass ratioon 09-19-2021 Albumin/Globulin [Mass ratio] 1.0 {ratio} 0.9-2.4 [facility] Work Phone: Serum or plasma calcium ruslan urement (mass/volume)on 09-19-2021 Calcium [Mass/Vol] 9.5 mg/dL 8.5-10.1 [facility] Work Phone: Serum or plasma cholesterol in HDL measurement (mass/volume)on 09-19-2021 Cholesterol in HDL [Mass/Vol] 42 mg/dL [facility] Work Phone: Comment on above: The drugs N-Acetylcy steine and Metamizole may falsely depress this assay. Reference Range HDL <40 mg/dL Low HDL Cholesterol HDL >or= 60 mg/dL High HDL Cholesterol Serum or plasma cholesterol in VLDL measurement (mass/volume)on 09-19-2021 Cholesterol in VLDL [Mass/Vol] 17 mg/dL 5-40 [facility] Work Phone: Serum or plasma creatinine m easurement (mass/volume)on 09-19-2021 Creatinine [Mass/Vol] 0.97 mg/dL 0.70-1.30 [facility] Work Phone: Comment on above: The validity of the calculated GFR & GFRAA in patients over 70 years has not been determined. Clinical correlation is essential. Serum or plasma low density lipoprotein (LDL) cholesterol measurement (mass/volume)on 09-19-2021 Cholesterol in LDL [Mass/Vol] 60 mg/dL 0-130 [facility] Work Phone: Serum or plasma testosterone free measurement (mass/volume)on 09-19-2021 Testosterone Free [Mass/Vol] TNP [facility] Work Phone: Comment on above: Test not performedUn able to calculate result since non-numeric resultobtained for component test. Serum or plasma urea nitroge n measurement (mass/volume)on 09-19-2021 Urea nitrogen [Mass/Vol] 17 mg/dL 7-18 [facility] Work Phone: Thin prep Papanicolaou smear with manual screeningon 09-19-2021 Thin prep Papanicolaou smear with manual screening 23 U/L 15-37 [facility] Work Phone: Thin prep Papanicolaou smear with manual screening 3 5-15 [facility] Work Phone: Final Surgical Pathology Rep [place] 04-22-2021 Final Surgical Pathology Report . Pathology Reports Accession: Collected Date/Time: Received Date/Time: Pathologist: [id number] 04/18/2021 08:26 EST 04/19/2021 08:26 EST DO LIZETT NAIR Final Surgical Pathology Report DIAGNOSIS: BONE WITH CHANGES OF DEGENERATIVE OSTEOARTHRITIS, CLINICALLY LEFT KNEE. COMMENT: Chasity# [id number] CLINICAL INFORMATION: LEFT KNEE PRIMARY OSTEOARTHRITIS SPECIMEN: A LEFT KNEE BONE GROSS DESCRIPTION: A. Received in formalin, labeled with the patients name, Case #[id number], and left knee bone Description/dimensions-multi ple convex and concave fragmented portions of thornton-yellow bone/soft tissue aggregating 8 x 8 x 3.5 cm, articular surfaces are focally eburnated, cartilage is focally nodular, underlying bone is yellow/dense to trabecular RS-1 following decalcification Dictated by STEPHANY CORDON MICROSCOPIC DESCRIPTION: Slides reviewed. Electronically Signed by Pathology Report verified by [facility] Electronically signed by LIZETT NAIR DO Sign out Date: 04/22/2021 12:44 Performing Lab: [facility], [address] [place] [address] Normal [facility] ([place]) BMP with eGFRon 04-19-2021 AGE 71 years Normal [facility] Comment on above: Performed By: #### 2 [id number] #### [facility],[address] [place] [address] Anion gap [Moles/Vol] 18 mmol/L Normal 10 - 20 [facility] Comment on above: Performed By: #### 2 55927 #### [facility],[address] [place] [address] BMP with eGFR Normal [facility] Comment on above: Result Comment: BASI C METABOLIC PANEL Performed By: #### 2 93742 #### [facility],[address] [place], [place] [address] Calcium [Mass/Vol] 8.6 mg/dL Normal 8.5 - 10.1 [facility] Comment on above: Performed By: #### 2 01573 #### [facility],[address] [place] [address] Chloride [Moles/Vol] 100 mmol/L Normal 98 - 107 [facility] Comment on above: Performed By: #### 2 53619 #### [facility],[address] [place] [address] CO2 [Moles/Vol] 24.5 mmol/L Normal 21.0 - 32.0 [facility] Comment on above: Performed By: #### 2 41170 #### [facility],[address] [place] [address] Creatinine [Mass/Vol] 1.08 mg/dL Normal 0.70 - 1.30 [facility] Comment on above: Performed By: #### 2 36999 #### [facility],[address] [place] [address] GFR/1.73 sq M.predicted among non-blacks MDRD (S/P/Bld) [Vol rate/Area] mL/min/{1.73_m2} Normal 60 - 999 [facility] Comment on above: Performed By: #### 2 94490 #### [facility],[address] [place] [address] Result Comment: ACCO RDING TO THE NATIONAL KIDNEY DISEASE EDUCATION PROGRAM(NKDE), A NORMAL eGFR IS A VALUE GREATER THAN OR EQUAL TO 60 ML/MIN/1.73 SQ METERS. CHRONIC KIDNEY DISEASE: <60mL/MIN/1.73 SQ METERS KIDNEY FAILURE: <15mL/MIN/1.73 SQ METERS THIS TEST SHOULD ONLY BE USED FOR PATIENTS 18 YEARS OF AGE AND OLDER. Glucose [Mass/Vol] 109 mg/dL High 74 - 106 [facility] Comment on above: Performed By: #### 2 30540 #### [facility],[address],[place] [address] Potassium [Moles/Vol] 4.4 mmol/L Normal 3.5 - 5.1 [facility] Comment on above: Performed By: #### 2 47960 #### [facility],[address] [place] [address] 56184 Sodium [Moles/Vol] 138 mmol/L Normal 136 - 145 [facility] Comment on above: Performed By: #### 2 50327 #### [facility],[address] [place] [address] 07339 Urea nitrogen [Mass/Vol] 20 mg/dL High 7 - 18 [facility] Comment on above: Performed By: #### 2 97681 #### [facility],[address] [place] [address] 26306 CBC + DIFFon 04-19-2021 Baso # 0.10 x10EE3/UL Normal 0.00 - 0.10 [facility] Comment on above: Performed By: #### 2 23477 #### [facility],[address] [place] [address] 81930 Basophils/100 WBC (Bld) 0.4 % Normal 0.0 - 2.0 [facility] Comment on above: Performed By: #### 2 47603 #### [facility],[address] [place] [address] 02496 CBC + DIFF Normal [facility] Comment on above: Result Comment: CBC- COMPLETE BLOOD COUNT Performed By: #### 2 04389 #### [facility],[address] [place] [address] 39457 EO # 0.40 x10EE3/UL Normal 0.00 - 0.50 [facility] Comment on above: Performed By: #### 2 44082 #### [facility],[address] [place] [address] 03168 Eosinophils/100 WBC (Bld) 2.3 % Normal 0.0 - 7.0 [facility] Comment on above: Performed By: #### 2 44811 #### [facility],[address] [place] [address] 29307 Erythrocyte distribution width (RBC) [Ratio] 14.7 % Normal 12.0 - 15.6 [facility] Comment on above: Performed By: #### 2 85176 #### [facility],[address] [place], [place] [phone] Hematocrit (Bld) [Volume fraction] 44.9 % Normal 40.0 - 52.0 [facility] Comment on above: Performed By: #### 2 07846 #### [facility],[address] [place] [address] Hemoglobin (Bld) [Mass/Vol] 14.7 g/dL Normal 13.0 - 17.5 [facility] Comment on above: Performed By: #### 2 49992 #### [facility],[address] [place], [place] [address] Lymph # 1.20 x10EE3/UL Normal 0.80 - 2.80 [facility] Comment on above: Performed By: #### 2 46584 #### [facility],[address] [place], [place] [address] Lymphocytes/100 WBC (Bld) 7.5 % Low 20.0 - 45.0 [facility] Comment on above: Performed By: #### 2 53382 #### [facility],[address] [place] [address] 92659 MANUAL DIFF N/A Normal [facility] Comment on above: Performed By: #### 2 07430 #### [facility],[address] [place] [address] 04835 MCH (RBC) [Entitic mass] 31 pg Normal 27 - 33 [facility] Comment on above: Performed By: #### 2 99991 #### [facility],[address] [place] [address] 05617 MCHC 33 X10 3 Normal 32 - 36 [facility] Comment on above: Performed By: #### 2 04389 #### [facility],[address] [place] [address] 67915 MCV (RBC) [Entitic vol] 95 fL Normal 81 - 98 [facility] Comment on above: Performed By: #### 2 01234 #### [facility],[address] [place] [address] 17628 [place] # 1.00 x10EE3/UL Normal 0.20 - 1.00 [facility] Comment on above: Performed By: #### 2 97375 #### [facility],[address] [place] [address] 92577 MONOS % 6.5 % Normal 0.0 - 10.0 [facility] Comment on above: Performed By: #### 2 44743 #### [facility],[address] [place] [address] 23094 Morphology Marty (Bld) [Interp] N/A Normal [facility] Comment on above: Result Comment: {CD] Performed By: #### 2 42189 #### [facility],[address] [place] [address] 70656 Neut # 12.70 x10EE3/UL High 1.50 - 7.10 [facility] Comment on above: Performed By: #### 2 79506 #### [facility],[address] [place] [address] 38820 Neutrophils/100 WBC (Bld) 83.3 % High 46.0 - 76.0 [facility] Comment on above: Performed By: #### 2 56458 #### [facility],[address] [place] [address] 43690 PLATELET 217 x10EE3/UL Normal 150 - 450 [facility] Comment on above: Performed By: #### 2 84255 #### [facility],[address] [place] [address] 93024 Platelet mean volume (Bld) [Entitic vol] 9.1 fL Normal 6.4 - 10.5 [facility] Comment on above: Result Comment: AUTO MATED DIFFERENTIAL Performed By: #### 2 18535 #### [facility],[address] [place] [address] 25102 RBC 4.75 x 10EE6/UL Normal 4.50 - 6.00 [facility] Comment on above: Performed By: #### 2 44974 #### [facility],[address] [place] [address] 01680 WBC 15.3 x 10EE3/UL High 4.5 - 10.8 [facility] Comment on above: Performed By: #### 2 28001 #### [facility],[address] [place] [address] 57927 KNEE 2 VIEWS LTon 04-18-2021 KNEE 2 VIEWS [place] [address] Patient: STEPHANY SCHAFER Phone#: : [phone] Age: 71 Gender: M Pt. Type: Out Account: [id number] Location: [facility] Ordering: FUENTES ZELAYA Exam Date: 04/18/2021/12:53 Family Phys: SHRUTHI LYNN Charge Code: [id number] Physician: [place] Order #: [id number] DLP Dose#: PROCEDURE: X-RAY KNEE LT 2 VIEWS COMPARISON: None. INDICATIONS: Post Operative. FINDINGS: BONES: Total knee prosthesis is present. The adjacent bony architecture is intact. SOFT TISSUES: Postsurgical soft tissue air is present. EFFUSION: None visible. OTHER: Negative. CONCLUSION: 1. Total knee prosthesis. Dictated by: Kendra Alcantara MD on 04/18/2021 at 14:04 Approved by: Kendra Alcantara MD on 04/18/2021 at 14:05 Normal [facility] BMP with eGFRon 03-31-2021 AGE 71 years Normal [facility] Comment on above: Performed By: #### 2 72429 #### [facility],[address] [place] [address] 78350 Anion gap [Moles/Vol] 9 mmol/L Low 10 - 20 [facility] Comment on above: Performed By: #### 2 94240 #### [facility],[address] [place] [address] 90144 BMP with eGFR Normal [facility] Comment on above: Result Comment: BASI C METABOLIC PANEL Performed By: #### 2 19261 #### [facility],[address] [place] [address] Calcium [Mass/Vol] 9.2 mg/dL Normal 8.5 - 10.1 [facility] Comment on above: Performed By: #### 2 92540 #### [facility],[address] [place], [place] [address] Chloride [Moles/Vol] 103 mmol/L Normal 98 - 107 [facility] Comment on above: Performed By: #### 2 84561 #### [facility],[address] [place], [place] [address] CO2 [Moles/Vol] 29.5 mmol/L Normal 21.0 - 32.0 [facility] Comment on above: Performed By: #### 2 39539 #### [facility],[address] [place], [place] [address] Creatinine [Mass/Vol] 0.92 mg/dL Normal 0.70 - 1.30 [facility] Comment on above: Performed By: #### 2 54433 #### [facility],[address] [place] [address] 67814 GFR/1.73 sq M.predicted among non-blacks MDRD (S/P/Bld) [Vol rate/Area] mL/min/{1.73_m2} Normal 60 - 999 [facility] Comment on above: Performed By: #### 2 95517 #### [facility],[address] [place], [place] [phone] Result Comment: ACCO RDING TO THE NATIONAL KIDNEY DISEASE EDUCATION PROGRAM(NKDE), A NORMAL eGFR IS A VALUE GREATER THAN OR EQUAL TO 60 ML/MIN/1.73 SQ METERS. CHRONIC KIDNEY DISEASE: <60mL/MIN/1.73 SQ METERS KIDNEY FAILURE: <15mL/MIN/1.73 SQ METERS THIS TEST SHOULD ONLY BE USED FOR PATIENTS 18 YEARS OF AGE AND OLDER. Glucose [Mass/Vol] 103 mg/dL Normal 74 - 106 [facility] Comment on above: Performed By: #### 2 67759 #### [facility],[address] [place] [address] 59478 Potassium [Moles/Vol] 4.3 mmol/L Normal 3.5 - 5.1 [facility] Comment on above: Performed By: #### 2 04263 #### [facility],[address] [place] [address] 43033 Sodium [Moles/Vol] 137 mmol/L Normal 136 - 145 [facility] Comment on above: Performed By: #### 2 42009 #### [facility],[address] [place] [address] 66546 Urea nitrogen [Mass/Vol] 22 mg/dL High 7 - 18 [facility] Comment on above: Performed By: #### 2 72180 #### [facility],[address] [place] [address] 84684 CBC + DIFFon 03-31-2021 Baso # 0.10 x10EE3/UL Normal 0.00 - 0.10 [facility] Comment on above: Performed By: #### 2 10767 #### [facility],[address] [place] [address] 89588 Basophils/100 WBC (Bld) 0.6 % Normal 0.0 - 2.0 [facility] Comment on above: Performed By: #### 2 43849 #### [facility],[address] [place] [address] 42074 CBC + DIFF Normal [facility] Comment on above: Result Comment: CBC- COMPLETE BLOOD COUNT Performed By: #### 2 63036 #### [facility],[address] [place] [address] 49820 EO # 0.20 x10EE3/UL Normal 0.00 - 0.50 [facility] Comment on above: Performed By: #### 2 56122 #### [facility],[address] [place] [address] 96070 Eosinophils/100 WBC (Bld) 2.3 % Normal 0.0 - 7.0 [facility] Comment on above: Performed By: #### 2 91561 #### [facility],[address] [place], [place] [address] Erythrocyte distribution width (RBC) [Ratio] 16.0 % High 12.0 - 15.6 [facility] Comment on above: Performed By: #### 2 21716 #### [facility],[address] [place] [address] Hematocrit (Bld) [Volume fraction] 48.7 % Normal 40.0 - 52.0 [facility] Comment on above: Performed By: #### 2 79231 #### [facility],[address] [place] [address] 69670 Hemoglobin (Bld) [Mass/Vol] 15.8 g/dL Normal 13.0 - 17.5 [facility] Comment on above: Performed By: #### 2 69670 #### [facility],[address] [place] [address] 04934 Lymph # 2.00 x10EE3/UL Normal 0.80 - 2.80 [facility] Comment on above: Performed By: #### 2 22663 #### [facility],[address] [place] [address] 12899 Lymphocytes/100 WBC (Bld) 22.3 % Normal 20.0 - 45.0 [facility] Comment on above: Performed By: #### 2 51789 #### [facility],[address] [place] [address] 38712 MANUAL DIFF N/A Normal [facility] Comment on above: Performed By: #### 2 09487 #### [facility],[address] [place] [address] 67007 MCH (RBC) [Entitic mass] 31 pg Normal 27 - 33 [facility] Comment on above: Performed By: #### 2 49071 #### [facility],[address] [place] [address] 93418 MCHC 33 X10 3 Normal 32 - 36 [facility] Comment on above: Performed By: #### 2 16960 #### [facility],[address] [place] [address] 24793 MCV (RBC) [Entitic vol] 94 fL Normal 81 - 98 [facility] Comment on above: Performed By: #### 2 01223 #### [facility],[address] [place] [address] [place] # 1.10 x10EE3/UL High 0.20 - 1.00 [facility] [facility] Comment on above: Performed By: #### 2 [id number] #### [facility],[address] [place] [address] 92696 MONOS % 11.9 % High 0.0 - 10.0 [facility] Comment on above: Performed By: #### 2 54828 #### [facility],[address] [place] [address] 99582 Morphology Marty (Bld) [Interp] N/A Normal [facility] Comment on above: Result Comment: {CD] Performed By: #### 2 26121 #### [facility],[address] [place] [address] 37606 Neut # 5.60 x10EE3/UL Normal 1.50 - 7.10 [facility] Comment on above: Performed By: #### 2 21710 #### [facility],[address] [place] [address] 70571 Neutrophils/100 WBC (Bld) 62.9 % Normal 46.0 - 76.0 [facility] Comment on above: Performed By: #### 2 59061 #### [facility],[address] [place] [address] 56996 PLATELET 222 x10EE3/UL Normal 150 - 450 [facility] Comment on above: Performed By: #### 2 11872 #### [facility],[address] [place] [address] 39173 Platelet mean volume (Bld) [Entitic vol] 8.6 fL Normal 6.4 - 10.5 [facility] Comment on above: Result Comment: AUTO MATED DIFFERENTIAL Performed By: #### 2 67622 #### [facility],[address] [place] [address] 15853 RBC 5.17 x 10EE6/UL Normal 4.50 - 6.00 [facility] Comment on above: Performed By: #### 2 90870 #### [facility],[address] [place] [address] 48009 WBC 8.8 x 10EE3/UL Normal 4.5 - 10.8 [facility] Comment on above: Performed By: #### 2 79658 #### [facility],[address] [place] [address] LOWER EXTREMITY LT WOon 0 02-23-2021 CT LOWER EXTREMITY LT [place] [address] Patient: STEPHANY SCHAFER Phone#: : 1950 Age: 71 Gender: M Pt. Type: Out Account: [id number] Location: Ordering: FUENTES ZELAYA Exam Date: 02/23/2021/8:01 Family Phys: SHRUTHI LYNN Charge Code: 679484 Physician: [place] Order #: [id number] DLP Dose#: PROCEDURE: CT LOWER EXTREMITY LT [...] MD on 02/23/2021 at 16:48 Approved by: Kendra Alcantara MD on 02/23/2021 at 16:54 Normal [facility] CHEST 2 VIEWSon 02-07-2021 CHEST 2 VIEWS [place] [address] Patient: STEPHANY SCHAFER Phone#: : 1950 Age: 70 Gender: M Pt. Type: Out Account: [id number] Location: Ordering: FUENTES ZELAYA Exam Date: 02/07/2021/10:33 Family Phys: Charge Code: 813208 Physician: [place] Order #: [id number] DLP Dose#: PROCEDURE: X-RAY CHEST 2 VIEWS [...] Alcantara MD on 02/07/2021 at 15:23 Normal [facility] HIP, UNILATERAL W/PELVIS WHE N PERFORMED 2-3 [...] is recommended.Electronically signed by: DILIP RODRIGUEZ MD [facility] Discharge Summaryon 04-19-20 Discharge Summary Send Summary:Dischar ge Summary Providers:Provider Role Provider Name? Referring Bienvenido Walker? Attending Bienvenido Walker? Primary Luna Granger Recipients: Estefanía Granger MD - [phone] [preferred]Discharge:Summary :Admission Date: .17-Apr-2017 05:54:00Discharge Date: [id number] Physician at Discharge: Bienvenido WalkerAdmission Reason: Failure R MAXIMO s/p revision acetabular component of R THAFinal Discharge Diagnoses: Failure of total hip arthroplastyProcedures: Date: 17-Apr-2017 12:55:00Procedure Name: Revision R MAXIMO with explant of acetabular component andconversion to MDM acetabular/femoral head componentCondition at Discharge: SatisfactoryDisposition at Discharge: Home Health Care - NewVital Signs: T P R BP NxC6Laghb 37.6 67 18 103/62 93%Date/Time 04/18 5:01 04/18 9:20 04/18 5:01 04/18 9:20 225:01Range (37.6C - 37.6C ) (60 - 67 ) (17 - 18 ) (94 - 104 )/ (47 - 70 ) (92%- 93% )Highest temp of 37.6 C was recorded at 04/18 0:28Physical Exam:Physical Exam:Constitutional: NADEyes: Anicteric, EOMIENMT: MMMHead/Neck: AtraumaticRespiratory/Thorax : No increased work of breathingCardiovascular: Regular rateMusculoskeletal:Right lower extremity:- Surgical dressing over hip is intact without strikethrough.- Hemovac R hip in place- / EHL/DF/PF.- SILT in Roa/Sa/SP/DP/T distribution.- 2+ DP pulse, < 2 seconds capillary refill, foot warm.Extremities: SCDs/TEDs in place, abduction pillow in placeLymphatic: No LE edemaPsychological: appropriate affectSkin: WWPHospital Course:67 year-old Male who presented with Failure of R MAXIMO (acetabular component).Patient is now s/p Revision R MAXIMO (explant acetabular component, conversion toMDM acetabular/femoral head component) on 04/17/[address] Walker. On theday of surgery, patient was identified in the pre-operative holding area andagreeable to proceed with surgery. Written consent was obtained. Please seeoperative note for further details of this procedure. Patient received 24 hoursof antoinette-operative antibiotics. Patient recovered in the PACU before [...] for 4 weeks.Patient will follow-up with Dr. Walker in 6 weeks for post-operative visit.Discharge Information:and [...] to any dental procedure and colonoscopy. Pleasecall [phone] and request a prescription for antibiotics for previousto these procedures.Please call [phone] Srinivas the [employer] for any pain medication refills. Pleasecall a few days before you run out of your medication.Rehab Services: Occupational Therapy Orders: 2 times/day Physical Therapy Orders: 2 times/dayInfectious Disease: PPD Status: not given MRSA: no VRE: no C. Diff: no Other Resistant Organism: noHome Care Certification: Home Care Agency: Home [facility] Skilled [employer]iplines Ordered: RN/FINGER WAVER, PT, OTHome Care Services: Home Care Skilled Service: assessment, medication, Rehab (PT/OT/SPeval and treat), wound careCare Recommendation: I recommend that INPATIENT care is required at:: Skilled Estimated Stay: Convalescent stay < 30 daysFollow Up Appointments:Follow-Up Appointment 01: Physician/Dept/Service: Dr. Bienvenido Walker - Orthopaedic Joints Reason for Referral: Post-Operative [...] Culture, Body Fluid, includes smear Drawn at [id number]:09:00 Culture, Fungus +smear Drawn at 17-Apr-2017 18:09:00Surgical Pathology Drawn at 17-Apr-2017 00:00:00Radiology Results - Pending: NoneSignature/Cosignature/At testation:Attending Attestation I reviewed the resident/fellow?s documentation anddiscussed the patient with the resident/fellow. I agree with theresident/fellow?s medical decision making as documented in the resident?s note.Electronic Signatures:Oumar Lopez (Resident)) (Signed 18-Apr-2017 22:14) Authored: Send Summary, Summary Content, Ongoing Care,Signature/Cosignature/A ttestationBienvenido Walker) (Signed 19-Apr-2017 08:12) Authored: Summary Content, Ongoing Care, Signature/Cosignature/Attest ation Co-Signer: Send Summary, Summary Content, Ongoing Care,Signature/Cosignature/A ttestationLast Updated: 19-Apr-2017 08:12 by Bienvenido Walker) Normal [facility] CBCon 04-18-2017 Erythrocyte distribution width Auto Ratio (RBC) 13.9 % Normal 11.5 - 14.5 [facility] Comment on above: Performed By: #### B MP ####[facility] [place] [address] Erythrocytes (RBC) 3.02 x10E12/L Low 4.50 - 5.90 [facility] Comment on above: Performed By: #### B MP ####[facility] [place] [address] Hematocrit (HCT) 28.1 % Low 41.0 - 52.0 [facility] Comment on above: Performed By: #### B MP ####[facility] [place] [address] Hemoglobin mass conc (Bld) 9.1 g/dL Low 13.5 - 17.5 [facility] Comment on above: Performed By: #### B MP ####[facility] [place] [address] MCHC mass conc (RBC) 32.4 g/dL Normal 32.0 - 36.0 [facility] Comment on above: Performed By: #### B MP ####[facility] [place] [address] MCV 93 fL Normal 80 - 100 [facility] Comment on above: Performed By: #### B MP ####[facility] [place] [address] Nucleated erythrocytes 0.0 /100 WBC Normal 0.0-0.0 [facility] Comment on above: Performed By: #### B MP ####[facility] [place] [address] Platelets 134 10*3/uL Low 150 - 450 [facility] Comment on above: Performed By: #### B MP ####[facility] [place] [address] WBC (Leukocytes) 9.9 10*3/uL Normal 4.4 - 11.3 [facility] Comment on above: Performed By: #### B MP ####[facility] [place] [address] CBC AND DIFFERENTIALon 04-18 % AUTOMATED IMMATURE GRAN 0.3 % Normal 0.0 - 0.9 [facility] Comment on above: Result Comment: Perc ent differential counts (%) should be interpreted in the context of the absolute cell counts (cells/L). Performed By: #### B MP ####[facility] [place] [address] % NEUTROPHIL 65.6 % Normal 40.0 - 80.0 [facility] Comment on above: Performed By: #### B MP ####[facility] [place] [address] Basophils/100 WBC Auto (Bld) 0.01 x10E9/L Normal 0.00 - 0.10 [facility] Comment on above: Performed By: #### B MP ####[facility] [place] [address] Basophils/100 WBC Auto (Bld) 0.1 % Normal 0.0 - 2.0 [facility] Comment on above: Performed By: #### B MP ####[facility] [place] [address] Eosinophils 0.09 10*3/uL Normal 0.00 - 0.70 [facility] Comment on above: Performed By: #### B MP ####[facility] [place] [address] Eosinophils/100 leukocytes 1.0 % Normal 0.0 - 6.0 [facility] Comment on above: Performed By: #### B MP ####[facility] [place] [address] Erythrocyte distribution width Auto Ratio (RBC) 13.8 % Normal 11.5 - 14.5 [facility] Comment on above: Performed By: #### B MP ####[facility] [place] [address] Erythrocytes (RBC) 2.86 x10E12/L Low 4.50 - 5.90 [facility] Comment on above: Performed By: #### B MP ####[facility] [place] [address] Hematocrit (HCT) 27.0 % Low 41.0 - 52.0 [facility] Comment on above: Performed By: #### B MP ####[facility] [place] [address] Hemoglobin mass conc (Bld) 8.7 g/dL Low 13.5 - 17.5 [facility] Comment on above: Performed By: #### B MP ####[facility] [place] [address] Lymphocytes 2.00 10*3/uL Normal 1.20 - 4.80 [facility] Comment on above: Performed By: #### B MP ####[facility] [place] [address] Lymphocytes/100 leukocytes 22.8 % Normal 13.0 - 44.0 [facility] Comment on above: Performed By: #### B MP ####[facility] [place] [address] MCHC mass conc (RBC) 32.2 g/dL Normal 32.0 - 36.0 [facility] Comment on above: Performed By: #### B MP ####[facility] [place] [address] MCV 94 fL Normal 80 - 100 [facility] Comment on above: Performed By: #### B MP ####[facility] [place] [address] Monocytes 0.90 10*3/uL Normal 0.10 - 1.00 [facility] Comment on above: Performed By: #### B MP ####[facility] [place] [address] Monocytes/100 leukocytes 10.2 % High 2.0 - 10.0 [facility] Comment on above: Performed By: #### B MP ####[facility] [place] [address] Neutrophils 5.76 10*3/uL Normal 1.20 - 7.70 [facility] Comment on above: Performed By: #### B MP ####[facility] [place] [address] Nucleated erythrocytes 0.0 /100 WBC Normal 0.0-0.0 [facility] Comment on above: Performed By: #### B MP ####[facility] [place] [address] Platelets 136 10*3/uL Low 150 - 450 [facility] Comment on above: Performed By: #### B MP ####[facility] [place] [address] WBC (Leukocytes) 8.8 10*3/uL Normal 4.4 - 11.3 [facility] Comment on above: Performed By: #### B MP ####[facility] [place] [address] ABO/RH GROUP TESTon 04-17-20 17 ABO TYPE A Normal [facility] Comment on above: Performed By: #### V ERAB ####[facility] [place] [address] RH TYPE Positive Normal [facility] Comment on above: Performed By: #### V ERAB ####[facility] [place] [address] BASIC METABOLIC PANELon 11-2 Anion gap 9 mmol/L Low 10 - 20 [facility] Comment on above: Performed By: #### B MP ####[facility] [place] [address] Bicarbonate (HCO3) 28 mmol/L Normal 21 - 32 [facility] Comment on above: Performed By: #### B MP ####[facility] [place] [address] Calcium 8.6 mg/dL Normal 8.6 - 10.6 [facility] Comment on above: Performed By: #### B MP ####[facility] [place] [address] Chloride 105 mmol/L Normal 98 - 107 [facility] Comment on above: Performed By: #### B MP ####[facility] [place] [address] Creatinine 0.85 mg/dL Normal 0.50 - 1.30 [facility] Comment on above: Performed By: #### B MP ####[facility] [place] [address] eGFR (non-black) mL/min/{1.73_m2} Normal >60 [facility] Comment on above: Performed By: #### B MP ####[facility] [place] [address] Result Comment: CALC ULATIONS OF ESTIMATED GFR ARE PERFORMED USING THE MDRD STUDY EQUATION FOR THE IDMS-TRACEABLE CREATININE METHODS. CLIN CHEM 2007;53:766-72 Glucose mass conc 131 mg/dL High 74 - 99 [facility] Comment on above: Performed By: #### B MP ####[facility] [place] [address] Potassium molar conc 4.1 mmol/L Normal 3.5 - 5.3 [facility] Comment on above: Performed By: #### B MP ####[facility] [place] [address] Sodium 138 mmol/L Normal 136 - 145 [facility] Comment on above: Performed By: #### B MP ####[facility] [place] [address] Urea nitrogen 20 mg/dL Normal 6 - 23 [facility] Comment on above: Performed By: #### B MP ####[facility] [place] [address] BN HIP DURING OPERATIVE PROC EDUREon 04-17-2017 BN HIP DURING OPERATIVE PROCEDURE Name: STEPHANY SCHAFER STUDY:BN HIP DURING OPERATIVE PROCEDURE; PELVIS; 1 OR 2 VIEWS; 04/17/201711:57 am; 04/17/2017 1:25 pm INDICATION:Signs/Symptoms: Intraoperative, Revison R MAXIMO. COMPARISON:04/05/2017 [id number] ORDERING CLINICIAN:OUMAR LOPEZ TECHNIQUE:2 images of the pelvis FINDINGS:There is perioperative changes from revision right total hiparthroplasty including soft tissue swelling and emphysema about theright hip. There is left total hip arthroplasty. No acute fracture orhardware complication allowing for limitation of a single view IMPRESSION:Perioperative changes revision right total hip arthroplasty Electronically signed by: VIK ANTONIO MD Normal [facility] CALCIUM, IONIZEDon 7 CALCIUM,IONIZED 1.23 mmol/L Normal 1.10 - 1.33 [facility] Comment on above: Result Comment: The performance characteristics of ionized calcium tested in heparinized plasma or serum have been validated by the individual laboratory site where testing is performed. Testing on heparinized plasma or serum is not approved by the FDA; however, such approval is not necessary. Performed By: #### I ONC1 ####[facility] [place] [address] CBCon 04-17-2017 Erythrocyte distribution width Auto Ratio (RBC) Canceled Normal [facility] Comment on above: Order Comment: TEST CBC WAS CANCELLED, 04/17/2017 19:02 QNS, PLEASE RESUBMIT.. Performed By: #### B MP ####[facility] [place] [address] Erythrocytes (RBC) Canceled Normal [facility] Comment on above: Order Comment: TEST CBC WAS CANCELLED, 04/17/2017 19:02 QNS, PLEASE RESUBMIT.. Performed By: #### B MP ####[facility] [place] [address] Hematocrit (HCT) Canceled Normal [facility] Comment on above: Order Comment: TEST CBC WAS CANCELLED, 04/17/2017 19:02 QNS, PLEASE RESUBMIT.. Performed By: #### B MP ####[facility] [place] [address] Hemoglobin mass conc (Bld) Canceled Normal [facility] Comment on above: Order Comment: TEST CBC WAS CANCELLED, 04/17/2017 19:02 QNS, PLEASE RESUBMIT.. Performed By: #### B MP ####[facility] [place] [address] MCHC mass conc (RBC) Canceled Normal [facility] Comment on above: Order Comment: TEST CBC WAS CANCELLED, 04/17/2017 19:02 QNS, PLEASE RESUBMIT.. Performed By: #### B MP ####[facility] [place] [address] MCV Canceled Normal [facility] Comment on above: Order Comment: TEST CBC WAS CANCELLED, 04/17/2017 19:02 QNS, PLEASE RESUBMIT.. Performed By: #### B MP ####[facility] [place] [address] Nucleated erythrocytes Canceled Normal [facility] Comment on above: Order Comment: TEST CBC WAS CANCELLED, 04/17/2017 19:02 QNS, PLEASE RESUBMIT.. Performed By: #### B MP ####[facility] [place] [address] Platelets Canceled Normal [facility] Comment on above: Order Comment: TEST CBC WAS CANCELLED, 04/17/2017 19:02 QNS, PLEASE RESUBMIT.. Performed By: #### B MP ####[facility] [place] [address] WBC (Leukocytes) Canceled Normal [facility] Comment on above: Order Comment: TEST CBC WAS CANCELLED, 04/17/2017 19:02 QNS, PLEASE RESUBMIT.. Performed By: #### B MP ####[facility] [place] [address] CBC AND DIFFERENTIALon 11-21 -2017 % AUTOMATED IMMATURE GRAN 0.4 % Normal 0.0 - 0.9 [facility] Comment on above: Result Comment: Perc ent differential counts (%) should be interpreted in the context of the absolute cell counts (cells/L). Performed By: #### B MP ####[facility] [place] [address] % NEUTROPHIL 65.2 % Normal 40.0 - 80.0 [facility] Comment on above: Performed By: #### B MP ####[facility] [place] [address] Basophils/100 WBC Auto (Bld) 0.4 % Normal 0.0 - 2.0 [facility] Comment on above: Performed By: #### B MP ####[facility] [place] [address] Basophils/100 WBC Auto (Bld) 0.03 x10E9/L Normal 0.00 - 0.10 [facility] Comment on above: Performed By: #### B MP ####[facility] [place] [address] Eosinophils 0.11 10*3/uL Normal 0.00 - 0.70 [facility] Comment on above: Performed By: #### B MP ####[facility] [place] [address] Eosinophils/100 leukocytes 1.5 % Normal 0.0 - 6.0 [facility] Comment on above: Performed By: #### B MP ####[facility] [place] [address] Erythrocyte distribution width Auto Ratio (RBC) 13.6 % Normal 11.5 - 14.5 [facility] Comment on above: Performed By: #### B MP ####[facility] [place] [address] Erythrocytes (RBC) 3.55 x10E12/L Low 4.50 - 5.90 [facility] Comment on above: Performed By: #### B MP ####[facility] [place] [address] Hematocrit (HCT) 31.8 % Low 41.0 - 52.0 [facility] Comment on above: Performed By: #### B MP ####[facility] [place] [address] Hemoglobin mass conc (Bld) 10.8 g/dL Low 13.5 - 17.5 [facility] Comment on above: Performed By: #### B MP ####[facility] [place] [address] Lymphocytes 1.69 10*3/uL Normal 1.20 - 4.80 [facility] Comment on above: Performed By: #### B MP ####[facility] [place] [address] Lymphocytes/100 leukocytes 23.2 % Normal 13.0 - 44.0 [facility] Comment on above: Performed By: #### B MP ####[facility] [place] [address] MCHC mass conc (RBC) 34.0 g/dL Normal 32.0 - 36.0 [facility] Comment on above: Performed By: #### B MP ####[facility] [place] [address] MCV 90 fL Normal 80 - 100 [facility] Comment on above: Performed By: #### B MP ####[facility] [place] [address] Monocytes 0.68 10*3/uL Normal 0.10 - 1.00 [facility] Comment on above: Performed By: #### B MP ####[facility] [place] [address] Monocytes/100 leukocytes 9.3 % Normal 2.0 - 10.0 [facility] Comment on above: Performed By: #### B MP ####[facility] [place] [address] Neutrophils 4.76 10*3/uL Normal 1.20 - 7.70 [facility] Comment on above: Performed By: #### B MP ####[facility] [place] [address] Nucleated erythrocytes 0.0 /100 WBC Normal 0.0-0.0 [facility] Comment on above: Performed By: #### B MP ####[facility] [place] [address] Platelets 148 10*3/uL Low 150 - 450 [facility] Comment on above: Performed By: #### B MP ####[facility] [place] [address] WBC (Leukocytes) 7.3 10*3/uL Normal 4.4 - 11.3 [facility] Comment on above: Performed By: #### B MP ####[facility] [place] [address] FLUID CULTURE/SM.,BACTERIALo n 04-17-2017 FLUID CULTURE/SM.,BACTERIA L PATIENT: STEPHANY SCHAFER LOCATION: [address]#: [id number] : 50 AGE: SEX: M ORDERED BY: ELIZABETH WALKER: FLUID COLLECTED: 04/17/17 18:09ANTIBIOTICS AT ISHMAEL.: RECEIVED : 04/17/17 18:09SITE: SYNOVIAL R E S U L T S GRAM STAIN FINAL 04/17/17 20:01 1+ GRANULOCYTES. NO ORGANISMS SEEN. FLUID CULTURE/SM.,BACTERIAL FINAL 04/20/17 09:14 NO GROWTH AEROBICALLY OR ANAEROBICALLY. Normal [facility] Comment on above: Performed By: #### C OAGS ####[facility] [place] [address] FUNGAL CULTURE/SM, MISCon FUNGAL CULTURE/SM, MISC PATIENT: STEPHANY SCHAFER LOCATION: [place] [id number]#: [id number] : 50 AGE: SEX: M ORDERED BY: ELIZABETH WALKER: FLUID COLLECTED: 04/17/17 18:09ANTIBIOTICS AT ISHMAEL.: RECEIVED : 04/17/17 18:09SITE: SYNOVIAL R E S U L T S FUNGAL SMEAR FINAL 04/18/17 09:39 FLUORESCENT FUNGAL STAIN: NEGATIVE FUNGAL CULTURE/, MISC FINAL 05/07/17 11:03 NO FUNGI ISOLATED. Normal [facility] Comment on above: Performed By: #### C OAGS ####[facility] [place] [address] PELVIS; 1 OR 2 VIEWSon 04-17 PELVIS; 1 OR 2 VIEWS t Name: STEPHANY SCHAFER STUDY:BN HIP DURING OPERATIVE PROCEDURE; PELVIS; 1 OR 2 VIEWS; 04/17/201711:57 am; 04/17/2017 1:25 pm INDICATION:Signs/Symptoms: Intraoperative, Revison R MAXIMO. COMPARISON:04/05/2017 [id number] ORDERING CLINICIAN:OUMAR LOPEZ TECHNIQUE:2 images of the pelvis FINDINGS:There is perioperative changes from revision right total hiparthroplasty including soft tissue swelling and emphysema about theright hip. There is left total hip arthroplasty. No acute fracture orhardware complication allowing for limitation of a single view IMPRESSION:Perioperative changes revision right total hip arthroplasty Electronically signed by: VIK ANTONIO MD Normal [facility] Surgical Pathology Depar tmenton 04-17-2017 [facility] Surgical Pathology Department Name STEPHANY SCHAFER Pathologist: JON KAHN MD, PhDDate of Procedure: 04/17/2017Date Received: 04/17/2017Date Reported 05/12/2017Submitting Physician: BIENVENIOD WALKERLocation: [facility] Other External # FINAL DIAGNOSISA. SYNOVIUM: --CHRONIC PROLIFERATIVE SYNOVITIS AND DENSE FIBROSIS.B. RIGHT HIP EXPLANTS: --FEMORAL AND ACETABULAR COMPONENTS OF A HIP PROSTHESIS, CLINICALLY FROM [facility].JMA/ttc Electronically Signed Out By JON KAHN MD, PhD/Zeyad the signature on this report, the individual or group listed as making theFinal Interpretation/Diagnosis certifies that they have reviewed this case. Intraoperative Consultation:A: SYNOVIUMFrozen Section 1:Date Ordered: 04/17/2017 10:26 Date Received: 04/17/2017 10:26 DateCalled: 04/17/2017 10:46Intraoperative Diagnosis:No acute inflammationIntraoperative Consult Pathologist(s):JELLY MURILLO DO (P)bxg/04/17/2017 Clinical History:Failed (R) THASpecimens [...] metal head with inscription 32mm12/14 3.5 C [id number] measures 3.1 cm in outer diameter by 1.4 cm in innerdiameter. Soft tissue is not present. A photograph has been taken. Thespecimen is for Gross only. ALT[NOTE: For medical / legal hip porsthesis ([id number] wear), describe wearon femoral neck and lip of acetabular cup. Submit 5 cassettes includingsub-synovium, if possible. Photographs clearly showing the identificationnumbers must be taken.]bxg/04/17/2017 Normal [facility] Comment on above: Performed By: #### C OAGS ####[facility] [place] [address] VENOUS BLOOD GASon 7 BASE EXCESS-BLOOD -0.2 mmol/L Normal -2.0 - 3.0 [facility] Comment on above: Performed By: #### B LGV1 ####[facility] [place] [address] Body temperature 37.0 degrees C Normal [facility] Comment on above: Result Comment: NOTE : PATIENT RESULTS ARE NOT CORRECTED FOR TEMPERATURE. Performed By: #### B LGV1 ####[facility] [place] [address] CO2 47 mmHg Normal 41 - 51 [facility] Comment on above: Performed By: #### B LGV1 ####[facility] [place] [address] Erythrocytes (RBC) 25.9 mmol/L Normal 22.0 - 26.0 [facility] Comment on above: Performed By: #### B LGV1 ####[facility] [place] [address] Performed By: #### B MP ####[facility] [place] [address] Oxygen in arterial blood 50 mm[Hg] High 35 - 45 [facility] Comment on above: Performed By: #### B LGV1 ####[facility] [place] [address] pH of blood 7.35 [pH] Normal 7.33 - 7.43 [facility] Comment on above: Performed By: #### B LGV1 ####[facility] [place] [address] SO2 89 % High 45 - 75 [facility] Comment on above: Performed By: #### B LGV1 ####[facility] [place] [address] VENOUS ELECTROLYTE,GLUCOSE P ANELon 04-17-2017 Anion gap 7 mmol/L Low 10 - 25 [facility] Comment on above: Performed By: #### B MP ####[facility] [place] [address] Chloride 107 mmol/L Normal 98 - 107 [facility] Comment on above: Performed By: #### B MP ####[facility] [place] [address] Glucose mass conc 124 mg/dL High 74 - 99 [facility] Comment on above: Performed By: #### B MP ####[facility] [place] [address] Potassium molar conc 4.5 mmol/L Normal 3.5 - 5.3 [facility] Comment on above: Performed By: #### B MP ####[facility] [place] [address] Sodium 135 mmol/L Low 136 - 145 [facility] Comment on above: Performed By: #### B MP ####[facility] [id number] VENOUS H+Hon 04-17-2017 Hematocrit (HCT) 36.0 % Low 41.0 - 52.0 [facility] Comment on above: Performed By: #### H HNV1 ####[place] [id number] [place] [address] Hemoglobin mass conc (Bld) 12.2 g/dL Low 13.5 - 17.5 [facility] Comment on above: Performed By: #### H HNV1 ####[place] [id number] [place] [address] VIRAL CULTUREon 04-17-2017 VIRAL CULTURE TEST VIRAL [...] family viruses in CSF.PATIENT: STEPHANY SCHAFER LOCATION: [place] K97GDFC#: [id number] : 50 AGE: SEX: M ORDERED BY: ELIZABETH WALKER: FLUID COLLECTED: 04/17/17 18:09ANTIBIOTICS AT ISHMAEL.: RECEIVED : 04/17/17 18:10SITE: SYNOVIAL R E S U L T S VIRAL CULTURE CANCELLED 04/18/17 06:28 Normal [facility] Comment on above: Performed By: #### B MP ####[place] [id number] [place] [address] BASIC METABOLIC PANELon 11-0 Anion gap 12 mmol/L Normal 10 - 20 [facility] Comment on above: Performed By: #### B MP ####[facility] [place] [address] Bicarbonate (HCO3) 27 mmol/L Normal 21 - 32 [facility] Comment on above: Performed By: #### B MP ####[facility] [place] [address] Calcium 9.9 mg/dL Normal 8.6 - 10.6 [facility] Comment on above: Performed By: #### B MP ####[facility] [place] [address] Chloride 104 mmol/L Normal 98 - 107 [facility] Comment on above: Performed By: #### B MP ####[facility] [place] [address] Creatinine 0.91 mg/dL Normal 0.50 - 1.30 [facility] Comment on above: Performed By: #### B MP ####[facility] [place] [address] eGFR (non-black) mL/min/{1.73_m2} Normal >60 [facility] Comment on above: Performed By: #### B MP ####[facility] [place] [address] Result Comment: CALC ULATIONS OF ESTIMATED GFR ARE PERFORMED USING THE MDRD STUDY EQUATION FOR THE IDMS-TRACEABLE CREATININE METHODS. CLIN CHEM 2007;53:766-72 Glucose mass conc 75 mg/dL Normal 74 - 99 [facility] Comment on above: Performed By: #### B MP ####[facility] [place] [address] Potassium molar conc 4.4 mmol/L Normal 3.5 - 5.3 [facility] Comment on above: Performed By: #### B MP ####[facility] [place] [address] Sodium 139 mmol/L Normal 136 - 145 [facility] Comment on above: Performed By: #### B MP ####[facility] [place] [address] Urea nitrogen 20 mg/dL Normal 6 - 23 [facility] Comment on above: Performed By: #### B MP ####[facility] [place] [address] CBC AND DIFFERENTIALon 04-05 % AUTOMATED IMMATURE GRAN 0.2 % Normal 0.0 - 0.9 [facility] Comment on above: Result Comment: Perc ent differential counts (%) should be interpreted in the context of the absolute cell counts (cells/L). Performed By: #### C BCDF ####[facility] [place] [address] % NEUTROPHIL 50.5 % Normal 40.0 - 80.0 [facility] Comment on above: Performed By: #### C BCDF ####[facility] [place] [address] Basophils/100 WBC Auto (Bld) 0.06 x10E9/L Normal 0.00 - 0.10 [facility] Comment on above: Performed By: #### C BCDF ####[facility] [place] [address] Basophils/100 WBC Auto (Bld) 0.9 % Normal 0.0 - 2.0 [facility] Comment on above: Performed By: #### C BCDF ####[facility] [place] [address] Eosinophils 0.11 10*3/uL Normal 0.00 - 0.70 [facility] Comment on above: Performed By: #### C BCDF ####[facility] [place] [address] Eosinophils/100 leukocytes 1.7 % Normal 0.0 - 6.0 [facility] Comment on above: Performed By: #### C BCDF ####[facility] [place] [address] Erythrocyte distribution width Auto Ratio (RBC) 13.9 % Normal 11.5 - 14.5 [facility] Comment on above: Performed By: #### C BCDF ####[facility] [place] [address] Erythrocytes (RBC) 4.64 x10E12/L Normal 4.50 - 5.90 [facility] Comment on above: Performed By: #### C BCDF ####[facility] [place] [address] Hematocrit (HCT) 42.6 % Normal 41.0 - 52.0 [facility] Comment on above: Performed By: #### C BCDF ####[facility] [place] [address] Hemoglobin mass conc (Bld) 13.7 g/dL Normal 13.5 - 17.5 [facility] Comment on above: Performed By: #### C BCDF ####[facility] [place] [address] Lymphocytes 2.24 10*3/uL Normal 1.20 - 4.80 [facility] Comment on above: Performed By: #### C BCDF ####[facility] [place] [address] Lymphocytes/100 leukocytes 34.3 % Normal 13.0 - 44.0 [facility] Comment on above: Performed By: #### C BCDF ####[facility] [place] [address] MCHC mass conc (RBC) 32.2 g/dL Normal 32.0 - 36.0 [facility] Comment on above: Performed By: #### C BCDF ####[facility] [place] [address] MCV 92 fL Normal 80 - 100 [facility] Comment on above: Performed By: #### C BCDF ####[facility] [place] [address] Monocytes 0.81 10*3/uL Normal 0.10 - 1.00 [facility] Comment on above: Performed By: #### C BCDF ####[facility] [place] [address] Monocytes/100 leukocytes 12.4 % High 2.0 - 10.0 [facility] Comment on above: Performed By: #### C BCDF ####[facility] [place] [address] Neutrophils 3.31 10*3/uL Normal 1.20 - 7.70 [facility] Comment on above: Performed By: #### C BCDF ####[facility] [place] [address] Nucleated erythrocytes 0.0 /100 WBC Normal 0.0-0.0 [facility] Comment on above: Performed By: #### C BCDF ####[facility] [place] [address] Platelets 197 10*3/uL Normal 150 - 450 [facility] Comment on above: Performed By: #### C BCDF ####[facility] [place] [address] WBC (Leukocytes) 6.5 10*3/uL Normal 4.4 - 11.3 [facility] Comment on above: Performed By: #### C BCDF ####[facility] [place] [address] COAGULATION SCREENon 017 aPTT 28 s Normal 25 - 36 [facility] Comment on above: Result Comment: THE APTT IS NO LONGER USED FOR MONITORING UNFRACTIONATED HEPARIN THERAPY. FOR MONITORING HEPARIN THERAPY, USE THE HEPARIN ASSAY. Performed By: #### C OAGS ####[facility] [place] [address] INR Coag RelTime (PPP) 0.9 {INR} Normal 0.9 - 1.1 [facility] Comment on above: Performed By: #### C OAGS ####[facility] [place] [address] Prothrombin time (PT) Coag time (PPP) 10.4 s Normal 9.8 - 12.7 [facility] Comment on above: Performed By: #### C OAGS ####[facility] [address] HIP, UNILATERAL W/PELVIS WHE N PERFORMED: 2-3 VIEWSon 04-05-2017 HIP, UNILATERAL W/PELVIS WHEN PERFORMED: 2-3 VIEWS Name: STEPHANY SCHAFER STUDY:HIP, UNILATERAL W/PELVIS WHEN PERFORMED: 2-3 VIEWS; 04/05/2017 3:41 pm INDICATION:Signs/Symptoms: T84.018A. COMPARISON:02/22/2017 and 07/28/2016 ORDERING CLINICIAN:BIENVENIDO WALKER TECHNIQUE:One view AP of the pelvis. Two [...] findingsas stated. This study was interpreted at [facility], [place], [place].Electronically signed by: VIK ANTONIO MD Normal [facility] STAPH/MRSA SCREENon 04-05-20 17 STAPH/MRSA SCREEN PATIENT: LETICIA SCHAFER LOCATION: [place]#: [id number] : 50 AGE: SEX: M ORDERED BY: ELIZABETH WALKER: ANTERIOR NARES COLLECTED: 04/05/17 15:27ANTIBIOTICS AT ISHMAEL.: RECEIVED : 04/05/17 21:39SITE: Nasal R E S U L T S STAPH/MRSA SCREEN FINAL 04/07/17 10:09 NO Staphylococcus aureus ISOLATED. Normal [facility] Comment on above: Performed By: #### S TAPH ####[facility] [place] [address] TYPE + SCREENon 04-05-2017 ABO TYPE A Normal [facility] Comment on above: Performed By: #### T +S ####[facility] [place] [address] ANTIBODY SCREEN Negative Normal [facility] Comment on above: Performed By: #### T +S ####[facility] [place] [address] RH TYPE Positive Normal [facility] Comment on above: Performed By: #### T +S ####[facility] [place] [address] HIP, UNILATERAL W/PELVIS WHE N PERFORMED 2-3 VIEWSon 02-22-2017 HIP, UNILATERAL W/PELVIS WHEN PERFORMED 2-3 VIEWS Name: STEPHANY SCHAFER STUDY:Pelvis and right hip dated02/22/2017. INDICATION:Pain. COMPARISON:Radiographs dated 07/28/2016. ORDERING CLINICIAN:BIENVENIDO WALKER TECHNIQUE:AP pelvis and AP and crosstable lateral [...] appearance to right hip arthroplasty with findings discussedabove.Electronicall y signed by: DILIP RODRIGUEZ MD Normal [facility] Vital Signs Date Time Vital Sign Value Performing Clinician Purvi tariq 08-25-2024 08:24-0400 Body height 175.[address] Shruthi Lynn MD Work Phone: [facility] 08-25-2024 08:24-0400 Body mass index (BMI) [Ratio] 26.9 kg/m2 Dr. Shruthi Lynn MD Work Phone: [facility] 08-25-2024 08:24-0400 Body temperature 98.4 [degF] Dr. Shruthi Lynn MD Work Phone: [facility] 08-25-2024 08:24-0400 Body weight 82.[address] Shruthi Lynn MD Work Phone: [facility] 08-25-2024 08:24-0400 Diastolic blood pressure 69 mm[Hg] Dr. Shruthi Lynn MD Work Phone: [facility] 08-25-2024 08:24-0400 Heart rate 64 /min Dr. Shruthi Lynn MD Work Phone: [facility] 08-25-2024 08:24-0400 Respiratory rate 16 /min Dr. Shruthi Lynn MD Work Phone: [facility] 08-25-2024 08:24-0400 SaO2% (BldA) [Mass fraction] 96 % Dr. Shruthi Lynn MD Work Phone: [facility] 08-25-2024 08:24-0400 Systolic blood pressure 135 mm[Hg] Dr. Shruthi Lynn MD Work Phone: [facility] 08-02-2023 09:31-0500 Body height 175.[address] Shruthi Lynn Work Phone: [facility] 08-02-2023 09:31-0500 Body mass index (BMI) [Ratio] 28.5 kg/m2 Dr. Shruthi Lynn Work Phone: [facility] 08-02-2023 09:31-0500 Body temperature 98.5 [degF] Dr. Shruthi Lynn Work Phone: [facility] 08-02-2023 09:31-0500 Body weight 87.[address] Shruthi Lynn Work Phone: [facility] 08-02-2023 09:31-0500 Diastolic blood pressure 81 mm[Hg] Dr. Shruthi Lynn Work Phone: [facility] 08-02-2023 09:31-0500 Heart rate 68 /min Dr. Shruthi Lynn Work Phone: [facility] 08-02-2023 09:31-0500 Respiratory rate 16 /min Dr. Shruthi Lynn Work Phone: [facility] 08-02-2023 09:31-0500 SaO2% (BldA) [Mass fraction] 93 % Dr. Shruthi Lynn Work Phone: [facility] 08-02-2023 09:31-0500 Systolic blood pressure 150 mm[Hg] Dr. Shruthi Lynn Work Phone: [facility] 06-12-2023 08:12-0500 Body mass index (BMI) [Ratio] 27.1 kg/m2 Dr. Shruthi Lynn Work Phone: [facility] 06-12-2023 08:12-0500 Body temperature 96.1 [degF] Dr. Shruthi Lynn Work Phone: [facility] 06-12-2023 08:12-0500 Body weight 83.[address] Shruthi Lynn Work Phone: [facility] 06-12-2023 08:12-0500 Diastolic blood pressure 90 mm[Hg] Dr. Shruthi Lynn Work Phone: [facility] 06-12-2023 08:12-0500 Heart rate 78 /min Dr. Shruthi Lynn Work Phone: [facility] 06-12-2023 08:12-0500 Respiratory rate 18 /min Dr. Shruthi Lynn Work Phone: [facility] 06-12-2023 08:12-0500 SaO2% (BldA) [Mass fraction] 96 % Dr. Shruthi Lynn Work Phone: [facility] 06-12-2023 08:12-0500 Systolic blood pressure 153 mm[Hg] Dr. Shruthi Lynn Work Phone: [facility] 04-26-2023 10:16-0500 Body mass index (BMI) [Ratio] 28.2 kg/m2 Dr. Shruthi Lynn Work Phone: [facility] 04-26-2023 10:16-0500 Body weight 86.[address] Shruthi Lynn Work Phone: [facility] 04-26-2023 10:16-0500 Diastolic blood pressure 91 mm[Hg] Dr. Shruthi Lynn Work Phone: [facility] 04-26-2023 10:16-0500 Heart rate 72 /min Dr. Shruthi Lynn Work Phone: [facility] 04-26-2023 10:16-0500 Respiratory rate 16 /min Dr. Shruthi Lynn Work Phone: [facility] 04-26-2023 10:16-0500 Systolic blood pressure 155 mm[Hg] Dr. Shruthi Lynn Work Phone: [facility] 02-01-2023 09:41-0400 Body height 175.[address] Shruthi Lynn Work Phone: [facility] 02-01-2023 09:40-0400 Body mass index (BMI) [Ratio] 28.3 kg/m2 Dr. Shruthi Lynn Work Phone: [facility] 02-01-2023 09:40-0400 Body temperature 96.8 [degF] Dr. Shruthi Lynn Work Phone: [facility] 02-01-2023 09:40-0400 Body weight 87.[address] Shruthi Lynn Work Phone: [facility] 02-01-2023 09:40-0400 Diastolic blood pressure 86 mm[Hg] Dr. Shruthi Lynn Work Phone: [facility] 02-01-2023 09:40-0400 Heart rate 84 /min Dr. Shruthi Lynn Work Phone: [facility] 02-01-2023 09:40-0400 Respiratory rate 16 /min Dr. Shruthi Lynn Work Phone: [facility] 02-01-2023 09:40-0400 SaO2% (BldA) [Mass fraction] 95 % Dr. Shruthi Lynn Work Phone: [facility] 02-01-2023 09:40-0400 Systolic blood pressure 130 mm[Hg] Dr. Shruthi Lynn Work Phone: [facility] 11-25-2022 10:21-0400 Body mass index (BMI) [Ratio] 28.7 kg/m2 Dr. Shruthi Lynn Work Phone: [facility] 11-25-2022 10:21-0400 Body temperature 98.2 [degF] Dr. Shruthi Lynn Work Phone: [facility] 11-25-2022 10:21-0400 Body weight 88.[address] Shruthi Lynn Work Phone: [facility] 11-25-2022 10:21-0400 Diastolic blood pressure 80 mm[Hg] Dr. Shruthi Lynn Work Phone: [facility] 11-25-2022 10:21-0400 Heart rate 52 /min Dr. Shruthi Lynn Work Phone: [facility] 11-25-2022 10:21-0400 Respiratory rate 16 /min Dr. Shruthi Lynn Work Phone: [facility] 11-25-2022 10:21-0400 SaO2% (BldA) [Mass fraction] 97 % Dr. Shruthi Lynn Work Phone: [facility] 11-25-2022 10:21-0400 Systolic blood pressure 130 mm[Hg] Dr. Shruthi Lynn Work Phone: [facility] 03-24-2022 15:48-0400 Body temperature 98.3 [degF] [facility] Work Phone: 03-24-2022 15:48-0400 Diastolic blood pressure 90 mm[Hg] [facility] Work Phone: 03-24-2022 15:48-0400 Heart rate 85 /min [facility] [place] Work Phone: 03-24-2022 15:48-0400 Respiratory rate 18 /min [facility] Work Phone: 03-24-2022 15:48-0400 SaO2% (BldA) [Mass fraction] 96 % [facility] Work Phone: 03-24-2022 15:48-0400 Systolic blood pressure 140 mm[Hg] [facility] Work Phone: 03-24-2022 15:46-0400 Body height 175.26 cm [facility] [place] Work Phone: 03-24-2022 15:46-0400 Body mass index (BMI) [Ratio] 27.3 kg/m2 [facility] Work Phone: 03-24-2022 15:46-0400 Body weight 84.09 kg [facility] [place] Work Phone: 09-19-2021 08:53-0400 Body height 176.[address] Shruthi Lynn Work Phone: [facility] Work Phone: 09-19-2021 08:53-0400 Body mass index (BMI) [Ratio] 26.2 kg/m2 Dr. Shruthi Lynn Work Phone: [facility] Work Phone: 09-19-2021 08:53-0400 Body temperature 97.6 [degF] Dr. Shruthi Lynn Work Phone: [facility] Work Phone: 09-19-2021 08:53-0400 Body weight 81.[address] Shruthi Lynn Work Phone: [facility] Work Phone: 09-19-2021 08:53-0400 Diastolic blood pressure 100 mm[Hg] Dr. Shruthi Lynn Work Phone: [facility] Work Phone: 09-19-2021 08:53-0400 Heart rate 52 /min Dr. Shruthi Lynn Work Phone: [facility] Work Phone: 09-19-2021 08:53-0400 Respiratory rate 16 /min Dr. Shruthi Lynn Work Phone: [facility] Work Phone: 09-19-2021 08:53-0400 SaO2% (BldA) [Mass fraction] 96 % Dr. Shruthi Lynn Work Phone: [facility] Work Phone: 09-19-2021 08:53-0400 Systolic blood pressure 148 mm[Hg] Dr. Shruthi Lynn Work Phone: [facility] Work Phone: 08-02-2021 09:50-0500 Body mass index (BMI) [Ratio] 26.6 kg/m2 Dr. Shruthi Lynn Work Phone: [facility] Work Phone: 08-02-2021 09:50-0500 Body temperature 98.4 [degF] Dr. Shruthi Lynn Work Phone: [facility] Work Phone: 08-02-2021 09:50-0500 Body weight [address] Shruthi Lynn Work Phone: [facility] Work Phone: 08-02-2021 09:50-0500 Diastolic blood pressure 77 mm[Hg] Dr. Shruthi Lynn Work Phone: [facility] Work Phone: 08-02-2021 09:50-0500 Heart rate 74 /min Dr. Shruthi Lynn Work Phone: [facility] Work Phone: 08-02-2021 09:50-0500 Respiratory rate 16 /min Dr. Shruthi Lynn Work Phone: [facility] Work Phone: 08-02-2021 09:50-0500 SaO2% (BldA) [Mass fraction] 94 % Dr. Shruthi Lynn Work Phone: [facility] Work Phone: 08-02-2021 09:50-0500 Systolic blood pressure 118 mm[Hg] Dr. Shruthi Lynn Work Phone: [facility] Work Phone: Encounters Encounter Date Encounter Type Care Provider Facility Start: 11-07-2024 End: 11-07-[address] Shruthi Lynn MD Work Phone: [facility] Work Phone: Start: 11-07-2024 End: 11-07-[address] Colton Reed MD -[facility] Work Phone: Start: 11-07-2024 End: 11-07-2024 ambulatory Shruthi Lynn Facility:[facility] Start: 08-25-2024 End: 08-25-[address] Shruthi Lynn MD -[facility] Work Phone: Start: 08-25-2024 End: 08-25-2024 ambulatory Shruthi Lynn Facility[facility] Start: 07-08-2024 End: 07-08-2024 ambulatory Mindy Feliciano Facility:[facility] Start: 06-25-2024 End: 06-25-2024 ambulatory Mindy Feliciano Facility:[facility] Start: 06-16-2024 ambulatory Mindy Feliciano Facili ty:[facility] Start: 06-11-2024 End: 06-11-2024 ambulatory Shruthi Lynn Facility:[facility] Start: 06-10-2024 End: 06-10-2024 ambulatory Mindy Castano Braden Facility:[facility] Start: 05-27-2024 End: 05-27-2024 ambulatory Mindy Feliciano Facility:[facility] Start: 05-09-2024 End: 05-09-2024 ambulatory Shruthi Lynn Facility:[facility] Start: 05-05-2024 End: 05-05-2024 ambulatory Shruthi Lnyn Facility:[facility] Start: 05-05-2024 End: 05-05-2024 ambulatory Shruthi Lynn Facility:[facility] Start: 04-22-2024 End: 04-22-2024 ambulatory Shruthi Lynn Facility:[facility] Start: 04-15-2024 End: 04-15-2024 ambulatory Shruthi Lynn Facility:[facility] Start: 04-10-2024 End: 04-10-2024 ambulatory Shruthi Lynn Facility:[facility] Start: 03-25-2024 ambulatory Shruthi Lynn Facility :[facility] Start: 03-25-2024 End: 03-25-2024 ambulatory Shruthi Lynn Facility:[facility] Start: 03-05-2024 End: 03-05-2024 ambulatory Shruthi Lynn Facility:[facility] Start: 02-25-2024 End: 02-25-2024 ambulatory Shruthi Lynn Facility:[facility] Start: 01-16-2024 End: 01-16-2024 ambulatory Shruthi Lynn Facility:[facility] Start: 11-19-2023 End: 11-19-2023 ambulatory Shruthi Lynn Facility:[facility] Start: 08-07-2023 End: 08-07-[address] Shruthi Lynn Work Phone: [facility] Work Phone: Start: 08-07-2023 End: 08-07-[address] Shruthi Lynn Work Phone: [facility] Work Phone: Start: 08-03-2023 End: 08-03-[address] Shruthi Lynn Work Phone: [facility] Work Phone: Start: 08-03-2023 End: 08-03-[address] Shruthi Lynn Work Phone: [facility] Work Phone: Start: 08-02-2023 End: 08-02-[address] Shruthi Lynn Work Phone: [facility] Work Phone: Start: 06-12-2023 End: 06-12-[address] [facility] Work Phone: Start: 04-26-2023 End: 04-26-[address] Shruthi Lynn Work Phone: [facility] Work Phone: Start: 02-06-2023 Non-patient / Non-visit Dr. Shruthi Lynn Work Phone: [facility] Start: 02-06-2023 End: 02-06-[address] Shruthi Lynn Work Phone: [facility] Work Phone: Start: 02-06-2023 End: 02-06-[address] Shruthi Lynn Work Phone: [facility]Pulmonary Services/Neurology Work Phone: Start: 02-01-2023 End: 02-01-[address] [facility] Work Phone: Start: 11-25-2022 End: 11-25-[address] Shruthi Lynn Work Phone: [facility] Work Phone: Start: 03-24-2022 End: 03-24-2022 Emergency department patient visit [facility]Emergency Department Start: 09-19-2021 End: 09-19-[address] Shruthi Lynn Work Phone: [facility] Start: 08-02-2021 End: 08-02-[address] [facility] Start: 04-18-2021 End: 04-19-2021 ambulatory FUENTES Santizo [facility] Start: 03-31-2021 End: 03-31-2021 ambulatory FUENTES Santizo [facility] Start: 02-23-2021 End: 02-23-2021 ambulatory FUENTES Santizo [facility] Start: 02-07-2021 End: 02-07-2021 ambulatory FUENTES Santizo [facility] Start: 06-01-2017 Ambulatory Ellie Pierce Facility :[facility] Start: 05-15-2017 Ambulatory Daphnie Contreras ity:[facility] Start: 04-17-2017 End: 04-18-2017 Evaluation and management of inpatient Bienvenido Walker Facility:[facility] Start: 04-05-2017 Ambulatory Bienvenido Walker Facility:[facility] Start: 04-05-2017 Ambulatory Bienvenido Walker Facility:[facility] Start: 02-22-2017 Ambulatory Bienvenido Walker Facility:[facility] Start: 12-05-2016 End: 12-05-2016 Ambulatory Radha Reyna Facility:[facility] Start: 11-21-2016 Ambulatory Daphnie Contreras ity:[facility] Start: 02-22-2016 End: 02-22-2016 ambulatory PHU ALLISON [facility] Procedures Date Procedure Procedure Detail Performing Clinician Start: 11-07-2024 CT of head without contrast Dr. Shruthi Lynn MD Work Phone: Start: 08-07-[address] Jess Lynn Work Phone: Start: 03-24-2022 Plain X-ray of tibia and fibula Start: 04-17-2017 [id number] Bienvenido Laboy jose manuelmarizol Start: 04-17-2017 Replacement of Right Hip Joint, Acetabular Surface with Polyethylene Synthetic Substitute, Uncemented, Open Approach Bienvenido Yaogerald Start: 12-05-2016 Njx dx/ther sbst int rlmnr lmbr/sac w/img gdn Bienvenidosaul Walker H/O: surgery History of ear surgery Dr. Shruthi Lynn Work Phone: Plan of Treatment Date Care Activity Detail Author Patient Education ED Cellulitis [facility] Work Phone: Patient referral [facility] Work Phone: Immunizations Immunization Date Immunization Notes Care Provider Fa cili 04-26-2022 influenza, injectabl e, quadrivalent, preservative free Dr. Shruthi Lynn Work Phone: [facility] 05-04-2021 pneumococcal polysaccharide vaccine, [address] Shruthi Lynn Work Phone: [facility] 05-04-2021 pneumococcal vaccine , unspecified formulation Dr. Shruthi Lynn Work Phone: [facility] Work Phone: 11-15-2019 tetanus toxoid, redu jo ann diphtheria toxoid, and acellular pertussis vaccine, adsorbed Dr. Shruthi Lynn Work Phone: [facility] Payers Date Payer Category Payer Unknown [id number] 2023 Self-pay [id number] 2012 Unknown [id number] 1950 Unknown [id number] 2.16.84 0.1.112000.3.579.2.651 1950 Unknown [id number] 2.16.84 0.1.872839.3.579.2.651 1950 Unknown [id number] 2.16.84 0.1.910909.3.579.2.651 1950 Unknown [id number] 2.16.84 0.1.225838.3.579.2.651 Unknown [id number] 2.16.8 40.1.428738.3.579.2.462 Unknown [id number] 2.16.8 40.1.805029.3.579.2.462 Unknown [id number] 2.16.8 40.1.136265.3.579.2.462 Unknown [id number] 2.16.8 40.1.741881.3.579.2.462 Unknown [id number] 2.16.8 40.1.157254.3.579.2.462 Unknown [id number] 2.16.8 40.1.806568.3.579.2.462 Unknown [id number] 2.16.8 40.1.310642.3.579.2.462 Unknown [id number] 2.16.8 40.1.468030.3.579.2.462 Unknown [id number] 2.16.8 40.1.598843.3.579.2.462 Unknown [id number] 2.16.8 40.1.560660.3.579.2.462 Unknown [id number] 2.16.8 40.1.549210.3.579.2.462 Unknown [id number] 2.16.8 40.1.515077.3.579.2.462 Unknown [id number] 2.16.8 40.1.673027.3.579.2.462 Unknown [id number] 2.16.8 40.1.091690.3.579.2.462 Unknown [id number] 2.16.8 40.1.812471.3.579.2.462 Unknown [id number] 2.16.8 40.1.634104.3.579.2.462 Unknown [id number] 2.16.8 40.1.074122.3.579.2.462 Unknown [id number] 2.16.8 40.1.841029.3.579.2.462 Unknown [id number] 2.16.8 40.1.040811.3.579.2.462 Unknown [id number] 2.16.8 40.1.210471.3.579.2.462 Unknown [id number] 2.16.8 40.1.979252.3.579.2.462 Social History Date Type Detail Facility Start: 09-19-2021 End: 08-02-2023 Tobacco smoking status MEIS Unknown if ever smoked [facility] Start: 10-05-2020 Non-smoker [facility] Start: 1950 Sex Assigned At Male [facility] Start: 04-15-2024 Tobacco smoking stat us MEIS Ex-smoker (finding) [facility] Radiology Diagnostic study note 11-10-2024 Note Date & Type Note Facility 11-10-2024 Radiology Diagnostic study note [facility] Imaging Services [address] [place] [address] [id number] Orb Sella Post Fossa Ear w/o MR#: [id number] Acct: [id number] Name: STEPHANY SCHAFER Rep #: [id number] : 1950 M 74 From: Randi Truong MD PCP: Dr. Shruthi Lynn MD Status: REG CLI Study:Orb Sella Post Fossa Ear w/o Date of Ex am: 11/07/24 Exam# [id number] Ordering Dr: Colton Reed MD PROCEDURE: ORB SELLA POST FOSSA EAR W/O 11/07/2024 REASON FOR EXAM: SENSORINEURAL HEARING LOSS, BILATERAL TECHNIQUE: ORB SELLA POST FOSSA EAR W/O CONTRAST: VOLUME: mL One or more dose reduction techniques were used (e.g., Automated exposure control, adjustment of the mA and/or kV according to patient size, use of iterative reconstruction technique). RADIATION DOSE SUMMARY: CTDlvol: mGy DLP:mGycm COMPARISON: none FINDINGS: Thickened retracted right tympanic membrane merging with focal soft tissue thickening abutting the lateral aspect of the right ossicular chain with no obvious bony erosive changes. The left middle ear cleft shows normal pneumatization with no internal densities. Clear pneumatized mastoid air cells and mastoid antrum on either side. Normal appearance of the ossicular chain on either side. No bony erosive changes. Normal appearance of the scutum. Normal appearance of the cochlea, vestibules and semicircular canals on either side. No obvious internal auditory canals masses on non contrast bases. No obvious nasopharyngeal masses. Clear scanned paranasal sinuses Bilateral scleral calcifications. Otherwise, unremarkable orbital structures. CT/Orb Sella Post Fossa Ear w/o IMPRESSION: Thickened retracted right tympanic membrane merging with focal soft tissue thickening abutting the lateral aspect of the right ossicular chain worrisome of cholesteatoma. Advise clinical correlation and follow up. Reading [facility] CC: Dr. Colton Reed MD; Dr. Shruthi Lynn MD ~ [employer]: Signed [facility] Evaluation note 08-25-2024 Note Date & Type Note Facility 08-25-2024 Evaluation note Diagnosis Onset Date Resolution Left ankle pain acute July 8:16am [facility] current use of anticoagulant acute August 25, 2024 8:16am DM (diabetes mellitus), type 2 with peripheral vascular complications chronic July 8:16am Erectile dysfunction chronic Sameer h 2024 8:16am Essential hypertension chronic Ma rch 2024 8:16am HLD (hyperlipidemia) chronic Sameer h 2024 8:16am Testosterone deficiency chronic M arch 2024 8:16am [facility] Work Phone: Clinical Note 04-10-2024 Note Date & Type Note Facility 04-10-2024 Note [facility] Medical Records Department [address] [place] [address] History Physical Exam 04/10/24 0633 MR#: [id number] Acct: [id number] Name: STEPHANY SCHAFER Rep #: [id number] : 1950 74 From: Sharan Landeros MD PCP: Dr. Shruthi Lynn MD Status:[facility] Location: [place] [address] History and Physical Date of Admission: 04/10/24 Intake Vital Signs 02/25/2408:41 03/05/2409:26 Height 5 ft 9 in 5 ft 9 in Weight: 189 lb 200 lb 4 oz BMI 27.8 29.5 BP 147/98 H 139/83 H Blood Pressure Location Lt brachial Rt brachial Position Sitting Sitting Respiration 16 18 Pulse 77 106 H Pulse Source Monitor Monitor Temp 97.8 F 97.9 F Temp Source Temporal Temporal Pulse Oximetry (%) 95 97 Oxygen Delivery Method room air room air Intake Visit Reasons: COLONOSCOPY Chief Complaint: colonoscopy Is patient in pain?: No Allergies nalbuphine (From Nubain) Adverse Reaction (Verified 03/05/24 09:27) delirium Medications ???Medication ???Instructions ???Recorded ???Confirmed ???Type cholecalciferol (vitamin D3) 25 1,000 unit PO QDAY 09/21/17 03/05/24 History mcg (1,000 unit) tablet fexofenadine 180 mg tablet 180 mg PO QDAY 09/21/17 03/05/24 History (Kirti Allergy) multivitamin 1 tab PO QDAY 09/21/17 03/05/24 History simvastatin 40 mg tablet 40 mg PO QPM #90 tabs 11/11/20 03/05/24 Rx carvedilol 25 mg tablet 25 mg PO BID 11/01/21 03/05/24 History testosterone cypionate 200 mg/mL 200 mg subcut Q2W #10 mL 05/02/23 03/05/24 Rx intramuscular oil losartan 50 mg tablet 50 mg PO DAILY FAX to [facility] 05/24/23 03/05/24 Rx #90 tabs ipratropium 0.5 mg-albuterol 3 mg 3 ml inhalation Q4H PRN PRN SOB 05/25/23 03/05/24 Rx (2.5 mg base)/3 mL nebulization /OR WHEEZING #180 mL soln pramipexole 0.25 mg tablet 0.5 mg (2 x 0.25 mg) PO QHS #180 06/12/23 03/05/24 Rx tabs Handicap Placard #1 ea 08/02/23 03/05/24 Rx sildenafil (pulm.hypertension) 20 20 mg PO DAILY PRN sexual activity 08/02/23 03/05/24 Rx mg tablet #30 tabs rivaroxaban 20 mg tablet (Xarelto) 20 mg PO DAILY Pt gets this from 11/19/23 03/05/24 [facility] 300 mg capsule 300 mg PO QHS 01/16/24 03/05/24 History gabapentin 100 mg capsule 100 mg PO QHS #50 caps 02/25/24 03/05/24 Rx albuterol sulfate 90 mcg/actuation 2 puff inhalation Q6H PRN 03/03/24 03/05/24 Rx aerosol inhaler shortness of breath or wheezing #18 grams Have you fallen in the past year?: No PFSH Medical History Colon cancer screening Multiple premature ventricular complexes Left ankle pain Interstitial lung disease Chronic atrial fibrillation Asthma Viral syndrome Hearing problem History of kidney stones Headache, migraine H/O emotional problems Chronic bronchitis Carpal tunnel syndrome Cataracts, bilateral history of bone fracture Back problem Paroxysmal atrial fibrillation Abnormal CXR MAURI (obstructive sleep apnea) DM (diabetes mellitus), type 2 with peripheral vascular complications History of immunosuppressive therapy Rheumatoid arthritis Essential hypertension Testosterone deficiency Elevated LFTs Erectile dysfunction Palpitations Paroxysmal ventricular tachycardia HLD (hyperlipidemia) Surgical History History of arthroplasty of left knee History of ear surgery History of bunionectomy of both great toes History of carpal tunnel release ( 1989) History of hernia repair ( 1980) History of colonoscopy ( 06/2009) History of cardioversion (01/26/20) History of radiofrequency ablation procedure for cardiac arrhythmia (09/2010) History of left heart catheterization (12/2009) History of foot surgery History of back surgery History of bilateral hip replacements Family History Father CAD (coronary artery disease) ICD implantMother History of heart valve replacement Social History Smoking Status: Former smoker alcohol intake: current alcohol intake frequency: holidays/special occasions only Alcohol type: beer and wine substance use type: does not use what type of physical activity do you participate in: 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 His last colonoscopy was over 10 years ago. He denies abdominal pain or blood in stool or family history of colon cancer. ROS General General: Yes fatigue; No weight change, appetite, colon cancer, breast cancer or weakness HEENT HEENT: No difficulty swallowing, eye injury, eye surgery, swollen glands or hoarseness Endo Endocrine (more content not included)... [facility] Procedure note 02-06-2023 Note Date & Type Note Facility 02-06-2023 Procedure note [facility] Discharge summary note 05-11-2021 Note Date & Type Note Facility 05-11-2021 Note [facility] DISCHARGE SUMMARY NAME ACCOUNT SEX AGE ADMIT DISCHARGE PT MED. RECORD# NUMBER DATE DATE TYPE STEPHANY SCHAFER [id number] M 71 04/18/21 2 [id number] ROOM: [facility] DATE OF : 1950 ATTENDING PHYSICIAN: Rachell Pack PROGRESS NOTE/DISCHARGE SUMMARY ATTENDING ORTHOPEDIC PHYSICIAN: Dr. Fuentes Zelaya. DATE OF ADMISSION: April 18, 2021 [...] x-rays were discussed and reviewed with Dr. Fuentes Zelaya at length and are consistent with [...] Rachell Pack PA-C 04/19/21 07:33 JOB #: [id number] Transcribed By: portillo 04/19/21 08:15 Electronically signed by: E-sign Rachell ELLISON 05/10/21 07:38 Page 2 of 2 STEPHANY SCHAFER Discharge Summary [facility] Evaluation note Note Date & Type Note Facility Evaluation note Diagnosis Onset Date Periodic limb movement sleep disorder acute Asthma chronic Interstitial lung disease ch ronic MAURI (obstructive sleep apnea) chronic Elevated bilirubin acute DM (diabetes mellitus), type 2 with peripheral vascular complications chroni c Erectile dysfunction chronic Essential hypertension chron ic History of immunosuppressive therapy chronic HLD (hyperlipidemia) chronic MAURI (obstructive sleep apnea) chronic Paroxysmal atrial fibrillation chronic Testosterone deficiency 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 [facility] Work Phone: Evaluation note Note Date & Type Note Facility Evaluation note No assessment information availa [facility] Work Phone: Evaluation note Note Date & Type Note Facility Evaluation note Diagnosis Onset Date Stye external acute Periodic limb movement sleep disorder acute Asthma chronic Interstitial lung disease ch ronic MAURI (obstructive sleep apnea) [facility] Work Phone: Evaluation note Note Date & Type Note Facility Evaluation note Diagnosis Onset Date Essential hypertension chron ic HLD (hyperlipidemia) chronic Paroxysmal atrial fibrillation chronic Asthma chronic Interstitial lung disease ch ronic MAURI (obstructive sleep apnea) chronic Paroxysmal atrial fibrillation chronic Periodic limb movement sleep disorder chronic Bronchitis acute Incontinence of urine acute DM (diabetes mellitus), type 2 with peripheral vascular complications chroni c Essential hypertension chron ic HLD (hyperlipidemia) chronic Interstitial lung disease ch ronic Paroxysmal atrial fibrillation [facility] Work Phone: Reason for referral (narrative) Note Date & Type Note Facility Reason for referral (narrative) No reason for referral information available [facility] Work Phone: Summary Purpose Family History No Family History Records Found Relationship Condition Age at Onset Recorded Date/T luis father Coronary artery disease Unknown mother History of heart valve replacement Unknow n Advance Directives No Advanced Directives Records Found Advance Directive Response Recorded Date/ Time Advance Directives No January 26, 2020 11:16am Living Will No January 25 11:16am Power of Interpreter No January 25 020 11:16am Advance Directive Response Recorded Date/ Time Advance Directives No January 26, 2020 11:16am Living Will No March 24 4:07pm Power of Interpreter No March 24, 2022 4:07pm Advance Directive Response Recorded Date/ Time Advance Directives No March 29, 2020 9:19am Living Will No March 24 4:07pm Power of Interpreter No March 24, 2022 4:07pm Advance Directive Response Recorded Date/ Time Advance Directives No July 31 10:08am Living Will No August 01, 2023 10:08am Power of Interpreter No July 31 10:08am Advance Directive Response Recorded Date/ Time Living Will No August 01, 2023 10:08am Do you have a Healthcare Power of Interpreter? No August 01, 2023 10:08am Advance Directives No July 31 10:08am Chief Complaint and Reason for Visit Chief Complaint 3 M FU 6 M FU Reason for Visit Periodic limb moveme nt sleep disorder Asthma Interstitial lung disease MAURI (obstructive sleep apnea) Elevated bilirubin DM (diabetes mellitus), type 2 with peripheral vascular complications Erectile dysfunction Essential hypertension History of immunosuppressive therapy HLD (hyperlipidemia) MAURI (obstructive sleep apnea) Paroxysmal atrial fibrillation Testosterone deficiency Chief Complaint left leg injury Chief Complaint RED LEFT EYE 6 M FU IPD IPD Reason for Visit Stye external Periodic limb movement sleep disorder Asthma Interstitial lung disease MAURI (obstructive sleep apnea) Chief Complaint OVERDUE FOR FU 3 M FU Cough, Other Concerns EORDER URINARY INCONTINENCE Reason for Visit Essential hypertensi on HLD (hyperlipidemia) Paroxysmal atrial fibrillation Asthma Interstitial lung disease MAURI (obstructive sleep apnea) Paroxysmal atrial fibrillation Periodic limb movement sleep disorder Bronchitis Incontinence of urine DM (diabetes mellitus), type 2 with peripheral vascular complications Essential hypertension HLD (hyperlipidemia) Interstitial lung disease Paroxysmal atrial fibrillation Chief Complaint Admit Date 6 M FU August 25, 2024 8:1 6am Sensorineural hearing loss, bilateral Ju ne 2024 2:43pm Reason for Visit Admit Date Left ankle pain August 25, 2024 8:1 6am [facility]PC current use of anticoagulant M arch 2024 8:16am DM (diabetes mellitus), type 2 with peripheral vascular complications August 25, 2024 8:16am Erectile dysfunction August 25, 2024 8: 16am Essential hypertension August 25, 2024 8:16am HLD (hyperlipidemia) August 25, 2024 8: 16am Testosterone deficiency August 25, 2024 8:16am Additional Source Comments (unrecognized sect ion and content) No Status Records FoundNo Status Records FoundNo Status Records FoundNo Status Records FoundNo Status Records FoundNo Status Records Found INFORMATION SOURCE (unrecogn ized section and content) DATE CREATED AUTHOR 11/19/2017 [facility] DATE CREATED AUTHOR AUTHOR'S ORGANIZ ATION 11/20/2017 [facility] DATE CREATED AUTHOR AUTHOR'S ORGANIZ ATION 04/22/2021 [facility] ([place]) DATE CREATED AUTHOR AUTHOR'S ORGANIZ ATION 05/12/2021 [facility] DATE CREATED AUTHOR AUTHOR'S ORGANIZ ATION 10/28/2023 [facility] DATE CREATED AUTHOR AUTHOR'S ORGANIZ ATION 11/16/2024 [facility] [place] Goals (unrecognized section and content) Goals may be documented in a n alternate sectionGoals may be documented in an alternate sectionGoals may be documented in an alternate sectionGoals may be documented in an alternate sectionGoals may be documented in an alternate sectionGoals may be documented in an alternate section Care Teams (unrecognized sec tion and content) Team Status: Active Member Role Status Dates Dr. Booker Thompson MD Family Provider Active Dr. Shruthi Lynn MD Primary Care Provider Active Team Status: Inactive Member Role Status Dates Dr. Srhuthi Lynn MD Primary Care Provider, Referri ng Provider Active Dr. Quan Myers MD Attending Provider Active Team Status: Inactive Member Role Status Dates Dr. Shruthi Lynn MD Primary Care Provider, Referri ng Provider Active SARA Redmond Attending Provider Active Team Status: Active Member Role Status Dates Dr. Shruthi Lynn MD Primary Care Provider Active Dr. Quan Myers MD Attending Provider , Referring Provider, Other Provider Active Team Status: Inactive Member Role Status Dates Dr. Shruthi Lynn MD Primary Care Provider Active Dr. Quan Myers MD Attending Provider, Referring Pr ovider Active Team Status: Inactive Member Role Status Dates Dr. Shruthi Lynn MD Primary Care Provider, Referri ng Provider Active Dr. Terry Whitaker MD Attending Provider Active Team Status: Inactive Member Role Status Dates Dr. Shruthi Lynn MD Primary Care Provider, Referri ng Provider Active Jelly Brantley NP, SARA Attending Provider Active Team Status: Inactive Member Role Status Dates Dr. Shruthi Lynn MD Primary Care Provider, Attendi ng Provider Active Team Status: Active Member Role Status Dates Dr. Shruthi Lynn MD Primary Care Pro vider, Attending Provider, Referring Provider Active Team Status: Inactive Member Role Status Dates Dr. Shruthi Lynn MD Primary Care Pro vider, Attending Provider, Referring Provider Active Team Status: Active Member Role Status Dates Dr. Shruthi Lynn MD Primary Care Provider Active Team Status: Inactive Member Role Status Dates Dr. Shruthi Lynn MD Primary Care Provider Active Start: August 25, 2024 End: August 25, 2024 Dr. Shruthi Lynn MD Attending Provider Active Start: August 25, 2024 End: August 25, 2024 Team Status: Inactive Member Role Status Dates Dr. Shruthi Lynn MD Primary Care Provider Active Start: November 07, 2024 End: November 07, 2024 Dr. Colton Reed MD Attending Provider Activ e Start: November 07, 2024 End: November 07, 2024 Dr. Colton Reed MD Referring Provider Activ e Start: November 07, 2024 End: November 07, 2024 FOR RECORDS PERTAINING TO PATIENTS WHO ARE [...] BE BASED ON THE PRIMARY CLINICAL RECORDS. [employer] provides no warranty or guarantee of the accuracy or completeness of information in this document.
[2025-01-04] MEDS: Lidocaine 1% (20 ml mdv) 20 ML Vial 10 ML INFILT (15:10)
[2025-01-04 15:45] VITALS: BP 125/85; PULSE 83; RESP 18; TEMP 36.4; O2SAT 96
== END 2025-01-04 15:46 | disposition home or self-care (01) ==
PROVIDERS: Emergency Provider Emergency Medicine; PCP Internal Medicine; Visit Provider Emergency Medicine
DX: S81.811A Laceration without foreign body, right lower leg, initial encounter (principal); I48.91 Unspecified atrial fibrillation; E11.9 Type 2 diabetes mellitus without complications; Z87.891 Personal history of nicotine dependence; Z79.01 Long term (current) use of anticoagulants; X58.XXXA Exposure to other specified factors, initial encounter
CPT/HCPCS: 12001; 99284

== ENCOUNTER → 2025-01-08 | Outpatient (CLI) | payer MEDICARE, SELFPAY ==
[2025-01-08 10:27] LABS: Hematocrit 41.9 % (40-54); Hemoglobin 13.7 g/dL (13.0-16.5); Immature Granulocytes Count 0.020 X10^3/uL (0.0-0.0); Mean Corp Hgb Conc 32.7 g/dL (32-36); Mean Corpuscular Volume 89.0 fL (80-94); Mean Platelet Vol. 11.0 fl (6.2-12.0); NRBC Flagged by Analyzer 0 % (0-5); Platelet Count 142 K/mm3 (150-450); RBC Distribution Width CV 14.5 % (11.6-14.6); RBC Distribution Width SD 46.6 fl (35.1-43.9); Red Blood Count 4.71 M/mm3 (4.6-6.2); White Blood Count 7.5 K/mm3 (4.4-11.0)
[2025-01-08 10:46] LABS: AST(SGOT) 44 U/L (<=37); Alanine Aminotransfer ALT/SGPT 51 U/L (<=46); Albumin, Serum 3.8 g/dL (3.4-4.8); Alkaline Phosphatase 86 U/L (40-129); Anion Gap 11 (5-15); BUN 26 mg/dL (4-19); BUN/Creat Ratio 26.8 RATIO (10-20); Calcium,Total 9.5 mg/dL (7.6-11.0); Carbon Dioxide 22.4 mmol/L (21.0-32.0); Chloride 106 mmol/L (98-108); Cholesterol 134 mg/dL (<=200); Globulin 2.8 g/dL (2.2-4.2); Glucose 134 mg/dL (70-99); Low Density Lipoprotein Calc. 67 mg/dL; PSA,Total - Annual Screen 0.49 ng/mL (0.02-4.00); Potassium 4.4 mmol/L (3.3-5.1); Triglycerides 56 mg/dL; Very Low Density Lipoprotein 11 mg/dL (5-40); cholesterol:hdl ratio screen 2.42
== END | disposition home or self-care (01) ==
LOC: MTLAB 08:02
PROVIDERS: PCP Internal Medicine; Referring Provider Internal Medicine; Visit Provider Internal Medicine
DX: I48.0 Paroxysmal atrial fibrillation (principal); I10 Essential (primary) hypertension; E78.5 Hyperlipidemia, unspecified; R73.9 Hyperglycemia, unspecified; Z12.5 Encounter for screening for malignant neoplasm of prostate; Z13.220 Encounter for screening for lipoid disorders
CPT/HCPCS: 36415; 80053; 80061; 83036; 84153; 84443; 85025; G0103

== ENCOUNTER 2025-02-24 08:30 | Outpatient (RCR) | payer MEDICARE, SELFPAY ==
[2025-02-10 10:10] VITALS: BP 165/146; PULSE 64; RESP 18; TEMP 36.8; BMI 25.8
--- NOTE | 2025-02-12 08:00 | WC ---
PHOTO - RIGHT FIERRO 02/10/25
--- NOTE | 2025-02-12 20:24 | PCM.WC.HP ---
History of Present Illness Date of Service: 02/10/25 Chief Complaint: Traumatic right pretibial wound History of Wound: This is a 74-year-old male who was in his normal state of health until January 04, 2025, at which time he tripped on a ladder that was laying on the ground, causing a laceration and abrasions to his right armijo. The patient was seen and evaluated in the [facility] Emergency Department, where 9 sutures were used to approximate the edges of a flap laceration on the pretibial surface. It was noted that the patient's tetanus was up-to-date. The patient was subsequently seen at the [facility] on January 11, 2025, where he presented due to drainage which was emanating from the suture site of the laceration. The patient was placed on a 7-day course of doxycycline 100 mg orally for a total of 7 days, which has been completed. The patient was seen by his primary care physician, Dr. Lynn, on January 14, 2025, where it was noted that the traumatic wound was beginning to dehisce, and half the sutures were removed. The patient return to his primary care physician on January 16, 2025, where the remainder of the sutures were removed. A moderate amount of tissue fluid was noted to be draining from the wound. The patient was instructed to use dry sterile gauze dressings with daily changes. Once again, the patient was seen by his primary care physician on January 22, 2025, where it was noted that the avulsion skin flap was largely nonviable, with an open wound remaining. Telfa and dry gauze dressings were recommended. The patient was subsequently referred to the [facility] Wound Center for definitive evaluation and management. Incidental note is made of the fact that the patient was seen at the [facility] on February 05, 2025, with symptoms of cough, headache, and fever. He was diagnosed with COVID-19 at that time. The patient has a history of interstitial lung disease, rheumatoid arthritis, atrial fibrillation, diabetes mellitus, hypertension, hyperlipidemia, asthma, obstructive sleep apnea, and Parkinson's disease. He is on systemic anticoagulation with Xarelto for his atrial fibrillation. [facility] Medical History Parkinsons disease Non-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 layer exposed Leg wound, left Visit for suture removal Encounter for wound care Leg edema, left Leg laceration Worsening headaches Temporal headache Wears hearing aid Wears glasses Alcohol use Bladder disease Arthritis Restless legs Back pain Headache Former smoker BiPAP (biphasic positive airway pressure) dependence Interstitial emphysema of lung Leg cramps Hypertension History of echocardiogram Cardiology follow-up encounter Colon cancer screening Multiple premature ventricular complexes Left ankle pain Interstitial lung disease Chronic atrial fibrillation Asthma Viral syndrome history of bone fracture Paroxysmal atrial fibrillation Abnormal CXR DM (diabetes mellitus), type 2 with peripheral vascular complications History of immunosuppressive therapy Rheumatoid arthritis Essential hypertension Testosterone deficiency Elevated LFTs Erectile dysfunction Palpitations Paroxysmal ventricular tachycardia HLD (hyperlipidemia) Home Medications ?Medication ?Instructions ?Recorded ?Last Taken ?Type fexofenadine 180 mg tablet 180 mg PO QDAY 09/21/17 Unknown History (Kirti Allergy) multivitamin 1 tab PO QDAY 09/21/17 Unknown History simvastatin 40 mg tablet 40 mg PO QPM #90 tabs 11/11/20 Unknown Rx carvedilol 25 mg tablet 25 mg PO BID 11/01/21 04/10/24 05:30 History losartan 50 mg tablet 50 mg PO DAILY FAX to [facility] 05/24/23 04/10/24 05:30 Rx #90 tabs ipratropium 0.5 mg-albuterol 3 mg 3 ml inhalation Q4H PRN PRN SOB 05/25/23 Unknown Rx (2.5 mg base)/3 mL nebulization &/OR WHEEZING #180 mL soln Handicap Placard #1 ea 08/02/23 Unknown Rx albuterol sulfate 90 mcg/actuation 2 puff inhalation Q6H PRN 03/03/24 Unknown Rx aerosol inhaler shortness of breath or wheezing #18 grams spacer #1 ea 04/15/24 Unknown Rx testosterone cypionate 200 mg/mL 200 mg subcut Q2W #10 mL 04/16/24 Unknown Rx intramuscular oil calcium carbonate (Calcium 600) 600 mg PO QDAY 07/08/24 Unknown History cholecalciferol (vitamin D3) 25 25 mcg PO QDAY 07/08/24 Unknown History mcg (1,000 unit) capsule pramipexole 0.25 mg tablet 0.5 mg (2 x 0.25 mg) PO .COMPLEX 07/08/24 Unknown Rx #360 tabs gabapentin 300 mg capsule 300 mg PO QHS #90 caps 08/27/24 Unknown Rx rivaroxaban 20 mg tablet (Xarelto) 20 mg PO QHS Pt gets this from the 01/12/25 Unknown Rx [facility] #30 tabs sildenafil (pulm.hypertension) 20 20 mg PO DAILY PRN sexual activity 01/14/25 Unknown Rx mg tablet #30 tabs fluticasone 500 mcg-salmeterol 50 1 inh inhalation BID #60 ea 01/16/25 Unknown Rx mcg/dose blistr powdr for inhalation (Wixela Inhub) dexamethasone 6 mg tablet 6 mg PO DAILY #7 tabs 02/05/25 Unknown Rx Allergy/AdvReac Type Severity Reaction Status Date / Time nalbuphine (From Nubain) AdvReac delirium Verified 02/10/25 10:08 Family History Father CAD (coronary artery disease) ICD implant Mother History of heart valve replacement Surgical History History of cardioversion (01/26/20) History of radiofrequency ablation procedure for cardiac arrhythmia (09/2010) History of left heart catheterization (12/2009) History of cardiac catheterization Hx of right cataract extraction Hx of left cataract extraction History of arthroplasty of left knee History of ear surgery History of bunionectomy of both great toes History of carpal tunnel release (~1989) History of hernia repair (~1980) History of colonoscopy (~06/2009) History of foot surgery History of back surgery History of bilateral hip replacements Social History Smoking Status: Former smoker how long ago did patient quit smokin alcohol intake: current alcohol intake frequency: holidays/special occasions only Alcohol type: beer and wine substance use type: does not use what type of physical activity do you participate in: other details: 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 General Appearance: cooperative, comfortable, well kempt and well developed Orientation / Consciousness: awake, oriented to person, oriented to place and oriented to time Exam Limitations: no limitations HEENT normocephalic and head/scalp atraumatic Head and Scalp: normal to inspection, normocephalic and atraumatic Face and Sinus: normal facial exam Nose: external nose normal External Ear: external ears normal External Auditory Canal: other Other Details: The patient wears hearing aids. Eyes EOMs intact bilaterally General Eye: normal appearance of both eyes Resp normal respiratory effort, normal air movement, no retractions and no use of accessory muscles Effort and Inspection: able to speak in complete sentences Extremity no calf tenderness General Extremity: Negative for clubbing or cyanosis Skin Wound Narrative: An open wound is noted on the patient's right pretibial surface. It is a full-thickness wound, extending through all layers of the dermis and into the subcutaneous tissues. Dimensions are documented elsewhere mild antoinette-wound erythema is noted. The portion of the wound demonstrates pink, healthy granulation tissue. However, the inferior portion of the wound demonstrates nonviable slough and devitalized tissue. Wound margins are moderately beveled. Neuro oriented x3, CN's II-XII intact bilaterally, moves all extremities, no focal motor deficits and no sensory deficits noted Sensorium / Orientation: awake, alert, oriented to person, oriented to place and oriented to time Speech: speech normal Psych Appearance: grossly normal and appropriate Attitude: calm and engaged Activity / Motor Behavior: appropriate eye contact Speech: normal speech Mood & Affect: euthymic mood Thought Process: normal thought process Thought Content: normal thought content Attention / Concentration: attention grossly intact Debridement Note Debridement Note Wound debrided: Traumatic right pretibial wound Laterality: Right Type of Debridement: Excisional debridement Anesthesia Used: 5% Lidocaine Gel and Cetacaine Depth: Down to and including healthy tissue and in the subcutaneous layer Percentage of wound debrided: 100 Instrument Used: 5mm curette Tissue Removed: Slough and devitalized tissue Severity: Fat Layer Exposed Amount of bleeding with debridement: Mild Bleeding Controlled with: Compression and gauze Patient tolerated procedure: Patient tolerated procedure well Post-Debridement Measurements and Additional Note: Post-Debridement Measurements/Treatment JACOB - Nurse 1 - General Ulcer Assessment Start: 02/10/25 10:10 Freq: Status: Active Protocol: KARTHIK Activity Type Activity Date Activity User E-sign Co-sign Detail Recorded Client Recorded Date Recorded By Document 02/10/25 10:10 OLIVERIO [id number] 02/10/25 10:13 02/10/25 10:10 WC - Today's Visit Information Type of service Initial Visit Arrival Mode Ambulatory Patient Identification Verified (Name & Yes ) Height and Weight Height 5 ft 9 in Weight 175 lb Weight in Pounds 175.0 lbs Body Mass Index (BMI) 25.8 BMI Classification Overweight Vital Signs Temperature (97.8 F-99.1 F) 98.2 F Temperature Source Temporal Pulse Rate (60-100) 64 Pulse Location Monitor Respiratory Rate (12-18) 18 Respiratory rate source Observation Oxygen Delivery Method Room Air Blood Pressure (90/60-120/80) 165/146 H Blood Pressure Mean 152 Source Monitor Position Sitting Blood Pressure Location Left Arm History Since Last Visit- (Skip if this is Patient's initial visit) Left Footwear Regular Shoe Right Footwear Regular Shoe Pain Scale: 0-10 Numeric Is Patient Pain Free? No RLE -Alleviating Factors/Interventions Medication, Inactivity/ Resting Communication Assessment Preferred language Norwegian Able to Read Yes Able to Write Yes Communication Tools None Right Hearing Abillity Use of Hearing Aid Left Hearing Abillity Use of Hearing Aid Visual Assistive Devices Glasses Teaching Assessment Preferences Verbal,Written, Demonstration Barriers to Learning None Readiness To Learn Excellent Willingness to Engage in Self Management High Activies Readiness to Engage in Self Management High Activities Anxiety Level Calm Cooperation Cooperative Perception Coherent Interest in Health Problem Asks Questions Education Importance Acknowledges Need Does Patient Smoke tobacco or other No substances Smoking Status Former smoker Is Patient Diabetic Yes Functional Assessment Recent Decline in Ability to Perform Denies Any Declines Culture/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 Biological Plant Operator to contact place of islam No WC - Nurse 1 - General Ulcer Measurement Start: 02/10/25 10:10 Freq: Status: Active Protocol: Activity Type Activity Date Activity User E-sign Co-sign Detail Recorded Client Recorded Date Recorded By Document 02/10/25 10:10 OLIVERIO [id number] 02/10/25 10:13 OLIVERIO 02/10/25 10:10 Wound Center Nurse 1 1. RT ARMIJO -Current Size (cm) - Length 1.5 -Current Size (cm) - Width 1 -Current Size (cm) - Depth 0.3 -Total Square Cm 1.5 -Date of Last Picture (Recall this 02/10/25 field) -Photo Taken Yes -Exudate Amt Large -Exudate Type Serosanguineous -Wound Margin Thickened & Rolled Under -Granulation Amt Medium (34-66%) -Granulation Quality Red -Necrosis Amt Medium (34-66%) -Necrotic Tissue Type Adherent Slough -Texture (Antoinette-wound Skin Appearance) Assessed -Moisture (Antoinette-wound Skin Appearance) Assessed -Color (Antoinette-wound Skin Appearance) Assessed, Erythema -Temperature (Antoinette-wound Skin No Abnormality Appearance) (Pt Warm) -Tenderness on Palpation (Antoinette-wound No Skin Appearance) -Ulcer Cleansing Soap and Water -Foul Odor after Cleansing No -Anesthetic Used 5% Lidocaine Gel Right Calf (cm) 33.5 Right Ankle (cm) 21.5 WC - Nurse 2 - General Ulcer CM Notes Start: 02/10/25 10:10 Freq: Status: Active Protocol: Activity Type Activity Date Activity User E-sign Co-sign Detail Recorded Client Recorded Date Recorded By Document 02/10/25 10:34 DS [id number] 02/10/25 10:38 DS 02/10/25 10:34 Wound Center Nurse 2 1. RT ARMIJO -Time 10:34 -Correct Patient Yes -Correct Side, Site, Position Yes -Correct Procedure Yes -Procedure Performed Yes -Type of Procedure Debridement -Clinical Debridement Subcutaneous -Tissue Removed Subcutaneous -Post Debridement (cm) - Length 1.4 -Post Debridement (cm) - Width 1.2 -Post Debridement (cm) - Depth 0.3 -Total Square (Post) (cm) 1.68 -Area of Debridement (cm) - Length 1.4 -Area of Debridement (cm) - Width 1.2 -Total Square (Area) (cm) 1.68 -Tunneling No -Undermining/Tunneling No -Circular Undermining No -Wound/Ulcer Outcome Not Healed -Ulcer Cleansing gauze -Foul Odor after Cleansing No -Bioengineered Tissue No -Bleeding Controlled with Pressure -Treatment Response Procedure Tolerated Well -Debridement - Subq, 1st 20sq cm Yes Pain Scale: 0-10 Numeric Is Patient Pain Free? Yes Lab / Micro Data Attestation: I reviewed the patient's lab results. Labs: Laboratory Tests 01/08/25 08:07 WBC 7.5 Hgb 13.7 Hct 41.9 Plt Count 142 L Sodium 140 Potassium 4.4 Chloride 106 Carbon Dioxide 22.4 Anion Gap 11 BUN 26 H Creatinine 0.99 Glucose 134 H Hemoglobin A1c 6.5 H Calcium 9.5 Total Bilirubin 0.84 AST 44 H ALT 51 H Alkaline Phosphatase 86 Total Protein 6.6 Albumin 3.8 Triglycerides 56 Cholesterol 134 LDL Cholesterol, Calc 67 VLDL Cholesterol 11 HDL Cholesterol 55 Cholesterol/HDL Ratio 2.42 PSA Screen 0.49 Micro: Microbiology 02/10/25 10:33 Wound - Leg, Right Gram Stain - Final 02/10/25 10:33 Wound - Leg, Right Wound Culture - Preliminary Gram negative tracey 02/10/25 10:33 Wound - Leg, Right Anaerobic Culture - Preliminary Charges/Coding Multi Select Codes Visit Charges Office Visit/Consults: 30823 OV L4 New 45 min Integumentary Integumentary CPT Codes: 03491 Tabatha subq tissue 20 sq cm/< Assessment/Plan Assessment/Plan (1) Non-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 layer exposed: CODE(S): L97.912 - Non-pressure chronic ulcer of unspecified part of right lower leg with fat layer exposed (2) Leg laceration: CODE(S): S81.819A - Laceration without foreign body, unspecified lower leg, initial encounter QUALIFIERS: Encounter type: initial encounter Laterality: right Qualified Code(s): S81.811A - Laceration without foreign body, right lower leg, initial encounter (3) Restrictive lung disease: CODE(S): J98.4 - Other disorders of lung (4) care home current use of anticoagulant: CODE(S): Z79.01 - care home (current) use of anticoagulants (5) Rheumatoid arthritis: CODE(S): M06.9 - Rheumatoid arthritis, unspecified (6) History of ear surgery: CODE(S): Z98.890 - Other specified postprocedural states (7) Multiple premature ventricular complexes: CODE(S): I49.49 - Other premature depolarization (8) Paroxysmal atrial fibrillation: CODE(S): I48.0 - Paroxysmal atrial fibrillation (9) Essential hypertension: CODE(S): I10 - Essential (primary) hypertension (10) HLD (hyperlipidemia): CODE(S): E78.5 - Hyperlipidemia, unspecified QUALIFIERS: Hyperlipidemia type: unspecified Qualified Code(s): E78.5 - Hyperlipidemia, unspecified (11) Interstitial lung disease: CODE(S): J84.9 - Interstitial pulmonary disease, unspecified (12) Asthma: CODE(S): J45.909 - Unspecified asthma, uncomplicated QUALIFIERS: Asthma severity: mild Asthma persistence: intermittent Asthma complication type: uncomplicated Qualified Code(s): J45.20 - Mild intermittent asthma, uncomplicated (13) MAURI (obstructive sleep apnea): CODE(S): G47.33 - Obstructive sleep apnea (adult) (pediatric) (14) Erectile dysfunction: CODE(S): N52.9 - Male erectile dysfunction, unspecified (15) Testosterone deficiency: CODE(S): E34.9 - Endocrine disorder, unspecified (16) DM (diabetes mellitus), type 2 with peripheral vascular complications: CODE(S): E11.51 - Type 2 diabetes mellitus with diabetic peripheral angiopathy without gangrene (17) Parkinsons disease: CODE(S): G20.A1 - Parkinson's disease without dyskinesia, without mention of fluctuations QUALIFIERS: Dyskinesia presence: without dyskinesia PLAN: Plan This is a 74-year-old male who presented with a traumatic wound on the right pretibial surface. He had tripped over a ladder on January 04, 2025, resulting in a traumatic wound on the right pretibial surface. The events related to the management of this traumatic wound have been documented herein. The patient is noted to have multiple pre-existing medical problems, which are listed elsewhere within this document. Because of the appearance of the wound and the antoinette-wound erythema, a swab has been obtained for aerobic and anaerobic bacterial growth. Culture results will be awaited. The patient indicates that he and his intend to leave for a week-long vacation in [place] starting February 13. Therefore, if culture results are positive, it will be necessary to contact the patient to determine his preference of a pharmacy for forwarding of an antibiotic prescription. The patient's labs have been reviewed, and it is noted that his hemoglobin A1c was 6.5 on January 08, 2025. The patient has been encouraged to optimize his nutritional intake, as well as his diabetic control. We are to implement the use of moistened Aquacel Ag topically within the patient's traumatic wound. This is to be applied on a daily basis. The patient and his have been instructed in the appropriate means of application. The patient has been encouraged to elevate his lower extremities is much as possible. Elevation is to be to heart level, or higher. He is to continue sleeping on a flat mattress at night. Double Tubigrips are to be donned on a daily basis to prevent and minimize swelling in the lower extremity. The patient is to return in 2 weeks for reevaluation. Total time: 48 minutes
[2025-02-24 08:24] VITALS: BP 135/82; PULSE 93; RESP 16; TEMP 36.3; BMI 25.8
--- NOTE | 2025-02-25 14:46 | WC ---
PHOTO-RIGHT FIERRO 02/24/25
--- NOTE | 2025-02-25 17:35 | PCM.WC.HP ---
History of Present Illness Date of Service: 02/24/25 Chief Complaint: Traumatic right pretibial wound History of Wound: This is a 75-year-old male who was in his normal state of health until January 04, 2025, at which time he tripped on a ladder that was laying on the ground, causing a laceration and abrasions to his right armijo. The patient was seen and evaluated in the [facility] Emergency Department, where 9 sutures were used to approximate the edges of a flap laceration on the pretibial surface. It was noted that the patient's tetanus was up-to-date. The patient was subsequently seen at the [facility] on January 11, 2025, where he presented due to drainage which was emanating from the suture site of the laceration. The patient was placed on a 7-day course of doxycycline 100 mg orally for a total of 7 days, which has been completed. The patient was seen by his primary care physician, Dr. Lynn, on January 14, 2025, where it was noted that the traumatic wound was beginning to dehisce, and half the sutures were removed. The patient return to his primary care physician on January 16, 2025, where the remainder of the sutures were removed. A moderate amount of tissue fluid was noted to be draining from the wound. The patient was instructed to use dry sterile gauze dressings with daily changes. Once again, the patient was seen by his primary care physician on January 22, 2025, where it was noted that the avulsion skin flap was largely nonviable, with an open wound remaining. Telfa and dry gauze dressings were recommended. The patient was subsequently referred to the [facility] for definitive evaluation and management. Incidental note is made of the fact that the patient was seen at the [facility] on February 05, 2025, with symptoms of cough, headache, and fever. He was diagnosed with COVID-19 at that time. The patient has a history of interstitial lung disease, rheumatoid arthritis, atrial fibrillation, diabetes mellitus, hypertension, hyperlipidemia, asthma, obstructive sleep apnea, and Parkinson's disease. He is on systemic anticoagulation with Xarelto for his atrial fibrillation. 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 layer exposed Leg wound, left Visit for suture removal Encounter for wound care Leg edema, left Leg laceration Worsening headaches Temporal headache Wears hearing aid Wears glasses Alcohol use Bladder disease Arthritis Restless legs Back pain Headache Former smoker BiPAP (biphasic positive airway pressure) dependence Interstitial emphysema of lung Leg cramps Hypertension History of echocardiogram Cardiology follow-up encounter Colon cancer screening Multiple premature ventricular complexes Left ankle pain Interstitial lung disease Chronic atrial fibrillation Asthma Viral syndrome history of bone fracture Paroxysmal atrial fibrillation Abnormal CXR DM (diabetes mellitus), type 2 with peripheral vascular complications History of immunosuppressive therapy Rheumatoid arthritis Essential hypertension Testosterone deficiency Elevated LFTs Erectile dysfunction Palpitations Paroxysmal ventricular tachycardia HLD (hyperlipidemia) Home Medications ?Medication ?Instructions ?Recorded ?Last Taken ?Type fexofenadine 180 mg tablet 180 mg PO QDAY 09/21/17 Unknown History (Kirti Allergy) multivitamin 1 tab PO QDAY 09/21/17 Unknown History simvastatin 40 mg tablet 40 mg PO QPM #90 tabs 11/11/20 Unknown Rx carvedilol 25 mg tablet 25 mg PO BID 11/01/21 04/10/24 05:30 History losartan 50 mg tablet 50 mg PO DAILY FAX to [facility] 05/24/23 04/10/24 05:30 Rx #90 tabs ipratropium 0.5 mg-albuterol 3 mg 3 ml inhalation Q4H PRN PRN SOB 05/25/23 Unknown Rx (2.5 mg base)/3 mL nebulization &/OR WHEEZING #180 mL soln Handicap Placard #1 ea 08/02/23 Unknown Rx albuterol sulfate 90 mcg/actuation 2 puff inhalation Q6H PRN 03/03/24 Unknown Rx aerosol inhaler shortness of breath or wheezing #18 grams spacer #1 ea 04/15/24 Unknown Rx testosterone cypionate 200 mg/mL 200 mg subcut Q2W #10 mL 04/16/24 Unknown Rx intramuscular oil calcium carbonate (Calcium 600) 600 mg PO QDAY 07/08/24 Unknown History cholecalciferol (vitamin D3) 25 25 mcg PO QDAY 07/08/24 Unknown History mcg (1,000 unit) capsule pramipexole 0.25 mg tablet 0.5 mg (2 x 0.25 mg) PO .COMPLEX 07/08/24 Unknown Rx #360 tabs gabapentin 300 mg capsule 300 mg PO QHS #90 caps 08/27/24 Unknown Rx rivaroxaban 20 mg tablet (Xarelto) 20 mg PO QHS Pt gets this from the 01/12/25 Unknown Rx [facility] #30 tabs sildenafil (pulm.hypertension) 20 20 mg PO DAILY PRN sexual activity 01/14/25 Unknown Rx mg tablet #30 tabs fluticasone 500 mcg-salmeterol 50 1 inh inhalation BID #60 ea 01/16/25 Unknown Rx mcg/dose blistr powdr for inhalation (Wixela Inhub) dexamethasone 6 mg tablet 6 mg PO DAILY #7 tabs 02/05/25 Unknown Rx levofloxacin 500 mg tablet 500 mg PO DAILY Wound Infection 02/18/25 Unknown Rx #10 tabs Allergy/AdvReac Type Severity Reaction Status Date / Time nalbuphine (From Nubain) AdvReac delirium Verified 02/10/25 10:08 Family History Father CAD (coronary artery disease) ICD implant Mother History of heart valve replacement Surgical History History of cardioversion (01/26/20) History of radiofrequency ablation procedure for cardiac arrhythmia (09/2010) History of left heart catheterization (12/2009) History of cardiac catheterization Hx of right cataract extraction Hx of left cataract extraction History of arthroplasty of left knee History of ear surgery History of bunionectomy of both great toes History of carpal tunnel release (~1989) History of hernia repair (~1980) History of colonoscopy (~06/2009) History of foot surgery History of back surgery History of bilateral hip replacements Social History Smoking Status: Former smoker how long ago did patient quit smokin alcohol intake: current alcohol intake frequency: holidays/special occasions only Alcohol type: beer and wine substance use type: does not use what type of physical activity do you participate in: 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 General Appearance: cooperative, comfortable, well kempt and well developed Orientation / Consciousness: awake, oriented to person, oriented to place and oriented to time Exam Limitations: no limitations HEENT normocephalic and head/scalp atraumatic Head and Scalp: normal to inspection, normocephalic and atraumatic Face and Sinus: normal facial exam Nose: external nose normal External Ear: external ears normal External Auditory Canal: other Other Details: The patient wears hearing aids. Eyes EOMs intact bilaterally General Eye: normal appearance of both eyes Resp normal respiratory effort, normal air movement, no retractions and no use of accessory muscles Effort and Inspection: able to speak in complete sentences Extremity no calf tenderness General Extremity: Negative for clubbing or cyanosis Skin Wound Narrative: An open wound is noted on the patient's right pretibial surface. It is a full-thickness wound, extending through all layers of the dermis and into the subcutaneous tissues. Dimensions are documented elsewhere. Mild antoinette-wound erythema is noted. The wound demonstrates pink, healthy granulation tissue. However, the inferior portion of the wound demonstrates nonviable slough and devitalized tissue. Wound margins are moderately beveled. Neuro oriented x3, CN's II-XII intact bilaterally, moves all extremities, no focal motor deficits and no sensory deficits noted Sensorium / Orientation: awake, alert, oriented to person, oriented to place and oriented to time Speech: speech normal Psych Appearance: grossly normal and appropriate Attitude: calm and engaged Activity / Motor Behavior: appropriate eye contact Speech: normal speech Mood & Affect: euthymic mood Thought Process: normal thought process Thought Content: normal thought content Attention / Concentration: attention grossly intact Debridement Note Debridement Note Wound debrided: Traumatic right pretibial wound Laterality: Right Type of Debridement: Excisional debridement Anesthesia Used: 5% Lidocaine Gel and Cetacaine Depth: Down to and including healthy tissue and in the subcutaneous layer Percentage of wound debrided: 100 Instrument Used: 5mm curette Tissue Removed: Slough and devitalized tissue Severity: Fat Layer Exposed Amount of bleeding with debridement: Mild Bleeding Controlled with: Compression and gauze Patient tolerated procedure: Patient tolerated procedure well Post-Debridement Measurements and Additional Note: Post-Debridement Measurements/Treatment WC - Nurse 1 - General Ulcer Assessment Start: 02/10/25 10:10 Freq: Status: Active Protocol: KARTHIK Activity Type Activity Date Activity User E-sign Co-sign Detail Recorded Client Recorded Date Recorded By Document 02/10/25 10:10 OLIVERIO [id number] 02/10/25 10:13 02/10/25 10:10 JACOB - Today's Visit Information Type of service Initial Visit Arrival Mode Ambulatory Patient Identification Verified (Name & Yes ) Height and Weight Height 5 ft 9 in Weight 175 lb Weight in Pounds 175.0 lbs Body Mass Index (BMI) 25.8 BMI Classification Overweight Vital Signs Temperature (97.8 F-99.1 F) 98.2 F Temperature Source Temporal Pulse Rate (60-100) 64 Pulse Location Monitor Respiratory Rate (12-18) 18 Respiratory rate source Observation Oxygen Delivery Method Room Air Blood Pressure (90/60-120/80) 165/146 H Blood Pressure Mean 152 Source Monitor Position Sitting Blood Pressure Location Left Arm History Since Last Visit- (Skip if this is Patient's initial visit) Left Footwear Regular Shoe Right Footwear Regular Shoe Pain Scale: 0-10 Numeric Is Patient Pain Free? No RLE -Alleviating Factors/Interventions Medication, Inactivity/ Resting Communication Assessment Preferred language Khmer Able to Read Yes Able to Write Yes Communication Tools None Right Hearing Abillity Use of Hearing Aid Left Hearing Abillity Use of Hearing Aid Visual Assistive Devices Glasses Teaching Assessment Preferences Verbal,Written, Demonstration Barriers to Learning None Readiness To Learn Excellent Willingness to Engage in Self Management High Activies Readiness to Engage in Self Management High Activities Anxiety Level Calm Cooperation Cooperative Perception Coherent Interest in Health Problem Asks Questions Education Importance Acknowledges Need Does Patient Smoke tobacco or other No substances Smoking Status Former smoker Is Patient Diabetic Yes Functional Assessment Recent Decline in Ability to Perform Denies Any Declines Culture/Nondenominational/Downstream 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 Downstream Biomanufacturing Technician to contact place of confucianist No JACOB - Nurse 1 - General Ulcer Measurement Start: 02/10/25 10:10 Freq: Status: Active Protocol: Activity Type Activity Date Activity User E-sign Co-sign Detail Recorded Client Recorded Date Recorded By Document 02/10/25 10:10 OLIVERIO [id number] 02/10/25 10:13 OLIVERIO 02/10/25 10:10 Wound Center Nurse 1 1. RT ARMIJO -Current Size (cm) - Length 1.5 -Current Size (cm) - Width 1 -Current Size (cm) - Depth 0.3 -Total Square Cm 1.5 -Date of Last Picture (Recall this 02/10/25 field) -Photo Taken Yes -Exudate Amt Large -Exudate Type Serosanguineous -Wound Margin Thickened & Rolled Under -Granulation Amt Medium (34-66%) -Granulation Quality Red -Necrosis Amt Medium (34-66%) -Necrotic Tissue Type Adherent Slough -Texture (Antoinette-wound Skin Appearance) Assessed -Moisture (Antoinette-wound Skin Appearance) Assessed -Color (Antoinette-wound Skin Appearance) Assessed, Erythema -Temperature (Antoinette-wound Skin No Abnormality Appearance) (Pt Warm) -Tenderness on Palpation (Antoinette-wound No Skin Appearance) -Ulcer Cleansing Soap and Water -Foul Odor after Cleansing No -Anesthetic Used 5% Lidocaine Gel Right Calf (cm) 33.5 Right Ankle (cm) 21.5 WC - Nurse 2 - General Ulcer CM Notes Start: 02/10/25 10:10 Freq: Status: Active Protocol: Activity Type Activity Date Activity User E-sign Co-sign Detail Recorded Client Recorded Date Recorded By Document 02/10/25 10:34 DS [id number] 02/10/25 10:38 DS 02/10/25 10:34 Wound Center Nurse 2 1. RT ARMIJO -Time 10:34 -Correct Patient Yes -Correct Side, Site, Position Yes -Correct Procedure Yes -Procedure Performed Yes -Type of Procedure Debridement -Clinical Debridement Subcutaneous -Tissue Removed Subcutaneous -Post Debridement (cm) - Length 1.4 -Post Debridement (cm) - Width 1.2 -Post Debridement (cm) - Depth 0.3 -Total Square (Post) (cm) 1.68 -Area of Debridement (cm) - Length 1.4 -Area of Debridement (cm) - Width 1.2 -Total Square (Area) (cm) 1.68 -Tunneling No -Undermining/Tunneling No -Circular Undermining No -Wound/Ulcer Outcome Not Healed -Ulcer Cleansing gauze -Foul Odor after Cleansing No -Bioengineered Tissue No -Bleeding Controlled with Pressure -Treatment Response Procedure Tolerated Well -Debridement - Subq, 1st 20sq cm Yes Pain Scale: 0-10 Numeric Is Patient Pain Free? Yes Charges/Coding Procedures Integumentary [id number]: [id number] Tabatha subq tissue 20 sq cm/< Assessment/Plan Assessment/Plan (1) Non-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 layer exposed: CODE(S): L97.912 - Non-pressure chronic ulcer of unspecified part of right lower leg with fat layer exposed (2) Leg laceration: CODE(S): S81.819A - Laceration without foreign body, unspecified lower leg, initial encounter QUALIFIERS: Encounter type: initial encounter Laterality: right Qualified Code(s): S81.811A - Laceration without foreign body, right lower leg, initial encounter (3) Restrictive lung disease: CODE(S): J98.4 - Other disorders of lung (4) shelter current use of anticoagulant: CODE(S): Z79.01 - shelter (current) use of anticoagulants (5) Rheumatoid arthritis: CODE(S): M06.9 - Rheumatoid arthritis, unspecified (6) History of ear surgery: CODE(S): Z98.890 - Other specified postprocedural states (7) Multiple premature ventricular complexes: CODE(S): I49.49 - Other premature depolarization (8) Paroxysmal atrial fibrillation: CODE(S): I48.0 - Paroxysmal atrial fibrillation (9) Essential hypertension: CODE(S): I10 - Essential (primary) hypertension (10) HLD (hyperlipidemia): CODE(S): E78.5 - Hyperlipidemia, unspecified QUALIFIERS: Hyperlipidemia type: unspecified Qualified Code(s): E78.5 - Hyperlipidemia, unspecified (11) Interstitial lung disease: CODE(S): J84.9 - Interstitial pulmonary disease, unspecified (12) Asthma: CODE(S): J45.909 - Unspecified asthma, uncomplicated QUALIFIERS: Asthma severity: mild Asthma persistence: intermittent Asthma complication type: uncomplicated Qualified Code(s): J45.20 - Mild intermittent asthma, uncomplicated (13) MAURI (obstructive sleep apnea): CODE(S): G47.33 - Obstructive sleep apnea (adult) (pediatric) (14) Erectile dysfunction: CODE(S): N52.9 - Male erectile dysfunction, unspecified (15) Testosterone deficiency: CODE(S): E34.9 - Endocrine disorder, unspecified (16) DM (diabetes mellitus), type 2 with peripheral vascular complications: CODE(S): E11.51 - Type 2 diabetes mellitus with diabetic peripheral angiopathy without gangrene (17) Parkinsons disease: CODE(S): G20.A1 - Parkinson's disease without dyskinesia, without mention of fluctuations QUALIFIERS: Dyskinesia presence: without dyskinesia PLAN: Plan This is a 75-year-old male who presented with a traumatic wound on the right pretibial surface. He had tripped over a ladder on January 04, 2025, resulting in a traumatic wound on the right pretibial surface. The events related to the management of this traumatic wound have been documented herein. The patient is noted to have multiple pre-existing medical problems, which are listed elsewhere within this document. Because of the appearance of the wound and the antoinette-wound erythema, a swab was obtained for aerobic and anaerobic bacterial growth at the patient's prior visit. Culture results were positive for Serratia marcescens. As result, the patient has been placed on Levaquin 500 mg p.o. daily for total of 10 days, in accordance with the results of bacterial sensitivities. The patient's labs have been reviewed, and it is noted that his hemoglobin A1c was 6.5 on January 08, 2025. The patient has been encouraged to optimize his nutritional intake, as well as his diabetic control. We are to continue the use of moistened Aquacel Ag topically within the patient's traumatic wound. This is to be applied on a daily basis. The patient and his have been instructed in the appropriate means of application. The patient has been encouraged to elevate his lower extremities as much as possible. Elevation is to be to heart level, or higher. He is to continue sleeping on a flat mattress at night. Double Tubigrips are to be donned on a daily basis to prevent and minimize swelling in the lower extremity. The patient is to return in 1 week for reevaluation. Total time: 25 minutes
== END 2025-02-24 23:59 | disposition home or self-care (01) ==
LOC: WC 08:30
PROVIDERS: PCP Internal Medicine; Referring Provider Internal Medicine; Visit Provider Surgery
DX: E11.622 Type 2 diabetes mellitus with other skin ulcer (principal); L97.812 Non-pressure chronic ulcer of other part of right lower leg with fat layer exposed; M06.9 Rheumatoid arthritis, unspecified; G20.A1 Parkinson's disease without dyskinesia, without mention of fluctuations; J84.9 Interstitial pulmonary disease, unspecified; I48.0 Paroxysmal atrial fibrillation; E11.51 Type 2 diabetes mellitus with diabetic peripheral angiopathy without gangrene; J45.20 Mild intermittent asthma, uncomplicated; G47.33 Obstructive sleep apnea (adult) (pediatric); I10 Essential (primary) hypertension; Z87.891 Personal history of nicotine dependence
CPT/HCPCS: 11042; 87070; 87075; 87077; 87186; 87205; 99213; G0463

== ENCOUNTER 2025-03-24 08:30 | Outpatient (RCR) | payer MEDICARE, SELFPAY ==
[2025-03-03 08:23] VITALS: BP 140/88; PULSE 96; RESP 17; TEMP 36.3
--- NOTE | 2025-03-04 13:43 | WC ---
PHOTO-RIGHT FIERRO 03/03/25
--- NOTE | 2025-03-06 12:39 | HP.PCM_ITS ---
History of Present Illness Date of Service: 03/03/25 Chief Complaint: Traumatic right pretibial wound History of Wound: This is a 75-year-old male who was in his normal state of health until January 04, 2025, at which time he tripped on a ladder that was laying on the ground, causing a laceration and abrasions to his right armijo. The patient was seen and evaluated in the [facility] Emergency Department, where 9 sutures were used to approximate the edges of a flap laceration on the pretibial surface. It was noted that the patient's tetanus was up-to-date. The patient was subsequently seen at the [facility] on January 11, 2025, where he presented due to drainage which was emanating from the suture site of the laceration. The patient was placed on a 7-day course of doxycycline 100 mg orally for a total of 7 days, which has been completed. The patient was seen by his primary care physician, Dr. Lynn, on January 14, 2025, where it was noted that the traumatic wound was beginning to dehisce, and half the sutures were removed. The patient return to his primary care physician on January 16, 2025, where the remainder of the sutures were removed. A moderate amount of tissue fluid was noted to be draining from the wound. The patient was instructed to use dry sterile gauze dressings with daily changes. Once again, the patient was seen by his primary care physician on January 22, 2025, where it was noted that the avulsion skin flap was largely nonviable, with an open wound remaining. Telfa and dry gauze dressings were recommended. The patient was subsequently referred to the [facility] for definitive evaluation and management. Incidental note is made of the fact that the patient was seen at the [facility] on February 05, 2025, with symptoms of cough, headache, and fever. He was diagnosed with COVID-19 at that time. The patient has a history of interstitial lung disease, rheumatoid arthritis, atrial fibrillation, diabetes mellitus, hypertension, hyperlipidemia, asthma, obstructive sleep apnea, and Parkinson's disease. He is on systemic anticoagulation with Xarelto for his atrial fibrillation. 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 layer exposed Leg wound, left Visit for suture removal Encounter for wound care Leg edema, left Leg laceration Worsening headaches Temporal headache Wears hearing aid Wears glasses Alcohol use Bladder disease Arthritis Restless legs Back pain Headache Former smoker BiPAP (biphasic positive airway pressure) dependence Interstitial emphysema of lung Leg cramps Hypertension History of echocardiogram Cardiology follow-up encounter Colon cancer screening Multiple premature ventricular complexes Left ankle pain Interstitial lung disease Chronic atrial fibrillation Asthma Viral syndrome history of bone fracture Paroxysmal atrial fibrillation Abnormal CXR DM (diabetes mellitus), type 2 with peripheral vascular complications History of immunosuppressive therapy Rheumatoid arthritis Essential hypertension Testosterone deficiency Elevated LFTs Erectile dysfunction Palpitations Paroxysmal ventricular tachycardia HLD (hyperlipidemia) Home Medications ?Medication ?Instructions ?Recorded ?Last Taken ?Type fexofenadine 180 mg tablet 180 mg PO QDAY 09/21/17 Unk nown History (Kirti Allergy) multivitamin 1 tab PO QDAY 09/21/17 Unkno wn History simvastatin 40 mg tablet 40 mg PO QPM #90 tabs Unknown Rx carvedilol 25 mg tablet 25 mg PO BID 11/01/21 05:30 History losartan 50 mg tablet 50 mg PO DAILY FAX to [facility] 05/24/23 04/10/24 05:30 Rx #90 tabs ipratropium 0.5 mg-albuterol 3 mg 3 ml inhalation Q4H PRN PRN SOB 05/25/23 Unknown Rx (2.5 mg base)/3 mL nebulization &/OR WHEEZING #180 mL soln Handicap Placard #1 ea 08/02/23 Unknown Rx albuterol sulfate 90 mcg/actuation 2 puff inhalation Q 6H PRN 03/03/24 Unknown Rx aerosol inhaler shortness of breath or wheez ing #18 grams spacer #1 ea 04/15/24 Unknown Rx testosterone cypionate 200 mg/mL 200 mg subcut Q2W #10 mL 04/16/24 Unknown Rx intramuscular oil calcium carbonate (Calcium 600) 600 mg PO QDAY 5 Unknown History cholecalciferol (vitamin D3) 25 25 mcg PO QDAY 5 Unknown History mcg (1,000 unit) capsule pramipexole 0.25 mg tablet 0.5 mg (2 x 0.25 mg) PO .CO MPLEX 07/08/24 Unknown Rx #360 tabs gabapentin 300 mg capsule 300 mg PO QHS #90 caps 08/27 Unknown Rx rivaroxaban 20 mg tablet (Xarelto) 20 mg PO QHS Pt get s this from the 01/12/25 Unknown Rx [facility] #30 tabs sildenafil (pulm.hypertension) 20 20 mg PO DAILY PRN s exual activity 01/14/25 Unknown Rx mg tablet #30 tabs fluticasone 500 mcg-salmeterol 50 1 inh inhalation BID #60 ea 01/16/25 Unknown Rx mcg/dose blistr powdr for inhalation (Wixela Inhub) dexamethasone 6 mg tablet 6 mg PO DAILY #7 tabs Unknown Rx levofloxacin 500 mg tablet 500 mg PO DAILY Wound Infec tion 02/18/25 Unknown Rx #10 tabs Allergy/AdvReac Type Severity Reaction Status Date / Time nalbuphine (From Nubain) AdvReac delirium Verified 02/10/25 10:08 Family History Father CAD (coronary artery disease) ICD implant Mother History of heart valve replacement Surgical History History of cardioversion (01/26/20) History of radiofrequency ablation procedure for cardiac arrhythmia (09/2010) History of left heart catheterization (12/2009) History of cardiac catheterization Hx of right cataract extraction Hx of left cataract extraction History of arthroplasty of left knee History of ear surgery History of bunionectomy of both great toes History of carpal tunnel release (~1989) History of hernia repair (~1980) History of colonoscopy (~06/2009) History of foot surgery History of back surgery History of bilateral hip replacements Social History Smoking Status: Former smoker how long ago did patient quit smokin alcohol intake: current alcohol intake frequency: holidays/special occasions only Alcohol type: beer and wine substance use type: does not use what type of physical activity do you participate in: other details: 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 General Appearance: cooperative, comfortable, well kempt and well developed Orientation / Consciousness: awake, oriented to person, oriented to place and oriented to time Exam Limitations: no limitations HEENT normocephalic and head/scalp atraumatic Head and Scalp: normal to inspection, normocephalic and atraumatic Face and Sinus: normal facial exam Nose: external nose normal External Ear: external ears normal External Auditory Canal: other Other Details: The patient wears hearing aids. Eyes EOMs intact bilaterally General Eye: normal appearance of both eyes Resp normal respiratory effort, normal air movement, no retractions and no use of accessory muscles Effort and Inspection: able to speak in complete sentences Extremity no calf tenderness General Extremity: Negative for clubbing or cyanosis Skin Wound Narrative: An open wound is noted on the patient's right pretibial surface. It is a full- thickness wound, extending through all layers of the dermis and into the subcutaneous tissues. Dimensions are documented elsewhere. The wound appears to be decreasing in size. Mild antoinette-wound erythema is noted, but has decreased significantly since the patient's prior visit. The wound demonstrates pink, healthy granulation tissue with a moderate amount of slough and devitalized tissue. Wound margins are moderately beveled. Chopra phlebectatica is noted on the medial aspect of the feet bilaterally. Neuro oriented x3, CN's II-XII intact bilaterally, moves all extremities, no focal motor deficits and no sensory deficits noted Sensorium / Orientation: awake, alert, oriented to person, oriented to place and oriented to time Speech: speech normal Psych Appearance: grossly normal and appropriate Attitude: calm and engaged Activity / Motor Behavior: appropriate eye contact Speech: normal speech Mood & Affect: euthymic mood Thought Process: normal thought process Thought Content: normal thought content Attention / Concentration: attention grossly intact Debridement Note Debridement Note Wound debrided: Traumatic right pretibial wound Laterality: Right Type of Debridement: Excisional debridement Anesthesia Used: 5% Lidocaine Gel and Cetacaine Depth: Down to and including healthy tissue and in the subcutaneous layer Percentage of wound debrided: 100 Instrument Used: 5mm curette Tissue Removed: Slough and devitalized tissue Severity: Fat Layer Exposed Amount of bleeding with debridement: Mild Bleeding Controlled with: Compression and gauze Patient tolerated procedure: Patient tolerated procedure well Post-Debridement Measurements and Additional Note: Post-Debridement Measurements/Treatment WC - Nurse 1 - General Ulcer Assessment Start: 03/03/25 08:23 Freq: Status: Active Protocol: KARTHIK Activity Type Activity Date Activity User E-sign Co-sign Detail Recorded Client Recorded Date Recorded By Document 03/03/25 08:23 ML [id number] 03/03/25 08:25 ML 03/03/25 08:23 WC - Today's Visit Information Type of service Follow-up Visit (Physician/[employer]ER ) Arrival Mode Ambulatory Transfer Assistance None Patient Identification Verified (Name & Yes ) Patient Requires Transmission-Based No Precautions Vital Signs Temperature (97.8 F-99.1 F) 97.3 F L Temperature Source Temporal Pulse Rate (60-100) 96 Pulse Location Monitor Respiratory Rate (12-18) 17 Respiratory rate source Observation Blood Pressure (90/60-120/80) 140/88 H Blood Pressure Mean 105 Source Monitor Position Sitting Blood Pressure Location Right Arm History Since Last Visit- (Skip if this is Patient's initial visit) Have you changed medications since your No last visit? Any new allergies or adverse reactions No Had a fall/change in ADL's that may No increase risk of falls Signs or symptoms of abuse and/or No neglect since last visit Has dressing in place as prescribed Yes Has compression in place as prescribed N/A Has offloadiing in place as prescribed N/A Experienced any changes in pain level or No management Pain Scale: 0-10 Numeric Is Patient Pain Free? No - Nurse 1 - General Ulcer Measurement Start: 03/03/25 08:23 Freq: Status: Active Protocol: Activity Type Activity Date Activity User E-sign Co-sign Detail Recorded Client Recorded Date Recorded By Document 03/03/25 08:23 ML [id number] 03/03/25 08:25 ML 03/03/25 08:23 Wound Center Nurse 1 1. RT ARMIJO -Current Size (cm) - Length 1.5 -Current Size (cm) - Width 1.5 -Current Size (cm) - Depth 0.2 -Total Square Cm 2.25 -Exudate Amt Medium -Exudate Type Serosanguineous -Wound Margin Distinct, Outline Attached -Granulation Amt Medium (34-66%) -Slough/Fibrin Yes -Necrosis Amt Medium (34-66%) -Necrotic Tissue Type Adherent Slough -Texture (Antoinette-wound Skin Appearance) Assessed -Moisture (Antoinette-wound Skin Appearance) Assessed -Color (Antoinette-wound Skin Appearance) Assessed -Temperature (Atnoinette-wound Skin No Abnormality Appearance) (Pt Warm) -Tenderness on Palpation (Antoinette-wound No Skin Appearance) -Ulcer Cleansing Rinsed/ Irrigated with Saline -Foul Odor after Cleansing No -Anesthetic Used 5% Lidocaine Gel JACOB - Nurse 2 - General Ulcer CM Notes Start: 03/03/25 08:23 Freq: Status: Active Protocol: Activity Type Activity Date Activity User E-sign Co-sign Detail Recorded Client Recorded Date Recorded By Document 03/03/25 08:39 DS [id number] 03/03/25 08:42 DS 03/03/25 08:39 Wound Center Nurse 2 -Time 08:39 -Correct Patient Yes -Correct Side, Site, Position Yes -Correct Procedure Yes -Procedure Performed Yes -Type of Procedure Debridement -Clinical Debridement Subcutaneous -Tissue Removed Subcutaneous -Post Debridement (cm) - Length 1.4 -Post Debridement (cm) - Width 1.4 -Post Debridement (cm) - Depth 0.2 -Total Square (Post) (cm) 1.96 -Area of Debridement (cm) - Length 1.4 -Area of Debridement (cm) - Width 1.4 -Total Square (Area) (cm) 1.96 -Tunneling No -Undermining/Tunneling No -Circular Undermining No -Wound/Ulcer Outcome Not Healed -Ulcer Cleansing gauze -Foul Odor after Cleansing No -Bioengineered Tissue No -Bleeding Controlled with Pressure -Treatment Response Procedure Tolerated Well -Debridement - Subq, 1st 20sq cm Yes Pain Scale: 0-10 Numeric Is Patient Pain Free? Yes - Nurse 3 - General Ulcer D/C NN Start: 03/03/25 08:23 Freq: Status: Active Protocol: Activity Type Activity Date Activity User E-sign Co-sign Detail Recorded Client Recorded Date Recorded By Document 03/03/25 08:57 JF [id number] 03/03/25 08:58 JF 03/03/25 08:57 Wound Care Center Nurse 3 1. RT ARMIJO -Ulcer Cleansing Rinsed/ Irrigated with Saline -Foul Odor after Cleansing No -Primary Dressing Applied Aquacel AG 4x4 -Primary Dressing Covered/Secured with Dry Gauze & Roll Gauze, Secured with Tape -Aquacel AG 4x4 1 RLE -Tubular Bandage Double Layer -Size of Tubigrip Used Size D -Size D ($) 2 Pain Scale: 0-10 Numeric Is Patient Pain Free? Yes WC - Visit Discharge Discharge Condition Stable Ambulatory Status Ambulatory Transportation Private Auto Medication Reconcilliation completed & No provided to patient/care provider Clinical Summary of Care Provided No Charges/Coding Procedures Integumentary [id number]: [id number] Tabatha subq tissue 20 sq cm/< Assessment/Plan Assessment/Plan (1) Non-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 layer exposed: CODE(S): L97.912 - Non-pressure chronic ulcer of unspecified part of right lower leg with fat layer exposed (2) Leg laceration: CODE(S): S81.819A - Laceration without foreign body, unspecified lower leg, initial encounter QUALIFIERS: Encounter type: initial encounter Laterality: right Qualified Code(s): S81.811A - Laceration without foreign body, right lower leg, initial encounter (3) Restrictive lung disease: CODE(S): J98.4 - Other disorders of lung (4) long 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 care 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 current use of anticoagulant: CODE(S): Z79.01 - group home (current) use of anticoagulants (5) Rheumatoid arthritis: CODE(S): M06.9 - Rheumatoid arthritis, unspecified (6) History of ear surgery: CODE(S): Z98.890 - Other specified postprocedural states (7) Multiple premature ventricular complexes: CODE(S): I49.49 - Other premature depolarization (8) Paroxysmal atrial fibrillation: CODE(S): I48.0 - Paroxysmal atrial fibrillation (9) Essential hypertension: CODE(S): I10 - Essential (primary) hypertension (10) HLD (hyperlipidemia): CODE(S): E78.5 - Hyperlipidemia, unspecified QUALIFIERS: Hyperlipidemia type: unspecified Qualified Code(s): E78.5 - Hyperlipidemia, unspecified (11) Interstitial lung disease: CODE(S): J84.9 - Interstitial pulmonary disease, unspecified (12) Asthma: CODE(S): J45.909 - Unspecified asthma, uncomplicated QUALIFIERS: Asthma severity: mild Asthma persistence: intermittent Asthma complication type: uncomplicated Qualified Code(s): J45.20 - Mild intermittent asthma, uncomplicated (13) MAURI (obstructive sleep apnea): CODE(S): G47.33 - Obstructive sleep apnea (adult) (pediatric) (14) Erectile dysfunction: CODE(S): N52.9 - Male erectile dysfunction, unspecified (15) Testosterone deficiency: CODE(S): E34.9 - Endocrine disorder, unspecified (16) DM (diabetes mellitus), type 2 with peripheral vascular complications: CODE(S): E11.51 - Type 2 diabetes mellitus with diabetic peripheral angiopathy without gangrene (17) Parkinsons disease: CODE(S): G20.A1 - Parkinson's disease without dyskinesia, without mention of fluctuations QUALIFIERS: Dyskinesia presence: without dyskinesia PLAN: Plan This is a 75-year-old male who presented with a traumatic wound on the right pretibial surface. He had tripped over a ladder on January 04, 2025, resulting in a traumatic wound on the right pretibial surface. The events related to the management of this traumatic wound have been documented herein. The patient is noted to have multiple pre-existing medical problems, which are listed elsewhere within this document. Because of the appearance of the wound and the antoinette-wound erythema, a swab was obtained for aerobic and anaerobic bacterial growth at the patient's prior visit. Culture results were positive for Serratia marcescens. As result, the patient was placed on Levaquin 500 mg p.o. daily for total of 10 days, in accordance with the results of bacterial sensitivities. The course of antibiotics has been completed. The patient's labs have been reviewed, and it is noted that his hemoglobin A1c was 6.5 on January 08, 2025. The patient has been encouraged to optimize his nutritional intake, as well as his diabetic control. We are to continue the use of moistened Aquacel Ag topically within the patient's traumatic wound. This is to be applied on a daily basis. The patient and his have been instructed in the appropriate means of application. The patient has been encouraged to elevate his lower extremities as much as possible. Elevation is to be to heart level, or higher. He is to continue sleeping on a flat mattress at night. Double Tubigrips are to be donned on a daily basis to prevent and minimize swelling in the lower extremity. The patient is to return in 1 week for reevaluation. Total time: 24 minutes
[2025-03-10 08:23] VITALS: BP 135/96; PULSE 85; RESP 16; TEMP 36.1
--- NOTE | 2025-03-11 14:35 | WC ---
PHOTO-RIGHT FIERRO 03/10/25
--- NOTE | 2025-03-12 08:31 | PCM.WC.HP ---
History of Present Illness Date of Service: 03/10/25 Chief Complaint: Traumatic right pretibial wound History of Wound: This is a 75-year-old male who was in his normal state of health until January 04, 2025, at which time he tripped on a ladder that was laying on the ground, causing a laceration and abrasions to his right armijo. The patient was seen and evaluated in the [facility], where 9 sutures were used to approximate the edges of a flap laceration on the pretibial surface. It was noted that the patient's tetanus was up-to-date. The patient was subsequently seen at the [facility] on January 11, 2025, where he presented due to drainage which was emanating from the suture site of the laceration. The patient was placed on a 7-day course of doxycycline 100 mg orally for a total of 7 days, which has been completed. The patient was seen by his primary care physician, Dr. Lynn, on January 14, 2025, where it was noted that the traumatic wound was beginning to dehisce, and half the sutures were removed. The patient return to his primary care physician on January 16, 2025, where the remainder of the sutures were removed. A moderate amount of tissue fluid was noted to be draining from the wound. The patient was instructed to use dry sterile gauze dressings with daily changes. Once again, the patient was seen by his primary care physician on January 22, 2025, where it was noted that the avulsion skin flap was largely nonviable, with an open wound remaining. Telfa and dry gauze dressings were recommended. The patient was subsequently referred to the [facility] for definitive evaluation and management. Incidental note is made of the fact that the patient was seen at the [facility] on February 05, 2025, with symptoms of cough, headache, and fever. He was diagnosed with COVID-19 at that time. The patient has a history of interstitial lung disease, rheumatoid arthritis, atrial fibrillation, diabetes mellitus, hypertension, hyperlipidemia, asthma, obstructive sleep apnea, and Parkinson's disease. He is on systemic anticoagulation with Xarelto for his atrial fibrillation. [facility] Medical History Parkinsons disease Non-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 layer exposed Leg wound, left Visit for suture removal Encounter for wound care Leg edema, left Leg laceration Worsening headaches Temporal headache Wears hearing aid Wears glasses Alcohol use Bladder disease Arthritis Restless legs Back pain Headache Former smoker BiPAP (biphasic positive airway pressure) dependence Interstitial emphysema of lung Leg cramps Hypertension History of echocardiogram Cardiology follow-up encounter Colon cancer screening Multiple premature ventricular complexes Left ankle pain Interstitial lung disease Chronic atrial fibrillation Asthma Viral syndrome history of bone fracture Paroxysmal atrial fibrillation Abnormal CXR DM (diabetes mellitus), type 2 with peripheral vascular complications History of immunosuppressive therapy Rheumatoid arthritis Essential hypertension Testosterone deficiency Elevated LFTs Erectile dysfunction Palpitations Paroxysmal ventricular tachycardia HLD (hyperlipidemia) Home Medications ?Medication ?Instructions ?Recorded ?Last Taken ?Type fexofenadine 180 mg tablet 180 mg PO QDAY 09/21/17 Unknown History (Kirti Allergy) multivitamin 1 tab PO QDAY 09/21/17 Unknown History simvastatin 40 mg tablet 40 mg PO QPM #90 tabs 11/11/20 Unknown Rx carvedilol 25 mg tablet 25 mg PO BID 11/01/21 04/10/24 05:30 History losartan 50 mg tablet 50 mg PO DAILY FAX to [facility] 05/24/23 04/10/24 05:30 Rx #90 tabs ipratropium 0.5 mg-albuterol 3 mg 3 ml inhalation Q4H PRN PRN SOB 05/25/23 Unknown Rx (2.5 mg base)/3 mL nebulization &/OR WHEEZING #180 mL soln Handicap Placard #1 ea 08/02/23 Unknown Rx albuterol sulfate 90 mcg/actuation 2 puff inhalation Q6H PRN 03/03/24 Unknown Rx aerosol inhaler shortness of breath or wheezing #18 grams spacer #1 ea 04/15/24 Unknown Rx testosterone cypionate 200 mg/mL 200 mg subcut Q2W #10 mL 04/16/24 Unknown Rx intramuscular oil calcium carbonate (Calcium 600) 600 mg PO QDAY 07/08/24 Unknown History cholecalciferol (vitamin D3) 25 25 mcg PO QDAY 07/08/24 Unknown History mcg (1,000 unit) capsule pramipexole 0.25 mg tablet 0.5 mg (2 x 0.25 mg) PO .COMPLEX 07/08/24 Unknown Rx #360 tabs gabapentin 300 mg capsule 300 mg PO QHS #90 caps 08/27/24 Unknown Rx rivaroxaban 20 mg tablet (Xarelto) 20 mg PO QHS Pt gets this from the 01/12/25 Unknown Rx [facility] #30 tabs sildenafil (pulm.hypertension) 20 20 mg PO DAILY PRN sexual activity 01/14/25 Unknown Rx mg tablet #30 tabs fluticasone 500 mcg-salmeterol 50 1 inh inhalation BID #60 ea 01/16/25 Unknown Rx mcg/dose blistr powdr for inhalation (Wixela Inhub) dexamethasone 6 mg tablet 6 mg PO DAILY #7 tabs 02/05/25 Unknown Rx levofloxacin 500 mg tablet 500 mg PO DAILY Wound Infection 02/18/25 Unknown Rx #10 tabs Allergy/AdvReac Type Severity Reaction Status Date / Time nalbuphine (From Nuin) AdvReac delirium Verified 02/10/25 10:08 Family History Father CAD (coronary artery disease) ICD implant Mother History of heart valve replacement Surgical History History of cardioversion (01/26/20) History of radiofrequency ablation procedure for cardiac arrhythmia (09/2010) History of left heart catheterization (12/2009) History of cardiac catheterization Hx of right cataract extraction Hx of left cataract extraction History of arthroplasty of left knee History of ear surgery History of bunionectomy of both great toes History of carpal tunnel release (~1989) History of hernia repair (~1980) History of colonoscopy (~06/2009) History of foot surgery History of back surgery History of bilateral hip replacements Social History Smoking Status: Former smoker how long ago did patient quit smokin alcohol intake: current alcohol intake frequency: holidays/special occasions only Alcohol type: beer and wine substance use type: does not use what type of physical activity do you participate in: other details: 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 General Appearance: cooperative, comfortable, well kempt and well developed Orientation / Consciousness: awake, oriented to person, oriented to place and oriented to time Exam Limitations: no limitations HEENT normocephalic and head/scalp atraumatic Head and Scalp: normal to inspection, normocephalic and atraumatic Face and Sinus: normal facial exam Nose: external nose normal External Ear: external ears normal External Auditory Canal: other Other Details: The patient wears hearing aids. Eyes EOMs intact bilaterally General Eye: normal appearance of both eyes Resp normal respiratory effort, normal air movement, no retractions and no use of accessory muscles Effort and Inspection: able to speak in complete sentences Extremity no calf tenderness General Extremity: Negative for clubbing or cyanosis Skin Wound Narrative: An open wound is noted on the patient's right pretibial surface. It is a full-thickness wound, extending through all layers of the dermis and into the subcutaneous tissues. Dimensions are documented elsewhere. It is slightly smaller in size. Mild antoinette-wound erythema is noted. The wound base demonstrates pink, healthy granulation tissue with a moderate amount of slough and devitalized tissue. Wound margins are not well beveled. Chopra phlebectatica is noted on the medial aspect of the feet bilaterally. Neuro oriented x3, CN's II-XII intact bilaterally, moves all extremities, no focal motor deficits and no sensory deficits noted Sensorium / Orientation: awake, alert, oriented to person, oriented to place and oriented to time Speech: speech normal Psych Appearance: grossly normal and appropriate Attitude: calm and engaged Activity / Motor Behavior: appropriate eye contact Speech: normal speech Mood & Affect: euthymic mood Thought Process: normal thought process Thought Content: normal thought content Attention / Concentration: attention grossly intact Debridement Note Debridement Note Wound debrided: Traumatic right pretibial wound Laterality: Right Type of Debridement: Excisional debridement Anesthesia Used: 5% Lidocaine Gel Depth: Down to and including healthy tissue and in the subcutaneous layer Percentage of wound debrided: 100 Instrument Used: 5mm curette Tissue Removed: Slough and devitalized tissue Severity: Fat Layer Exposed Amount of bleeding with debridement: Mild Bleeding Controlled with: Compression and gauze Patient tolerated procedure: Patient tolerated procedure well Debridement Free Text: Because of mild surrounding erythema about the wound, a swab was obtained for aerobic and anaerobic bacterial growth. Post-Debridement Measurements and Additional Note: Post-Debridement Measurements/Treatment WC - Nurse 1 - General Ulcer Assessment Start: 03/03/25 08:23 Freq: Status: Active Protocol: KARTHIK Activity Type Activity Date Activity User E-sign Co-sign Detail Recorded Client Recorded Date Recorded By Document 03/03/25 08:23 ML [id number] 03/03/25 08:25 ML Document 03/10/25 08:23 JF [id number] 03/10/25 08:32 JF 03/03/25 03/10/25 08:23 08:23 - Today's Visit Information Type of service Follow-up Visit Follow-up Visit (Physician/SPECIAL DELIVERY MESSENGER (Physician/SPECIAL DELIVERY MESSENGER ) ) Arrival Mode Ambulatory Ambulatory Transfer Assistance None Patient Identification Verified (Name & Yes No ) Patient Requires Transmission-Based No No Precautions Vital Signs Temperature (97.8 F-99.1 F) 97.3 F L 96.9 F L Temperature Source Temporal Temporal Pulse Rate (60-100) 96 85 Pulse Location Monitor Monitor Respiratory Rate (12-18) 17 16 Respiratory rate source Observation Observation Blood Pressure (90/60-120/80) 140/88 H 135/96 H Blood Pressure Mean 105 109 Source Monitor Monitor Position Sitting Semi-Fowlers Blood Pressure Location Right Arm Right Arm History Since Last Visit- (Skip if this is Patient's initial visit) Have you changed medications since your No Yes last visit? Any new allergies or adverse reactions No No Had a fall/change in ADL's that may No No increase risk of falls Signs or symptoms of abuse and/or No No neglect since last visit Have you been in the hospital since your No last visit? Has dressing in place as prescribed Yes Yes Has compression in place as prescribed N/A No Has offloadiing in place as prescribed N/A N/A Experienced any changes in pain level or No No management Left Footwear Regular Shoe Right Footwear Regular Shoe Pain Scale: 0-10 Numeric Is Patient Pain Free? No Yes - Nurse 1 - General Ulcer Measurement Start: 03/03/25 08:23 Freq: Status: Active Protocol: Activity Type Activity Date Activity User E-sign Co-sign Detail Recorded Client Recorded Date Recorded By Document 03/03/25 08:23 ML [id number] 03/03/25 08:25 ML Document 03/10/25 08:23 JF [id number] 03/10/25 08:32 03/03/25 03/10/25 08:23 08:23 Wound Center Nurse 1 1. RT ARMIJO -Combined with other wound No -Current Size (cm) - Length 1.5 1.3 -Current Size (cm) - Width 1.5 1.0 -Current Size (cm) - Depth 0.2 0.3 -Total Square Cm 2.25 1.30 -Photo Taken Yes -Epithelialization Medium 34-66% -Tunneling No -Undermining/Tunneling No -Circular Undermining No -Exudate Amt Medium Small -Exudate Type Serosanguineous Serosanguineous -Wound Margin Distinct, Thickened & Outline Rolled Under Attached -Granulation Amt Medium (34-66%) Small (1-33%) -Granulation Quality [place] -Slough/Fibrin Yes Yes -Necrosis Amt Medium (34-66%) Medium (34-66%) -Necrotic Tissue Type Adherent Slough Adherent Slough -Structure Exposed None/Limited to Skin Breakdown -Texture (Antoinette-wound Skin Appearance) Assessed No Abnormality -Moisture (Antoinette-wound Skin Appearance) Assessed -Color (Antoinette-wound Skin Appearance) Assessed Assessed -Temperature (Antoinette-wound Skin No Abnormality No Abnormality Appearance) (Pt Warm) (Pt Warm) -Tenderness on Palpation (Antoinette-wound No No Skin Appearance) -Ulcer Cleansing Rinsed/ Rinsed/ Irrigated with Irrigated with Saline Saline -Foul Odor after Cleansing No No -Anesthetic Used 5% Lidocaine 5% Lidocaine Gel Gel Lower Limb Edema Present No WC - Nurse 2 - General Ulcer CM Notes Start: 03/03/25 08:23 Freq: Status: Active Protocol: Activity Type Activity Date Activity User E-sign Co-sign Detail Recorded Client Recorded Date Recorded By Document 03/03/25 08:39 DS [id number] 03/03/25 08:42 DS Document 03/10/25 08:49 DS [id number] 03/10/25 08:55 DS 03/03/25 03/10/25 08:39 08:49 Wound Center Nurse 2 1. RT ARMIJO -Time 08:39 08:49 -Correct Patient Yes Yes -Correct Side, Site, Position Yes Yes -Correct Procedure Yes Yes -Procedure Performed Yes Yes -Type of Procedure Debridement Debridement -Clinical Debridement Subcutaneous Subcutaneous -Tissue Removed Subcutaneous Subcutaneous -Post Debridement (cm) - Length 1.4 1.3 -Post Debridement (cm) - Width 1.4 1.2 -Post Debridement (cm) - Depth 0.2 0.2 -Total Square (Post) (cm) 1.96 1.56 -Area of Debridement (cm) - Length 1.4 1.3 -Area of Debridement (cm) - Width 1.4 1.2 -Total Square (Area) (cm) 1.96 1.56 -Tunneling No No -Undermining/Tunneling No No -Circular Undermining No No -Wound/Ulcer Outcome Not Healed Not Healed -Ulcer Cleansing gauze gauze -Foul Odor after Cleansing No No -Bioengineered Tissue No No -Bleeding Controlled with Pressure Pressure -Treatment Response Procedure Procedure Tolerated Well Tolerated Well -Debridement - Subq, 1st 20sq cm Yes Yes Pain Scale: 0-10 Numeric Is Patient Pain Free? Yes Yes - Nurse 3 - General Ulcer D/C NN Start: 03/03/25 08:23 Freq: Status: Active Protocol: Activity Type Activity Date Activity User E-sign Co-sign Detail Recorded Client Recorded Date Recorded By Document 03/03/25 08:57 [id number] 03/03/25 08:58 Document 03/10/25 09:09 [id number] 03/10/25 09:10 03/03/25 03/10/25 08:57 09:09 Wound Care Center Nurse 3 1. RT ARMIJO -Ulcer Cleansing Rinsed/ Rinsed/ Irrigated with Irrigated with Saline Saline -Foul Odor after Cleansing No No -Primary Dressing Applied Aquacel AG 4x4 Aquacel AG 2x2 -Primary Dressing Covered/Secured with Dry Gauze & Dry Gauze & Roll Gauze, Roll Gauze, Secured with Secured with Tape Tape -Aquacel AG 2x2 1 -Aquacel AG 4x4 1 RLE -Tubular Bandage Double Layer Double Layer -Size of Tubigrip Used Size D Size D -Size D ($) 2 2 Pain Scale: 0-10 Numeric Is Patient Pain Free? Yes Yes - Visit Discharge Discharge Condition Stable Stable Ambulatory Status Ambulatory Ambulatory Transportation Private Auto Private Auto Medication Reconcilliation completed & No No provided to patient/care provider Clinical Summary of Care Provided No No Lab / Micro Data Micro: Microbiology 03/10/25 08:56 Wound - Leg, Right Gram Stain - Final 03/10/25 08:56 Wound - Leg, Right Wound Culture - Preliminary No growth-Final to follow Charges/Coding Procedures Integumentary [id number]: [id number] Tabatha subq tissue 20 sq cm/< Assessment/Plan Assessment/Plan (1) Non-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 layer exposed: CODE(S): L97.912 - Non-pressure chronic ulcer of unspecified part of right lower leg with fat layer exposed (2) Leg laceration: CODE(S): S81.819A - Laceration without foreign body, unspecified lower leg, initial encounter QUALIFIERS: Encounter type: initial encounter Laterality: right Qualified Code(s): S81.811A - Laceration without foreign body, right lower leg, initial encounter (3) Restrictive lung disease: CODE(S): J98.4 - Other disorders of lung (4) residential current use of anticoagulant: CODE(S): Z79.01 - residential (current) use of anticoagulants (5) Rheumatoid arthritis: CODE(S): M06.9 - Rheumatoid arthritis, unspecified (6) History of ear surgery: CODE(S): Z98.890 - Other specified postprocedural states (7) Multiple premature ventricular complexes: CODE(S): I49.49 - Other premature depolarization (8) Paroxysmal atrial fibrillation: CODE(S): I48.0 - Paroxysmal atrial fibrillation (9) Essential hypertension: CODE(S): I10 - Essential (primary) hypertension (10) HLD (hyperlipidemia): CODE(S): E78.5 - Hyperlipidemia, unspecified QUALIFIERS: Hyperlipidemia type: unspecified Qualified Code(s): E78.5 - Hyperlipidemia, unspecified (11) Interstitial lung disease: CODE(S): J84.9 - Interstitial pulmonary disease, unspecified (12) Asthma: CODE(S): J45.909 - Unspecified asthma, uncomplicated QUALIFIERS: Asthma severity: mild Asthma persistence: intermittent Asthma complication type: uncomplicated Qualified Code(s): J45.20 - Mild intermittent asthma, uncomplicated (13) MAURI (obstructive sleep apnea): CODE(S): G47.33 - Obstructive sleep apnea (adult) (pediatric) (14) Erectile dysfunction: CODE(S): N52.9 - Male erectile dysfunction, unspecified (15) Testosterone deficiency: CODE(S): E34.9 - Endocrine disorder, unspecified (16) DM (diabetes mellitus), type 2 with peripheral vascular complications: CODE(S): E11.51 - Type 2 diabetes mellitus with diabetic peripheral angiopathy without gangrene (17) Parkinsons disease: CODE(S): G20.A1 - Parkinson's disease without dyskinesia, without mention of fluctuations QUALIFIERS: Dyskinesia presence: without dyskinesia PLAN: Plan This is a 75-year-old male who presented with a traumatic wound on the right pretibial surface. He had tripped over a ladder on January 04, 2025, resulting in a traumatic wound on the right pretibial surface. The events related to the management of this traumatic wound have been documented herein. The patient is noted to have multiple pre-existing medical problems, which are listed elsewhere within this document. Because of the appearance of the wound and the antoinette-wound erythema, a swab was obtained for aerobic and anaerobic bacterial growth, and results will be awaited. He was previously treated for positive cultures positive for Serratia marcescens. The patient's labs have been reviewed, and it is noted that his hemoglobin A1c was 6.5 on January 08, 2025. The patient has been encouraged to optimize his nutritional intake, as well as his diabetic control. He checks his blood sugars regularly, and indicates that they are typically within desired levels. We are to continue the use of moistened Aquacel Ag topically within the patient's traumatic wound. This is to be applied on a daily basis. The patient and his have been instructed in the appropriate means of application. The patient has been encouraged to elevate his lower extremities as much as possible. Elevation is to be to heart level, or higher. He is to continue sleeping on a flat mattress at night. Double Tubigrips are to be donned on a daily basis to prevent and minimize swelling in the lower extremity. The patient is to return in 1 week for reevaluation. Total time: 25 minutes
[2025-03-17 08:22] VITALS: BP 153/97; PULSE 80; RESP 18; TEMP 36.3
--- NOTE | 2025-03-18 08:56 | WC ---
PHOTO-RIGHT FIERRO 03/17/25
--- NOTE | 2025-03-19 15:23 | HP.PCM_ITS ---
History of Present Illness Date of Service: 03/17/25 Chief Complaint: Traumatic right pretibial wound History of Wound: This is a 75-year-old male who was in his normal state of health until January 04, 2025, at which time he tripped on a ladder that was laying on the ground, causing a laceration and abrasions to his right armijo. The patient was seen and evaluated in the [facility] Emergency Department, where 9 sutures were used to approximate the edges of a flap laceration on the pretibial surface. It was noted that the patient's tetanus was up-to-date. The patient was subsequently seen at the [facility] on January 11, 2025, where he presented due to drainage which was emanating from the suture site of the laceration. The patient was placed on a 7-day course of doxycycline 100 mg orally for a total of 7 days, which has been completed. The patient was seen by his primary care physician, Dr. Lynn, on January 14, 2025, where it was noted that the traumatic wound was beginning to dehisce, and half the sutures were removed. The patient return to his primary care physician on January 16, 2025, where the remainder of the sutures were removed. A moderate amount of tissue fluid was noted to be draining from the wound. The patient was instructed to use dry sterile gauze dressings with daily changes. Once again, the patient was seen by his primary care physician on January 22, 2025, where it was noted that the avulsion skin flap was largely nonviable, with an open wound remaining. Telfa and dry gauze dressings were recommended. The patient was subsequently referred to the [facility] for definitive evaluation and management. Incidental note is made of the fact that the patient was seen at the [facility] on February 05, 2025, with symptoms of cough, headache, and fever. He was diagnosed with COVID-19 at that time. The patient has a history of interstitial lung disease, rheumatoid arthritis, atrial fibrillation, diabetes mellitus, hypertension, hyperlipidemia, asthma, obstructive sleep apnea, and Parkinson's disease. He is on systemic anticoagulation with Xarelto for his atrial fibrillation. FORMERLY [facility], 1928–1983 Medical History Parkinsons disease Non-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 layer exposed Leg wound, left Visit for suture removal Encounter for wound care Leg edema, left Leg laceration Worsening headaches Temporal headache Wears hearing aid Wears glasses Alcohol use Bladder disease Arthritis Restless legs Back pain Headache Former smoker BiPAP (biphasic positive airway pressure) dependence Interstitial emphysema of lung Leg cramps Hypertension History of echocardiogram Cardiology follow-up encounter Colon cancer screening Multiple premature ventricular complexes Left ankle pain Interstitial lung disease Chronic atrial fibrillation Asthma Viral syndrome history of bone fracture Paroxysmal atrial fibrillation Abnormal CXR DM (diabetes mellitus), type 2 with peripheral vascular complications History of immunosuppressive therapy Rheumatoid arthritis Essential hypertension Testosterone deficiency Elevated LFTs Erectile dysfunction Palpitations Paroxysmal ventricular tachycardia HLD (hyperlipidemia) Home Medications ?Medication ?Instructions ?Recorded ?Last Taken ?Type fexofenadine 180 mg tablet 180 mg PO QDAY 09/21/17 Unk nown History (Kirti Allergy) multivitamin 1 tab PO QDAY 09/21/17 Unkno wn History simvastatin 40 mg tablet 40 mg PO QPM #90 tabs Unknown Rx carvedilol 25 mg tablet 25 mg PO BID 11/01/21 05:30 History losartan 50 mg tablet 50 mg PO DAILY FAX to [facility] 05/24/23 04/10/24 05:30 Rx #90 tabs ipratropium 0.5 mg-albuterol 3 mg 3 ml inhalation Q4H PRN PRN SOB 05/25/23 Unknown Rx (2.5 mg base)/3 mL nebulization &/OR WHEEZING #180 mL soln Handicap Placard #1 ea 08/02/23 Unknown Rx albuterol sulfate 90 mcg/actuation 2 puff inhalation Q 6H PRN 03/03/24 Unknown Rx aerosol inhaler shortness of breath or wheez ing #18 grams spacer #1 ea 04/15/24 Unknown Rx testosterone cypionate 200 mg/mL 200 mg subcut Q2W #10 mL 04/16/24 Unknown Rx intramuscular oil calcium carbonate (Calcium 600) 600 mg PO QDAY 5 Unknown History cholecalciferol (vitamin D3) 25 25 mcg PO QDAY 5 Unknown History mcg (1,000 unit) capsule pramipexole 0.25 mg tablet 0.5 mg (2 x 0.25 mg) PO .CO MPLEX 07/08/24 Unknown Rx #360 tabs gabapentin 300 mg capsule 300 mg PO QHS #90 caps 08/27 Unknown Rx rivaroxaban 20 mg tablet (Xarelto) 20 mg PO QHS Pt get s this from the 01/12/25 Unknown Rx [facility] #30 tabs sildenafil (pulm.hypertension) 20 20 mg PO DAILY PRN s exual activity 01/14/25 Unknown Rx mg tablet #30 tabs levofloxacin 500 mg tablet 500 mg PO DAILY Wound Infec tion 02/18/25 Unknown Rx #10 tabs fluticasone 500 mcg-salmeterol 50 1 inh inhalation BID #3 ea 03/13/25 Unknown Rx mcg/dose blistr powdr for inhalation (Wixela Inhub) tadalafil 5 mg tablet 5 mg PO QDAY 03/13/25 Unknow n History Allergy/AdvReac Type Severity Reaction Status Date / Time nalbuphine (From Nubain) AdvReac delirium Verified 03/13/25 14:40 Family History Father CAD (coronary artery disease) ICD implant Mother History of heart valve replacement Surgical History History of cardioversion (01/26/20) History of radiofrequency ablation procedure for cardiac arrhythmia (09/2010) History of left heart catheterization (12/2009) History of cardiac catheterization Hx of right cataract extraction Hx of left cataract extraction History of arthroplasty of left knee History of ear surgery History of bunionectomy of both great toes History of carpal tunnel release (~1989) History of hernia repair (~1980) History of colonoscopy (~06/2009) History of foot surgery History of back surgery History of bilateral hip replacements Social History Smoking Status: Former smoker how long ago did patient quit smokin alcohol intake: current alcohol intake frequency: holidays/special occasions only Alcohol type: beer and wine substance use type: does not use what type of physical activity do you participate in: other details: 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 General Appearance: cooperative, comfortable, well kempt and well developed Orientation / Consciousness: awake, oriented to person, oriented to place and oriented to time Exam Limitations: no limitations HEENT normocephalic and head/scalp atraumatic Head and Scalp: normal to inspection, normocephalic and atraumatic Face and Sinus: normal facial exam Nose: external nose normal External Ear: external ears normal External Auditory Canal: other Other Details: The patient wears hearing aids. Eyes EOMs intact bilaterally General Eye: normal appearance of both eyes Resp normal respiratory effort, normal air movement, no retractions and no use of accessory muscles Effort and Inspection: able to speak in complete sentences Extremity no calf tenderness General Extremity: Negative for clubbing or cyanosis Skin Wound Narrative: An open wound is noted on the patient's right pretibial surface. It is a full- thickness wound, extending through all layers of the dermis and into the subcutaneous tissues. Dimensions are documented elsewhere. It is slightly smaller in size. Slight antoinette-wound erythema is noted. The wound base demonstrates pink, healthy granulation tissue with decreasing amounts of slough and devitalized tissue. Wound margins are not well beveled. Chopra phlebectatica is noted on the medial aspect of the feet bilaterally. Neuro oriented x3, CN's II-XII intact bilaterally, moves all extremities, no focal motor deficits and no sensory deficits noted Sensorium / Orientation: awake, alert, oriented to person, oriented to place and oriented to time Speech: speech normal Psych Appearance: grossly normal and appropriate Attitude: calm and engaged Activity / Motor Behavior: appropriate eye contact Speech: normal speech Mood & Affect: euthymic mood Thought Process: normal thought process Thought Content: normal thought content Attention / Concentration: attention grossly intact Debridement Note Debridement Note Wound debrided: Traumatic right pretibial wound Laterality: Right Type of Debridement: Excisional debridement Anesthesia Used: 5% Lidocaine Gel Depth: Down to and including healthy tissue and in the subcutaneous layer Percentage of wound debrided: 100 Instrument Used: 5mm curette Tissue Removed: Slough and devitalized tissue Severity: Fat Layer Exposed Amount of bleeding with debridement: Mild Bleeding Controlled with: Compression and gauze Patient tolerated procedure: Patient tolerated procedure well Post-Debridement Measurements and Additional Note: Post-Debridement Measurements/Treatment WC - Nurse 1 - General Ulcer Assessment Start: 03/03/25 08:23 Freq: Status: Active Protocol: KARTHIK Activity Type Activity Date Activity User E-sign Co-sign Detail Recorded Client Recorded Date Recorded By Document 03/03/25 08:23 ML [id number] 03/03/25 08:25 ML Document 03/10/25 08:23 JF [id number] 03/10/25 08:32 JF Document 03/17/25 08:22 RB [id number] 03/17/25 08:24 RB 03/03/25 03/10/25 03/17/25 08:23 08:23 08:22 - Today's Visit Information Type of service Follow-up Visit Follow-up Visit Follow-up Visit (Physician/PRORATION CLERK (Physician/PRORATION CLERK (Physician/PRORATION CLERK ) ) ) Arrival Mode Ambulatory Ambulatory Ambulatory Transfer Assistance None None Patient Identification Verified (Name & Yes No Yes ) Patient Requires Transmission-Based No No No Precautions Vital Signs Temperature (97.8 F-99.1 F) 97.3 F L 96.9 F L 97.3 F L Temperature Source Temporal Temporal Temporal Pulse Rate (60-100) 96 85 80 Pulse Location Monitor Monitor Monitor Respiratory Rate (12-18) 17 16 18 Respiratory rate source Observation Observation Observation Blood Pressure (90/60-120/80) 140/88 H 135/96 H 153/97 H Blood Pressure Mean 105 109 115 Source Monitor Monitor Monitor Position Sitting Semi-Fowlers Semi-Fowlers Blood Pressure Location Right Arm Right Arm Left Arm History Since Last Visit- (Skip if this is Patient's initial visit) Have you changed medications since your No Yes No last visit? Any new allergies or adverse reactions No No No Had a fall/change in ADL's that may No No No increase risk of falls Signs or symptoms of abuse and/or No No No neglect since last visit Have you been in the hospital since your No No last visit? Has dressing in place as prescribed Yes Yes Yes Has compression in place as prescribed N/A No Yes Has offloadiing in place as prescribed N/A N/A N/A Experienced any changes in pain level or No No No management Left Footwear Regular Shoe Regular Shoe Right Footwear Regular Shoe Regular Shoe Pain Scale: 0-10 Numeric Is Patient Pain Free? No Yes Yes - Nurse 1 - General Ulcer Measurement Start: 03/03/25 08:23 Freq: Status: Active Protocol: Activity Type Activity Date Activity User E-sign Co-sign Detail Recorded Client Recorded Date Recorded By Document 03/03/25 08:23 ML [id number] 03/03/25 08:25 ML Document 03/10/25 08:23 JF [id number] 03/10/25 08:32 JF Document 03/17/25 08:22 RB [id number] 03/17/25 08:24 RB 03/03/25 03/10/25 03/17/25 08:23 08:23 08:22 Wound Center Nurse 1 1. RT ARMIJO -Combined with other wound No No -Current Size (cm) - Length 1.5 1.3 1.2 -Current Size (cm) - Width 1.5 1.0 0.9 -Current Size (cm) - Depth 0.2 0.3 0.2 -Total Square Cm 2.25 1.30 1.08 -Photo Taken Yes Yes -Epithelialization Medium 34-66% -Tunneling No No -Undermining/Tunneling No No -Circular Undermining No No -Exudate Amt Medium Small Medium -Exudate Type Serosanguineous Serosanguineous Serosanguineous -Wound Margin Distinct, Thickened & Thickened & Outline Rolled Under Rolled Under Attached -Granulation Amt Medium (34-66%) Small (1-33%) Medium (34-66%) -Granulation Quality [employer] -Slough/Fibrin Yes Yes Yes -Necrosis Amt Medium (34-66%) Medium (34-66%) Medium (34-66%) -Necrotic Tissue Type Adherent Slough Adherent Slough Adherent Slough -Structure Exposed None/Limited to N/A Skin Breakdown -Texture (Antoinette-wound Skin Appearance) Assessed No Abnormality Assessed -Moisture (Antoinette-wound Skin Appearance) Assessed Assessed -Color (Antoinette-wound Skin Appearance) Assessed Assessed Assessed -Temperature (Antoinette-wound Skin No Abnormality No Abnormality No Abnormality Appearance) (Pt Warm) (Pt Warm) (Pt Warm) -Tenderness on Palpation (Antoinette-wound No No No Skin Appearance) -Ulcer Cleansing Rinsed/ Rinsed/ Wound Cleanser Irrigated with Irrigated with Saline Saline -Foul Odor after Cleansing No No No -Anesthetic Used 5% Lidocaine 5% Lidocaine 5% Lidocaine Gel Gel Gel Lower Limb Edema Present No Yes Right Calf (cm) 33.2 Right Ankle (cm) 22 WC - Nurse 2 - General Ulcer CM Notes Start: 03/03/25 08:23 Freq: Status: Active Protocol: Activity Type Activity Date Activity User E-sign Co-sign Detail Recorded Client Recorded Date Recorded By Document 03/03/25 08:39 DS [id number] 03/03/25 08:42 DS Document 03/10/25 08:49 DS [id number] 03/10/25 08:55 DS Document 03/17/25 08:35 DS [id number] 03/17/25 08:38 DS 03/03/25 03/10/25 03/17/25 08:39 08:49 08:35 Wound Center Nurse 2 1. RT ARMIJO -Time 08:39 08:49 08:35 -Correct Patient Yes Yes Yes -Correct Side, Site, Position Yes Yes Yes -Correct Procedure Yes Yes Yes -Procedure Performed Yes Yes Yes -Type of Procedure Debridement Debridement Debridement -Clinical Debridement Subcutaneous Subcutaneous Subcutaneous -Tissue Removed Subcutaneous Subcutaneous Subcutaneous -Post Debridement (cm) - Length 1.4 1.3 1.2 -Post Debridement (cm) - Width 1.4 1.2 1.1 -Post Debridement (cm) - Depth 0.2 0.2 0.2 -Total Square (Post) (cm) 1.96 1.56 1.32 -Area of Debridement (cm) - Length 1.4 1.3 1.2 -Area of Debridement (cm) - Width 1.4 1.2 1.1 -Total Square (Area) (cm) 1.96 1.56 1.32 -Tunneling No No No -Undermining/Tunneling No No No -Circular Undermining No No No -Wound/Ulcer Outcome Not Healed Not Healed Not Healed -Ulcer Cleansing gauze gauze gauze -Foul Odor after Cleansing No No No -Bioengineered Tissue No No No -Bleeding Controlled with Pressure Pressure Pressure -Treatment Response Procedure Procedure Procedure Tolerated Well Tolerated Well Tolerated Well -Debridement - Subq, 1st 20sq cm Yes Yes Yes Pain Scale: 0-10 Numeric Is Patient Pain Free? Yes Yes Yes - Nurse 3 - General Ulcer D/C NN Start: 03/03/25 08:23 Freq: Status: Active Protocol: Activity Type Activity Date Activity User E-sign Co-sign Detail Recorded Client Recorded Date Recorded By Document 03/03/25 08:57 JF [id number] 03/03/25 08:58 Document 03/10/25 09:09 JF [id number] 03/10/25 09:10 JF 03/03/25 03/10/25 08:57 09:09 Wound Care Center Nurse 3 1. RT ARMIJO -Ulcer Cleansing Rinsed/ Rinsed/ Irrigated with Irrigated with Saline Saline -Foul Odor after Cleansing No No -Primary Dressing Applied Aquacel AG 4x4 Aquacel AG 2x2 -Primary Dressing Covered/Secured with Dry Gauze & Dry Gauze & Roll Gauze, Roll Gauze, Secured with Secured with Tape Tape -Aquacel AG 2x2 1 -Aquacel AG 4x4 1 RLE -Tubular Bandage Double Layer Double Layer -Size of Tubigrip Used Size D Size D -Size D ($) 2 2 Pain Scale: 0-10 Numeric Is Patient Pain Free? Yes Yes WC - Visit Discharge Discharge Condition Stable Stable Ambulatory Status Ambulatory Ambulatory Transportation Private Auto Private Auto Medication Reconcilliation completed & No No provided to patient/care provider Clinical Summary of Care Provided No No Charges/Coding Procedures Integumentary [id number]: [id number] Tabatha subq tissue 20 sq cm/< Assessment/Plan Assessment/Plan (1) Non-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 layer exposed: CODE(S): L97.912 - Non-pressure chronic ulcer of unspecified part of right lower leg with fat layer exposed (2) Leg laceration: CODE(S): S81.819A - Laceration without foreign body, unspecified lower leg, initial encounter QUALIFIERS: Encounter type: subsequent encounter Laterality: right Qualified Code(s): S81.811D - Laceration without foreign body, right lower leg, subsequent encounter (3) Restrictive lung disease: CODE(S): J98.4 - Other disorders of lung (4) group home current use of anticoagulant: CODE(S): 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 (5) Rheumatoid arthritis: CODE(S): M06.9 - Rheumatoid arthritis, unspecified (6) History of ear surgery: CODE(S): Z98.890 - Other specified postprocedural states (7) Multiple premature ventricular complexes: CODE(S): I49.49 - Other premature depolarization (8) Paroxysmal atrial fibrillation: CODE(S): I48.0 - Paroxysmal atrial fibrillation (9) Essential hypertension: CODE(S): I10 - Essential (primary) hypertension (10) HLD (hyperlipidemia): CODE(S): E78.5 - Hyperlipidemia, unspecified QUALIFIERS: Hyperlipidemia type: unspecified Qualified Code(s): E78.5 - Hyperlipidemia, unspecified (11) Interstitial lung disease: CODE(S): J84.9 - Interstitial pulmonary disease, unspecified (12) Asthma: CODE(S): J45.909 - Unspecified asthma, uncomplicated QUALIFIERS: Asthma severity: mild Asthma persistence: intermittent Asthma complication type: uncomplicated Qualified Code(s): J45.20 - Mild intermittent asthma, uncomplicated (13) MAURI (obstructive sleep apnea): CODE(S): G47.33 - Obstructive sleep apnea (adult) (pediatric) (14) Erectile dysfunction: CODE(S): N52.9 - Male erectile dysfunction, unspecified (15) Testosterone deficiency: CODE(S): E34.9 - Endocrine disorder, unspecified (16) DM (diabetes mellitus), type 2 with peripheral vascular complications: CODE(S): E11.51 - Type 2 diabetes mellitus with diabetic peripheral angiopathy without gangrene (17) Parkinsons disease: CODE(S): G20.A1 - Parkinson's disease without dyskinesia, without mention of fluctuations QUALIFIERS: Dyskinesia presence: without dyskinesia PLAN: Plan This is a 75-year-old male who presented with a traumatic wound on the right pretibial surface. He had tripped over a ladder on January 04, 2025, resulting in a traumatic wound on the right pretibial surface. The events related to the management of this traumatic wound have been documented herein. The patient is noted to have multiple pre-existing medical problems, which are listed elsewhere within this document. Because of the appearance of the wound and the antoinette-wound erythema, a swab was obtained for aerobic and anaerobic bacterial growth was obtained last week. The results were negative for both aerobic and anaerobic bacterial growth. The patient's labs have been reviewed, and it is noted that his hemoglobin A1c was 6.5 on January 08, 2025. The patient has been encouraged to optimize his nutritional intake, as well as his diabetic control. He checks his blood sugars regularly, and indicates that they are typically within desired levels. We are to continue the use of moistened Aquacel Ag topically within the patient's traumatic wound. This is to be applied on a daily basis. The patient and his have been instructed in the appropriate means of application. The patient has been encouraged to elevate his lower extremities as much as possible. Elevation is to be to heart level, or higher. He is to continue sleeping on a flat mattress at night. Double Tubigrips are to be donned on a daily basis to prevent and minimize swelling in the lower extremity. The patient is to return in 1 week for reevaluation. Total time: 24 minutes
[2025-03-24 08:37] VITALS: BP 131/93; PULSE 82; RESP 15; TEMP 36.6
--- NOTE | 2025-03-24 12:54 | PCM.WC.HP ---
History of Present Illness Date of Service: 03/24/25 Chief Complaint: Traumatic right pretibial wound History of Wound: This is a 75-year-old male who was in his normal state of health until January 04, 2025, at which time he tripped on a ladder that was laying on the ground, causing a laceration and abrasions to his right armijo. The patient was seen and evaluated in the [facility] Emergency Department, where 9 sutures were used to approximate the edges of a flap laceration on the pretibial surface. It was noted that the patient's tetanus was up-to-date. The patient was subsequently seen at the [facility] on January 11, 2025, where he presented due to drainage which was emanating from the suture site of the laceration. The patient was placed on a 7-day course of doxycycline 100 mg orally for a total of 7 days, which has been completed. The patient was seen by his primary care physician, Dr. Lynn, on January 14, 2025, where it was noted that the traumatic wound was beginning to dehisce, and half the sutures were removed. The patient return to his primary care physician on January 16, 2025, where the remainder of the sutures were removed. A moderate amount of tissue fluid was noted to be draining from the wound. The patient was instructed to use dry sterile gauze dressings with daily changes. Once again, the patient was seen by his primary care physician on January 22, 2025, where it was noted that the avulsion skin flap was largely nonviable, with an open wound remaining. Telfa and dry gauze dressings were recommended. The patient was subsequently referred to the [facility] for definitive evaluation and management. Incidental note is made of the fact that the patient was seen at the [facility] on February 05, 2025, with symptoms of cough, headache, and fever. He was diagnosed with COVID-19 at that time. The patient has a history of interstitial lung disease, rheumatoid arthritis, atrial fibrillation, diabetes mellitus, hypertension, hyperlipidemia, asthma, obstructive sleep apnea, and Parkinson's disease. He is on systemic anticoagulation with Xarelto for his atrial fibrillation. [facility] Medical History Parkinsons disease Non-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 layer exposed Leg wound, left Visit for suture removal Encounter for wound care Leg edema, left Leg laceration Worsening headaches Temporal headache Wears hearing aid Wears glasses Alcohol use Bladder disease Arthritis Restless legs Back pain Headache Former smoker BiPAP (biphasic positive airway pressure) dependence Interstitial emphysema of lung Leg cramps Hypertension History of echocardiogram Cardiology follow-up encounter Colon cancer screening Multiple premature ventricular complexes Left ankle pain Interstitial lung disease Chronic atrial fibrillation Asthma Viral syndrome history of bone fracture Paroxysmal atrial fibrillation Abnormal CXR DM (diabetes mellitus), type 2 with peripheral vascular complications History of immunosuppressive therapy Rheumatoid arthritis Essential hypertension Testosterone deficiency Elevated LFTs Erectile dysfunction Palpitations Paroxysmal ventricular tachycardia HLD (hyperlipidemia) Home Medications ?Medication ?Instructions ?Recorded ?Last Taken ?Type fexofenadine 180 mg tablet 180 mg PO QDAY 09/21/17 Unknown History (Kirti Allergy) multivitamin 1 tab PO QDAY 09/21/17 Unknown History simvastatin 40 mg tablet 40 mg PO QPM #90 tabs 11/11/20 Unknown Rx carvedilol 25 mg tablet 25 mg PO BID 11/01/21 04/10/24 05:30 History losartan 50 mg tablet 50 mg PO DAILY FAX to [facility] 05/24/23 04/10/24 05:30 Rx #90 tabs ipratropium 0.5 mg-albuterol 3 mg 3 ml inhalation Q4H PRN PRN SOB 05/25/23 Unknown Rx (2.5 mg base)/3 mL nebulization &/OR WHEEZING #180 mL soln Handicap Placard #1 ea 08/02/23 Unknown Rx albuterol sulfate 90 mcg/actuation 2 puff inhalation Q6H PRN 03/03/24 Unknown Rx aerosol inhaler shortness of breath or wheezing #18 grams spacer #1 ea 04/15/24 Unknown Rx testosterone cypionate 200 mg/mL 200 mg subcut Q2W #10 mL 04/16/24 Unknown Rx intramuscular oil calcium carbonate (Calcium 600) 600 mg PO QDAY 07/08/24 Unknown History cholecalciferol (vitamin D3) 25 25 mcg PO QDAY 07/08/24 Unknown History mcg (1,000 unit) capsule pramipexole 0.25 mg tablet 0.5 mg (2 x 0.25 mg) PO .COMPLEX 07/08/24 Unknown Rx #360 tabs gabapentin 300 mg capsule 300 mg PO QHS #90 caps 08/27/24 Unknown Rx rivaroxaban 20 mg tablet (Xarelto) 20 mg PO QHS Pt gets this from the 01/12/25 Unknown Rx [facility] #30 tabs sildenafil (pulm.hypertension) 20 20 mg PO DAILY PRN sexual activity 01/14/25 Unknown Rx mg tablet #30 tabs levofloxacin 500 mg tablet 500 mg PO DAILY Wound Infection 02/18/25 Unknown Rx #10 tabs fluticasone 500 mcg-salmeterol 50 1 inh inhalation BID #3 ea 03/13/25 Unknown Rx mcg/dose blistr powdr for inhalation (Wixela Inhub) tadalafil 5 mg tablet 5 mg PO QDAY 03/13/25 Unknown History Allergy/AdvReac Type Severity Reaction Status Date / Time nalbuphine (From Nubain) AdvReac delirium Verified 03/13/25 14:40 Family History Father CAD (coronary artery disease) ICD implant Mother History of heart valve replacement Surgical History History of cardioversion (01/26/20) History of radiofrequency ablation procedure for cardiac arrhythmia (09/2010) History of left heart catheterization (12/2009) History of cardiac catheterization Hx of right cataract extraction Hx of left cataract extraction History of arthroplasty of left knee History of ear surgery History of bunionectomy of both great toes History of carpal tunnel release (~1989) History of hernia repair (~1980) History of colonoscopy (~06/2009) History of foot surgery History of back surgery History of bilateral hip replacements Social History Smoking Status: Former smoker how long ago did patient quit smokin alcohol intake: current alcohol intake frequency: holidays/special occasions only Alcohol type: beer and wine substance use type: does not use what type of physical activity do you participate in: other details: 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 General Appearance: cooperative, comfortable, well kempt and well developed Orientation / Consciousness: awake, oriented to person, oriented to place and oriented to time Exam Limitations: no limitations HEENT normocephalic and head/scalp atraumatic Head and Scalp: normal to inspection, normocephalic and atraumatic Face and Sinus: normal facial exam Nose: external nose normal External Ear: external ears normal External Auditory Canal: other Other Details: The patient wears hearing aids. Eyes EOMs intact bilaterally General Eye: normal appearance of both eyes Resp normal respiratory effort, normal air movement, no retractions and no use of accessory muscles Effort and Inspection: able to speak in complete sentences Extremity no calf tenderness General Extremity: Negative for clubbing or cyanosis Skin Wound Narrative: An open wound is noted on the patient's right pretibial surface. It is a full-thickness wound, extending through all layers of the dermis and into the subcutaneous tissues. Dimensions are documented elsewhere. It is slightly smaller in size. Slight antoinette-wound erythema is noted. The wound base demonstrates pink, healthy granulation tissue with decreasing amounts of slough and devitalized tissue. Wound margins are not well beveled. Chopra phlebectatica is noted on the medial aspect of the feet bilaterally. Neuro oriented x3, CN's II-XII intact bilaterally, moves all extremities, no focal motor deficits and no sensory deficits noted Sensorium / Orientation: awake, alert, oriented to person, oriented to place and oriented to time Speech: speech normal Psych Appearance: grossly normal and appropriate Attitude: calm and engaged Activity / Motor Behavior: appropriate eye contact Speech: normal speech Mood & Affect: euthymic mood Thought Process: normal thought process Thought Content: normal thought content Attention / Concentration: attention grossly intact Debridement Note Debridement Note Wound debrided: Traumatic right pretibial wound Laterality: Right Type of Debridement: Excisional debridement Anesthesia Used: 5% Lidocaine Gel Depth: Down to and including healthy tissue and in the subcutaneous layer Percentage of wound debrided: 100 Instrument Used: 5mm curette Tissue Removed: Slough and devitalized tissue Severity: Fat Layer Exposed Amount of bleeding with debridement: Mild Bleeding Controlled with: Compression and gauze Patient tolerated procedure: Patient tolerated procedure well Post-Debridement Measurements and Additional Note: Post-Debridement Measurements/Treatment WC - Nurse 1 - General Ulcer Assessment Start: 03/03/25 08:23 Freq: Status: Active Protocol: KARTHIK Activity Type Activity Date Activity User E-sign Co-sign Detail Recorded Client Recorded Date Recorded By Document 03/03/25 08:23 ML [id number] 03/03/25 08:25 ML Document 03/10/25 08:23 JF [id number] 03/10/25 08:32 JF Document 03/17/25 08:22 RB [id number] 03/17/25 08:24 RB Document 03/24/25 08:37 ML [id number] 03/24/25 08:39 ML 03/03/25 03/10/25 03/17/25 08:23 08:23 08:22 WC - Today's Visit Information Type of service Follow-up Visit Follow-up Visit Follow-up Visit (Physician/LOSS PREVENTION SUPERVISOR (Physician/LOSS PREVENTION SUPERVISOR (Physician/LOSS PREVENTION SUPERVISOR ) ) ) Arrival Mode Ambulatory Ambulatory Ambulatory Transfer Assistance None None Patient Identification Verified (Name & Yes No Yes ) Patient Requires Transmission-Based No No No Precautions Vital Signs Temperature (97.8 F-99.1 F) 97.3 F L 96.9 F L 97.3 F L Temperature Source Temporal Temporal Temporal Pulse Rate (60-100) 96 85 80 Pulse Location Monitor Monitor Monitor Respiratory Rate (12-18) 17 16 18 Respiratory rate source Observation Observation Observation Blood Pressure (90/60-120/80) 140/88 H 135/96 H 153/97 H Blood Pressure Mean 105 109 115 Source Monitor Monitor Monitor Position Sitting Semi-Fowlers Semi-Fowlers Blood Pressure Location Right Arm Right Arm Left Arm History Since Last Visit- (Skip if this is Patient's initial visit) Have you changed medications since your No Yes No last visit? Any new allergies or adverse reactions No No No Had a fall/change in ADL's that may No No No increase risk of falls Signs or symptoms of abuse and/or No No No neglect since last visit Have you been in the hospital since your No No last visit? Has dressing in place as prescribed Yes Yes Yes Has compression in place as prescribed N/A No Yes Has offloadiing in place as prescribed N/A N/A N/A Experienced any changes in pain level or No No No management Left Footwear Regular Shoe Regular Shoe Right Footwear Regular Shoe Regular Shoe Pain Scale: 0-10 Numeric Is Patient Pain Free? No Yes Yes 03/24/25 08:37 WC - Today's Visit Information Type of service Follow-up Visit (Physician/LOSS PREVENTION SUPERVISOR ) Arrival Mode Ambulatory Transfer Assistance None Patient Identification Verified (Name & Yes ) Patient Requires Transmission-Based No Precautions Vital Signs Temperature (97.8 F-99.1 F) 97.8 F Temperature Source Temporal Pulse Rate (60-100) 82 Pulse Location Monitor Respiratory Rate (12-18) 15 Respiratory rate source Observation Blood Pressure (90/60-120/80) 131/93 H Blood Pressure Mean 105 Source Monitor Position Sitting Blood Pressure Location Right Forearm History Since Last Visit- (Skip if this is Patient's initial visit) Have you changed medications since your No last visit? Any new allergies or adverse reactions No Had a fall/change in ADL's that may No increase risk of falls Signs or symptoms of abuse and/or No neglect since last visit Have you been in the hospital since your last visit? Has dressing in place as prescribed Yes Has compression in place as prescribed Yes Has offloadiing in place as prescribed N/A Experienced any changes in pain level or No management Left Footwear Right Footwear Pain Scale: 0-10 Numeric Is Patient Pain Free? Yes - Nurse 1 - General Ulcer Measurement Start: 03/03/25 08:23 Freq: Status: Active Protocol: Activity Type Activity Date Activity User E-sign Co-sign Detail Recorded Client Recorded Date Recorded By Document 03/03/25 08:23 ML [id number] 03/03/25 08:25 ML Document 03/10/25 08:23 JF [id number] 03/10/25 08:32 JF Document 03/17/25 08:22 RB [id number] 03/17/25 08:24 RB Document 03/24/25 08:37 ML [id number] 03/24/25 08:39 ML 03/03/25 03/10/25 03/17/25 08:23 08:23 08:22 Wound Center Nurse 1 1. RT ARMIJO -Combined with other wound No No -Current Size (cm) - Length 1.5 1.3 1.2 -Current Size (cm) - Width 1.5 1.0 0.9 -Current Size (cm) - Depth 0.2 0.3 0.2 -Total Square Cm 2.25 1.30 1.08 -Photo Taken Yes Yes -Epithelialization Medium 34-66% -Tunneling No No -Undermining/Tunneling No No -Circular Undermining No No -Exudate Amt Medium Small Medium -Exudate Type Serosanguineous Serosanguineous Serosanguineous -Wound Margin Distinct, Thickened & Thickened & Outline Rolled Under Rolled Under Attached -Granulation Amt Medium (34-66%) Small (1-33%) Medium (34-66%) -Granulation Quality [place] -Slough/Fibrin Yes Yes Yes -Necrosis Amt Medium (34-66%) Medium (34-66%) Medium (34-66%) -Necrotic Tissue Type Adherent Slough Adherent Slough Adherent Slough -Structure Exposed None/Limited to N/A Skin Breakdown -Texture (Antoinette-wound Skin Appearance) Assessed No Abnormality Assessed -Moisture (Antoinette-wound Skin Appearance) Assessed Assessed -Color (Antoinette-wound Skin Appearance) Assessed Assessed Assessed -Temperature (Antoinette-wound Skin No Abnormality No Abnormality No Abnormality Appearance) (Pt Warm) (Pt Warm) (Pt Warm) -Tenderness on Palpation (Antoinette-wound No No No Skin Appearance) -Ulcer Cleansing Rinsed/ Rinsed/ Wound Cleanser Irrigated with Irrigated with Saline Saline -Foul Odor after Cleansing No No No -Anesthetic Used 5% Lidocaine 5% Lidocaine 5% Lidocaine Gel Gel Gel Lower Limb Edema Present No Yes Right Calf (cm) 33.2 Right Ankle (cm) 22 03/24/25 08:37 Wound Center Nurse 1 1. RT ARMIJO -Combined with other wound -Current Size (cm) - Length 1.5 -Current Size (cm) - Width 1 -Current Size (cm) - Depth 0.2 -Total Square Cm 1.5 -Photo Taken -Epithelialization -Tunneling -Undermining/Tunneling -Circular Undermining -Exudate Amt Small -Exudate Type Serosanguineous -Wound Margin Distinct, Outline Attached -Granulation Amt Medium (34-66%) -Granulation Quality -Slough/Fibrin -Necrosis Amt Medium (34-66%) -Necrotic Tissue Type Adherent Slough -Structure Exposed -Texture (Antoinette-wound Skin Appearance) Assessed -Moisture (Antoinette-wound Skin Appearance) Assessed -Color (Antoinette-wound Skin Appearance) Assessed -Temperature (Antoinette-wound Skin No Abnormality Appearance) (Pt Warm) -Tenderness on Palpation (Antoinette-wound No Skin Appearance) -Ulcer Cleansing Rinsed/ Irrigated with Saline -Foul Odor after Cleansing No -Anesthetic Used 5% Lidocaine Gel Lower Limb Edema Present Right Calf (cm) 34.5 Right Ankle (cm) 23 WC - Nurse 2 - General Ulcer CM Notes Start: 03/03/25 08:23 Freq: Status: Active Protocol: Activity Type Activity Date Activity User E-sign Co-sign Detail Recorded Client Recorded Date Recorded By Document 03/03/25 08:39 DS [id number] 03/03/25 08:42 DS Document 03/10/25 08:49 DS [id number] 03/10/25 08:55 DS Document 03/17/25 08:35 DS [id number] 03/17/25 08:38 DS Document 03/24/25 08:52 DS [id number] 03/24/25 08:54 DS 03/03/25 03/10/25 03/17/25 08:39 08:49 08:35 Wound Center Nurse 2 1. RT ARMIJO -Time 08:39 08:49 08:35 -Correct Patient Yes Yes Yes -Correct Side, Site, Position Yes Yes Yes -Correct Procedure Yes Yes Yes -Procedure Performed Yes Yes Yes -Type of Procedure Debridement Debridement Debridement -Clinical Debridement Subcutaneous Subcutaneous Subcutaneous -Tissue Removed Subcutaneous Subcutaneous Subcutaneous -Post Debridement (cm) - Length 1.4 1.3 1.2 -Post Debridement (cm) - Width 1.4 1.2 1.1 -Post Debridement (cm) - Depth 0.2 0.2 0.2 -Total Square (Post) (cm) 1.96 1.56 1.32 -Area of Debridement (cm) - Length 1.4 1.3 1.2 -Area of Debridement (cm) - Width 1.4 1.2 1.1 -Total Square (Area) (cm) 1.96 1.56 1.32 -Tunneling No No No -Undermining/Tunneling No No No -Circular Undermining No No No -Wound/Ulcer Outcome Not Healed Not Healed Not Healed -Ulcer Cleansing gauze gauze gauze -Foul Odor after Cleansing No No No -Bioengineered Tissue No No No -Bleeding Controlled with Pressure Pressure Pressure -Treatment Response Procedure Procedure Procedure Tolerated Well Tolerated Well Tolerated Well -Debridement - Subq, 1st 20sq cm Yes Yes Yes Pain Scale: 0-10 Numeric Is Patient Pain Free? Yes Yes Yes 03/24/25 08:52 Wound Center Nurse 2 1. RT ARMIJO -Time 08:52 -Correct Patient Yes -Correct Side, Site, Position Yes -Correct Procedure Yes -Procedure Performed Yes -Type of Procedure Debridement -Clinical Debridement Subcutaneous -Tissue Removed Subcutaneous -Post Debridement (cm) - Length 1.3 -Post Debridement (cm) - Width 1.2 -Post Debridement (cm) - Depth 0.1 -Total Square (Post) (cm) 1.56 -Area of Debridement (cm) - Length 1.3 -Area of Debridement (cm) - Width 1.2 -Total Square (Area) (cm) 1.56 -Tunneling No -Undermining/Tunneling No -Circular Undermining No -Wound/Ulcer Outcome Not Healed -Ulcer Cleansing Rinsed/ Irrigated with Saline -Foul Odor after Cleansing -Bioengineered Tissue No -Bleeding Controlled with Pressure -Treatment Response Procedure Tolerated Well -Debridement - Subq, 1st 20sq cm Yes Pain Scale: 0-10 Numeric Is Patient Pain Free? Yes - Nurse 3 - General Ulcer D/C NN Start: 03/03/25 08:23 Freq: Status: Active Protocol: Activity Type Activity Date Activity User E-sign Co-sign Detail Recorded Client Recorded Date Recorded By Document 03/03/25 08:57 [id number] 03/03/25 08:58 Document 03/10/25 09:09 JF [id number] 03/10/25 09:10 JF Document 03/24/25 09:06 DS [id number] 03/24/25 09:12 DS 03/03/25 03/10/25 03/24/25 08:57 09:09 09:06 Wound Care Center Nurse 3 1. RT ARMIJO -Ulcer Cleansing Rinsed/ Rinsed/ Irrigated with Irrigated with Saline Saline -Foul Odor after Cleansing No No -Primary Dressing Applied Aquacel AG 4x4 Aquacel AG 2x2 Aquacel AG 4x4 -Primary Dressing Covered/Secured with Dry Gauze & Dry Gauze & Dry Gauze, Roll Gauze, Roll Gauze, Secured with Secured with Secured with Tape Tape Tape -Patient Supplied Dressing Yes -Aquacel AG 2x2 1 -Aquacel AG 4x4 1 0 -Wound Comment(s) pt used own compression sock from last visit. didnt want a new sock RLE -Tubular Bandage Double Layer Double Layer Double Layer -Size of Tubigrip Used Size D Size D Size D -Size D ($) 2 2 0 Pain Scale: 0-10 Numeric Is Patient Pain Free? Yes Yes Yes WC - Visit Discharge Discharge Condition Stable Stable Stable Ambulatory Status Ambulatory Ambulatory Ambulatory Transportation Private Auto Private Auto Private Auto Medication Reconcilliation completed & No No provided to patient/care provider Clinical Summary of Care Provided No No Charges/Coding Procedures Integumentary [id number]: [id number] Tabatha subq tissue 20 sq cm/< Assessment/Plan Assessment/Plan (1) Non-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 layer exposed: CODE(S): L97.912 - Non-pressure chronic ulcer of unspecified part of right lower leg with fat layer exposed (2) Leg laceration: CODE(S): S81.819A - Laceration without foreign body, unspecified lower leg, initial encounter QUALIFIERS: Encounter type: subsequent encounter Laterality: right Qualified Code(s): S81.811D - Laceration without foreign body, right lower leg, subsequent encounter (3) Restrictive lung disease: CODE(S): J98.4 - Other disorders of lung (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: CODE(S): Z79.01 - skilled nursing (current) use of anticoagulants (5) Rheumatoid arthritis: CODE(S): M06.9 - Rheumatoid arthritis, unspecified (6) History of ear surgery: CODE(S): Z98.890 - Other specified postprocedural states (7) Multiple premature ventricular complexes: CODE(S): I49.49 - Other premature depolarization (8) Paroxysmal atrial fibrillation: CODE(S): I48.0 - Paroxysmal atrial fibrillation (9) Essential hypertension: CODE(S): I10 - Essential (primary) hypertension (10) HLD (hyperlipidemia): CODE(S): E78.5 - Hyperlipidemia, unspecified QUALIFIERS: Hyperlipidemia type: unspecified Qualified Code(s): E78.5 - Hyperlipidemia, unspecified (11) Interstitial lung disease: CODE(S): J84.9 - Interstitial pulmonary disease, unspecified (12) Asthma: CODE(S): J45.909 - Unspecified asthma, uncomplicated QUALIFIERS: Asthma severity: mild Asthma persistence: intermittent Asthma complication type: uncomplicated Qualified Code(s): J45.20 - Mild intermittent asthma, uncomplicated (13) MAURI (obstructive sleep apnea): CODE(S): G47.33 - Obstructive sleep apnea (adult) (pediatric) (14) Erectile dysfunction: CODE(S): N52.9 - Male erectile dysfunction, unspecified (15) Testosterone deficiency: CODE(S): E34.9 - Endocrine disorder, unspecified (16) DM (diabetes mellitus), type 2 with peripheral vascular complications: CODE(S): E11.51 - Type 2 diabetes mellitus with diabetic peripheral angiopathy without gangrene (17) Parkinsons disease: CODE(S): G20.A1 - Parkinson's disease without dyskinesia, without mention of fluctuations QUALIFIERS: Dyskinesia presence: without dyskinesia PLAN: Plan This is a 75-year-old male who presented with a traumatic wound on the right pretibial surface. He had tripped over a ladder on January 04, 2025, resulting in a traumatic wound on the right pretibial surface. The events related to the management of this traumatic wound have been documented herein. The patient is noted to have multiple pre-existing medical problems, which are listed elsewhere within this document. Because of the appearance of the wound and the antoinette-wound erythema, a swab was obtained for aerobic and anaerobic bacterial growth was recently obtained. The results were negative for both aerobic and anaerobic bacterial growth. The patient's labs have been reviewed, and it is noted that his hemoglobin A1c was 6.5 on January 08, 2025. The patient has been encouraged to optimize his nutritional intake, as well as his diabetic control. He checks his blood sugars regularly, and indicates that they are typically within desired levels. We are to continue the use of moistened Aquacel Ag topically within the patient's traumatic wound. This is to be applied on a daily basis. The patient and his have been instructed in the appropriate means of application. The patient has been encouraged to elevate his lower extremities as much as possible. Elevation is to be to heart level, or higher. He is to continue sleeping on a flat mattress at night. Double Tubigrips are to be donned on a daily basis to prevent and minimize swelling in the lower extremity. We are to seek preauthorization for the use of a series of EpiFix allografts at the site of the patient's wound. The patient is to return in 1 week for reevaluation. Total time: 25 minutes
--- NOTE | 2025-03-25 09:42 | WC ---
PHOTO-RIGHT FIERRO 03/24/25
== END 2025-03-27 23:59 | disposition home or self-care (01) ==
LOC: WC 08:30
PROVIDERS: PCP Internal Medicine; Referring Provider Internal Medicine; Visit Provider Surgery
DX: S81.811A Laceration without foreign body, right lower leg, initial encounter (principal); M06.9 Rheumatoid arthritis, unspecified; G20.A1 Parkinson's disease without dyskinesia, without mention of fluctuations; J84.9 Interstitial pulmonary disease, unspecified; I48.0 Paroxysmal atrial fibrillation; E11.51 Type 2 diabetes mellitus with diabetic peripheral angiopathy without gangrene; Z87.891 Personal history of nicotine dependence; J45.20 Mild intermittent asthma, uncomplicated; I10 Essential (primary) hypertension; G47.33 Obstructive sleep apnea (adult) (pediatric); Z79.899 Other long term (current) drug therapy; W01.198A Fall on same level from slipping, tripping and stumbling with subsequent striking against other object, initial encounter
CPT/HCPCS: 11042; 87070; 87075; 87205

== ENCOUNTER → 2025-03-31 | Outpatient (CLI) | payer MEDICARE, SELFPAY ==
--- NOTE | 2025-03-31 12:54 | SP.MBSS_ITS ---
Modified Barium Swallow
--- NOTE | 2025-03-31 12:54 | ST.MBS ---
Modified Barium Swallow Patient Information Study Date: 03/31/25 Study Time: 12:55 Direct Billable Minutes: 67 Total Minutes procedure & reportin Diagnosis: Dysphagia R13.10 Referring Physician: Jelly Brantley NP Reason for Referral: Pt's noticed increased coughing after liquids during evening meals for the past 2 months per pt report. He denies dysphagia w/ foods, odynophagia, or hx of choking. He denies hx of neurological disease; however, chart review reveals hx of PD. Pt did report hx of ILD. His primary care [employer], Jelly Brantley, recommended this MBSS for further assessment of swallowing difficulty. 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 layer exposed Leg wound, left Visit for suture removal Encounter for wound care Leg edema, left Leg laceration Worsening headaches Temporal headache Wears hearing aid Wears glasses Alcohol use Bladder disease Arthritis Restless legs Back pain Headache Former smoker BiPAP (biphasic positive airway pressure) dependence Interstitial emphysema of lung Leg cramps Hypertension History of echocardiogram Cardiology follow-up encounter Colon cancer screening Multiple premature ventricular complexes Left ankle pain Interstitial lung disease Chronic atrial fibrillation Asthma Viral syndrome history of bone fracture Paroxysmal atrial fibrillation Abnormal CXR DM (diabetes mellitus), type 2 with peripheral vascular complications History of immunosuppressive therapy Rheumatoid arthritis Essential hypertension Testosterone deficiency Elevated LFTs Erectile dysfunction Palpitations Paroxysmal ventricular tachycardia HLD (hyperlipidemia) Current Diet Ordered: Regular textures / Thin liquids Dentition: Natural Teeth and Missing Teeth Mental Status: WNL Respiratory Status: Oxygenating on Room Air Penetration-Aspiration Scale Penetration-Aspiration Scale: OBJECTIVE ASSESSMENT OF SWALLOW FUNCTION (QUANTITATIVE ? PER TRIAL): PENETRATION / ASPIRATION SCALE (STEWARD): 1 = does not enter airway 2 = enters airway/above vocal folds/ejected 3 = enters airway/above vocal folds/not ejected 4 = enters airway/contacts vocal folds/ejected 5 = enters airway/contacts vocal folds/not ejected 6 = enters airway/below vocal folds/ejected 7 = enters airway/below vocal folds/not ejected despite effort 8 = enters airway/below vocal folds/no effort VIDEOFLOROSCOPIC SCALE SCORE (STEWARD): Grade I = aspiration of material that has penetrated into the laryngeal vestibule, intact cough reflex Grade II = aspiration < 10 % of the bolus, intact cough reflex Grade III = aspiration of < 10 % of the bolus, reduced cough reflex or aspiration of > 10 % of the bolus, intact cough reflex Grade IV = aspiration of > 10 % of the bolus, reduced cough reflex Penetration-Aspiration Scale Score Thin Liquid via teaspoon: Result: 1= does not enter airway Thin Liquid via teaspoon Trial 2: Result: 1= does not enter airway Thin Liquid via large single sip: cup: Result: 2= enter airway/above vocal folds/ejected Thin Liquid via sequential sips: cup: Result: 3= enters airways/above vocal folds/not ejected Comment: Esophageal screen - Moderate retention in the middle and lower esophagus. Pudding via teaspoon: Result: 1= does not enter airway Comment: Esophageal screen - Complete clearance. 1/2 Cookie: Result: 1= does not enter airway Comment: Esophageal screen - Moderate retention in the upper esophagus, mild retention in the lower esophagus. Thin Liquid via single sip: straw: Result: 2= enter airway/above vocal folds/ejected Comment: Esophageal screen - Liquid wash effectively cleared retention of previous trial through the LES. Thin Liquid via single sip: straw Effortful swallow: Result: 2= enter airway/above vocal folds/ejected Comment: Trace retention in the UES w/ retrograde flow Thin Liquid via small single sip: cup Effortful swallow: Result: 1= does not enter airway Comment: Trace retention in the upper esophagus w/ retrograde flow through the UES. Oral Phase Labial Seal: No Labial Escape Tongue Control During Bolus Hold: Posterior escape of greater than half of bolus Bolus Preparation/Mastication: Timely and efficient chewing and mashing Bolus Transport/Lingual Motion: Delayed initiation of tongue motion Oral Residue: Trace residue lining oral structures Pharyngeal Phase Initiation of Pharyngeal Swallow: Bolus head in pyriforms Soft Palate Elevation: Trace column of contrast/air between soft palate and pharyngeal wall Laryngeal Elevation: Partial superior movement thyroid cart/partial apprx aryt-epig petiole Anterior Hyoid Excursion: Partial anterior movement Epiglottic Movement: Complete inversion Laryngeal Vestibule Closure at Height of Swallow: Incomplete; narrow column of air/contrast in laryngeal vestibule Pharyngeal Stripping Wave: Present - diminished Pharyngoesophageal Segment Opening: Parital distension and partial duration; parital obstruction of flow Tongue Base Retraction: Narrow column of contrast between tongue base & post. pharyngeal wall Pharyngeal Residue: Collection of residue within or on pharyngeal structures Esophageal Phase Esophageal Clearance: Esophageal retention w/ retrograde flow through pharyngoesophageal seg Diagnosis/Impression Diagnosis: Mild oropharyngeal dysphagia R13.12; Mild esophageal dysphagia R13.14 MBS Impressions: The oral phase is primarily marked by... -Delayed tongue motion for A-P transport. -Posterior loss of >1/2 of thin liquids to the pharynx prior to swallow onset. The pharyngeal phase is primarily marked by... -Delayed initiation of the pharyngeal swallow. -Mild pharyngeal residue due to mildly decreased pharyngeal stripping wave and TB retraction. -Decreased anterior hyoid excursion and laryngeal elevation. Laryngeal penetration of thin liquids, which did not fully eject w/ sequential sips of thin liquids (very trace residuals in the laryngeal vestibule). No aspiration observed. Use of effortful swallow decreased depth of laryngeal penetration and risk for aspiration. The esophageal phase is primarily marked by... -Moderate retention in the middle and lower esophagus w/ sequential sips of thin liquids. -Moderate retention in the upper esophagus, mild retention in the lower esophagus w/ cookie. Liquid wash effectively cleared cookie through the LES. -Trace retention of liquids in the upper esophagus w/ retrograde flow through the UES. Recommendations Diet: Regular Textures and Thin Liquids Compensatory Strategies: Small Bites, Small Sips (Effortful swallows), Slow Rate (Sips one at a time), Alternate bites/solids and sips/liquids (Take a sip after bites of dry, solid foods) and Sitting upright (During and 30-60min after meals) Recommend Repeat Modified Barium Swallow: TBD Need for Skilled Speech Therapy Services: Yes Comment: -Train the patient in use of strategies to decrease risk for aspiration and reflux aspiration. -GERD education (pt coughs more w/ liquids at evening meals). -Train the patient in oropharyngeal exercise program to improve bolus control, swallow onset, pharyngeal motility, and UES opening/duration (lingual resistance, Vasile, Effortful, Yawn stretch). Recommended Referrals: GI Consult Education Completed: 1. Described result of evaluation., 2. Pt understands evaluation & agrees with goals and treatment plan. and 7. Pt requires further education on strategies & risks. Status Active ST Patient: Active Contact Information [facility] Speech Therapy:: Patricia Pardo M.A. [facility]-TRANSITIONAL STUDIES INSTRUCTOR Speech-Language Pathologist [facility] [address] [place] [address] [email or web address] [phone]
== END | disposition home or self-care (01) ==
LOC: RAD 12:43
PROVIDERS: PCP Internal Medicine; Referring Provider Nurse Practitioner Acute Care; Visit Provider Nurse Practitioner Acute Care
DX: R13.10 Dysphagia, unspecified (principal)
CPT/HCPCS: 74230; 92611